=== PATIENT | male | born 1950 | race Caucasian/White ===

== ENCOUNTER 2020-07-14 19:48 | Inpatient (IN) | payer MEDICARE, OTHER ==
[2020-07-14] MEDS ORDERED: IPRATROPIUM 0.5 MG/2.5 ML NEBU INHALATION STA (19:49)
[2020-07-14] MEDS ORDERED: methylPREDNISolone SOD SUCCI 125 MG/2 ML VIAL IV STA (19:49)
[2020-07-14] MEDS ORDERED: ALBUTEROL NEBULIZED 2.5 MG/3 ML INHALATION STA (19:49)
--- NOTE | 2020-07-14 20:07 | XR ---
EXAMINATION TYPE: XR chest 1V portable DATE OF EXAM: 07/14/2020 COMPARISON: NONE HISTORY: Difficulty breathing TECHNIQUE: Single view FINDINGS: There is no heart failure nor confluent pneumonic infiltrate. Costophrenic angles are clear . There are no hilar masses. IMPRESSION: No active cardiopulmonary disease. There is mild pulmonary hyperinflation suggestive of C OPD.
--- NOTE | 2020-07-14 20:17 | ED ---
General Adult HPI - General Chief complaint: Shortness of Breath Stated complaint: MILLIE Time Seen by Provider: 07/14/20 19:49 Source: patient, EMS, RN notes reviewed, old records reviewed Mode of arrival: EMS Limitations: physical limitation - History of Present Illness Initial comments: 69-year-old male with severe respiratory distress, history of tobacco use. History is limited secondary to severe respiratory distress. Transported by EMS as a priority one on CPAP. Given albuterol and Atrovent during transport. Patient denying central chest pain. Denying fevers. - Related Data Allergies Allergy/AdvReac Type Severity Reaction Status Date / Time No Known Allergies Allergy Verified 07/14/20 19:56 Review of Systems ROS Statement: Those systems with pertinent positive or pertinent negative responses have been documented in the HPI. ROS Other: All systems not noted in ROS Statement are negative. Past Medical History Past Medical History: COPD, Hypertension Additional Past Medical History / Comment(s): engarged right ventricle History of Any Multi-Drug Resistant Organisms: None Reported Past Surgical History: No Surgical Hx Reported Past Psychological History: No Psychological Hx Reported Smoking Status: Current every day smoker Past Alcohol Use History: Daily Past Drug Use History: Marijuana General Exam Limitations: no limitations General appearance: alert, in distress Head exam: Present: atraumatic, normocephalic Eye exam: Present: normal appearance, PERRL Neck exam: Present: normal inspection. Absent: tenderness, meningismus Respiratory exam: Present: respiratory distress, wheezes, accessory muscle use, decreased breath sounds, prolonged expiratory Cardiovascular Exam: Present: regular rate, normal rhythm GI/Abdominal exam: Present: soft. Absent: distended, tenderness, guarding Extremities exam: Present: normal inspection, normal capillary refill. Absent: pedal edema, joint swelling Neurological exam: Present: alert, oriented X3, CN II-XII intact. Absent: motor sensory deficit Psychiatric exam: Present: anxious Skin exam: Present: warm, dry, intact. Absent: cyanosis, diaphoretic Course Vital Signs 07/14/20 07/14/20 07/14/20 19:50 20:00 20:30 Pulse Rate 106 H 100 96 Respiratory 40 H Rate Blood Pressure 203/120 O2 Sat by Pulse 96 Oximetry 07/14/20 20:52 Pulse Rate 95 Respiratory Rate Blood Pressure O2 Sat by Pulse Oximetry - Reevaluation(s) Reevaluation #1: 07/14/20 21:11 Patient reevaluated, symptoms have improved, increased oxygenation and decreased work of breathing. He has no pain complaints. Denying chest pain. No preceding fever. EKG Findings - EKG Comments: EKG Findings:: EKG: Normal sinus rhythm, left axis deviation, rate of 86, AL interval 154, QRS duration 102, QTC 471, no ST segment elevation. Medical Decision Making - Medical Decision Making 69-year-old male presenting in severe respiratory distress. Hypoxic by EMS and the 60s. Placed on CPAP during transport. X-ray performed negative for pneumothorax or focal pneumonia, consistent with COPD with hyperinflation. Patient has a normal CBC. Normal CMP, magnesium 1.4 which is replaced. Negative troponin. he will be admitted for COPD exacerbation. Continued on BiPAP. Dr. Gibson aware of patient. - Lab Data Result diagrams: 07/14/20 20:11 07/14/20 20:11 Lab Results 07/14/20 07/14/20 07/14/20 Range/Units 20:11 20:11 20:11 WBC 6.5 (3.8-10.6) k/uL RBC 4.66 (4.30-5.90) m/uL Hgb 15.1 (13.0-17.5) gm/dL Hct 44.5 (39.0-53.0) % MCV 95.5 (80.0-100.0) fL MCH 32.5 (25.0-35.0) pg MCHC 34.1 (31.0-37.0) g/dL RDW 13.7 (11.5-15.5) % Plt Count 278 (150-450) k/uL MPV 6.4 Neutrophils % 59 % Lymphocytes % 34 % Monocytes % 3 % Eosinophils % 1 % Basophils % 0 % Neutrophils # 3.8 (1.3-7.7) k/uL Lymphocytes # 2.2 (1.0-4.8) k/uL Monocytes # 0.2 (0-1.0) k/uL Eosinophils # 0.1 (0-0.7) k/uL Basophils # 0.0 (0-0.2) k/uL PT 9.9 (9.0-12.0) sec INR 0.9 (<1.2) APTT 21.2 L (22.0-30.0) sec VBG pH (7.31-7.41) VBG pCO2 (37-51) mmHg VBG HCO3 (24-28) mmol/L Sodium 136 L (137-145) mmol/L Potassium 4.0 (3.5-5.1) mmol/L Chloride 99 (98-107) mmol/L Carbon Dioxide 21 L (22-30) mmol/L Anion Gap 16 mmol/L BUN 15 (9-20) mg/dL Creatinine 0.71 (0.66-1.25) mg/dL Est GFR (CKD-EPI)AfAm >90 (>60 ml/min/1.73 sqM) Est GFR (CKD-EPI)NonAf >90 (>60 ml/min/1.73 sqM) Glucose 158 H (74-99) mg/dL Calcium 9.4 (8.4-10.2) mg/dL Magnesium 1.4 L (1.6-2.3) mg/dL Total Bilirubin 0.3 (0.2-1.3) mg/dL AST 62 H (17-59) U/L ALT 10 (4-49) U/L Alkaline Phosphatase 97 (38-126) U/L Troponin I (0.000-0.034) ng/mL Total Protein 6.8 (6.3-8.2) g/dL Albumin 4.3 (3.5-5.0) g/dL 07/14/20 07/14/20 Range/Units 20:11 20:11 WBC (3.8-10.6) k/uL RBC (4.30-5.90) m/uL Hgb (13.0-17.5) gm/dL Hct (39.0-53.0) % MCV (80.0-100.0) fL MCH (25.0-35.0) pg MCHC (31.0-37.0) g/dL RDW (11.5-15.5) % Plt Count (150-450) k/uL MPV Neutrophils % % Lymphocytes % % Monocytes % % Eosinophils % % Basophils % % Neutrophils # (1.3-7.7) k/uL Lymphocytes # (1.0-4.8) k/uL Monocytes # (0-1.0) k/uL Eosinophils # (0-0.7) k/uL Basophils # (0-0.2) k/uL PT (9.0-12.0) sec INR (<1.2) APTT (22.0-30.0) sec VBG pH 7.32 (7.31-7.41) VBG pCO2 43 (37-51) mmHg VBG HCO3 21 L (24-28) mmol/L Sodium (137-145) mmol/L Potassium (3.5-5.1) mmol/L Chloride (98-107) mmol/L Carbon Dioxide (22-30) mmol/L Anion Gap mmol/L BUN (9-20) mg/dL Creatinine (0.66-1.25) mg/dL Est GFR (CKD-EPI)AfAm (>60 ml/min/1.73 sqM) Est GFR (CKD-EPI)NonAf (>60 ml/min/1.73 sqM) Glucose (74-99) mg/dL Calcium (8.4-10.2) mg/dL Magnesium (1.6-2.3) mg/dL Total Bilirubin (0.2-1.3) mg/dL AST (17-59) U/L ALT (4-49) U/L Alkaline Phosphatase (38-126) U/L Troponin I <0.012 (0.000-0.034) ng/mL Total Protein (6.3-8.2) g/dL Albumin (3.5-5.0) g/dL Critical Care Time Critical Care Time: Yes Total Critical Care Time: 35 Disposition Clinical Impression: Acute exacerbation of chronic obstructive pulmonary disease Disposition: ADMITTED IP TO THIS [facility] Condition: Stable Is patient prescribed a controlled substance at d/c from ED?: No Referrals: None,Stated [Primary Care Provider] - 1-2 days Decision to Admit Reason: Admit from EC Decision Date: 07/14/20 Decision Time: 21:12
[2020-07-14 20:31] LABS: Basophils % (A) 0 %; Eosinophils # (A) 0.1 k/uL (0-0.7); Eosinophils % (A) 1 %; HCT 44.5 % (39.0-53.0); HGB 15.1 gm/dL (13.0-17.5); Lymphocytes # (A) 2.2 k/uL (1.0-4.8); Lymphocytes % (A) 34 %; MCH 32.5 pg (25.0-35.0); MCHC 34.1 g/dL (31.0-37.0); MCV 95.5 fL (80.0-100.0); Mean Platelet Volume 6.4; Monocytes # (A) 0.2 k/uL (0-1.0); Monocytes % (A) 3 %; Neutrophils # (A) 3.8 k/uL (1.3-7.7); Neutrophils % (A) 59 %; Platelet Count 278 k/uL (150-450); RBC 4.66 m/uL (4.30-5.90); RDW 13.7 % (11.5-15.5); WBC 6.5 k/uL (3.8-10.6)
[2020-07-14 20:32] LABS: VBG PH 7.32 (7.31-7.41)
[2020-07-14 20:49] LABS: ALT 10 U/L (4-49); AST 62 U/L (17-59); African American GFR (CKD) >90 (>60 ml/min/1.73 sqM); Albumin 4.3 g/dL (3.5-5.0); Alkaline Phosphatase 97 U/L (38-126); Anion Gap 16 mmol/L; Blood Urea Nitrogen 15 mg/dL (9-20); Calcium 9.4 mg/dL (8.4-10.2); Carbon Dioxide 21 mmol/L (22-30); Chloride 99 mmol/L (98-107); Glucose 158 mg/dL (74-99); Magnesium 1.4 mg/dL (1.6-2.3); Non-African American GFR(CKD) >90 (>60 ml/min/1.73 sqM); Sodium 136 mmol/L (137-145); Total Bilirubin 0.3 mg/dL (0.2-1.3); Total Protein 6.8 g/dL (6.3-8.2)
[2020-07-14 20:55] LABS: INR 0.9 (<1.2); Partial Thromboplastin Time 21.2 sec (22.0-30.0); Prothrombin Time 9.9 sec (9.0-12.0)
[2020-07-14] MEDS ORDERED: MAGNESIUM SULFATE-D5W PMX 1 GM in DEXTROSE/WATER 1 100ML.BAG IVPB ONE ×2 (21:03→23:30)
[2020-07-14] MEDS ORDERED: IPRATROPIUM-ALBUTEROL 3 ML NEB INHALATION PRN (21:09)
[2020-07-14] MEDS: SODIUM CHLORIDE 0.9% 1,000 ML IV SCH (21:27)
[2020-07-14 21:45] LABS: ABG Base Excess 1.3 mmol/L; ABG HCO3 26 mmol/L (21-25); ABG Oxygen Saturation 93.2 % (94-97); ABG PCO2 40 mmHg (35-45); ABG PH 7.42 (7.35-7.45); ABG PO2 68 mmHg (83-108); ABG TCO2 27 mmol/L (19-24); Allen Test Performed? Yes
--- NOTE | 2020-07-14 22:39 | P.HPIM ---
History of Present Illness H&P Date: 07/14/20 The patient is a 69-year-old male with a PMH of tobacco abuse, Parkinson's, anxiety, and hypothyroidism who was brought into the the emergency room due to shortness of breath. The patient notes that he was in his usual state of health until about 7 PM tonight when he developed an intractable cough. He then developed shortness of breath which would not subside, at which time he activated EMS. The patient was on BiPAP during the interview. As per the ED physician, the patient had very diminished air entry bilaterally and was in respiratory distress. EMS had found the patient to be hypoxic with SpO2 in the 60s and administered DuoNeb's en-route to the hospital. He reported a long-standing history of tobacco abuse, and that he continues to smoke one pack of cigarettes every 2-3 days. He however denied ever being diagnosed with COPD, ever being hospitalized for his breathing, and notes that he does not use any inhalers. He reported feeling significantly better after the breathing tr eatments and asked if he could be taken off BiPAP. He denied chest discomfort, fever, chills. Denied nausea, vomiting, abdominal pain, diarrhea. He denied headaches, weakness, numbness, tingling. In the emergency room, chest x-ray was suggestive of COPD with EKG showing normal sinus rhythm at 86 bpm with left axis deviation. Laboratory evaluation was remarkable for a lactic acid of 3.7, glucose 158, magnesium 1.4, AST 62, troponin less than 0.012, and proBNP 147. Review of systems: Pertinent positives and negatives as discussed in HPI, a complete review of systems was performed and all other systems are negative. Physical examination: General: non toxic, no distress, appears at stated age, normal weight Derm: Left upper back 7 days centimeter circular stage II ulcer, no unusual ecch ymoses, warm, dry Head: atraumatic, normocephalic, symmetric Eyes: EOMI, no lid lag, anicteric sclera, pupils equal round reactive to light ENT: Nose and ears atraumatic, no thrush, no pharyngeal erythema Neck: No thyromegaly, no cervical lymphadenopathy, trachea midline, supple Mouth: no lip lesion, mucus membranes moist Cardiovascular: S1S2 reg, no murmur, positive posterior tibial pulse bilateral, no edema, capillary refill less than 2 seconds Lungs: Somewhat poor air entry bilaterally, no rhonchi, no rales , no accessory muscle use Abdominal: soft, nontender to palpation, no guarding, no appreciable organomegaly, normal bowel sounds Ext: no gross muscle atrophy, muscle strength 5 out of 5 in all 4 extremities grossly, no contractures, Neuro: CN II-XI grossly intact, light touch intact all 4 extremities, finger to nose within normal limits, Psych: Alert, oriented, appropriate affect Assessment/plan Shortness of breath, suspected acute COPD exacerbation -Continue with DuoNeb's -BiPAP when necessary -Solu-Medrol -Pulmonary consult Lactic acidosis -IV fluids and monitor for resolution Hypomagnesemia -Replace and monitor Left upper back ulcer -Wound care consult DVT prophylaxis -Heparin subq The patient is admitted with an anticipated greater than 2 midnight stay for evaluation of COPD exacerb CODE STATUS: Full Code Discussed with: Patient Anticipated discharge date: 2-[address]: Home A total of 35 minutes was spent on the care of this complex patient more than 50% of the time was spent in counseling and care coordination. Past Medical History Past Medical History: COPD, Hypertension Additional Past Medical History / Comment(s): engarged right ventricle History of Any Multi-Drug Resistant Organisms: None Reported Past Surgical History: No Surgical Hx Reported Past Psychological History: No Psychological Hx Reported Smoking Status: Current every day smoker Past Alcohol Use History: Daily Past Drug Use History: Marijuana Medications and Allergies Home Medications Medication Instructions Recorded Confirmed Type Carbidopa-Levodopa ER 50-200Mg 1 tab PO TID 07/14/20 07/14/20 History [Sinemet ER 50-200] Levothyroxine Sodium [Synthroid] 150 mcg PO DAILY 07/14/20 07/14/20 History Loratadine 10 mg PO DAILY 07/14/20 07/14/20 History Omeprazole 20 mg PO DAILY 07/14/20 07/14/20 History Propranolol [Inderal] 40 mg PO BID 07/14/20 07/14/20 History clonazePAM [KlonoPIN] 0.5 mg PO DAILY 07/14/20 07/14/20 History clonazePAM [KlonoPIN] 1 mg PO HS 07/14/20 07/14/20 History Allergies Allergy/AdvReac Type Severity Reaction Status Date / Time No Known Allergies Allergy Verified 07/14/20 22:22 Physical Exam Vitals: Vital Signs Pulse Resp BP Pulse Ox 07/14/20 20:52 95 07/14/20 20:30 96 07/14/20 20:00 100 07/14/20 19:50 106 H 40 H 203/120 96 Intake and Output 07/14/20 07/14/20 07/14/20 06:59 14:59 22:59 Other: Weight 70.307 kg Results CBC & Chem 7: 07/14/20 20:11 07/14/20 20:11 Labs: Abnormal Lab Results - Last 24 Hours (Table) 07/14/20 07/14/20 07/14/20 Range/Units 20:11 20:11 20:11 APTT 21.2 L (22.0-30.0) sec VBG HCO3 (24-28) mmol/L Sodium 136 L (137-145) mmol/L Carbon Dioxide 21 L (22-30) mmol/L Glucose 158 H (74-99) mg/dL Plasma Lactic Acid Robin 3.7 H* (0.7-2.0) mmol/L Magnesium 1.4 L (1.6-2.3) mg/dL AST 62 H (17-59) U/L 07/14/20 Range/Units 20:11 APTT (22.0-30.0) sec VBG HCO3 21 L (24-28) mmol/L Sodium (137-145) mmol/L Carbon Dioxide (22-30) mmol/L Glucose (74-99) mg/dL Plasma Lactic Acid Robin (0.7-2.0) mmol/L Magnesium (1.6-2.3) mg/dL AST (17-59) U/L
[2020-07-15] MEDS: methylPREDNISolone SOD SUCCI 125 MG/2 ML VIAL IV SCH ×5 (00:31→23:00)
[2020-07-15] MEDS: clonazePAM 1 MG TAB PO SCH ×2 (00:32→21:10)
[2020-07-15] MEDS: LORATADINE 10 MG TAB PO SCH ×2 (00:32→09:15)
[2020-07-15] MEDS: LEVOTHYROXINE 75 MCG TAB PO SCH ×2 (00:32→06:20)
[2020-07-15] MEDS: CARBIDOPA-LEVODOPA ER 50-200MG 1 EACH TABLET.ER PO SCH ×4 (00:32→21:10)
[2020-07-15] MEDS: PROPRANOLOL 40 MG TAB PO SCH ×3 (00:32→21:10)
[2020-07-15] MEDS: PANTOPRAZOLE 40 MG TABLET PO SCH ×2 (00:32→06:21)
[2020-07-15] MEDS: HEPARIN SODIUM,PORCINE/PF 5,000 UNIT/0.5 ML SYRINGE SQ SCH ×4 (00:34→23:00)
[2020-07-15 06:15] LABS: Glucose,Whole Blood 134 mg/dL (75-99)
[2020-07-15] MEDS: INSULIN ASPART (NovoLOG) 100 UNIT/ML VIAL SQ SCH ×4 (06:17→21:10)
[2020-07-15] MEDS: SODIUM CHLORIDE 0.9% 1,000 ML IV SCH (06:20)
[2020-07-15] MEDS: IPRATROPIUM-ALBUTEROL 3 ML NEB INHALATION SCH ×4 (07:00→19:49)
[2020-07-15 08:41] LABS: African American GFR (CKD) >90 (>60 ml/min/1.73 sqM); Anion Gap 11 mmol/L; Blood Urea Nitrogen 17 mg/dL (9-20); Calcium 8.4 mg/dL (8.4-10.2); Carbon Dioxide 23 mmol/L (22-30); Chloride 98 mmol/L (98-107); Glucose 179 mg/dL (74-99); Magnesium 1.6 mg/dL (1.6-2.3); Non-African American GFR(CKD) >90 (>60 ml/min/1.73 sqM); Potassium 3.7 mmol/L (3.5-5.1); Sodium 132 mmol/L (137-145)
[2020-07-15] MEDS: clonazePAM 0.5 MG TAB PO SCH (09:15)
--- NOTE | 2020-07-15 09:43 | P.CNPUL ---
History of Present Illness Consult date: 07/15/20 Requesting physician: Gaby Gibson Reason for consult: dyspnea, cough, COPD, hypoxemia, abnormal CXR/CT Chief complaint: Shortness of breath. History of present illness: Pulmonary consult dated 07/15/2020. 69-year-old male, seen in the emergency room, which shortness of breath. The patient was seen on July 14. The patient states that for at least a week or so prior to admission, he been having increasing shortness of breath. The patient likely has underlying severe COPD. Smoking for more than 50 years at least a pack a day A be more. He was transported into the emergency room by EMS was treated with CPAP. He also received treatment with albuterol sulfate ipratropium bromide in route. The patient has never seen a lung doctor in the past. Patient was told by Dr. Beasley, that he had COPD. His current doctor is Dr. Jean Morse. In addition to shortness of breath, the patient does have a chronic cough, and chronic phlegm production. He denies any fever or chills. No chest pain or chest discomfort. He continues to smoke cigarettes but he apparently has cut back. His medical problem list includes COPD, hypertension, and enlarged right ventricle, probably consistent with pulmonary hypertension. Lab work is reviewed. Blood gases show pO2 of 68, pCO2 40, pH is 7.42. Sodium 132, potassium 3.7, chlorides 98, CO2 23, anion gap is 11 BUN 17, and creatinine 0.54. Testing for coronavirus was negative. Chest x-ray showed evidence of hyperinflation, flattened diaphragms, and lucent lung kohler consistent with COPD. Review of Systems REVIEW OF SYSTEMS: CONSTITUTIONAL: [Negative.] NEUROLOGIC: [ Negative.] HEENT: [ Negative.] CARDIAC: [Negative.] PULMONARY: Shortness of breath, cough, and phlegm production. GI: [Negative.] : [Negative.] RHEUMATOLOGIC: [ Negative.] IMMUNOLOGIC: [ Negative.] ENDOCRINE: [Negative. ] DERMATOLOGIC: [Negative.] Past Medical History Past Medical History: COPD, Hypertension Additional Past Medical History / Comment(s): engarged right ventricle History of Any Multi-Drug Resistant Organisms: None Reported Past Surgical History: No Surgical Hx Reported Past Psychological History: No Psychological Hx Reported Smoking Status: Current every day smoker Past Alcohol Use History: Daily Past Drug Use History: Marijuana Medications and Allergies Home Medications Medication Instructions Recorded Confirmed Type Carbidopa-Levodopa ER 50-200Mg 1 tab PO TID 07/14/20 07/14/20 History [Sinemet ER 50-200] Levothyroxine Sodium [Synthroid] 150 mcg PO DAILY 07/14/20 07/14/20 History Loratadine 10 mg PO DAILY 07/14/20 07/14/20 History Omeprazole 20 mg PO DAILY 07/14/20 07/14/20 History Propranolol [Inderal] 40 mg PO BID 07/14/20 07/14/20 History clonazePAM [KlonoPIN] 0.5 mg PO DAILY 07/14/20 07/14/20 History clonazePAM [KlonoPIN] 1 mg PO HS 07/14/20 07/14/20 History Allergies Allergy/AdvReac Type Severity Reaction Status Date / Time No Known Allergies Allergy Verified 07/14/20 22:22 Physical Exam Osteopathic Statement: *. No significant issues noted on an osteopathic structural exam other than those noted in the History and Physical/Consult. Vitals: Vital Signs Temp Pulse Pulse Resp BP BP Pulse Ox 07/15/20 07:09 68 16 07/15/20 07:00 68 16 99 07/15/20 06:00 97.5 F L 70 18 156/87 96 07/15/20 05:28 59 L 18 127/74 97 07/15/20 01:22 67 150/92 98 07/15/20 00:15 97.8 F 70 20 169/89 99 07/14/20 23:00 67 150/89 99 07/14/20 22:37 40 H 07/14/20 22:00 69 136/81 98 07/14/20 21:00 72 135/87 98 07/14/20 20:52 95 07/14/20 20:30 96 07/14/20 20:00 100 126/81 98 07/14/20 19:50 106 H 40 H 203/120 96 Intake and Output 07/14/20 07/15/20 07/15/20 22:59 06:59 14:59 Other: # Voids 0 Weight 70.307 kg 68 kg No acute distress, oriented 3. No conversational dyspnea or use of accessory muscles. Patient currently on 2 L nasal cannula with saturations of 99%. HEENT examination is grossly unremarkable. Neck supple. Full range of motion. No adenopathy thyromegaly or neck vein distention. Cardiovascular examination reveals regular rhythm rate. S1-S2 normal. No S3 or S4. No discernible murmur noted. Heart sounds are distant. Heart rate 68 bpm. Lungs reveal severely diminished bilateral breath sounds. Scattered expiratory rhonchi and wheezes are noted. No crackles. Breath sounds are equal bilaterally. Abdomen soft bowel sounds are heard. No masses or tenderness. Extremities are intact. No cyanosis clubbing or edema. Skin is without rash or lesion. Neurologic examination is brief but nonfocal. Results - Laboratory Findings CBC and BMP: 07/14/20 20:11 07/15/20 07:34 ABG ABG pH 7.42 (7.35-7.45) 07/14/20 21:40 ABG pCO2 40 mmHg (35-45) 07/14/20 21:40 ABG pO2 68 mmHg (83-108) L 07/14/20 21:40 ABG O2 Saturation 93.2 % (94-97) L 07/14/20 21:40 PT/INR, D-dimer PT 9.9 sec (9.0-12.0) 07/14/20 20:11 INR 0.9 (<1.2) 07/14/20 20:11 Abnormal lab findings: Abnormal Labs 07/14/20 07/14/20 07/14/20 20:11 20:11 20:11 APTT 21.2 L ABG pO2 ABG HCO3 ABG Total CO2 ABG O2 Saturation VBG HCO3 Sodium 136 L Carbon Dioxide 21 L Creatinine Glucose 158 H POC Glucose (mg/dL) Plasma Lactic Acid Robin 3.7 H* Magnesium 1.4 L AST 62 H 07/14/20 07/14/20 07/15/20 20:11 21:40 06:14 APTT ABG pO2 68 L ABG HCO3 26 H ABG Total CO2 27 H ABG O2 Saturation 93.2 L VBG HCO3 21 L Sodium Carbon Dioxide Creatinine Glucose POC Glucose (mg/dL) 134 H Plasma Lactic Acid Robin Magnesium AST 07/15/20 07:34 APTT ABG pO2 ABG HCO3 ABG Total CO2 ABG O2 Saturation VBG HCO3 Sodium 132 L Carbon Dioxide Creatinine 0.54 L Glucose 179 H POC Glucose (mg/dL) Plasma Lactic Acid Robin Magnesium AST - Diagnostic Findings Chest x-ray: image reviewed Assessment and Plan Assessment: Acute exacerbation of COPD, without obvious infection. History of hypothyroidism. History of hypertension. History of Parkinson's disease. History of ongoing tobacco use with nicotine addiction. Probable secondary pulmonary hypertension. Plan: Plan dated 07/15/2020. The patient's currently on appropriate medications which include albuterol sulfate and ipratropium bromide, 4 times a day and when necessary. In addition, the patient is on Pulmicort 1 mg mixed with formoterol 20 g twice a day. The patient's also receiving Solu-Medrol 60 mg every 6 hours. The patient is not on any antibiotics. He is receiving GI and DVT prophylaxis. He is counseled about the importance of smoking cessation. He will need a follow-up in the office post discharge, for complete pulmonary function testing. Time with Patient: Greater than 30
--- NOTE | 2020-07-15 10:53 | P.CONS ---
History of Present Illness - Reason for Consult Consult date: 07/15/20 wound care - History of Present Illness This is a 69 year old being seen by wound care center on 3 for non healing ulcer. The ulceration has been there for 3-4 years. He has treated it with triple antibiotic ointment. Patient states that the ulceration has waxed and waned over the year however for the last year the patient states that the ulceration has been worsening. Patient is unsure how the ulceration started. He is concerned that it is due to multiple x-rays to the site. Patient has never had a biopsy to the site. Ulceration measures approximately 7 x 4 x 0.1 cm with fat layer closure. The wound that shows granulation with minimal slough. And serosanguineous drainage. Periwound shows some scarring. There is no tunneling or undermining noted. Patient's past medical history significant for COPD and hypertension. He isn't every day nicotine and marijuana smoker. Review Of Systems: Constitutional: No fever, no chills, no night sweats. No weight change. No weakness, fatigue or lethargy. No daytime sleepiness. Integumentary:reports wounds, no lesions. No rash or pruritus. No unusual bruising. No change in hair or nails. Physical exam: General Appearance: Alert, cooperative, no distress, appears stated age. Skin: See HPI all other Skin color, texture, tugor normal, no rashes or lesions. Neurologic: Alert oriented x3 Assessment: 1. Nonhealing ulceration with fatty layer exposure left upper back. Plan: 1. Culture obtained. Patient would benefit from a biopsy. Apply collagen, saline moistened gauze, border foam change Tuesday. Patient will benefit from continued advance wound care. We'll be happy to see him in the wound care center. Patient verbalized understanding. Thank you for the consultation any questions please contact the wound care [facility] DNP note has been reviewed and discussed with Dr. Ren and the impression and plan of care has been directed as dictated. Past Medical History Past Medical History: COPD, Hypertension Additional Past Medical History / Comment(s): engarged right ventricle History of Any Multi-Drug Resistant Organisms: None Reported Past Surgical History: Back Surgery Additional Past Surgical History / Comment(s): back surgery x3, thyroid removed Past Psychological History: No Psychological Hx Reported Smoking Status: Current every day smoker Past Alcohol Use History: Daily Past Drug Use History: Marijuana Medications and Allergies Home Medications Medication Instructions Recorded Confirmed Type Carbidopa-Levodopa ER 50-200Mg 1 tab PO TID 07/14/20 07/14/20 History [Sinemet ER 50-200] Levothyroxine Sodium [Synthroid] 150 mcg PO DAILY 07/14/20 07/14/20 History Loratadine 10 mg PO DAILY 07/14/20 07/14/20 History Omeprazole 20 mg PO DAILY 07/14/20 07/14/20 History Propranolol [Inderal] 40 mg PO BID 07/14/20 07/14/20 History clonazePAM [KlonoPIN] 0.5 mg PO DAILY 07/14/20 07/14/20 History clonazePAM [KlonoPIN] 1 mg PO HS 07/14/20 07/14/20 History Allergies Allergy/AdvReac Type Severity Reaction Status Date / Time No Known Allergies Allergy Verified 07/14/20 22:22 Physical Exam Vitals: Vital Signs Temp Pulse Pulse Resp BP BP Pulse Ox 07/15/20 07:09 68 16 07/15/20 07:00 68 16 99 07/15/20 06:00 97.5 F L 70 18 156/87 96 07/15/20 05:28 59 L 18 127/74 97 07/15/20 01:22 67 150/92 98 07/15/20 00:15 97.8 F 70 20 169/89 99 07/14/20 23:00 67 150/89 99 07/14/20 22:37 40 H 07/14/20 22:00 69 136/81 98 07/14/20 21:00 72 135/87 98 07/14/20 20:52 95 07/14/20 20:30 96 07/14/20 20:00 100 126/81 98 07/14/20 19:50 106 H 40 H 203/120 96 Intake and Output 07/14/20 07/15/20 07/15/20 22:59 06:59 14:59 Other: # Voids 0 Weight 70.307 kg 68 kg 68 kg Results CBC & Chem 7: 07/14/20 20:11 07/15/20 07:34 Labs: Abnormal Lab Results - Last 24 Hours (Table) 07/14/20 07/14/20 07/14/20 Range/Units 20:11 20:11 20:11 APTT 21.2 L (22.0-30.0) sec ABG pO2 (83-108) mmHg ABG HCO3 (21-25) mmol/L ABG Total CO2 (19-24) mmol/L ABG O2 Saturation (94-97) % VBG HCO3 (24-28) mmol/L Sodium 136 L (137-145) mmol/L Carbon Dioxide 21 L (22-30) mmol/L Creatinine (0.66-1.25) mg/dL Glucose 158 H (74-99) mg/dL POC Glucose (mg/dL) (75-99) mg/dL Plasma Lactic Acid Robin 3.7 H* (0.7-2.0) mmol/L Magnesium 1.4 L (1.6-2.3) mg/dL AST 62 H (17-59) U/L 07/14/20 07/14/20 07/15/20 Range/Units 20:11 21:40 06:14 APTT (22.0-30.0) sec ABG pO2 68 L (83-108) mmHg ABG HCO3 26 H (21-25) mmol/L ABG Total CO2 27 H (19-24) mmol/L ABG O2 Saturation 93.2 L (94-97) % VBG HCO3 21 L (24-28) mmol/L Sodium (137-145) mmol/L Carbon Dioxide (22-30) mmol/L Creatinine (0.66-1.25) mg/dL Glucose (74-99) mg/dL POC Glucose (mg/dL) 134 H (75-99) mg/dL Plasma Lactic Acid Robin (0.7-2.0) mmol/L Magnesium (1.6-2.3) mg/dL AST (17-59) U/L 07/15/20 Range/Units 07:34 APTT (22.0-30.0) sec ABG pO2 (83-108) mmHg ABG HCO3 (21-25) mmol/L ABG Total CO2 (19-24) mmol/L ABG O2 Saturation (94-97) % VBG HCO3 (24-28) mmol/L Sodium 132 L (137-145) mmol/L Carbon Dioxide (22-30) mmol/L Creatinine 0.54 L (0.66-1.25) mg/dL Glucose 179 H (74-99) mg/dL POC Glucose (mg/dL) (75-99) mg/dL Plasma Lactic Acid Robin (0.7-2.0) mmol/L Magnesium (1.6-2.3) mg/dL AST (17-59) U/L
--- NOTE | 2020-07-15 12:14 | P.PN ---
Subjective Progress Note Date: 07/15/20 Hospital course: Patient is a 69-year-old male with a past medical history of Parkinson's disease, hypertension, hypothyroidism, COPD not on home oxygen dependent, anxiety, and tobacco dependence reportedly smoking cigarettes one pack per day times greater than 50 years along with a pipe. Patient presented to the emergency department with a chief complaint of shortness of breath. Patient states he has been noticing increasing fatigue and shortness of breath over the past week but states suddenly yesterday around 7 PM things significantly worsened and he could not catch his breath. Patient does report to being outside in the hot weather for most of the day. Upon arrival to the hospital patient was found to be in respiratory distress as he was significantly hypoxic with SpO2 in the 60s requiring oxygen supplementation on BiPAP. A chest x-ray was completed showing mild pulmonary hyperinflation suggestive of COPD. EKG completed revealing normal sinus rhythm at 86 bpm with T-wave inversion in leads aVR and aVL, no ST elevation or depression showing no signs of acute ischemia. Lab work completed CBC and BMP showing no significant abnormalities, magnesium level 1.4 requiring replacement. Covid PCR negative. Patient admitted under our services with consult to pulmonology. Physical exam: Patient seen and fully evaluated at the bedside this morning patient has been weaned off BiPAP and currently maintaining SpO2 greater than 90% on 2-3 L of oxygen. Patient reports continued shortness of breath but does report feeling better than how he felt upon arrival to facility. Patient denies having any headache, lightheadedness, dizziness, chest pain or palpitations, abdominal pain, nausea, vomiting, or experiencing any numbness/tingling/weakness/swelling in his extremities. General: non toxic, no distress, appears at stated age. Frail/thin build. Derm: warm, dry Head: atraumatic, normocephalic, symmetric Eyes: EOMI, no lid lag, anicteric sclera Mouth: no lip lesion, mucus membranes moist Cardiovascular: S1S2 normal with regular rate and rhythm. No murmur, gallops, or rubs noted. Posterior tibial pulses palpated bilaterally. Cap refill less than 2 seconds. Lungs: Respirations even, regular, and unlabored on 2 L O2 via nasal cannula at this time. Lungs significantly diminished throughout with diffuse soft expiratory wheezes bilaterally, no rhonchi, rales, or crackles noted. Abdominal: soft, nontender to palpation, no guarding, no appreciable organomegaly Ext: no gross muscle atrophy, no edema, no contractures Neuro: CN II-XI grossly intact, no focal neuro deficits Psych: Alert, oriented, appropriate affect Assessment and Plan of care: Acute respiratory distress with hypoxia secondary to acute exacerbation of COPD -Chest x-ray was completed showing mild pulmonary hyperinflation suggestive of COPD -Consult to Pulmonology -Oxygenation to be administered and titrated as needed to maintain SPO2 equal to or greater than 92%, currently maintaining SpO2 on 2-3 L -Telemetry monitoring. -Continue Formotolol and Pulmicort -Duonebs as needed for SOB and/or wheezing -Incentive Spirometry -Steroids: Solumedrol 60 mg q 6 hours Hypomagnesemia -Magnesium 1.6, replaced -We will continue to monitor with repeat a.m. labs and replace abnormal electrolyte values as needed. Parkinson's disease -Continue to provide safe and supportive care with assistance as needed. -Continue daily medication management with carbidopa levodopa. Hypertension -Monitor vital signs and continue daily medication management with propranolol. Hypothyroidism -Continue daily medication management with levothyroxine. Tobacco dependence -Continue to provide education and encouragement on the importance of smoking cessation and the risks of continued use. -Nicotine patch CODE STATUS: Full code DVT prophylaxis: Heparin Discussed with: Patient and RN Anticipated discharge date: Clinical course to determine Anticipated discharge place: Home A total of 45 minutes was spent on the care of this complex patient more than 50% of the time was spent in counseling and care coordination. Objective - Vital Signs Vital signs: Vital Signs Temp 97.5 F L 07/15/20 06:00 Pulse 68 07/15/20 07:09 Resp 16 07/15/20 07:09 BP 156/87 07/15/20 06:00 Pulse Ox 99 07/15/20 07:00 Intake & Output 07/14/20 07/15/20 07/15/20 18:59 06:59 18:59 Weight 68 kg Other: # Voids 0 - Labs CBC & Chem 7: 07/14/20 20:11 07/15/20 07:34 Labs: Abnormal Lab Results - Last 24 Hours (Table) 07/14/20 07/14/20 07/14/20 Range/Units 20:11 20:11 20:11 APTT 21.2 L (22.0-30.0) sec ABG pO2 (83-108) mmHg ABG HCO3 (21-25) mmol/L ABG Total CO2 (19-24) mmol/L ABG O2 Saturation (94-97) % VBG HCO3 (24-28) mmol/L Sodium 136 L (137-145) mmol/L Carbon Dioxide 21 L (22-30) mmol/L Creatinine (0.66-1.25) mg/dL Glucose 158 H (74-99) mg/dL POC Glucose (mg/dL) (75-99) mg/dL Plasma Lactic Acid Robin 3.7 H* (0.7-2.0) mmol/L Magnesium 1.4 L (1.6-2.3) mg/dL AST 62 H (17-59) U/L 07/14/20 07/14/20 07/15/20 Range/Units 20:11 21:40 06:14 APTT (22.0-30.0) sec ABG pO2 68 L (83-108) mmHg ABG HCO3 26 H (21-25) mmol/L ABG Total CO2 27 H (19-24) mmol/L ABG O2 Saturation 93.2 L (94-97) % VBG HCO3 21 L (24-28) mmol/L Sodium (137-145) mmol/L Carbon Dioxide (22-30) mmol/L Creatinine (0.66-1.25) mg/dL Glucose (74-99) mg/dL POC Glucose (mg/dL) 134 H (75-99) mg/dL Plasma Lactic Acid Robin (0.7-2.0) mmol/L Magnesium (1.6-2.3) mg/dL AST (17-59) U/L 07/15/20 Range/Units 07:34 APTT (22.0-30.0) sec ABG pO2 (83-108) mmHg ABG HCO3 (21-25) mmol/L ABG Total CO2 (19-24) mmol/L ABG O2 Saturation (94-97) % VBG HCO3 (24-28) mmol/L Sodium 132 L (137-145) mmol/L Carbon Dioxide (22-30) mmol/L Creatinine 0.54 L (0.66-1.25) mg/dL Glucose 179 H (74-99) mg/dL POC Glucose (mg/dL) (75-99) mg/dL Plasma Lactic Acid Robin (0.7-2.0) mmol/L Magnesium (1.6-2.3) mg/dL AST (17-59) U/L
[2020-07-15 12:25] LABS: Glucose,Whole Blood 186 mg/dL (75-99)
[2020-07-15] MEDS: MAGNESIUM SULFATE-D5W PMX 1 GM in DEXTROSE/WATER 1 100ML.BAG IVPB SCH ×3 (12:51→17:30)
[2020-07-15 16:43] LABS: Glucose,Whole Blood 143 mg/dL (75-99)
[2020-07-15 17:10] LABS: Hemoglobin A1C 5.6 % (4.0-6.0)
[2020-07-15] MEDS: NICOTINE 21MG/24HR PATCH TRANSDERM SCH (17:31)
[2020-07-15] MEDS: FORMOTEROL FUMARATE 20 MCG/2 ML NEBU INHALATION SCH (19:48)
[2020-07-15] MEDS: BUDESONIDE 1 MG/2 ML NEBU INHALATION SCH (19:48)
[2020-07-15 19:54] LABS: Glucose,Whole Blood 143 mg/dL (75-99)
[2020-07-16 04:07] VITALS: RESP 16
[2020-07-16 05:57] LABS: Glucose,Whole Blood 135 mg/dL (75-99)
[2020-07-16] MEDS: INSULIN ASPART (NovoLOG) 100 UNIT/ML VIAL SQ SCH ×2 (06:23→13:18)
[2020-07-16] MEDS: PANTOPRAZOLE 40 MG TABLET PO SCH (06:23)
[2020-07-16] MEDS: methylPREDNISolone SOD SUCCI 125 MG/2 ML VIAL IV SCH ×2 (06:23→13:18)
[2020-07-16] MEDS: LEVOTHYROXINE 75 MCG TAB PO SCH (06:23)
[2020-07-16 08:39] VITALS: BP 163/102; TEMP 97.5
[2020-07-16] MEDS: clonazePAM 0.5 MG TAB PO SCH (08:40)
[2020-07-16] MEDS: HEPARIN SODIUM,PORCINE/PF 5,000 UNIT/0.5 ML SYRINGE SQ SCH ×2 (08:40→08:47)
[2020-07-16] MEDS: PROPRANOLOL 40 MG TAB PO SCH (08:40)
[2020-07-16] MEDS: NICOTINE 21MG/24HR PATCH TRANSDERM SCH (08:40)
[2020-07-16] MEDS: LORATADINE 10 MG TAB PO SCH (08:40)
[2020-07-16] MEDS: CARBIDOPA-LEVODOPA ER 50-200MG 1 EACH TABLET.ER PO SCH (08:40)
[2020-07-16] MEDS: IPRATROPIUM-ALBUTEROL 3 ML NEB INHALATION SCH ×3 (08:53→16:37)
[2020-07-16] MEDS: FORMOTEROL FUMARATE 20 MCG/2 ML NEBU INHALATION SCH (08:53)
[2020-07-16] MEDS: BUDESONIDE 1 MG/2 ML NEBU INHALATION SCH (08:53)
--- NOTE | 2020-07-16 11:18 | P.PN ---
Subjective Progress Note Date: 07/16/20 Principal diagnosis: Acute exacerbation of chronic obstructive pulmonary disease 69-year-old male, seen in the emergency room, which shortness of breath. The patient was seen on July 14. The patient states that for at least a week or so prior to admission, he been having increasing shortness of breath. The patient likely has underlying severe COPD. Smoking for more than 50 years at least a pack a day A be more. He was transported into the emergency room by EMS was treated with CPAP. He also received treatment with albuterol sulfate ipratropium bromide in route. The patient has never seen a lung doctor in the past. Patient was told by Dr. Beasley, that he had COPD. His current doctor is Dr. Jean Morse. In addition to shortness of breath, the patient does have a chronic cough, and chronic phlegm production. He denies any fever or chills. No chest pain or chest discomfort. He continues to smoke cigarettes but he apparently has cut back. His medical problem list includes COPD, hypertension, and enlarged right ventricle, probably consistent with pulmonary hypertension. Lab work is reviewed. Blood gases show pO2 of 68, pCO2 40, pH is 7.42. Sodium 132, potassium 3.7, chlorides 98, CO2 23, anion gap is 11 BUN 17, and creatinine 0.54. Testing for coronavirus was negative. Chest x-ray showed evidence of hyperinflation, flattened diaphragms, and lucent lung kohler consistent with COPD. The patient is seen today 07/16/2020 in follow-up on the selective care unit. He is currently laying flat in bed. Awake and alert in no acute distress. Maintaining O2 saturations in the 90s on room air. Blood cultures reveal no growth. Wound culture from his back is pending. Blood glucose 135. He remains on DuoNeb inhalations, Pulmicort and Perforomist inhalations, IV Solu-Medrol. NicoDerm patch in place. Objective - Vital Signs Vital signs: Vital Signs Temp 97.5 F L 07/16/20 08:00 Pulse 87 07/16/20 08:54 Resp 16 07/16/20 08:00 BP 163/102 07/16/20 08:00 Pulse Ox 94 L 07/16/20 08:00 Intake & Output 07/15/20 07/16/20 07/16/20 18:59 06:59 18:59 Intake Total 240 800 360 Output Total 600 Balance 240 200 360 Weight 68 kg 70.1 kg Intake: IV 800 Sodium Chloride 0.9% 1, 800 000 ml @ 75 mls/hr IV . [id number] [facility] Rx#:[id number] Oral 240 360 Output: Urine 600 Other: Voiding Method Toilet Toilet # Voids 1 1 - Exam GENERAL EXAM: Alert, pleasant 69-year-old gentleman, room air, comfortable in no apparent distress. HEAD: Normocephalic. EYES: Normal reaction of pupils, equal size. NOSE: Clear with pink turbinates. THROAT: No erythema or exudates. NECK: No masses, no JVD. CHEST: No chest wall deformity. LUNGS: Equal air entry with no crackles, wheeze, rhonchi or dullness. Diminished. CVS: S1 and S2 normal with no audible murmur, regular rhythm. ABDOMEN: No hepatosplenomegaly, normal bowel sounds, no guarding or rigidity. SPINE: No scoliosis or deformity SKIN: No rashes CENTRAL NERVOUS SYSTEM: No focal deficits, tone is normal in all 4 extremities. EXTREMITIES: There is no peripheral edema. No clubbing, no cyanosis. Peripheral pulses are intact. - Labs CBC & Chem 7: 07/14/20 20:11 07/15/20 07:34 Labs: Abnormal Lab Results - Last 24 Hours (Table) 07/15/20 07/15/20 07/15/20 Range/Units 12:23 16:42 19:53 POC Glucose (mg/dL) 186 H 143 H 143 H (75-99) mg/dL 07/16/20 Range/Units 05:56 POC Glucose (mg/dL) 135 H (75-99) mg/dL Microbiology - Last 24 Hours (Table) 07/15/20 10:45 Gram Stain - Preliminary Back Wound Culture - Preliminary 07/14/20 20:11 Blood Culture - Preliminary Blood No Growth after 24 hours 07/14/20 20:11 Blood Culture - Preliminary Blood No Growth after 24 hours 07/15/20 10:45 Anaerobic Culture - Preliminary Back Assessment and Plan Assessment: 1 Acute exacerbation of chronic obstructive pulmonary disease 2 Hypothyroidism 3 Hypertension 4 Parkinson's disease 5 Chronic and ongoing tobacco dependence 6 Probable secondary pulmonary hypertension Plan: The patient was seen and evaluated by Dr. Dick He is cleared for discharge from the pulmonary standpoint Continue bronchodilators, prednisone taper Again educated regarding the importance of complete smoking cessation Follow-up in the office for PFTs and further recommendations in regard to COPD I, the cosigning physician, performed a history & physical examination of the patient. Lungs sounds are clear, diminished. Maintaining good O2 saturations in the 90s on room air. I discussed the assessment and plan of care with my nurse practitioner, Eduarda Whittaker. I attest to the above note as dictated by her.
[2020-07-16 11:53] LABS: Glucose,Whole Blood 138 mg/dL (75-99)
--- NOTE | 2020-07-16 11:56 | P.DS ---
Providers Date of admission: 07/14/20 21:10 Expected date of discharge: 07/16/20 Attending physician: Gaby Gibson MD Consults: 07/14/20 21:09 Consult Physician Routine Consulting Provider: Ismael Dick Reason/Comments: COPD Do you want consulting provider notified?: Yes Primary care physician: Jean Morse [facility] Course: HPI: The patient is a 69-year-old male with a PMH of tobacco abuse, Parkinson's, anxiety, and hypothyroidism who was brought into the the emergency room due to shortness of breath. The patient notes that he was in his usual state of health until about 7 PM tonight when he developed an intractable cough. He then developed shortness of breath which would not subside, at which time he activated EMS. The patient was on BiPAP during the interview. As per the ED physician, the patient had very diminished air entry bilaterally and was in respiratory distress. EMS had found the patient to be hypoxic with SpO2 in the 60s and administered DuoNeb's en-route to the hospital. He reported a long- standing history of tobacco abuse, and that he continues to smoke one pack of cigarettes every 2-3 days. He however denied ever being diagnosed with COPD, ever being hospitalized for his breathing, and notes that he does not use any inhalers. He reported feeling significantly better after the breathing treatments and asked if he could be taken off BiPAP. He denied chest discomfort, fever, chills. Denied nausea, vomiting, abdominal pain, diarrhea. He denied headaches, weakness, numbness, tingling. In the emergency room, chest x-ray was suggestive of COPD with EKG showing normal sinus rhythm at 86 bpm with left axis deviation. Laboratory evaluation was remarkable for a lactic acid of 3.7, glucose 158, magnesium 1.4, AST 62, troponin less than 0.012, and proBNP 147. Hospital course and treatment Patient was admitted to the hospital with acute on chronic COPD exacerbation with shortness of breath, he was placed on BiPAP when necessary, pulmonology were consulted. He was treated with oxygen bronchodilators IV steroids. He continued to gradually improve and by time of discharge he feels much better. He was cleared for discharge by pulmonology. He will be discharged home on bronchodilators and steroids. Diagnoses upon discharge: 1. Acute on chronic COPD exacerbation 2. Hypothyroidism 2. Essential hypertension 4. Parkinson's disease 5. Tobacco abuse/dependence without evidence of withdrawal 6. Pulmonary hypertension Patient Condition at Discharge: Stable Plan - Discharge Summary Discharge Rx Participant: Yes New Discharge Prescriptions: New Ipratropium-Albuterol Nebulize [Duoneb 0.5 mg-3 mg/3 ml Soln] 3 ml INHALATION RT-QID #1 ml Formoterol Fumarate [Perforomist] 20 mcg INHALATION RT-BID 30 Days #1 nebu predniSONE 10 mg PO DAILY 5 Days #5 tab Continue Carbidopa-Levodopa ER 50-200Mg [Sinemet CR 50-200 mg] 1 tab PO TID clonazePAM [KlonoPIN] 1 mg PO HS Levothyroxine Sodium [Synthroid] 150 mcg PO DAILY Propranolol [Inderal] 40 mg PO BID Loratadine 10 mg PO DAILY clonazePAM [KlonoPIN] 0.5 mg PO DAILY Omeprazole 20 mg PO DAILY Discharge Medication List Carbidopa-Levodopa ER 50-200Mg [Sinemet CR 50-200 mg] 1 tab PO TID 07/14/20 [His tory] Levothyroxine Sodium [Synthroid] 150 mcg PO DAILY 07/14/20 [History] Loratadine 10 mg PO DAILY 07/14/20 [History] Omeprazole 20 mg PO DAILY 07/14/20 [History] Propranolol [Inderal] 40 mg PO BID 07/14/20 [History] clonazePAM [KlonoPIN] 0.5 mg PO DAILY 07/14/20 [History] clonazePAM [KlonoPIN] 1 mg PO HS 07/14/20 [History] Formoterol Fumarate [Perforomist] 20 mcg INHALATION RT-BID 30 Days #1 nebu 07/16/20 [Rx] Ipratropium-Albuterol Nebulize [Duoneb 0.5 mg-3 mg/3 ml Soln] 3 ml INHALATION RT-QID #1 ml 07/16/20 [Rx] predniSONE 10 mg PO DAILY 5 Days #5 tab 07/16/20 [Rx] Follow up Appointment(s)/Referral(s): None,Stated [REFERRING] - 1-2 days [facility] [NON-STAFF] - 1 Week
[2020-07-16 16:40] VITALS: PULSE 60
== END 2020-07-16 17:04 | disposition home or self-care (01) | DRG 192 ==
LOC: EC 19:48 → 3SCARD 21:10
PROVIDERS: ADMIT Internal Medicine; ATTEND Internal Medicine
DX: J44.1 Chronic obstructive pulmonary disease with (acute) exacerbation (principal); E03.9 Hypothyroidism, unspecified; F17.210 Nicotine dependence, cigarettes, uncomplicated; G20 Parkinson's disease; I10 Essential (primary) hypertension; Z20.822 Contact with and (suspected) exposure to COVID-19; Z79.890 Hormone replacement therapy; Z79.899 Other long term (current) drug therapy; F41.9 Anxiety disorder, unspecified; I27.29 Other secondary pulmonary hypertension; R09.02 Hypoxemia
CPT/HCPCS: 36415; 36600; 71045; 80048; 80053; 82803; 82805; 83036; 83605; 83735; 83880; 84484; 85025; 85610; 85730; 87040; 87070; 87075; 87205; 87635; 93005; 94640; 94644; 94660; 94760; 99285

== ENCOUNTER 2021-05-18 18:06 | Inpatient (IN) | payer MEDICARE, OTHER ==
[2021-05-18] MEDS ORDERED: SODIUM CHLORIDE 0.9% 1,000 ML with THIAMINE 100 MG, FOLIC ACID 1 MG IV ONE ×3 (18:56)
--- NOTE | 2021-05-18 18:56 | ED ---
SOB HPI - General Chief Complaint: Shortness of Breath Stated Complaint: sob/swelling feet/falls Time Seen by Provider: 05/18/21 18:41 Source: patient, RN notes reviewed Mode of arrival: wheelchair Limitations: no limitations - History of Present Illness Initial Comments: This is a pleasant 70-year-old male who presents to emergency department after what he says was several falls at home. Patient apparently fell yesterday and was unable to get up. He called his caregiver. According to the caregiver patient told her that he been for for 3 days. Patient states he did urinate today. However, patient states he cannot walk. Patient has chronic back pain and is only pain is related to this. Patient also complaining of bilateral ankle swelling. Denies any chest pain or abdominal pain. Patient unsure whether he hit his head or neck. However denies any neck pain and no significant headache. No changes in vision or hearing. No slurred speech. No focal weakness. No numbness or tingling peripherally. As he normally walks with a cane. - Related Data Home Medications Medication Instructions Recorded Confirmed Carbidopa-Levodopa ER 50-200Mg 1 tab PO TID 07/14/20 05/18/21 [Sinemet CR 50-200 mg] Propranolol [Inderal] 40 mg PO BID 07/14/20 05/18/21 clonazePAM [KlonoPIN] 0.5 mg PO TID 07/14/20 05/18/21 Allergies Allergy/AdvReac Type Severity Reaction Status Date / Time No Known Allergies Allergy Verified 05/18/21 19:50 Review of Systems ROS Statement: Those systems with pertinent positive or pertinent negative responses have been documented in the HPI. ROS Other: All systems not noted in ROS Statement are negative. Past Medical History Past Medical History: COPD, Hypertension Additional Past Medical History / Comment(s): engarged right ventricle History of Any Multi-Drug Resistant Organisms: None Reported Past Surgical History: Back Surgery Additional Past Surgical History / Comment(s): back surgery x3, thyroid removed Past Psychological History: No Psychological Hx Reported Smoking Status: Current every day smoker Past Alcohol Use History: Daily Past Drug Use History: Marijuana General Exam - General Exam Comments Initial Comments: This is a deconditioned, cachectic, and disheveled appearing elderly male in mild distress. Cranial nerves II through XII are grossly intact. No evidence of focal neurologic deficit. Mildly dry mucous membranes. Capillary refill of approximately 3 seconds. Patient is alert and oriented 4. Limitations: no limitations General appearance: alert, in distress Head exam: Present: atraumatic, normocephalic, normal inspection Eye exam: Present: normal appearance, PERRL, EOMI. Absent: scleral icterus, conjunctival injection, periorbital swelling ENT exam: Present: mucous membranes dry, mucous membranes moist, TM's normal bilaterally, normal external ear exam Neck exam: Present: normal inspection, full ROM. Absent: tenderness, meningismus, lymphadenopathy Respiratory exam: Present: normal lung sounds bilaterally. Absent: respiratory distress, wheezes, rales, rhonchi, stridor Cardiovascular Exam: Present: regular rate, normal rhythm, normal heart sounds. Absent: systolic murmur, diastolic murmur, rubs, gallop, clicks GI/Abdominal exam: Present: soft, normal bowel sounds. Absent: distended, tenderness, guarding, rebound, rigid Extremities exam: Present: normal inspection, full ROM, pedal edema (Bilateral), other (No break in skin integrity. Capillary refill less than 3 seconds.). Absent: tenderness, joint swelling, calf tenderness Back exam: Present: normal inspection Neurological exam: Present: alert, altered, oriented X3, CN II-XII intact Psychiatric exam: Present: normal affect, normal mood Skin exam: Present: warm, dry, intact, normal color. Absent: rash Course Vital Signs 05/18/21 05/18/21 05/18/21 18:14 18:33 20:14 Temperature 97.4 F L Pulse Rate 66 64 Pulse Rate [ Pulse Oximetery ] Respiratory 18 18 16 Rate Blood Pressure 135/87 150/93 Blood Pressure [Sitting] O2 Sat by Pulse 94 L Oximetry 05/18/21 05/18/21 20:38 21:25 Temperature 98.3 F Pulse Rate 52 L Pulse Rate [ 68 Pulse Oximetery ] Respiratory 18 18 Rate Blood Pressure 138/91 Blood Pressure 133/89 [Sitting] O2 Sat by Pulse 96 Oximetry - Reevaluation(s) Reevaluation #1: 05/18/21 19:27 Medical record is reviewed Symptoms unchanged, patient has multiple electrolyte abnormalities including a potassium was hemolyzed at 4.9, we'll repeat. Magnesium was 0.9, sodium 123, calcium 8.0. Magnesium replacement initiated. Patient receiving 100 mL per hour of sodium chloride in the banana bag. Patient is informed of results and questions answered Patient in no distress Reevaluation #2: 05/18/21 19:59 Medical record is reviewed Symptoms remain the same, repeat examination is unchanged. Call will be placed for admission Patient is informed of results and questions answered Patient in no distress Reevaluation #3: 05/18/21 20:19 The case was discussed in detail with ED attending physician. Presentation, findings, treatment plan discussed in detail. - Consultations Consultation #1: Call placed for primary care physician for admission Medical Decision Making - Medical Decision Making Computed tomography scan ordered and indicated for unwitnessed fall, head injury, age greater than 65, no blood thinners. - Lab Data Result diagrams: 05/18/21 18:54 05/18/21 19:36 Lab Results 05/18/21 05/18/21 05/18/21 Range/Units 18:54 18:54 18:54 WBC 5.7 (3.8-10.6) k/uL RBC 3.64 L (4.30-5.90) m/uL Hgb 12.4 L (13.0-17.5) gm/dL Hct 35.4 L (39.0-53.0) % MCV 97.1 (80.0-100.0) fL MCH 34.0 (25.0-35.0) pg MCHC 35.0 (31.0-37.0) g/dL RDW 14.1 (11.5-15.5) % Plt Count 192 (150-450) k/uL MPV 7.8 Neutrophils % 75 % Lymphocytes % 20 % Monocytes % 3 % Eosinophils % 1 % Basophils % 1 % Neutrophils # 4.3 (1.3-7.7) k/uL Lymphocytes # 1.1 (1.0-4.8) k/uL Monocytes # 0.1 (0-1.0) k/uL Eosinophils # 0.1 (0-0.7) k/uL Basophils # 0.0 (0-0.2) k/uL Manual Slide Review Performed Toxic Granulation Present Sodium 123 L (137-145) mmol/L Potassium 4.9 (3.5-5.1) mmol/L Chloride 79 L (98-107) mmol/L Carbon Dioxide 30 (22-30) mmol/L Anion Gap 14 mmol/L BUN 13 (9-20) mg/dL Creatinine 0.87 (0.66-1.25) mg/dL Est GFR (CKD-EPI)AfAm >90 (>60 ml/min/1.73 sqM) Est GFR (CKD-EPI)NonAf 86 (>60 ml/min/1.73 sqM) Glucose 111 H (74-99) mg/dL Calcium 8.0 L (8.4-10.2) mg/dL Phosphorus 2.7 (2.5-4.5) mg/dL Magnesium 0.9 L* (1.6-2.3) mg/dL Total Bilirubin 2.8 H (0.2-1.3) mg/dL AST 139 H (17-59) U/L ALT 17 (4-49) U/L Alkaline Phosphatase 93 (38-126) U/L Creatine Kinase 858 H (55-170) U/L Troponin I 0.016 (0.000-0.034) ng/mL NT-Pro-B Natriuret Pep pg/mL Total Protein 7.6 (6.3-8.2) g/dL Albumin 4.6 (3.5-5.0) g/dL Serum Alcohol <10 mg/dL Coronavirus (PCR) (Not Detectd) 05/18/21 05/18/21 05/18/21 Range/Units 18:54 19:31 19:36 WBC (3.8-10.6) k/uL RBC (4.30-5.90) m/uL Hgb (13.0-17.5) gm/dL Hct (39.0-53.0) % MCV (80.0-100.0) fL MCH (25.0-35.0) pg MCHC (31.0-37.0) g/dL RDW (11.5-15.5) % Plt Count (150-450) k/uL MPV Neutrophils % % Lymphocytes % % Monocytes % % Eosinophils % % Basophils % % Neutrophils # (1.3-7.7) k/uL Lymphocytes # (1.0-4.8) k/uL Monocytes # (0-1.0) k/uL Eosinophils # (0-0.7) k/uL Basophils # (0-0.2) k/uL Manual Slide Review Toxic Granulation Sodium (137-145) mmol/L Potassium 4.1 (3.5-5.1) mmol/L Chloride (98-107) mmol/L Carbon Dioxide (22-30) mmol/L Anion Gap mmol/L BUN (9-20) mg/dL Creatinine (0.66-1.25) mg/dL Est GFR (CKD-EPI)AfAm (>60 ml/min/1.73 sqM) Est GFR (CKD-EPI)NonAf (>60 ml/min/1.73 sqM) Glucose (74-99) mg/dL Calcium (8.4-10.2) mg/dL Phosphorus (2.5-4.5) mg/dL Magnesium (1.6-2.3) mg/dL Total Bilirubin (0.2-1.3) mg/dL AST (17-59) U/L ALT (4-49) U/L Alkaline Phosphatase (38-126) U/L Creatine Kinase (55-170) U/L Troponin I (0.000-0.034) ng/mL NT-Pro-B Natriuret Pep 409 pg/mL Total Protein (6.3-8.2) g/dL Albumin (3.5-5.0) g/dL Serum Alcohol mg/dL Coronavirus (PCR) Not Detected (Not Detectd) - EKG Data EKG Comments: EKG reveals baseline artifact due to the patient having a fine tremor. Rate is 67. DC interval is less than 20 ms on my read. This was not picked up by the machine. There is a left axis deviation. Other intervals are normal. Study read by the ED attending physician Critical Care Time Critical Care Time: Yes (Patient has multiple medical issues to include multiple electrolyte abnorma) Total Critical Care Time: 40 Disposition Clinical Impression: General weakness, Hypomagnesemia, Hyponatremia, Multiple falls Disposition: ADMITTED IP TO THIS [facility] Time of Disposition: 19:29 Decision to Admit Reason: Admit from EC Decision Time: 19:29
[2021-05-18 19:17] LABS: ALT 17 U/L (4-49); AST 139 U/L (17-59); African American GFR (CKD) >90 (>60 ml/min/1.73 sqM); Albumin 4.6 g/dL (3.5-5.0); Alcohol <10 mg/dL; Alkaline Phosphatase 93 U/L (38-126); Anion Gap 14 mmol/L; Basophils % (A) 1 %; Blood Urea Nitrogen 13 mg/dL (9-20); Carbon Dioxide 30 mmol/L (22-30); Chloride 79 mmol/L (98-107); Creatine Kinase 858 U/L (55-170); Eosinophils # (A) 0.1 k/uL (0-0.7); Eosinophils % (A) 1 %; Glucose 111 mg/dL (74-99); HCT 35.4 % (39.0-53.0); HGB 12.4 gm/dL (13.0-17.5); Lymphocytes # (A) 1.1 k/uL (1.0-4.8); Lymphocytes % (A) 20 %; MCV 97.1 fL (80.0-100.0); Mean Platelet Volume 7.8; Monocytes # (A) 0.1 k/uL (0-1.0); Monocytes % (A) 3 %; Neutrophils # (A) 4.3 k/uL (1.3-7.7); Neutrophils % (A) 75 %; Non-African American GFR(CKD) 86 (>60 ml/min/1.73 sqM); Phosphorus 2.7 mg/dL (2.5-4.5); Platelet Count 192 k/uL (150-450); RBC 3.64 m/uL (4.30-5.90); RDW 14.1 % (11.5-15.5); Sodium 123 mmol/L (137-145); Total Bilirubin 2.8 mg/dL (0.2-1.3); Total Protein 7.6 g/dL (6.3-8.2); WBC 5.7 k/uL (3.8-10.6)
[2021-05-18 19:22] LABS: Magnesium 0.9 mg/dL (1.6-2.3); Potassium 4.9 mmol/L (3.5-5.1)
[2021-05-18] MEDS ORDERED: Magnesium Replacement Protocol 1 EACH MISC MISCELLANE PRN (19:26)
[2021-05-18 19:29] LABS: Toxic Granulation Present
--- NOTE | 2021-05-18 19:44 | XR ---
EXAMINATION TYPE: XR chest 1V DATE OF EXAM: 05/18/2021 COMPARISON: 07/14/2020 HISTORY: Short of breath TECHNIQUE: FINDINGS: Heart is normal. Lungs are clear of consolidation. There is some mild increased density at the left diaphragm. There are no hilar masses. There is no heart failure. Costophrenic angles are tatum ar. Bony thorax is intact. IMPRESSION: There is possible new infiltrate at the left lung base compared to old exam. Normal heart .
--- NOTE | 2021-05-18 19:49 | CT ---
EXAMINATION TYPE: CT brain mariveline wo con DATE OF EXAM: 05/18/2021 COMPARISON: None HISTORY: Fall, head injury. CT DLP: 1312 mGycm Automated exposure control for dose reduction was used. Images obtained of the brain and cervical spine without contrast. There is cerebral cortical atrophy. There is no mass effect or midline shift. There is no sign of int racranial hemorrhage. Calvarium is intact. There is normal aeration of the mastoid sinuses. The cervical vertebra have normal alignment. There is degenerative disc space narrowing at C3-4 and C 6-7 and C5-6 with mild spur formation. No compression fracture. The facet joints are intact. IMPRESSION: Mild cervical multilevel spondylotic changes. No fracture seen. Cerebral atrophy. No acute intracranial abnormality.
[2021-05-18] MEDS: MAGNESIUM SULFATE-D5W PMX 1 GM in DEXTROSE/WATER 1 100ML.BAG IVPB SCH ×4 (19:51→23:14)
[2021-05-18] MEDS ORDERED: ONDANSETRON 4 MG/2 ML VIAL IVP PRN (20:14)
[2021-05-18] MEDS ORDERED: NALOXONE 0.4 MG/ML 1 ML VIAL IV PRN (20:14)
[2021-05-18] MEDS: ENOXAPARIN 40 MG/0.4 ML SYRINGE SQ SCH (20:55)
[2021-05-18] MEDS: ACETAMINOPHEN TAB 325 MG TAB PO PRN (23:07)
[2021-05-19 08:35] LABS: Basophils % (A) 0 %; Eosinophils % (A) 1 %; HCT 34.6 % (39.0-53.0); HGB 11.7 gm/dL (13.0-17.5); Lymphocytes # (A) 1.1 k/uL (1.0-4.8); Lymphocytes % (A) 16 %; MCH 33.4 pg (25.0-35.0); MCHC 33.8 g/dL (31.0-37.0); Mean Platelet Volume 7.5; Monocytes # (A) 0.2 k/uL (0-1.0); Monocytes % (A) 3 %; Neutrophils # (A) 5.2 k/uL (1.3-7.7); Neutrophils % (A) 80 %; Platelet Count 166 k/uL (150-450); WBC 6.5 k/uL (3.8-10.6)
[2021-05-19 08:51] LABS: ALT 19 U/L (4-49); AST 93 U/L (17-59); African American GFR (CKD) >90 (>60 ml/min/1.73 sqM); Albumin 3.5 g/dL (3.5-5.0); Alkaline Phosphatase 94 U/L (38-126); Anion Gap 11 mmol/L; Blood Urea Nitrogen 10 mg/dL (9-20); Calcium 7.3 mg/dL (8.4-10.2); Carbon Dioxide 33 mmol/L (22-30); Chloride 82 mmol/L (98-107); Glucose 117 mg/dL (74-99); Magnesium 1.3 mg/dL (1.6-2.3); Non-African American GFR(CKD) >90 (>60 ml/min/1.73 sqM); Phosphorus 2.7 mg/dL (2.5-4.5); Potassium 2.8 mmol/L (3.5-5.1); Sodium 126 mmol/L (137-145); Total Bilirubin 2.2 mg/dL (0.2-1.3)
[2021-05-19] MEDS ORDERED: PANTOPRAZOLE 40 MG/10 ML VIAL IV SCH (09:00)
[2021-05-19] MEDS: ENOXAPARIN 40 MG/0.4 ML SYRINGE SQ SCH (09:01)
[2021-05-19 12:25] LABS: Magnesium 1.4 mg/dL (1.6-2.3)
[2021-05-19 12:42] LABS: Potassium 2.7 mmol/L (3.5-5.1)
[2021-05-19] MEDS: MAGNESIUM OXIDE 400 MG TAB PO SCH ×2 (12:49→22:26)
[2021-05-19] MEDS: POTASSIUM CHLORIDE ER 20 MEQ TAB.ER PO SCH ×7 (12:49→23:56)
[2021-05-19] MEDS: MAGNESIUM SULFATE-D5W PMX 1 GM in DEXTROSE/WATER 1 100ML.BAG IVPB SCH ×3 (13:00→15:00)
--- NOTE | 2021-05-19 13:55 | XR ---
EXAM TYPE: LUMBAR SPINE X RAY SERIES COMPARISON: 07/30/2011 HISTORY: Lower back pain TECHNIQUE: 4 views are submitted. FINDINGS: Alignment is anatomic. The pedicles are intact. The transverse processes are intact. There is scol iosis with multilevel degenerative disc disease. Postsurgical change lower lumbar spine. Numerous margareth cifications in the right upper quadrant are likely related to gallstones. Severe degenerative disc di sease at levels L2-S1. Moderate changes at L1-L2. IMPRESSION: 1. Similar postoperative changes. 2. Severe multilevel degenerative disc disease with facet arthropathy and scoliosis. 3. Correlate for gallstones
[2021-05-19] MEDS ORDERED: Potassium Replacement Protocol 1 EACH MISC MISCELLANE PRN (15:06)
[2021-05-19] MEDS ORDERED: DIPHENOX-ATROP 2.5-0.025 MG 1 EACH TAB PO PRN (15:07)
[2021-05-19] MEDS: DEXTROSE 5%-0.45% NACL 1,000 ML IV SCH ×2 (15:33→22:27)
[2021-05-19] MEDS: CARBIDOPA-LEVODOPA ER 50-200MG 1 EACH TABLET.ER PO SCH ×2 (15:36→22:26)
--- NOTE | 2021-05-19 20:36 | PN ---
PROGRESS NOTE CHIEF COMPLAINT: Failure to thrive and general debility with frequent falls. HISTORY OF PRESENT ILLNESS: This gentleman seems stable and alert. He is extremely weak. He is being rehydrated. PHYSICAL EXAMINATION: He remains pale. Chest is clear. Cardiac exam is normal. Abdomen is soft and nontender. IMPRESSION: 1. General debility and frequent falls. 2. Dehydration. 3. Electrolyte imbalance. PLAN: 1. Correct electrolyte imbalance with IV fluids. 2. Rehydrate. 3. Discharge planning. SANGITA / DIAMONDN: [id number] /
--- NOTE | 2021-05-19 20:42 | HP ---
HISTORY AND PHYSICAL CHIEF COMPLAINT: General debility with fall and not being able to get up. HISTORY OF PRESENT ILLNESS: This is the first known admission for this 70-year-old white male. He has not been in the office for several years. He was brought to the emergency room after he was found on the floor; it is clear for how long. He has generalized weakness. He denies any headaches, chest pain, abdominal pain, nausea, vomiting, hematemesis, melena, hematochezia, renal disease, diabetes, etc. Past medical history, family history, and personal and social histories are apparently unremarkable and apparently not significant. In the emergency room he had extremely low magnesium and potassium. He appears to be chronically ill. He denies any history of neoplasias. PHYSICAL EXAMINATION: Blood pressure is 110/55 with a pulse of 61, respirations of 20. He is afebrile. In general he appeared to be asthenic, pale and dehydrated. Head, ears, eyes, nose, mouth and throat seem to be normal. Neck veins are not distended. Chest is clear. Cardiac exam demonstrated what sounded like sinus rhythm. The abdomen is flat, soft and nontender. Extremities were normal. He had some abrasions on the hands and on the knees. Neurologically he had no obvious cranial nerve or sensory motor findings. He is admitted to the hospital with the diagnoses: 1. General debility with frequent falling. 2. Dehydration. 3. Probable malnutrition. 4. Electrolyte imbalance with hypomagnesemia, hypokalemia and hyponatremia. PLAN: 1. Bedrest. 2. Rehydrate. 3. Workup for general debility. 4. [facility] referral. MMODL / IJN: [id number] /
[2021-05-19 21:35] LABS: Magnesium 2.1 mg/dL (1.6-2.3)
[2021-05-19] MEDS: PROPRANOLOL 40 MG TAB PO SCH (22:26)
[2021-05-20] MEDS: PANTOPRAZOLE 40 MG TABLET PO SCH (06:14)
[2021-05-20] MEDS: DEXTROSE 5%-0.45% NACL 1,000 ML IV SCH ×2 (06:15→16:19)
[2021-05-20 09:36] LABS: ALT 16 U/L (4-49); African American GFR (CKD) >90 (>60 ml/min/1.73 sqM); Albumin 3.7 g/dL (3.5-5.0); Anion Gap 11 mmol/L; Blood Urea Nitrogen 3 mg/dL (9-20); Calcium 7.2 mg/dL (8.4-10.2); Carbon Dioxide 27 mmol/L (22-30); Chloride 85 mmol/L (98-107); Glucose 124 mg/dL (74-99); Non-African American GFR(CKD) >90 (>60 ml/min/1.73 sqM); Sodium 123 mmol/L (137-145); Total Bilirubin 1.4 mg/dL (0.2-1.3); Total Protein 6.4 g/dL (6.3-8.2)
[2021-05-20 09:39] LABS: Magnesium 1.7 mg/dL (1.6-2.3); Potassium 3.7 mmol/L (3.5-5.1)
[2021-05-20 09:40] LABS: AST 86 U/L (17-59); Alkaline Phosphatase 79 U/L (38-126)
[2021-05-20 09:41] LABS: Basophils % (A) 1 %; Eosinophils % (A) 1 %; HCT 34.6 % (39.0-53.0); HGB 10.9 gm/dL (13.0-17.5); Lymphocytes # (A) 0.9 k/uL (1.0-4.8); Lymphocytes % (A) 22 %; MCH 32.6 pg (25.0-35.0); MCHC 31.6 g/dL (31.0-37.0); MCV 103.2 fL (80.0-100.0); Macrocytosis Slight; Mean Platelet Volume 9.3; Monocytes # (A) 0.1 k/uL (0-1.0); Monocytes % (A) 3 %; Neutrophils # (A) 2.8 k/uL (1.3-7.7); Neutrophils % (A) 73 %; RBC 3.35 m/uL (4.30-5.90); WBC 3.9 k/uL (3.8-10.6)
[2021-05-20] MEDS: CARBIDOPA-LEVODOPA ER 50-200MG 1 EACH TABLET.ER PO SCH ×3 (10:03→20:35)
[2021-05-20] MEDS: ENOXAPARIN 40 MG/0.4 ML SYRINGE SQ SCH (10:03)
[2021-05-20] MEDS: PROPRANOLOL 40 MG TAB PO SCH ×2 (10:04→20:35)
[2021-05-20] MEDS: MAGNESIUM OXIDE 400 MG TAB PO SCH ×2 (10:04→20:35)
[2021-05-20] MEDS: POTASSIUM CHLORIDE ER 20 MEQ TAB.ER PO SCH ×4 (10:04→20:35)
[2021-05-20 10:34] LABS: Platelet Count 47 k/uL (150-450)
--- NOTE | 2021-05-20 12:37 | P.CONS ---
History of Present Illness - Reason for Consult Consult date: 05/20/21 wound care - History of Present Illness This is a 70 year old being seen by wound care center [address] for non healing ulcer. Patient was seen in July 2020 with the same ulceration patient stated that the ulceration had been there for 3-4 years. He treated it with triple antibiotic ointment. At that time it was recommended for patient to have a biopsy of the ulceration for probable skin cancer. Patient was encouraged to follow up in the wound care center however he did not make any appointments. T He is concerned that it is due to multiple x-rays to the site. Patient has never had a biopsy to the site. Ulceration measures approximately 7 x 4 x 0.1 cm with fat layer closure. The wound that shows granulation with minimal slough. And serosanguineous drainage. Periwound shows some scarring. There is no tunneling or undermining noted. She also has multiple stage II pressure ulcers to the coccyx. There cluster of 3 measuring approximately 4 x 4 x 0.1 cm. No granulation seen within the room that the wound does show maceration. Patient's past medical history significant for COPD and hypertension. He isn't every day nicotine and marijuana smoker. Review Of Systems: Constitutional: No fever, no chills, no night sweats. No weight change. No weakness, fatigue or lethargy. No daytime sleepiness. Integumentary:reports wounds, no lesions. No rash or pruritus. No unusual bruising. No change in hair or nails. Physical exam: General Appearance: Alert, cooperative, no distress, appears stated age. Skin: See HPI all other Skin color, texture, tugor normal, no rashes or lesions. Neurologic: Alert oriented x3 Assessment: 1. Nonhealing ulceration with fatty layer exposure left upper back. 2. Pressure ulcer sacral stage II Plan: 1. Patient would benefit from a biopsy. May use border foam to cover. 2. Sacral ulceration: Apply honey gel and border foam. Change Tuesday. Keep the area dry. Thank you for the consultation any questions please contact the wound care center DNP note has been reviewed and discussed with Dr. Ren and the impression and plan of care has been directed as dictated. Past Medical History Past Medical History: COPD, Hypertension Additional Past Medical History / Comment(s): engarged right ventricle History of Any Multi-Drug Resistant Organisms: None Reported Past Surgical History: Back Surgery Additional Past Surgical History / Comment(s): back surgery x3, thyroid removed Past Psychological History: No Psychological Hx Reported Smoking Status: Current every day smoker Past Alcohol Use History: Daily Past Drug Use History: Marijuana Medications and Allergies Home Medications Medication Instructions Recorded Confirmed Type Carbidopa-Levodopa ER 50-200Mg 1 tab PO TID 07/14/20 05/18/21 History [Sinemet CR 50-200 mg] Propranolol [Inderal] 40 mg PO BID 07/14/20 05/18/21 History clonazePAM [KlonoPIN] 0.5 mg PO TID 07/14/20 05/18/21 History Allergies Allergy/AdvReac Type Severity Reaction Status Date / Time No Known Allergies Allergy Verified 05/18/21 19:50 Physical Exam Vitals: Vital Signs Temp Pulse Resp BP BP Pulse Ox 05/20/21 11:49 97.8 F 65 20 127/84 96 05/20/21 08:00 98.1 F 60 20 125/76 96 05/20/21 04:00 97.8 F 62 16 135/85 98 05/19/21 23:54 97.9 F 62 18 117/75 97 05/19/21 22:23 67 124/70 05/19/21 20:00 97.7 F 68 18 102/56 95 05/19/21 15:39 98.3 F 71 18 143/93 99 05/19/21 13:26 18 Intake and Output 05/19/21 05/20/21 05/20/21 22:59 06:59 14:59 Intake Total 100 130 Output Total 400 1260 600 Balance -300 -1260 -470 Intake: IV 10 Invasive Line 1 10 Oral 100 120 Output: Urine 400 1260 600 Other: Voiding Method Urinal Urinal Urinal # Bowel Movements 3 1 Weight 70.307 kg Results CBC & Chem 7: 05/20/21 08:56 05/20/21 08:56 Labs: Abnormal Lab Results - Last 24 Hours (Table) 05/19/21 05/19/21 05/20/21 Range/Units 11:50 21:02 08:56 RBC (4.30-5.90) m/uL Hgb (13.0-17.5) gm/dL Hct (39.0-53.0) % MCV (80.0-100.0) fL Plt Count (150-450) k/uL Lymphocytes # (1.0-4.8) k/uL Sodium 123 L (137-145) mmol/L Potassium 2.7 L* 3.0 L (3.5-5.1) mmol/L Chloride 85 L (98-107) mmol/L BUN 3 L (9-20) mg/dL Creatinine 0.57 L (0.66-1.25) mg/dL Glucose 124 H (74-99) mg/dL Calcium 7.2 L (8.4-10.2) mg/dL Magnesium 1.4 L (1.6-2.3) mg/dL Total Bilirubin 1.4 H (0.2-1.3) mg/dL AST 86 H (17-59) U/L 05/20/21 Range/Units 08:56 RBC 3.35 L (4.30-5.90) m/uL Hgb 10.9 L (13.0-17.5) gm/dL Hct 34.6 L (39.0-53.0) % MCV 103.2 H (80.0-100.0) fL Plt Count 47 L D (150-450) k/uL Lymphocytes # 0.9 L (1.0-4.8) k/uL Sodium (137-145) mmol/L Potassium (3.5-5.1) mmol/L Chloride (98-107) mmol/L BUN (9-20) mg/dL Creatinine (0.66-1.25) mg/dL Glucose (74-99) mg/dL Calcium (8.4-10.2) mg/dL Magnesium (1.6-2.3) mg/dL Total Bilirubin (0.2-1.3) mg/dL AST (17-59) U/L Assessment and Plan (1) Non-pressure chronic ulcer of skin of other sites with fat layer exposed Current Visit: Yes Status: Acute Code(s): L98.492 - NON-PRS CHRONIC ULCER OF SKIN OF SITES W FAT LAYER EXPOSED SNOMED Code(s): 28002181 (2) Pressure ulcer of sacral region, stage 2 Current Visit: Yes Status: Acute Code(s): L89.152 - PRESSURE ULCER OF SACRAL REGION, STAGE 2 SNOMED Code(s): 11331115796226627
[2021-05-20 13:11] LABS: Magnesium 1.6 mg/dL (1.6-2.3); Potassium 3.4 mmol/L (3.5-5.1)
[2021-05-20] MEDS ORDERED: IOPAMIDOL CONTRAST (ORAL USE) VIAL PO PRN (15:17)
[2021-05-20] MEDS: MAGNESIUM SULFATE-D5W PMX 1 GM in DEXTROSE/WATER 1 100ML.BAG IVPB SCH ×2 (16:20→18:15)
[2021-05-20] MEDS: CALCIUM ACETATE 667 MG TAB PO SCH (16:24)
--- NOTE | 2021-05-20 18:04 | CT ---
EXAMINATION TYPE: CT abdomen pelvis w con DATE OF EXAM: 05/20/2021 COMPARISON: None HISTORY: Abnormal weight loss, anorexia CT DLP: 907.2 mGycm Automated exposure control for dose reduction was used. CONTRAST: Performed with IV Contrast, patient injected with 100 mL of Isovue 300. Images obtained from the diaphragm to the floor the pelvis with IV contrast. There are small pleural effusions with patchy atelectasis at the lung bases. Heart size is normal. No pericardial effusion. Liver is intact. Spleen is intact. There is dilated stomach. Gallbladder appea rs intact. The bile ducts are not dilated. There is no evidence of pancreatic mass. There appears to be some surgical clips near the oscar hepatis. There is no adrenal mass. There is 2 cm cortical cyst lateral left kidney. Ureters are not dilated. T here is no retroperitoneal adenopathy. Abdominal aorta is atheromatous. Bladder distends smoothly. Th ere is no inguinal hernia. No free fluid in the pelvis. There is no evidence of a pelvic mass. There is no mesenteric edema. There is no ascites. There are multiple sigmoid diverticula. No sign of diver ticulitis. Abdominal aorta is atheromatous. Lumbar vertebra show mild dextroscoliosis. There is multilevel spondylotic changes in the lumbar spin e.. The bony pelvis appears intact. Hip joints are intact. Sacroiliac joints are intact. There is L5 laminectomy defect. There is posterior fusion surgery at L5-S1. IMPRESSION: Colonic mild diverticulosis without diverticulitis. Dilated stomach could relate to some gastroparesis. There is however oral contrast material in the pr oximal small bowel and I do not suspect gastric outlet significant obstruction. Small pleural effusions with basilar patchy atelectasis. Hiatal hernia.
--- NOTE | 2021-05-20 18:22 | P.GSCN ---
History of Present Illness Consult date: 05/20/21 Reason for Consult: Back lesion History of present illness: 70-year-old male presents to the hospital with complaints of shortness of breath and falls. Patient with multiple medical issues. He was found to have a neoplastic-appearing skin lesion involving his left upper back. That has apparently been there for the last 3-4 years. He was being followed in the wound care center. No biopsy was obtained and the patient was not following up with them. Patient denies pain there. Review of Systems The patient denies any acute changes in vision or hearing, no dysphagia or odynophagia, no chest pain no dysuria or hematuria, no headache, no runny nose, no rectal bleeding or melena, no unexplained weight loss Past Medical History Past Medical History: COPD, Hypertension Additional Past Medical History / Comment(s): engarged right ventricle History of Any Multi-Drug Resistant Organisms: None Reported Past Surgical History: Back Surgery Additional Past Surgical History / Comment(s): back surgery x3, thyroid removed Past Psychological History: No Psychological Hx Reported Smoking Status: Current every day smoker Past Alcohol Use History: Daily Past Drug Use History: Marijuana Medications and Allergies Home Medications Medication Instructions Recorded Confirmed Type Carbidopa-Levodopa ER 50-200Mg 1 tab PO TID 07/14/20 05/18/21 History [Sinemet CR 50-200 mg] Propranolol [Inderal] 40 mg PO BID 07/14/20 05/18/21 History clonazePAM [KlonoPIN] 0.5 mg PO TID 07/14/20 05/18/21 History Allergies Allergy/AdvReac Type Severity Reaction Status Date / Time No Known Allergies Allergy Verified 05/18/21 19:50 Surgical - Exam Vital Signs Temp Pulse Resp BP Pulse Ox 97.4 F L 66 18 135/87 94 L 05/18/21 18:14 05/18/21 18:14 05/18/21 18:14 05/18/21 18:14 05/18/21 18:14 Physical exam: General: Well-developed, well-nourished HEENT: Normocephalic, sclerae nonicteric Abdomen: Nontender, nondistended Extremities: Bilateral lower extremity edema, left upper back with a 7 x 5 cm ulceration, margins are somewhat raised, no satellite lesions or pigmentation, nontender, this appears to be mobile Neuro: Alert and oriented Results - Labs 05/20/21 08:56 05/20/21 11:36 Abnormal Lab Results - Last 24 Hours (Table) 05/19/21 05/20/21 05/20/21 Range/Units 21:02 08:56 08:56 RBC 3.35 L (4.30-5.90) m/uL Hgb 10.9 L (13.0-17.5) gm/dL Hct 34.6 L (39.0-53.0) % MCV 103.2 H (80.0-100.0) fL Plt Count 47 L D (150-450) k/uL Lymphocytes # 0.9 L (1.0-4.8) k/uL Sodium 123 L (137-145) mmol/L Potassium 3.0 L (3.5-5.1) mmol/L Chloride 85 L (98-107) mmol/L BUN 3 L (9-20) mg/dL Creatinine 0.57 L (0.66-1.25) mg/dL Glucose 124 H (74-99) mg/dL Calcium 7.2 L (8.4-10.2) mg/dL Total Bilirubin 1.4 H (0.2-1.3) mg/dL AST 86 H (17-59) U/L 05/20/21 Range/Units 11:36 RBC (4.30-5.90) m/uL Hgb (13.0-17.5) gm/dL Hct (39.0-53.0) % MCV (80.0-100.0) fL Plt Count (150-450) k/uL Lymphocytes # (1.0-4.8) k/uL Sodium (137-145) mmol/L Potassium 3.4 L (3.5-5.1) mmol/L Chloride (98-107) mmol/L BUN (9-20) mg/dL Creatinine (0.66-1.25) mg/dL Glucose (74-99) mg/dL Calcium (8.4-10.2) mg/dL Total Bilirubin (0.2-1.3) mg/dL AST (17-59) U/L Diabetes panel 05/19/21 05/20/21 05/20/21 Range/Units 21:02 08:56 11:36 Sodium 123 L (137-145) mmol/L Potassium 3.0 L 3.7 3.4 L (3.5-5.1) mmol/L Chloride 85 L (98-107) mmol/L Carbon Dioxide 27 (22-30) mmol/L BUN 3 L (9-20) mg/dL Creatinine 0.57 L (0.66-1.25) mg/dL Glucose 124 H (74-99) mg/dL Calcium 7.2 L (8.4-10.2) mg/dL AST 86 H (17-59) U/L ALT 16 (4-49) U/L Alkaline Phosphatase 79 (38-126) U/L Total Protein 6.4 (6.3-8.2) g/dL Albumin 3.7 (3.5-5.0) g/dL Calcium panel 05/20/21 Range/Units 08:56 Calcium 7.2 L (8.4-10.2) mg/dL Albumin 3.7 (3.5-5.0) g/dL Pituitary panel 05/19/21 05/20/21 05/20/21 Range/Units 21:02 08:56 11:36 Sodium 123 L (137-145) mmol/L Potassium 3.0 L 3.7 3.4 L (3.5-5.1) mmol/L Chloride 85 L (98-107) mmol/L Carbon Dioxide 27 (22-30) mmol/L BUN 3 L (9-20) mg/dL Creatinine 0.57 L (0.66-1.25) mg/dL Glucose 124 H (74-99) mg/dL Calcium 7.2 L (8.4-10.2) mg/dL Adrenal panel 05/19/21 05/20/21 05/20/21 Range/Units 21:02 08:56 11:36 Sodium 123 L (137-145) mmol/L Potassium 3.0 L 3.7 3.4 L (3.5-5.1) mmol/L Chloride 85 L (98-107) mmol/L Carbon Dioxide 27 (22-30) mmol/L BUN 3 L (9-20) mg/dL Creatinine 0.57 L (0.66-1.25) mg/dL Glucose 124 H (74-99) mg/dL Calcium 7.2 L (8.4-10.2) mg/dL Total Bilirubin 1.4 H (0.2-1.3) mg/dL AST 86 H (17-59) U/L ALT 16 (4-49) U/L Alkaline Phosphatase 79 (38-126) U/L Total Protein 6.4 (6.3-8.2) g/dL Albumin 3.7 (3.5-5.0) g/dL Assessment and Plan (1) Skin lesion of back Narrative/Plan: 70-year-old male with neoplastic-appearing skin lesion left upper back. We'll proceed with planned biopsy at this time. Patient will likely eventually require wide excision. Current Visit: Yes Status: Acute Code(s): L98.9 - DISORDER OF THE SKIN AND SUBCUTANEOUS TISSUE, UNSPECIFIED SNOMED Code(s): 41454977
--- NOTE | 2021-05-20 19:18 | PN ---
PROGRESS NOTE CHIEF COMPLAINT: Fall, general debility and dehydration. HISTORY OF PRESENT ILLNESS: This gentleman is awake and alert. Studies have been unremarkable so far. Calcium is slightly low. His platelets were low also. A lesion has been discovered on the left posterior chest which apparently was there several years ago and is much larger now. It has never been biopsied. REVIEW OF SYSTEMS: Unremarkable except that he is complaining of a lot of back pain. X-rays have been ordered. PHYSICAL EXAMINATION: He remains pale, dehydrated and somewhat cachectic. Chest is clear. Cardiac exam is normal. The abdomen is flat, soft and nontender. On the left posterior chest there is a spreading neoplasm. IMPRESSION: 1. Frequent falling, general debility and failure to thrive. 2. 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 3. Hypocalcemia. 4. Thrombocytopenia. PLAN: 1. Surgery has been asked to look at the lesion on his back. 2. Repeat laboratory studies. 3. CT of the abdomen and pelvis. 4. Await PSA. MMODL / IJN: [id number] /
[2021-05-21] MEDS: DEXTROSE 5%-0.45% NACL 1,000 ML IV SCH ×2 (03:35→08:57)
[2021-05-21] MEDS: CALCIUM ACETATE 667 MG TAB PO SCH (06:13)
[2021-05-21] MEDS: PANTOPRAZOLE 40 MG TABLET PO SCH (06:13)
[2021-05-21] MEDS: ENOXAPARIN 40 MG/0.4 ML SYRINGE SQ SCH (08:57)
[2021-05-21] MEDS: MAGNESIUM OXIDE 400 MG TAB PO SCH ×2 (09:05→20:39)
[2021-05-21] MEDS: PROPRANOLOL 40 MG TAB PO SCH ×2 (09:05→20:39)
[2021-05-21] MEDS: CARBIDOPA-LEVODOPA ER 50-200MG 1 EACH TABLET.ER PO SCH ×3 (09:05→20:39)
[2021-05-21] MEDS: POTASSIUM CHLORIDE ER 20 MEQ TAB.ER PO SCH ×2 (09:05→20:39)
[2021-05-21 09:25] LABS: Basophils % (A) 0 %; Eosinophils # (A) 0.1 k/uL (0-0.7); Eosinophils % (A) 2 %; HCT 38.2 % (39.0-53.0); HGB 12.5 gm/dL (13.0-17.5); Lymphocytes # (A) 1.2 k/uL (1.0-4.8); Lymphocytes % (A) 33 %; MCH 33.3 pg (25.0-35.0); MCHC 32.8 g/dL (31.0-37.0); MCV 101.7 fL (80.0-100.0); Macrocytosis Slight; Mean Platelet Volume 7.5; Monocytes # (A) 0.1 k/uL (0-1.0); Monocytes % (A) 4 %; Neutrophils # (A) 2.1 k/uL (1.3-7.7); Neutrophils % (A) 59 %; RBC 3.76 m/uL (4.30-5.90); RDW 14.6 % (11.5-15.5); WBC 3.5 k/uL (3.8-10.6)
[2021-05-21 09:29] LABS: Platelet Count 204 k/uL (150-450)
[2021-05-21 09:44] LABS: ALT 11 U/L (4-49); AST 71 U/L (17-59); African American GFR (CKD) >90 (>60 ml/min/1.73 sqM); Albumin 3.9 g/dL (3.5-5.0); Alkaline Phosphatase 91 U/L (38-126); Anion Gap 7 mmol/L; Blood Urea Nitrogen <2 mg/dL (9-20); Calcium 8.5 mg/dL (8.4-10.2); Carbon Dioxide 31 mmol/L (22-30); Chloride 81 mmol/L (98-107); Glucose 112 mg/dL (74-99); Magnesium 1.7 mg/dL (1.6-2.3); Non-African American GFR(CKD) >90 (>60 ml/min/1.73 sqM); Potassium 5.2 mmol/L (3.5-5.1); Total Bilirubin 1.3 mg/dL (0.2-1.3); Total Protein 6.8 g/dL (6.3-8.2)
[2021-05-21 09:52] LABS: Sodium 119 mmol/L (137-145)
[2021-05-21] MEDS: SODIUM CHLORIDE 0.9% 1,000 ML IV SCH ×3 (10:15→23:50)
[2021-05-21] MEDS ORDERED: LIDOCAINE 1% INJ 10MG/ML (20 ML MDV) ONE (12:54)
--- NOTE | 2021-05-21 13:18 | CDI ---
Documentation Clarification Form Date: 05/21/2021 01:01:05 PM From: Yesenia Ruiz RN CCDS Admit Date: 05/18/2021 08:02:00 PM Patient Name: Dominik Butterfield Visit Number: [id number] Discharge Date: ATTENTION: The Clinical Documentation Specialists (CDI) and [facility] Coding Staff appreciate your assistance in clarifying documentation. Please respond to the clarification below the line at the bottom and electronically sign. The CDI & [facility] Coding staff will review the response and follow-up if needed. Please note: Queries are made part of the Legal Health Record. If you have any questions, please contact the author of this message via ITS. Dr. Hebert Kam Malnutrition is documented in the H&P, 05/19. Based on this information and the findings below, is there an additional diagnosis that is clinically appropriate for this patient? History/Risk Factors: 70-year-old male presents to the ED with shortness of breath, bilateral ankle swelling and fell at home and was unable to get up. Medical History: COPD and HTN. Clinical Indicators: 05/20, Wound care consult: Stage II coccyx ulcer Current BMI: 19.4kg 05/18, ED Note: This is a deconditioned, cachectic, and disheveled appearing elderly male in mild distress. Treatment: Supplements: 05/20 Ensure Enlive TID with meals. and See BID with meals. Lab monitoring: Electrolyte, Is there an additional diagnosis that is clinically appropriate for this patient? [ ] Moderate Protein-Calorie Malnutrition [ ] Severe Protein-Calorie Malnutrition [ ] Other condition, please specify [ ] Unable to Determine (Template Last Revised: April 2020) MTDD
--- NOTE | 2021-05-21 18:12 | P.PCN ---
Date of Procedure: 05/21/21 Procedure(s) Performed: PREOPERATIVE DIAGNOSIS: left upper back skin lesion POSTOPERATIVE DIAGNOSIS: same PROCEDURE: Punch biopsy SURGEON: Myles EBL: 5cc ANESTHESIA: local COMPLICATIONS: None OPERATIVE PROCEDURE: patient In the room for the procedure. Skin prepped and draped. Localized with lidocaine. 4 separate 2 mm punch biopsies taken. Pressure was held and sterile dressings applied. Minimal bleeding seen. DISPOSITION: Stable to recovery room
[2021-05-21] MEDS: CALCIUM CARBONATE 500 MG CHEWABLE PO SCH (20:39)
[2021-05-21] MEDS ORDERED: FUROSEMIDE 10 MG/ML 4 ML VIAL IV STA (21:37)
[2021-05-21] MEDS ORDERED: IPRATROPIUM-ALBUTEROL 3 ML NEB INHALATION PRN (21:38)
[2021-05-21] MEDS: IPRATROPIUM-ALBUTEROL 3 ML NEB INHALATION SCH (22:06)
[2021-05-21 23:47] LABS: Glucose,Whole Blood 130 mg/dL (75-99)
[2021-05-22] MEDS: ACETAMINOPHEN TAB 325 MG TAB PO PRN ×2 (01:08→09:25)
[2021-05-22] MEDS: PANTOPRAZOLE 40 MG TABLET PO SCH (06:05)
[2021-05-22 07:00] LABS: Potassium 5.8 mmol/L (3.5-5.1)
[2021-05-22] MEDS: IPRATROPIUM-ALBUTEROL 3 ML NEB INHALATION SCH ×4 (08:13→20:45)
[2021-05-22] MEDS: CARBIDOPA-LEVODOPA ER 50-200MG 1 EACH TABLET.ER PO SCH ×3 (09:26→19:50)
[2021-05-22] MEDS: CALCIUM CARBONATE 500 MG CHEWABLE PO SCH ×2 (09:27→21:29)
[2021-05-22] MEDS: MAGNESIUM OXIDE 400 MG TAB PO SCH ×2 (09:27→19:51)
[2021-05-22] MEDS: PROPRANOLOL 40 MG TAB PO SCH ×2 (09:27→21:29)
[2021-05-22] MEDS: POTASSIUM CHLORIDE ER 20 MEQ TAB.ER PO SCH ×2 (09:27→09:42)
[2021-05-22] MEDS: ENOXAPARIN 40 MG/0.4 ML SYRINGE SQ SCH (09:27)
[2021-05-22 12:02] LABS: Glucose,Whole Blood 96 mg/dL (75-99)
[2021-05-22] MEDS: SODIUM CHLORIDE 3%(HYPERTONIC) 500 ML IV SCH (12:24)
--- NOTE | 2021-05-22 12:32 | MISC ---
MISCELLANOUS REPORT QUERY: Moderate protein-calorie malnutrition. MMODL / IJN: [id number] /
--- NOTE | 2021-05-22 12:52 | ECHOF ---
Referral Reason:fluid overload MEASUREMENTS -------- HEIGHT: 185.4 cm WEIGHT: 73.5 kg BP: MV E Mirza: 0.50 m/s MV DecT: 285 ms MV A Mirza: 0.37 m/s MV E/A Ratio: 1.34 RAP: 5.00 mmHg RVSP: 11.07 mmHg FINDINGS -------- Sinus rhythm. This was a technically difficult study with suboptimal views. Overall left ventricular systolic function is low-normal with, an EF between 50 - 55 %. The RV was not well visualized. The left atrium was not well visualized. The right atrium was not well visualized. Lumason used The aortic valve was not well visualized. The mitral valve was not well visualized. The tricuspid valve was not well visualized. The pulmonic valve was not well visualized. There is no pericardial effusion. CONCLUSIONS -------- 1. This was a technically difficult study with suboptimal views. 2. Overall left ventricular systolic function is low-normal with, an EF between 50 - 55 %. 3. The aortic valve was not well visualized. 4. The mitral valve was not well visualized. 5. There is no pericardial effusion. MANAGER TRUCK: Patrizia Rico, [facility]
--- NOTE | 2021-05-22 13:06 | P.NPCON ---
History of Present Illness - Reason for Consult hyponatremia - History of Present Illness Reason for consultation: Hyponatremia History of present illness: Patient is a 70-year-old male seen in consultation for hyponatremia. Patient presented to the hospital on 05/18/2021 with a sodium level of 123. It did improve to 126 the next day but then has been gradually dropping and is down to 118 today. Renal function is at baseline. Creatinine 0.5 today. Patient presented to the hospital after he fell several times at home. He was able to get up and called his caregiver. Apparently patient had been falling for about 3 days prior to admission. Patient is currently awake but he is not completely alert. He is not a reliable historian. Patient states he has several issues that's why he came to the hospital. Blood pressure is stable but on the lower side. He's on 2 L nasal cannula. He was just started on 3% saline at 25 mL an hour. Prior to that he was receiving normal saline at 130 mL an hour. Echocardiogram revealed ejection fraction of 50-55%. CT of the abdomen and pelvis showed no evidence of hydronephrosis. Potassium level is high at 5.8 today. He has been receiving potassium supplementation which is now discontinued. Magnesium level is low today and is being replaced. I don't see any thiazide diuretics and his home medication list. Oral intake has been poor. Vital signs are stable. General: Awake. Not alert. No acute distress. HEENT: Head exam is unremarkable. On nasal cannula. LUNGS: Breath sounds decreased. HEART: Rate and Rhythm are regular. ABDOMEN: Soft, no distention. EXTREMITITES: No edema. Past Medical History Past Medical History: COPD, Hypertension Additional Past Medical History / Comment(s): engarged right ventricle History of Any Multi-Drug Resistant Organisms: None Reported Past Surgical History: Back Surgery Additional Past Surgical History / Comment(s): back surgery x3, thyroid removed Past Psychological History: No Psychological Hx Reported Smoking Status: Current every day smoker Past Alcohol Use History: Daily Past Drug Use History: Marijuana Medications and Allergies Home Medications Medication Instructions Recorded Confirmed Type Carbidopa-Levodopa ER 50-200Mg 1 tab PO TID 07/14/20 05/18/21 History [Sinemet CR 50-200 mg] Propranolol [Inderal] 40 mg PO BID 07/14/20 05/18/21 History clonazePAM [KlonoPIN] 0.5 mg PO TID 07/14/20 05/18/21 History Allergies Allergy/AdvReac Type Severity Reaction Status Date / Time No Known Allergies Allergy Verified 05/18/21 19:50 Physical Exam Vitals: Vital Signs Temp Pulse Pulse Resp BP BP Pulse Ox 05/22/21 12:00 97.7 F 73 25 H 106/78 92 L 05/22/21 08:19 70 05/22/21 08:13 66 05/22/21 08:00 98.6 F 67 18 95/62 95 05/22/21 04:00 21 100/71 95 05/21/21 23:49 20 90 L 05/21/21 23:40 78 20 110/74 86 L 05/21/21 22:13 85 05/21/21 22:07 92 05/21/21 20:10 20 90 L 05/21/21 20:00 97.8 F 83 26 H 165/107 78 L 05/21/21 16:00 98.2 F 72 16 181/76 98 05/21/21 14:00 16 Intake and Output 05/21/21 05/22/21 05/22/21 22:59 06:59 14:59 Intake Total 2387 100 0 Output Total 650 425 125 Balance 1737 -325 -125 Intake: IV 1050 0 Invasive Line 4 10 Sodium Chloride 0.9% 1, 1040 0 000 ml @ 130 mls/hr IV . Q7H42M [facility] Rx#:[id number] Intake, IV Titration 0 Amount Sodium Chloride 3%( 0 Hypertonic) 500 ml @ 25 mls/hr IV .Q20H [facility] Rx#: [id number] Oral 1337 100 Output: Urine 650 425 125 Other: Voiding Method Urinal Urinal Indwelling Catheter Diaper Diaper # Voids 1 2 Weight 73.5 kg Results - Lab Results Most recent lab results Calcium 8.5 mg/dL (8.4-10.2) 05/21/21 08:49 Phosphorus 2.7 mg/dL (2.5-4.5) 05/19/21 08:00 Magnesium 1.4 mg/dL (1.6-2.3) L 05/22/21 11:11 05/21/21 08:49 05/22/21 11:11 Assessment and Plan Plan: Assessment: 1. Hyponatremia with sodium level down to 118 today. Appears hypovolemic with component of poor solute intake. BUN is less than 2. 2. Hyperkalemia secondary to potassium supplementation. 3. Hypomagnesemia from poor intake. 4. Falls. CK level was 858 on admission. Plan: Maintain 3%. Repeat sodium level every 2 hours. Magnesium being replaced. Stop potassium supplementation. Check serum and urine osmolality and urine sodium level. Check TSH. Check a.m. cortisol level. Strict is and os. Continue to monitor renal function and urine output. Repeat CK level. Thank you for the consultation. I will continue to follow the patient with you during his hospital stay.
[2021-05-22] MEDS: MAGNESIUM SULFATE-D5W PMX 1 GM in DEXTROSE/WATER 1 100ML.BAG IVPB SCH ×2 (13:48→14:47)
[2021-05-22] MEDS: SODIUM CHLORIDE 0.9% 1,000 ML IV SCH (13:52)
--- NOTE | 2021-05-22 14:25 | P.CNPUL ---
History of Present Illness Consult date: 05/22/21 Requesting physician: Hebert Kam Reason for consult: other Chief complaint: Hyponatremia History of present illness: 70-year-old past medical history of hypertension, COPD, nicotine dependence was brought into the hospital for [facility] 2021 after he was found on the floor, and it is not clear how long he had been on the floor. He had generalized weakness. Patient appeared to be pale and dehydrated. Patient had been generally declining and having frequent falling at home. Patient also had evidence of probable malnutrition. According to the caregiver the patient reported that he had been on the floor for 3 days according to the emergency room records. Was complaining of pain in his back, which is chronic for the patient. Denied any chest pain, denied any fever or chills, denies any injury to his head or neck, he did complain of bilateral ankle swelling. No headaches, no vision changes, no slurred speech, no focal weakness. Chest x-ray showing possible new infiltrate at the left base, heart was of normal size, CT of the head and cervical spine showed mild cervical multilevel spondylotic changes, no fracture, no acute intracranial abnormality. Lumbar spine showed severe multilevel degenerative disc disease, with facet arthropathy and scoliosis, and numerous ca lcifications in the right upper quadrant possibly related to gallstones. Patient also has a history of left upper back nonhealing ulceration, for which patient used to go to the wound care center however had not been seen there for quite some time. There was a suspicion for possible malignancy but patient never had the biopsy. He also has Stage II sacral decubitus ulcer. Patient's admission blood work showed numerous electrolyte abnormalities including low sodium of 123, potassium of 4.8, chloride is 79, BUN of 13 creatinine 0.87, total CK of 858, AST was 139, ALT was 17, alkaline phosphatase was 93, proBNP was normal at 409, troponin was negative at 0.016, serum alcohol level was less than 10, he tested negative for C. diff and COVID-19 PCR. Patient is receiving hydration with 0.9 normal saline at a rate of 1:30 ML per hour, his electrolytes are being replaced per protocol, on today's labs his sodium is down to 118, his potassium is 5.8, chloride is 83, patient continues on 0.1 cm to 130 ML per hour. He underwent left upper back nonhealing ulcer biopsied by general surgery yesterday on 05/21/2021. Despite the fluid resuscitation his sodium has remained low, his echocardiogram showed preserved LV function with EF of 50-55%. Patient has been transferred to the intensive care unit after hypertonic saline fluid infusion initiation. Code status is DO NOT RESUSCITATE. Patient is currently on 2 L of oxygen, does not appear to be in any respiratory distress, on 2 L of oxygen pulse ox is 92-95%, blood pressures 106/78, afebrile. Review of Systems All systems: negative Constitutional: Reports weakness, Denies chills, Denies fever Eyes: denies blurred vision, denies pain Ears, nose, mouth and throat: Denies headache, Denies sore throat Cardiovascular: Denies chest pain, Denies shortness of breath Respiratory: Denies cough Gastrointestinal: Denies abdominal pain, Denies diarrhea, Denies nausea, Denies vomiting Musculoskeletal: Denies myalgias Integumentary: Reports wounds, Denies pruritus, Denies rash Neurological: Reports balance difficulties, Reports gait dysfunction, Reports weakness, Denies numbness Psychiatric: Denies anxiety, Denies depression Endocrine: Denies fatigue, Denies weight change Past Medical History Past Medical History: COPD, Hypertension Additional Past Medical History / Comment(s): engarged right ventricle History of Any Multi-Drug Resistant Organisms: None Reported Past Surgical History: Back Surgery Additional Past Surgical History / Comment(s): back surgery x3, thyroid removed Past Psychological History: No Psychological Hx Reported Smoking Status: Current every day smoker Past Alcohol Use History: Daily Past Drug Use History: Marijuana Medications and Allergies Home Medications Medication Instructions Recorded Confirmed Type Carbidopa-Levodopa ER 50-200Mg 1 tab PO TID 07/14/20 05/18/21 History [Sinemet CR 50-200 mg] Propranolol [Inderal] 40 mg PO BID 07/14/20 05/18/21 History clonazePAM [KlonoPIN] 0.5 mg PO TID 07/14/20 05/18/21 History Allergies Allergy/AdvReac Type Severity Reaction Status Date / Time No Known Allergies Allergy Verified 05/18/21 19:50 Physical Exam Vitals: Vital Signs Temp Pulse Pulse Resp BP BP Pulse Ox 05/22/21 12:00 97.7 F 73 25 H 106/78 92 L 05/22/21 08:19 70 05/22/21 08:13 66 05/22/21 08:00 98.6 F 67 18 95/62 95 05/22/21 04:00 21 100/71 95 05/21/21 23:49 20 90 L 05/21/21 23:40 78 20 110/74 86 L 05/21/21 22:13 85 05/21/21 22:07 92 05/21/21 20:10 20 90 L 05/21/21 20:00 97.8 F 83 26 H 165/107 78 L 05/21/21 16:00 98.2 F 72 16 181/76 98 05/21/21 14:00 16 Intake and Output 05/21/21 05/22/21 05/22/21 22:59 06:59 14:59 Intake Total 2387 100 0 Output Total 650 425 125 Balance 1737 -325 -125 Intake: IV 1050 0 Invasive Line 4 10 Sodium Chloride 0.9% 1, 1040 0 000 ml @ 130 mls/hr IV . Q7H42M [facility] Rx#:[id number] Intake, IV Titration 0 Amount Sodium Chloride 3%( 0 Hypertonic) 500 ml @ 25 mls/hr IV .Q20H [facility] Rx#: [id number] Oral 1337 100 Output: Urine 650 425 125 Other: Voiding Method Urinal Urinal Indwelling Catheter Diaper Diaper # Voids 1 2 Weight 73.5 kg GENERAL EXAM: Alert, pleasant, 70-year-old white male, 2 L of oxygen pulse ox 92%, resting in the ICU, comfortable in no apparent distress. HEAD: Normocephalic/atraumatic. EYES: Normal reaction of pupils, equal size. Conjunctiva pink, sclera white. NOSE: Clear with pink turbinates. THROAT: No erythema or exudates. NECK: No masses, no JVD, no thyroid enlargement, no adenopathy. CHEST: No chest wall deformity. Symmetrical expansion. LUNGS: Equal air entry with no crackles, wheeze, rhonchi or dullness. CVS: Regular rate and rhythm, normal S1 and S2, no gallops, no murmurs, no rubs ABDOMEN: Soft, nontender. No hepatosplenomegaly, normal bowel sounds, no guarding or rigidity. EXTREMITIES: No clubbing, bilateral lower extremity edema 1+ no cyanosis, 2+ pulses and upper and lower extremities. MUSCULOSKELETAL: Muscle strength and tone normal. SPINE: No scoliosis or deformity SKIN: No rashes, Stage II to coccyx wound not examined, left upper back nonhealing wound status post surgical biopsy, the dressing CENTRAL NERVOUS SYSTEM: Alert and oriented -3. No focal deficits, tone is normal in all 4 extremities. PSYCHIATRIC: Alert and oriented -3. Appropriate affect. Intact judgment and insight. Results - Laboratory Findings CBC and BMP: 05/21/21 08:49 05/22/21 11:11 Abnormal lab findings: Abnormal Labs 05/18/21 05/18/21 05/19/21 18:54 18:54 08:00 WBC RBC 3.64 L 3.50 L Hgb 12.4 L 11.7 L Hct 35.4 L 34.6 L MCV Plt Count Lymphocytes # Sodium 123 L Potassium Chloride 79 L Carbon Dioxide BUN Creatinine Glucose 111 H POC Glucose (mg/dL) Calcium 8.0 L Magnesium 0.9 L* Total Bilirubin 2.8 H AST 139 H Creatine Kinase 858 H Total Protein 05/19/21 05/19/21 05/19/21 08:00 11:50 21:02 WBC RBC Hgb Hct MCV Plt Count Lymphocytes # Sodium 126 L Potassium 2.8 L 2.7 L* 3.0 L Chloride 82 L Carbon Dioxide 33 H BUN Creatinine Glucose 117 H POC Glucose (mg/dL) Calcium 7.3 L Magnesium 1.3 L 1.4 L Total Bilirubin 2.2 H AST 93 H Creatine Kinase Total Protein 6.0 L 05/20/21 05/20/21 05/20/21 08:56 08:56 11:36 WBC RBC 3.35 L Hgb 10.9 L Hct 34.6 L MCV 103.2 H Plt Count 47 L D Lymphocytes # 0.9 L Sodium 123 L Potassium 3.4 L Chloride 85 L Carbon Dioxide BUN 3 L Creatinine 0.57 L Glucose 124 H POC Glucose (mg/dL) Calcium 7.2 L Magnesium Total Bilirubin 1.4 H AST 86 H Creatine Kinase Total Protein 05/21/21 05/21/21 05/21/21 08:49 08:49 23:46 WBC 3.5 L RBC 3.76 L Hgb 12.5 L Hct 38.2 L MCV 101.7 H Plt Count Lymphocytes # Sodium 119 L* Potassium 5.2 H Chloride 81 L Carbon Dioxide 31 H BUN <2 L Creatinine 0.58 L Glucose 112 H POC Glucose (mg/dL) 130 H Calcium Magnesium Total Bilirubin AST 71 H Creatine Kinase Total Protein 05/22/21 05/22/21 05/22/21 06:40 11:11 11:11 WBC RBC Hgb Hct MCV Plt Count Lymphocytes # Sodium 118 L* 118 L* Potassium 5.8 H Chloride 83 L Carbon Dioxide BUN Creatinine Glucose POC Glucose (mg/dL) Calcium Magnesium 1.4 L Total Bilirubin AST Creatine Kinase Total Protein - Diagnostic Findings Chest x-ray: report reviewed, image reviewed CT scan - chest: report reviewed, image reviewed Additional studies: Echocardiogram, EKG, CT of the head and cervical spine, CT of the abdomen and pelvis reviewed Assessment and Plan Plan: Assessment: #1. Hyponatremia, likely hypovolemic, despite the IV fluid resuscitation, is being started on hypertonic saline today. TSH has been ordered and pending. Transfer to the intensive care unit on 05/22/2021 for hypertonic saline infusion #2. Severe general medical debility, declining health status, frequent falls at home #3. Recent fall at home, patient was unable to get up, exact time on the floor is unknown #4. Weight loss, anorexia, rule out possibility of underlying malignancy #5. Hypomagnesemia, hyponatremia #6. Diarrhea, stool for C. diff is negative #7. Nonhealing neoplastic appearing skin lesion on his left upper back, status post surgical biopsy on 05/21/2021 #8. COPD #9. Smoker #10. Anxiety #11. Hypertension #12. History of chronic back pain #13. History of thyroidectomy, not on any thyroid hormone replacement therapy currently Plan: Patient has been transferred to intensive care unit Continue IV fluid resuscitation, with 0.9 normal saline, and hypertonic saline We will consult nephrology for IV fluid management Neurologically patient is appropriate, no seizure activity, awake and alert, responding appropriately TSH has been ordered and pending at this time Serum cortisol, osmolality and urine sodium studies in progress Hemodynamically patient is stable Continue close neurological monitoring Continue GI and DVT prophylaxis Continue supportive medical treatment CODE STATUS is DO NOT RESUSCITATE Continue closely following in the intensive care unit I have personally seen and examined the patient, performed the documentation and the assessment and plan as written. Number of minutes spent on the visit: [1 5] Time with Patient: Greater than 30
[2021-05-22] MEDS ORDERED: FUROSEMIDE 10 MG/ML 4 ML VIAL IV STA (17:14)
--- NOTE | 2021-05-22 17:27 | P.PN ---
Subjective Progress Note Date: 05/22/21 Principal diagnosis: Skin lesion Patient transferred to the ICU because of low sodium. No new complaints. No bleeding from recent biopsy site of significance. Objective - Vital Signs Vital signs: Vital Signs Temp 97.9 F 05/22/21 16:00 Pulse 60 05/22/21 17:00 Resp 18 05/22/21 17:00 BP 91/54 05/22/21 17:00 Pulse Ox 94 L 05/22/21 17:00 Intake & Output 05/21/21 05/22/21 05/22/21 18:59 06:59 18:59 Intake Total 4731 110 325 Output Total 650 425 275 Balance 4081 -315 50 Weight 73.5 kg 73.5 kg Intake: IV 2080 10 0 Dextrose 5%-0.45% NaCl 1, 1040 000 ml @ 125 mls/hr IV . Q8H [facility] Rx#:[id number] Invasive Line 4 10 Sodium Chloride 0.9% 1, 1040 0 000 ml @ 130 mls/hr IV . Q7H42M [facility] Rx#:[id number] Intake, IV Titration 325 Amount Magnesium Sulfate-D5w Pmx 200 1 gm In Dextrose/Water 1 100ml.bag @ 100 mls/hr IVPB Q1H [facility] Rx#: [id number] Sodium Chloride 3%( 125 Hypertonic) 500 ml @ 25 mls/hr IV .Q20H [facility] Rx#: [id number] Oral 2651 100 Output: Urine 650 425 275 Other: Voiding Method Urinal Indwelling Catheter Diaper # Voids 1 2 # Bowel Movements 2 - Exam Wound left upper back without active bleeding, dressing in place - Labs CBC & Chem 7: 05/21/21 08:49 05/22/21 16:15 Labs: Abnormal Lab Results - Last 24 Hours (Table) 05/21/21 05/22/21 05/22/21 Range/Units 23:46 06:40 11:11 Sodium 118 L* (137-145) mmol/L Potassium 5.8 H (3.5-5.1) mmol/L Chloride 83 L (98-107) mmol/L POC Glucose (mg/dL) 130 H (75-99) mg/dL Osmolality (280-301) mosm/kg Magnesium 1.4 L (1.6-2.3) mg/dL Creatine Kinase (55-170) U/L 05/22/21 05/22/21 05/22/21 Range/Units 11:11 11:11 13:03 Sodium 118 L* (137-145) mmol/L Potassium (3.5-5.1) mmol/L Chloride (98-107) mmol/L POC Glucose (mg/dL) (75-99) mg/dL Osmolality 252 L (280-301) mosm/kg Magnesium (1.6-2.3) mg/dL Creatine Kinase 251 H (55-170) U/L 05/22/21 Range/Units 16:15 Sodium 118 L* (137-145) mmol/L Potassium (3.5-5.1) mmol/L Chloride (98-107) mmol/L POC Glucose (mg/dL) (75-99) mg/dL Osmolality (280-301) mosm/kg Magnesium (1.6-2.3) mg/dL Creatine Kinase (55-170) U/L Assessment and Plan (1) Skin lesion of back Narrative/Plan: Patient doing better today. Await biopsy results from punch biopsy. Current Visit: Yes Status: Acute Code(s): L98.9 - DISORDER OF THE SKIN AND SUBCUTANEOUS TISSUE, UNSPECIFIED SNOMED Code(s): 97303610
[2021-05-22 20:03] LABS: African American GFR (CKD) >90 (>60 ml/min/1.73 sqM); Anion Gap 6 mmol/L; Blood Urea Nitrogen 15 mg/dL (9-20); Calcium 8.3 mg/dL (8.4-10.2); Carbon Dioxide 29 mmol/L (22-30); Chloride 85 mmol/L (98-107); Glucose 101 mg/dL (74-99); Non-African American GFR(CKD) >90 (>60 ml/min/1.73 sqM); Potassium 4.2 mmol/L (3.5-5.1); Sodium 120 mmol/L (137-145)
--- NOTE | 2021-05-22 20:17 | PN ---
PROGRESS NOTE CHIEF COMPLAINT: General debility and failure to thrive. HISTORY OF PRESENT ILLNESS: This gentleman continues to be extremely weak. Sodium is bouncing around. Last night he developed congestive heart failure and his sodium chloride was changed to keep-open and he was given Lasix. Now he is severely hyponatremic. PHYSICAL EXAMINATION: He is awake and alert. He is not complaining of any muscle spasms or tremors. He does not have any shortness of breath. On exam his chest is clear. Cardiac exam is normal. The abdomen is soft and nontender. The lesion on the back was biopsied yesterday. IMPRESSION: 1. Failure to thrive. 2. Frequent falling. 3. Dehydration. 4. Malnutrition. 5. Carcinoma on the back of the chest. 6. Hypokalemia. PLAN: 1. 3% sodium chloride at 30 mL/hour. 2. Echocardiogram. 3. Await results of biopsy. MMODL / IJN: [id number] /
[2021-05-22] MEDS ORDERED: HALOPERIDOL LACTATE 5 MG/ML 1 ML VIAL IVP PRN (23:33)
[2021-05-23] MEDS: DEXMEDETOMIDINE/0.9% NACL(PMX) 400 MCG in EMPTY BAG 1 BAG IV SCH ×2 (00:36→23:55)
[2021-05-23] MEDS: SODIUM CHLORIDE 3%(HYPERTONIC) 500 ML IV SCH ×2 (03:00→13:42)
[2021-05-23 05:00] LABS: Sodium 121 mmol/L (137-145)
[2021-05-23 06:12] LABS: HCT 24.8 % (39.0-53.0); HGB 8.2 gm/dL (13.0-17.5); MCH 33.7 pg (25.0-35.0); MCV 102.1 fL (80.0-100.0); Macrocytosis Slight; Platelet Count 121 k/uL (150-450); RBC 2.43 m/uL (4.30-5.90); WBC 4.4 k/uL (3.8-10.6)
[2021-05-23 06:28] LABS: African American GFR (CKD) >90 (>60 ml/min/1.73 sqM); Anion Gap 5 mmol/L; Blood Urea Nitrogen 15 mg/dL (9-20); Calcium 7.5 mg/dL (8.4-10.2); Carbon Dioxide 30 mmol/L (22-30); Chloride 89 mmol/L (98-107); Glucose 93 mg/dL (74-99); Magnesium 1.7 mg/dL (1.6-2.3); Non-African American GFR(CKD) >90 (>60 ml/min/1.73 sqM); Potassium 3.9 mmol/L (3.5-5.1); Sodium 124 mmol/L (137-145)
[2021-05-23] MEDS: MAGNESIUM SULFATE-D5W PMX 1 GM in DEXTROSE/WATER 1 100ML.BAG IVPB SCH ×2 (06:46→08:42)
[2021-05-23] MEDS: PANTOPRAZOLE 40 MG TABLET PO SCH (06:47)
[2021-05-23] MEDS: POTASSIUM CHLORIDE 10 MEQ in WATER FOR INJECTION 1 100ML.BAG IVPB SCH ×2 (07:01→08:42)
[2021-05-23] MEDS: IPRATROPIUM-ALBUTEROL 3 ML NEB INHALATION SCH ×4 (07:28→19:57)
[2021-05-23 08:21] LABS: T4, Free (Free Thyroxine) <0.07 ng/dL (0.78-2.19)
[2021-05-23] MEDS: CALCIUM CARBONATE 500 MG CHEWABLE PO SCH ×2 (08:43→20:05)
[2021-05-23] MEDS: CARBIDOPA-LEVODOPA ER 50-200MG 1 EACH TABLET.ER PO SCH ×3 (08:43→23:24)
[2021-05-23] MEDS: ENOXAPARIN 40 MG/0.4 ML SYRINGE SQ SCH (08:43)
[2021-05-23] MEDS: MAGNESIUM OXIDE 400 MG TAB PO SCH ×2 (08:43→20:05)
[2021-05-23] MEDS: PROPRANOLOL 40 MG TAB PO SCH (08:53)
[2021-05-23] MEDS ORDERED: DEXTROSE 5%-0.45% NACL 1,000 ML IV SCH (09:00)
[2021-05-23] MEDS: LEVOTHYROXINE 75 MCG TAB PO SCH (09:02)
[2021-05-23] MEDS: SODIUM CHLORIDE 0.9% 1,000 ML IV SCH ×2 (09:02→23:24)
[2021-05-23] MEDS: clonazePAM 0.5 MG TAB PO SCH ×3 (09:24→23:24)
--- NOTE | 2021-05-23 10:37 | P.PN ---
Subjective Progress Note Date: 05/23/21 Principal diagnosis: Skin lesion Patient confused. No new complaints. Sodium is improved today. No issues with the recent biopsy site. Objective - Vital Signs Vital signs: Vital Signs Temp 97.6 F 05/23/21 04:00 Pulse 69 05/23/21 07:39 Resp 18 05/23/21 07:00 BP 107/70 05/23/21 07:00 Pulse Ox 96 05/23/21 07:00 Intake & Output 05/22/21 05/23/21 05/23/21 18:59 06:59 18:59 Intake Total 355 389.584 230 Output Total 275 880 25 Balance 80 -490.416 205 Weight 73.5 kg 76.1 kg Intake: IV 0 Sodium Chloride 0.9% 1, 0 000 ml @ 130 mls/hr IV . Q7H42M [facility] Rx#:[id number] Intake, IV Titration 355 389.584 230 Amount Dexmedetomidine/0.9% NaCl 29.584 (Pmx) 400 mcg In Empty Bag 1 bag @ 0.2 MCG/KG/HR 3.675 mls/hr IV .Q24H [facility] Rx#:[id number] Magnesium Sulfate-D5w Pmx 200 1 gm In Dextrose/Water 1 100ml.bag @ 100 mls/hr IVPB Q1H [facility] Rx#: [id number] Magnesium Sulfate-D5w Pmx 100 1 gm In Dextrose/Water 1 100ml.bag @ 100 mls/hr IVPB Q1H [facility] Rx#: [id number] Potassium Chloride 10 meq 100 In Water For Injection 1 100ml.bag @ 100 mls/hr IVPB Q1H [facility] Rx#: [id number] Sodium Chloride 3%( 155 360 30 Hypertonic) 500 ml @ 30 mls/hr IV .[id number] [facility] Rx #:[id number] Output: Urine 275 880 25 Other: Voiding Method Indwelling Catheter Indwelling Catheter # Voids 2 - Exam Left upper back wound clean without active bleeding, nontender - Labs CBC & Chem 7: 05/23/21 05:35 05/23/21 05:35 Labs: Abnormal Lab Results - Last 24 Hours (Table) 05/22/21 05/22/21 05/22/21 Range/Units 11:11 11:11 11:11 RBC (4.30-5.90) m/uL Hgb (13.0-17.5) gm/dL Hct (39.0-53.0) % MCV (80.0-100.0) fL Plt Count (150-450) k/uL Sodium 118 L* (137-145) mmol/L Chloride (98-107) mmol/L Creatinine (0.66-1.25) mg/dL Glucose (74-99) mg/dL Osmolality (280-301) mosm/kg Calcium (8.4-10.2) mg/dL Magnesium 1.4 L (1.6-2.3) mg/dL Creatine Kinase 251 H (55-170) U/L TSH (0.465-4.680) mIU/L Free T4 (0.78-2.19) ng/dL Ur Random Sodium (40-220) mmol/L 05/22/21 05/22/21 05/22/21 Range/Units 13:03 13:40 16:15 RBC (4.30-5.90) m/uL Hgb (13.0-17.5) gm/dL Hct (39.0-53.0) % MCV (80.0-100.0) fL Plt Count (150-450) k/uL Sodium 118 L* (137-145) mmol/L Chloride (98-107) mmol/L Creatinine (0.66-1.25) mg/dL Glucose (74-99) mg/dL Osmolality 252 L (280-301) mosm/kg Calcium (8.4-10.2) mg/dL Magnesium (1.6-2.3) mg/dL Creatine Kinase (55-170) U/L TSH (0.465-4.680) mIU/L Free T4 (0.78-2.19) ng/dL Ur Random Sodium <20 L (40-220) mmol/L 05/22/21 05/22/21 05/23/21 Range/Units 19:44 21:44 00:10 RBC (4.30-5.90) m/uL Hgb (13.0-17.5) gm/dL Hct (39.0-53.0) % MCV (80.0-100.0) fL Plt Count (150-450) k/uL Sodium 120 L 121 L 121 L (137-145) mmol/L Chloride 85 L (98-107) mmol/L Creatinine 0.62 L (0.66-1.25) mg/dL Glucose 101 H (74-99) mg/dL Osmolality (280-301) mosm/kg Calcium 8.3 L (8.4-10.2) mg/dL Magnesium (1.6-2.3) mg/dL Creatine Kinase (55-170) U/L TSH (0.465-4.680) mIU/L Free T4 (0.78-2.19) ng/dL Ur Random Sodium (40-220) mmol/L 05/23/21 05/23/21 05/23/21 Range/Units 02:40 04:37 05:35 RBC (4.30-5.90) m/uL Hgb (13.0-17.5) gm/dL Hct (39.0-53.0) % MCV (80.0-100.0) fL Plt Count (150-450) k/uL Sodium 121 L 121 L 124 L (137-145) mmol/L Chloride 89 L (98-107) mmol/L Creatinine (0.66-1.25) mg/dL Glucose (74-99) mg/dL Osmolality (280-301) mosm/kg Calcium 7.5 L (8.4-10.2) mg/dL Magnesium (1.6-2.3) mg/dL Creatine Kinase (55-170) U/L TSH 68.700 H (0.465-4.680) mIU/L Free T4 <0.07 L (0.78-2.19) ng/dL Ur Random Sodium (40-220) mmol/L 05/23/21 Range/Units 05:35 RBC 2.43 L (4.30-5.90) m/uL Hgb 8.2 L D (13.0-17.5) gm/dL Hct 24.8 L (39.0-53.0) % MCV 102.1 H (80.0-100.0) fL Plt Count 121 L (150-450) k/uL Sodium (137-145) mmol/L Chloride (98-107) mmol/L Creatinine (0.66-1.25) mg/dL Glucose (74-99) mg/dL Osmolality (280-301) mosm/kg Calcium (8.4-10.2) mg/dL Magnesium (1.6-2.3) mg/dL Creatine Kinase (55-170) U/L TSH (0.465-4.680) mIU/L Free T4 (0.78-2.19) ng/dL Ur Random Sodium (40-220) mmol/L Assessment and Plan (1) Skin lesion of back Narrative/Plan: Patient seems to be improving gradually. Await pathology results from punch biopsy. Current Visit: Yes Status: Acute Code(s): L98.9 - DISORDER OF THE SKIN AND SUBCUTANEOUS TISSUE, UNSPECIFIED SNOMED Code(s): 81755435
--- NOTE | 2021-05-23 11:13 | P.PN ---
Subjective Progress Note Date: 05/23/21 Principal diagnosis: Severe hyponatremia 70-year-old past medical history of hypertension, COPD, nicotine dependence was brought into the hospital for [facility] 2021 after he was found on the floor, and it is not clear how long he had been on the floor. He had generalized weakness. Patient appeared to be pale and dehydrated. Patient had been generally declining and having frequent falling at home. Patient also had evidence of probable malnutrition. According to the caregiver the patient reported that he had been on the floor for 3 days according to the emergency room records. Was complaining of pain in his back, which is chronic for the patient. Denied any chest pain, denied any fever or chills, denies any injury to his head or neck, he did complain of bilateral ankle swelling. No headaches, no vision changes, no slurred speech, no focal weakness. Chest x-ray showing possible new infiltrate at the left base, heart was of normal size, CT of the head and cervi margareth spine showed mild cervical multilevel spondylotic changes, no fracture, no acute intracranial abnormality. Lumbar spine showed severe multilevel degenerative disc disease, with facet arthropathy and scoliosis, and numerous calcifications in the right upper quadrant possibly related to gallstones. Patient also has a history of left upper back nonhealing ulceration, for which patient used to go to the wound care center however had not been seen there for quite some time. There was a suspicion for possible malignancy but patient never had the biopsy. He also has Stage II sacral decubitus ulcer. Patient's admission blood work showed numerous electrolyte abnormalities including low sodium of 123, potassium of 4.8, chloride is 79, BUN of 13 creatinine 0.87, total CK of 858, AST was 139, ALT was 17, alkaline phosphatase was 93, proBNP was normal at 409, troponin was negative at 0.016, serum alcohol level was less than 10, he tested negative for C. diff and COVID-19 PCR. Patient is receiving hydration with 0.9 normal saline at a rate of 1:30 ML per hour, his electrolytes are being replaced per protocol, on today's labs his sodium is down to 118, his potassium is 5.8, chloride is 83, patient continues on 0.1 cm to 130 ML per hour. He underwent left upper back nonhealing ulcer biopsied by general surgery yesterday on 05/21/2021. Despite the fluid resuscitation his sodium has remained low, his echocardiogram showed preserved LV function with EF of 50-55%. Patient has been transferred to the intensive care unit after hypertonic saline fluid infusion initiation. Code status is DO NOT RESUSCITATE. Patient is currently on 2 L of oxygen, does not appear to be in any respiratory distress, on 2 L of oxygen pulse ox is 92-95%, blood pressures 106/78, afebrile. Patient was reevaluated today on 05/23/21, patient remains in the ICU, doing much better, less agitated today, patient didn't require Haldol yesterday, and he was briefly on Precedex which she did not tolerate well. His sodium is up to 124. I took him off 3% saline today. And I recommended thyroid replacement patient was found to have severe hypothyroidism with TSH of 68.7 and T4 of 0.07 he had a relatively normal cortisol level. Changes IV fluid to 0.9 normal saline at 75 mL/h, patient was given fluid bolus for low blood pressure of D5 45, 1000 mL today. I believe the patient would have good correction of his sodium once his thyroid replacement is started. And I put him now on levothyroxine at 150 g by mouth daily. 4 is agitation, patient was apparently on Klonopin, and I will restart his Klonopin. We will discontinue his Inderal for low blood pressure. WBC count is 4.4 hemoglobin is 8.2, however is no active bleeding noted. Sodium is up to 124 potassium 3.9 BUN is 15 creatinine 0.7. Again his T4 is extremely low and TSH is very high. Apparently the patient had previous thyroidectomy and he went off his medications 2 years ago. Objective - Vital Signs Vital signs: Vital Signs Temp 97.6 F 05/23/21 04:00 Pulse 81 05/23/21 11:03 Resp 18 05/23/21 07:00 BP 107/70 05/23/21 07:00 Pulse Ox 96 05/23/21 07:00 Intake & Output 05/22/21 05/23/21 05/23/21 18:59 06:59 18:59 Intake Total 355 389.584 230 Output Total 275 880 25 Balance 80 -490.416 205 Weight 73.5 kg 76.1 kg Intake: IV 0 Sodium Chloride 0.9% 1, 0 000 ml @ 130 mls/hr IV . Q7H42M [facility] Rx#:[id number] Intake, IV Titration 355 389.584 230 Amount Dexmedetomidine/0.9% NaCl 29.584 (Pmx) 400 mcg In Empty Bag 1 bag @ 0.2 MCG/KG/HR 3.675 mls/hr IV .Q24H [facility] Rx#:[id number] Magnesium Sulfate-D5w Pmx 200 1 gm In Dextrose/Water 1 100ml.bag @ 100 mls/hr IVPB Q1H [facility] Rx#: [id number] Magnesium Sulfate-D5w Pmx 100 1 gm In Dextrose/Water 1 100ml.bag @ 100 mls/hr IVPB Q1H [facility] Rx#: [id number] Potassium Chloride 10 meq 100 In Water For Injection 1 100ml.bag @ 100 mls/hr IVPB Q1H [facility] Rx#: [id number] Sodium Chloride 3%( 155 360 30 Hypertonic) 500 ml @ 30 mls/hr IV .[id number] [facility] Rx #:[id number] Output: Urine 275 880 25 Other: Voiding Method Indwelling Catheter Indwelling Catheter # Voids 2 - Exam GENERAL EXAM: Revealed a 70-year-old white male, looks chronically ill, in no distress. Looks pale. HEAD: Normocephalic/atraumatic. EYES: Normal reaction of pupils, equal size. Conjunctiva pale. NOSE: Clear with pink turbinates. THROAT: No erythema or exudates. Dry mucous membranes noted. NECK: No masses, no JVD, no thyroid enlargement, no adenopathy. CHEST: No chest wall deformity. Symmetrical expansion. LUNGS: Equal air entry with no crackles, wheeze, rhonchi or dullness. CVS: Regular rate and rhythm, normal S1 and S2, no gallops, no murmurs, no rubs ABDOMEN: Soft, nontender. No hepatosplenomegaly, normal bowel sounds, no guard ing or rigidity. EXTREMITIES: No clubbing, bilateral lower extremity edema 1+ no cyanosis, 2+ pulses and upper and lower extremities. MUSCULOSKELETAL: Muscle strength and tone normal. SKIN: Stage II to coccyx wound not examined, left upper back nonhealing wound status post surgical biopsy, the dressing CENTRAL NERVOUS SYSTEM: Alert oriented 3 no focal deficits. Seems to be generally weak. PSYCHIATRIC: Depressed mood, blunt affect, normal mental status otherwise. - Labs CBC & Chem 7: 05/23/21 05:35 05/23/21 05:35 Labs: Abnormal Lab Results - Last 24 Hours (Table) 05/22/21 05/22/21 05/22/21 Range/Units 11:11 11:11 11:11 RBC (4.30-5.90) m/uL Hgb (13.0-17.5) gm/dL Hct (39.0-53.0) % MCV (80.0-100.0) fL Plt Count (150-450) k/uL Sodium 118 L* (137-145) mmol/L Chloride (98-107) mmol/L Creatinine (0.66-1.25) mg/dL Glucose (74-99) mg/dL Osmolality (280-301) mosm/kg Calcium (8.4-10.2) mg/dL Magnesium 1.4 L (1.6-2.3) mg/dL Creatine Kinase 251 H (55-170) U/L TSH (0.465-4.680) mIU/L Free T4 (0.78-2.19) ng/dL Ur Random Sodium (40-220) mmol/L 05/22/21 05/22/21 05/22/21 Range/Units 13:03 13:40 16:15 RBC (4.30-5.90) m/uL Hgb (13.0-17.5) gm/dL Hct (39.0-53.0) % MCV (80.0-100.0) fL Plt Count (150-450) k/uL Sodium 118 L* (137-145) mmol/L Chloride (98-107) mmol/L Creatinine (0.66-1.25) mg/dL Glucose (74-99) mg/dL Osmolality 252 L (280-301) mosm/kg Calcium (8.4-10.2) mg/dL Magnesium (1.6-2.3) mg/dL Creatine Kinase (55-170) U/L TSH (0.465-4.680) mIU/L Free T4 (0.78-2.19) ng/dL Ur Random Sodium <20 L (40-220) mmol/L 05/22/21 05/22/21 05/23/21 Range/Units 19:44 21:44 00:10 RBC (4.30-5.90) m/uL Hgb (13.0-17.5) gm/dL Hct (39.0-53.0) % MCV (80.0-100.0) fL Plt Count (150-450) k/uL Sodium 120 L 121 L 121 L (137-145) mmol/L Chloride 85 L (98-107) mmol/L Creatinine 0.62 L (0.66-1.25) mg/dL Glucose 101 H (74-99) mg/dL Osmolality (280-301) mosm/kg Calcium 8.3 L (8.4-10.2) mg/dL Magnesium (1.6-2.3) mg/dL Creatine Kinase (55-170) U/L TSH (0.465-4.680) mIU/L Free T4 (0.78-2.19) ng/dL Ur Random Sodium (40-220) mmol/L 05/23/21 05/23/21 05/23/21 Range/Units 02:40 04:37 05:35 RBC (4.30-5.90) m/uL Hgb (13.0-17.5) gm/dL Hct (39.0-53.0) % MCV (80.0-100.0) fL Plt Count (150-450) k/uL Sodium 121 L 121 L 124 L (137-145) mmol/L Chloride 89 L (98-107) mmol/L Creatinine (0.66-1.25) mg/dL Glucose (74-99) mg/dL Osmolality (280-301) mosm/kg Calcium 7.5 L (8.4-10.2) mg/dL Magnesium (1.6-2.3) mg/dL Creatine Kinase (55-170) U/L TSH 68.700 H (0.465-4.680) mIU/L Free T4 <0.07 L (0.78-2.19) ng/dL Ur Random Sodium (40-220) mmol/L 05/23/21 Range/Units 05:35 RBC 2.43 L (4.30-5.90) m/uL Hgb 8.2 L D (13.0-17.5) gm/dL Hct 24.8 L (39.0-53.0) % MCV 102.1 H (80.0-100.0) fL Plt Count 121 L (150-450) k/uL Sodium (137-145) mmol/L Chloride (98-107) mmol/L Creatinine (0.66-1.25) mg/dL Glucose (74-99) mg/dL Osmolality (280-301) mosm/kg Calcium (8.4-10.2) mg/dL Magnesium (1.6-2.3) mg/dL Creatine Kinase (55-170) U/L TSH (0.465-4.680) mIU/L Free T4 (0.78-2.19) ng/dL Ur Random Sodium (40-220) mmol/L Assessment and Plan Assessment: Impression: Hypovolemic hyponatremia, exacerbated by profound hypothyroidism. Hyperkalemia secondary to his potassium supplementation. Hypothyroidism. Gen. medical debility. Weight loss and anorexia, possible underlying malignancy Chronic diarrhea. Nonhealing skin lesion left buttock, status post surgical biopsy on 05/21. History of underlying COPD. Tobacco dependence syndrome. Benign essential hypertension. Chronic back pain. History of hypothyroidism and previous thyroidectomy. Recommendation: Discontinue 3% saline. Change IV fluid to 0.9 normal saline at 75 mL per hour. Fluid boluses given in the form of D5 4 5 for hypertension, responding to fluid boluses as the patient seems to be dehydrated. Start replacement therapy for his hypothyroidism. Serum cortisol is normal. Continue to monitor in the ICU for the next 24 hours. Continue supportive care measures. Will follow closely. Continue GI and DVT prophylaxis. Status has been DO NOT RESUSCITATE. Time with Patient: Less than 30
[2021-05-23 12:19] LABS: African American GFR (CKD) >90 (>60 ml/min/1.73 sqM); Anion Gap 6 mmol/L; Blood Urea Nitrogen 15 mg/dL (9-20); Calcium 7.7 mg/dL (8.4-10.2); Carbon Dioxide 27 mmol/L (22-30); Chloride 90 mmol/L (98-107); Glucose 149 mg/dL (74-99); Non-African American GFR(CKD) >90 (>60 ml/min/1.73 sqM); Potassium 3.8 mmol/L (3.5-5.1); Sodium 123 mmol/L (137-145)
--- NOTE | 2021-05-23 12:28 | P.PN ---
Subjective Progress Note Date: 05/23/21 Follow-up for hyponatremia. Sleepy this morning. Episodes of hypotension last night with normal saline bolus. Objective - Vital Signs Vital signs: Vital Signs Temp 97.8 F 05/23/21 08:00 Pulse 81 05/23/21 11:03 Resp 13 05/23/21 11:00 BP 114/74 05/23/21 11:00 Pulse Ox 93 L 05/23/21 11:00 Intake & Output 05/22/21 05/23/21 05/23/21 18:59 06:59 18:59 Intake Total 355 389.584 290 Output Total 275 880 110 Balance 80 -490.416 180 Weight 73.5 kg 76.1 kg Intake: IV 0 60 Sodium Chloride 0.9% 1, 0 000 ml @ 130 mls/hr IV . Q7H42M [facility] Rx#:[id number] Sodium Chloride 3%( 60 Hypertonic) 500 ml @ 30 mls/hr IV .[id number] [facility] Rx #:[id number] Intake, IV Titration 355 389.584 230 Amount Dexmedetomidine/0.9% NaCl 29.584 (Pmx) 400 mcg In Empty Bag 1 bag @ 0.2 MCG/KG/HR 3.675 mls/hr IV .Q24H [facility] Rx#:[id number] Magnesium Sulfate-D5w Pmx 200 1 gm In Dextrose/Water 1 100ml.bag @ 100 mls/hr IVPB Q1H [facility] Rx#: [id number] Magnesium Sulfate-D5w Pmx 100 1 gm In Dextrose/Water 1 100ml.bag @ 100 mls/hr IVPB Q1H [facility] Rx#: [id number] Potassium Chloride 10 meq 100 In Water For Injection 1 100ml.bag @ 100 mls/hr IVPB Q1H [facility] Rx#: [id number] Sodium Chloride 3%( 155 360 30 Hypertonic) 500 ml @ 30 mls/hr IV .[id number] [facility] Rx #:[id number] Output: Urine 275 880 110 Other: Voiding Method Indwelling Catheter Indwelling Catheter # Voids 2 - Exam No acute distress S1-S2 heard Decreased breath sounds Lungs clear No edema - Labs CBC & Chem 7: 05/23/21 05:35 05/23/21 05:35 Labs: Abnormal Lab Results - Last 24 Hours (Table) 04/05/22/21 05/22/21 Range/Units 11:11 13:03 13:40 RBC (4.30-5.90) m/uL Hgb (13.0-17.5) gm/dL Hct (39.0-53.0) % MCV (80.0-100.0) fL Plt Count (150-450) k/uL Sodium (137-145) mmol/L Chloride (98-107) mmol/L Creatinine (0.66-1.25) mg/dL Glucose (74-99) mg/dL Osmolality 252 L (280-301) mosm/kg Calcium (8.4-10.2) mg/dL Creatine Kinase 251 H (55-170) U/L TSH (0.465-4.680) mIU/L Free T4 (0.78-2.19) ng/dL Ur Random Sodium <20 L (40-220) mmol/L 05/22/21 05/22/21 05/22/21 Range/Units 16:15 19:44 21:44 RBC (4.30-5.90) m/uL Hgb (13.0-17.5) gm/dL Hct (39.0-53.0) % MCV (80.0-100.0) fL Plt Count (150-450) k/uL Sodium 118 L* 120 L 121 L (137-145) mmol/L Chloride 85 L (98-107) mmol/L Creatinine 0.62 L (0.66-1.25) mg/dL Glucose 101 H (74-99) mg/dL Osmolality (280-301) mosm/kg Calcium 8.3 L (8.4-10.2) mg/dL Creatine Kinase (55-170) U/L TSH (0.465-4.680) mIU/L Free T4 (0.78-2.19) ng/dL Ur Random Sodium (40-220) mmol/L 05/23/21 05/23/21 05/23/21 Range/Units 00:10 02:40 04:37 RBC (4.30-5.90) m/uL Hgb (13.0-17.5) gm/dL Hct (39.0-53.0) % MCV (80.0-100.0) fL Plt Count (150-450) k/uL Sodium 121 L 121 L 121 L (137-145) mmol/L Chloride (98-107) mmol/L Creatinine (0.66-1.25) mg/dL Glucose (74-99) mg/dL Osmolality (280-301) mosm/kg Calcium (8.4-10.2) mg/dL Creatine Kinase (55-170) U/L TSH 68.700 H (0.465-4.680) mIU/L Free T4 <0.07 L (0.78-2.19) ng/dL Ur Random Sodium (40-220) mmol/L 05/23/21 05/23/21 Range/Units 05:35 05:35 RBC 2.43 L (4.30-5.90) m/uL Hgb 8.2 L D (13.0-17.5) gm/dL Hct 24.8 L (39.0-53.0) % MCV 102.1 H (80.0-100.0) fL Plt Count 121 L (150-450) k/uL Sodium 124 L (137-145) mmol/L Chloride 89 L (98-107) mmol/L Creatinine (0.66-1.25) mg/dL Glucose (74-99) mg/dL Osmolality (280-301) mosm/kg Calcium 7.5 L (8.4-10.2) mg/dL Creatine Kinase (55-170) U/L TSH (0.465-4.680) mIU/L Free T4 (0.78-2.19) ng/dL Ur Random Sodium (40-220) mmol/L Assessment and Plan Assessment: #1 hypotonic hyponatremia secondary to poor solute intake and also component of hypovolemia with urines sodium less than 20 #2 normal renal function #3 episode of hypotension Plan: #1 sodium improved to 124 after 3% saline. #2 repeat labs if sodium still low, continue 3% at 30 ML's an hour with the goal of 130 by tomorrow morning. #3 ICU care
--- NOTE | 2021-05-23 13:51 | XR ---
EXAMINATION TYPE: XR chest 1V portable DATE OF EXAM: 05/23/2021 HISTORY: Shortness of breath. COMPARISON: 05/18/2021 TECHNIQUE: Single view of the chest is submitted. FINDINGS: Demonstrated are scattered senescent parenchymal change. Patchy infiltrate right lower lobe compatible with pneumonia. The heart is stable. Hilar and mediastinal structures are within normal limits. Degenerative changes are seen of the dorsal spine. IMPRESSION: 1. Patchy infiltrate right lower lobe compatible with pneumonia.
--- NOTE | 2021-05-23 17:35 | PN ---
PROGRESS NOTE DATE OF SERVICE: 05/23/2021 CHIEF COMPLAINT: Electrolyte imbalance, multiple falls and general debility. HISTORY OF PRESENT ILLNESS: This gentleman's sodium remained low yesterday and he was started on 3% and he was moved to ICU. At the present time his pulse ox is staying fairly low. The reason for this is not clear. His echocardiogram demonstrated fairly good ejection fraction. REVIEW OF SYSTEMS: He is quite lethargic. PHYSICAL EXAMINATION: Blood pressure 117/61 with a pulse of 89 and regular. Respirations were 20. In general he appeared to be more lethargic than he has been. Head, ears, eyes, nose and mouth were unremarkable. Chest was clear. Cardiac exam was unremarkable, with no murmurs or extra sounds, and he was in sinus rhythm. The abdomen was soft and nontender. Extremities were normal. IMPRESSION: 1. General debility and weakness. 2. Frequent falls. 3. Hypoxemia. 4. Electrolyte imbalance with hyponatremia. 5. Malignant lesion on the left posterior chest. PLAN: 1. Continue with supportive care. 2. Await results of biopsy of the lesion on his back. MMODL / IJN: [id number] /
[2021-05-23] MEDS: ACETAMINOPHEN TAB 325 MG TAB PO PRN (19:45)
[2021-05-23] MEDS ORDERED: FUROSEMIDE 10 MG/ML 4 ML VIAL IV STA (20:50)
[2021-05-23] MEDS: NOREPINEPHRINE 4 MG in SODIUM CHLORIDE 0.9% 250 ML IV SCH (23:35)
[2021-05-23] MEDS: PIPERACILLIN-TAZOBACTAM 3.375 GM in SODIUM CHLORIDE 0.9% 100 ML IVPB SCH (23:54)
[2021-05-24 00:20] LABS: African American GFR (CKD) >90 (>60 ml/min/1.73 sqM); Anion Gap 5 mmol/L; Blood Urea Nitrogen 16 mg/dL (9-20); Calcium 7.7 mg/dL (8.4-10.2); Carbon Dioxide 27 mmol/L (22-30); Chloride 94 mmol/L (98-107); Glucose 158 mg/dL (74-99); Non-African American GFR(CKD) >90 (>60 ml/min/1.73 sqM); Potassium 3.6 mmol/L (3.5-5.1); Sodium 126 mmol/L (137-145)
[2021-05-24] MEDS: POTASSIUM CHLORIDE 10 MEQ in WATER FOR INJECTION 1 100ML.BAG IVPB SCH ×4 (01:05→12:06)
[2021-05-24 06:08] LABS: HCT 26.5 % (39.0-53.0); HGB 8.6 gm/dL (13.0-17.5); MCH 33.6 pg (25.0-35.0); MCHC 32.3 g/dL (31.0-37.0); Macrocytosis Moderate; Mean Platelet Volume 8.2; Platelet Count 167 k/uL (150-450); RBC 2.55 m/uL (4.30-5.90); RDW 15.6 % (11.5-15.5); WBC 6.8 k/uL (3.8-10.6)
[2021-05-24] MEDS: SODIUM CHLORIDE 3%(HYPERTONIC) 500 ML IV SCH (06:10)
[2021-05-24] MEDS: LEVOTHYROXINE 75 MCG TAB PO SCH (06:11)
[2021-05-24] MEDS: PANTOPRAZOLE 40 MG TABLET PO SCH (06:11)
[2021-05-24 06:15] LABS: African American GFR (CKD) >90 (>60 ml/min/1.73 sqM); Anion Gap 5 mmol/L; Blood Urea Nitrogen 15 mg/dL (9-20); Calcium 7.6 mg/dL (8.4-10.2); Carbon Dioxide 29 mmol/L (22-30); Chloride 95 mmol/L (98-107); Glucose 115 mg/dL (74-99); Magnesium 1.5 mg/dL (1.6-2.3); Non-African American GFR(CKD) >90 (>60 ml/min/1.73 sqM); Potassium 3.9 mmol/L (3.5-5.1); Sodium 129 mmol/L (137-145)
[2021-05-24] MEDS: MAGNESIUM SULFATE-D5W PMX 1 GM in DEXTROSE/WATER 1 100ML.BAG IVPB SCH ×2 (06:31→08:59)
[2021-05-24] MEDS: IPRATROPIUM-ALBUTEROL 3 ML NEB INHALATION SCH ×4 (08:13→20:20)
[2021-05-24] MEDS: ENOXAPARIN 40 MG/0.4 ML SYRINGE SQ SCH (08:59)
[2021-05-24] MEDS: PIPERACILLIN-TAZOBACTAM 3.375 GM in SODIUM CHLORIDE 0.9% 100 ML IVPB SCH ×3 (08:59→23:46)
[2021-05-24] MEDS: CARBIDOPA-LEVODOPA ER 50-200MG 1 EACH TABLET.ER PO SCH ×3 (09:00→21:11)
[2021-05-24] MEDS: clonazePAM 0.5 MG TAB PO SCH ×3 (09:00→21:11)
[2021-05-24] MEDS: MAGNESIUM OXIDE 400 MG TAB PO SCH ×2 (09:00→21:11)
[2021-05-24] MEDS: CALCIUM CARBONATE 500 MG CHEWABLE PO SCH ×2 (09:00→21:11)
--- NOTE | 2021-05-24 09:23 | P.PN ---
Subjective Progress Note Date: 05/24/21 Principal diagnosis: Skin lesion Patient remains in the ICU. Had some pulmonary issues yesterday but better today. No pain. Objective - Vital Signs Vital signs: Vital Signs Temp 98.2 F 05/24/21 04:00 Pulse 90 05/24/21 07:00 Resp 13 05/24/21 07:00 BP 104/65 05/24/21 07:00 Pulse Ox 92 L 05/24/21 07:00 Intake & Output 05/23/21 05/24/21 05/24/21 18:59 06:59 18:59 Intake Total 1900 1920.197 Output Total 380 1355 Balance 1520 565.197 Weight 80 kg Intake: IV 1470 360 Dextrose 5%-0.45% NaCl 1, 1000 000 ml @ 999 mls/hr IV . Q1H1M [facility] Rx#:[id number] Magnesium Sulfate-D5w Pmx 100 1 gm In Dextrose/Water 1 100ml.bag @ 100 mls/hr IVPB Q1H [facility] Rx#: [id number] Potassium Chloride 10 meq 100 In Water For Injection 1 100ml.bag @ 100 mls/hr IVPB Q1H [facility] Rx#: [id number] Sodium Chloride 3%( 270 360 Hypertonic) 500 ml @ 30 mls/hr IV .[id number] [facility] Rx #:[id number] Intake, IV Titration 230 532.197 Amount Magnesium Sulfate-D5w Pmx 100 1 gm In Dextrose/Water 1 100ml.bag @ 100 mls/hr IVPB Q1H [facility] Rx#: [id number] Magnesium Sulfate-D5w Pmx 100 1 gm In Dextrose/Water 1 100ml.bag @ 100 mls/hr IVPB Q1H [facility] Rx#: [id number] Norepinephrine 4 mg In 157.197 Sodium Chloride 0.9% 250 ml @ 0.05 MCG/KG/MIN 14. 497 mls/hr IV .[id number] [facility] Rx#:[id number] Piperacillin-Tazobactam 3 100 .375 gm In Sodium Chloride 0.9% 100 ml @ 25 mls/hr IVPB Q8HR [facility] Rx# :[id number] Potassium Chloride 10 meq 100 In Water For Injection 1 100ml.bag @ 100 mls/hr IVPB Q1H [facility] Rx#: [id number] Potassium Chloride 10 meq 100 In Water For Injection 1 100ml.bag @ 100 mls/hr IVPB Q1H [facility] Rx#: [id number] Sodium Chloride 0.9% 1, 75 000 ml @ 75 mls/hr IV . [id number] [facility] Rx#:[id number] Sodium Chloride 3%( 30 Hypertonic) 500 ml @ 30 mls/hr IV .[id number] [facility] Rx #:[id number] Oral 200 1028 Output: Urine 380 1355 Other: Voiding Method Indwelling Catheter Indwelling Catheter - Exam Left upper back wound clean without active bleeding, nontender - Labs CBC & Chem 7: 05/24/21 05:31 05/24/21 08:44 Labs: Abnormal Lab Results - Last 24 Hours (Table) 05/23/21 05/23/21 05/23/21 Range/Units 11:35 16:51 17:10 RBC (4.30-5.90) m/uL Hgb (13.0-17.5) gm/dL Hct (39.0-53.0) % MCV (80.0-100.0) fL RDW (11.5-15.5) % Sodium 123 L 126 L 125 L (137-145) mmol/L Chloride 90 L (98-107) mmol/L Glucose 149 H (74-99) mg/dL Calcium 7.7 L (8.4-10.2) mg/dL Magnesium (1.6-2.3) mg/dL 05/23/21 05/24/21 05/24/21 Range/Units 23:32 00:46 05:31 RBC (4.30-5.90) m/uL Hgb (13.0-17.5) gm/dL Hct (39.0-53.0) % MCV (80.0-100.0) fL RDW (11.5-15.5) % Sodium 126 L 126 L 129 L (137-145) mmol/L Chloride 94 L 95 L (98-107) mmol/L Glucose 158 H 115 H (74-99) mg/dL Calcium 7.7 L 7.6 L (8.4-10.2) mg/dL Magnesium 1.5 L (1.6-2.3) mg/dL 05/24/21 05/24/21 Range/Units 05:31 08:44 RBC 2.55 L (4.30-5.90) m/uL Hgb 8.6 L (13.0-17.5) gm/dL Hct 26.5 L (39.0-53.0) % MCV 104.0 H (80.0-100.0) fL RDW 15.6 H (11.5-15.5) % Sodium 128 L (137-145) mmol/L Chloride (98-107) mmol/L Glucose (74-99) mg/dL Calcium (8.4-10.2) mg/dL Magnesium (1.6-2.3) mg/dL Assessment and Plan (1) Skin lesion of back Narrative/Plan: Patient doing about the same. Await The Results from Recent Punch Biopsy. Current Visit: Yes Status: Acute Code(s): L98.9 - DISORDER OF THE SKIN AND SUBCUTANEOUS TISSUE, UNSPECIFIED SNOMED Code(s): 43608462
--- NOTE | 2021-05-24 10:30 | P.PN ---
Subjective Progress Note Date: 05/24/21 Principal diagnosis: Severe hyponatremia 70-year-old past medical history of hypertension, COPD, nicotine dependence was brought into the hospital for [facility] 2021 after he was found on the floor, and it is not clear how long he had been on the floor. He had generalized weakness. Patient appeared to be pale and dehydrated. Patient had been generally declining and having frequent falling at home. Patient also had evidence of probable malnutrition. According to the caregiver the patient reported that he had been on the floor for 3 days according to the emergency room records. Was complaining of pain in his back, which is chronic for the patient. Denied any chest pain, denied any fever or chills, denies any injury to his head or neck, he did complain of bilateral ankle swelling. No headaches, no vision changes, no slurred speech, no focal weakness. Chest x-ray showing possible new infiltrate at the left base, heart was of normal size, CT of the head and cervi margareth spine showed mild cervical multilevel spondylotic changes, no fracture, no acute intracranial abnormality. Lumbar spine showed severe multilevel degenerative disc disease, with facet arthropathy and scoliosis, and numerous calcifications in the right upper quadrant possibly related to gallstones. Patient also has a history of left upper back nonhealing ulceration, for which patient used to go to the wound care center however had not been seen there for quite some time. There was a suspicion for possible malignancy but patient never had the biopsy. He also has Stage II sacral decubitus ulcer. Patient's admission blood work showed numerous electrolyte abnormalities including low sodium of 123, potassium of 4.8, chloride is 79, BUN of 13 creatinine 0.87, total CK of 858, AST was 139, ALT was 17, alkaline phosphatase was 93, proBNP was normal at 409, troponin was negative at 0.016, serum alcohol level was less than 10, he tested negative for C. diff and COVID-19 PCR. Patient is receiving hydration with 0.9 normal saline at a rate of 1:30 ML per hour, his electrolytes are being replaced per protocol, on today's labs his sodium is down to 118, his potassium is 5.8, chloride is 83, patient continues on 0.1 cm to 130 ML per hour. He underwent left upper back nonhealing ulcer biopsied by general surgery yesterday on 05/21/2021. Despite the fluid resuscitation his sodium has remained low, his echocardiogram showed preserved LV function with EF of 50-55%. Patient has been transferred to the intensive care unit after hypertonic saline fluid infusion initiation. Code status is DO NOT RESUSCITATE. Patient is currently on 2 L of oxygen, does not appear to be in any respiratory distress, on 2 L of oxygen pulse ox is 92-95%, blood pressures 106/78, afebrile. Patient was reevaluated today on 05/23/21, patient remains in the ICU, doing much better, less agitated today, patient didn't require Haldol yesterday, and he was briefly on Precedex which she did not tolerate well. His sodium is up to 124. I took him off 3% saline today. And I recommended thyroid replacement patient was found to have severe hypothyroidism with TSH of 68.7 and T4 of 0.07 he had a relatively normal cortisol level. Changes IV fluid to 0.9 normal saline at 75 mL/h, patient was given fluid bolus for low blood pressure of D5 45, 1000 mL today. I believe the patient would have good correction of his sodium once his thyroid replacement is started. And I put him now on levothyroxine at 150 g by mouth daily. 4 is agitation, patient was apparently on Klonopin, and I will restart his Klonopin. We will discontinue his Inderal for low blood pressure. WBC count is 4.4 hemoglobin is 8.2, however is no active bleeding noted. Sodium is up to 124 potassium 3.9 BUN is 15 creatinine 0.7. Again his T4 is extremely low and TSH is very high. Apparently the patient had previous thyroidectomy and he went off his medications 2 years ago. Patient was reevaluated today on 05/24/2021, patient remains in the ICU, he is on 3 L nasal cannula, O2 saturations 92%. However last night the patient had a downhill course, he developed worsening confusion, worsening shortness of breath, hypotension, and worsening chest x-ray showing bilateral infiltrates, right lower lobe seems to be more involved than the left lower lobe. I felt that the patient developed aspiration pneumonia, started the patient on Zosyn. And he was briefly on norepinephrine. Presently is off norepinephrine, he seems to be hemodynamically stable, his confusion is improving and his shortness of breath is improving. Patient remains on Zosyn, remains on 3% saline which I discontinued today, his sodium is up to 129. He was started on levothyroxine yesterday for profound hypothyroidism, and this is most likely a major contributing factor to his hyponatremia. We will consult speech therapy regarding his aspiration pneumonia. And the patient may need to have a swallow evaluation. WBC count today is 6.8 hemoglobin is 8.6. Sodium is up to 129 potassium 3.9 chloride 95 bicarb 29 renal profile is normal. Magnesium is a bit low at 1.5, would be corrected as per protocol. Neurologically, patient feels better, he is less confused, and he seems to be a bit more appropriate compared to what he was when he came in, nonetheless he remains a bit lethargic. Objective - Vital Signs Vital signs: Vital Signs Temp 98.2 F 05/24/21 08:00 Pulse 82 05/24/21 08:00 Resp 14 05/24/21 08:00 BP 102/69 05/24/21 08:00 Pulse Ox 93 L 05/24/21 08:00 Intake & Output 05/23/21 05/24/21 05/24/21 18:59 06:59 18:59 Intake Total 1900 1920.197 Output Total 380 1355 Balance 1520 565.197 Weight 80 kg Intake: IV 1470 360 Dextrose 5%-0.45% NaCl 1, 1000 000 ml @ 999 mls/hr IV . Q1H1M [facility] Rx#:[id number] Magnesium Sulfate-D5w Pmx 100 1 gm In Dextrose/Water 1 100ml.bag @ 100 mls/hr IVPB Q1H [facility] Rx#: [id number] Potassium Chloride 10 meq 100 In Water For Injection 1 100ml.bag @ 100 mls/hr IVPB Q1H [facility] Rx#: [id number] Sodium Chloride 3%( 270 360 Hypertonic) 500 ml @ 30 mls/hr IV .[id number] [facility] Rx #:[id number] Intake, IV Titration 230 532.197 Amount Magnesium Sulfate-D5w Pmx 100 1 gm In Dextrose/Water 1 100ml.bag @ 100 mls/hr IVPB Q1H [facility] Rx#: [id number] Magnesium Sulfate-D5w Pmx 100 1 gm In Dextrose/Water 1 100ml.bag @ 100 mls/hr IVPB Q1H [facility] Rx#: [id number] Norepinephrine 4 mg In 157.197 Sodium Chloride 0.9% 250 ml @ 0.05 MCG/KG/MIN 14. 497 mls/hr IV .[id number] [facility] Rx#:[id number] Piperacillin-Tazobactam 3 100 .375 gm In Sodium Chloride 0.9% 100 ml @ 25 mls/hr IVPB Q8HR [facility] Rx# :[id number] Potassium Chloride 10 meq 100 In Water For Injection 1 100ml.bag @ 100 mls/hr IVPB Q1H [facility] Rx#: [id number] Potassium Chloride 10 meq 100 In Water For Injection 1 100ml.bag @ 100 mls/hr IVPB Q1H [facility] Rx#: [id number] Sodium Chloride 0.9% 1, 75 000 ml @ 75 mls/hr IV . [id number] [facility] Rx#:[id number] Sodium Chloride 3%( 30 Hypertonic) 500 ml @ 30 mls/hr IV .[id number] [facility] Rx #:[id number] Oral 200 1028 Output: Urine 380 1355 Other: Voiding Method Indwelling Catheter Indwelling Catheter - Exam GENERAL EXAM: Revealed a 70-year-old white male, on 3 L nasal cannula, in no distress. HEAD: Normocephalic/atraumatic. EYES: Normal reaction of pupils, equal size. Conjunctiva pale. NOSE: Clear with pink turbinates. THROAT: No erythema or exudates. Dry mucous membranes noted. NECK: No masses, no JVD, no thyroid enlargement, no adenopathy. CHEST: No chest wall deformity. Symmetrical expansion. LUNGS: Equal air entry with no crackles, wheeze, rhonchi or dullness. CVS: Regular rate and rhythm, normal S1 and S2, no gallops, no murmurs, no rubs ABDOMEN: Soft, nontender. No hepatosplenomegaly, normal bowel sounds, no guarding or rigidity. EXTREMITIES: No clubbing, bilateral lower extremity edema 1+ no cyanosis, 2+ pulses and upper and lower extremities. MUSCULOSKELETAL: Muscle strength and tone normal. SKIN: Stage II to coccyx wound not examined, left upper back nonhealing wound status post surgical biopsy, the dressing CENTRAL NERVOUS SYSTEM: Alert oriented 3 no focal deficits. Seems to be generally weak. PSYCHIATRIC: Depressed mood, blunt affect, normal mental status otherwise. - Labs CBC & Chem 7: 05/24/21 05:31 05/24/21 08:44 Labs: Abnormal Lab Results - Last 24 Hours (Table) 05/23/21 05/23/21 05/23/21 Range/Units 11:35 16:51 17:10 RBC (4.30-5.90) m/uL Hgb (13.0-17.5) gm/dL Hct (39.0-53.0) % MCV (80.0-100.0) fL RDW (11.5-15.5) % Sodium 123 L 126 L 125 L (137-145) mmol/L Chloride 90 L (98-107) mmol/L Glucose 149 H (74-99) mg/dL Calcium 7.7 L (8.4-10.2) mg/dL Magnesium (1.6-2.3) mg/dL 05/23/21 05/24/21 05/24/21 Range/Units 23:32 00:46 05:31 RBC (4.30-5.90) m/uL Hgb (13.0-17.5) gm/dL Hct (39.0-53.0) % MCV (80.0-100.0) fL RDW (11.5-15.5) % Sodium 126 L 126 L 129 L (137-145) mmol/L Chloride 94 L 95 L (98-107) mmol/L Glucose 158 H 115 H (74-99) mg/dL Calcium 7.7 L 7.6 L (8.4-10.2) mg/dL Magnesium 1.5 L (1.6-2.3) mg/dL 05/24/21 05/24/21 Range/Units 05:31 08:44 RBC 2.55 L (4.30-5.90) m/uL Hgb 8.6 L (13.0-17.5) gm/dL Hct 26.5 L (39.0-53.0) % MCV 104.0 H (80.0-100.0) fL RDW 15.6 H (11.5-15.5) % Sodium 128 L (137-145) mmol/L Chloride (98-107) mmol/L Glucose (74-99) mg/dL Calcium (8.4-10.2) mg/dL Magnesium (1.6-2.3) mg/dL Assessment and Plan Assessment: Impression: Hypovolemic hyponatremia, exacerbated by profound hypothyroidism. Hyperkalemia secondary to his potassium supplementation. Resolved. Hypothyroidism. Gen. medical debility. Weight loss and anorexia, possible underlying malignancy Chronic diarrhea. Nonhealing skin lesion left buttock, status post surgical biopsy on 05/21. History of underlying COPD. Tobacco dependence syndrome. Benign essential hypertension. Chronic back pain. History of hypothyroidism and previous thyroidectomy. Acute hypoxic respiratory failure secondary to aspiration pneumonia involving the right lower lobe and left lower lobe, with more involvement of the right lower lobe. Recommendation: Discontinue 3% saline. Started patient on Zosyn for presumptive aspiration pneumonia. Continue IV fluid 0.9 normal saline 75 mL per hour. Speech therapy consultation and swallow evaluation. Continue thyroid replacement therapy. Continue to monitor in the ICU for the next 24 hours. Continue supportive care measures. Continue GI and DVT prophylaxis. Status has been DO NOT RESUSCITATE. Time with Patient: Less than 30
[2021-05-24] MEDS: SODIUM CHLORIDE 0.9% 1,000 ML IV SCH (12:07)
--- NOTE | 2021-05-24 13:58 | P.PN ---
Subjective Progress Note Date: 05/24/21 Follow-up for hyponatremia. Eating and sitting up today. Urine output of 1.7 L last 24 hours Objective - Vital Signs Vital signs: Vital Signs Temp 98.2 F 05/24/21 08:00 Pulse 82 05/24/21 08:00 Resp 14 05/24/21 08:00 BP 102/69 05/24/21 08:00 Pulse Ox 93 L 05/24/21 08:00 Intake & Output 05/23/21 05/24/21 05/24/21 18:59 06:59 18:59 Intake Total 1900 1920.197 450 Output Total 380 1355 260 Balance 1520 565.197 190 Weight 80 kg Intake: IV 1470 360 450 Dextrose 5%-0.45% NaCl 1, 1000 000 ml @ 999 mls/hr IV . Q1H1M [facility] Rx#:[id number] Magnesium Sulfate-D5w Pmx 100 1 gm In Dextrose/Water 1 100ml.bag @ 100 mls/hr IVPB Q1H [facility] Rx#: [id number] Potassium Chloride 10 meq 100 In Water For Injection 1 100ml.bag @ 100 mls/hr IVPB Q1H [facility] Rx#: [id number] Sodium Chloride 0.9% 1, 450 000 ml @ 75 mls/hr IV . [id number] [facility] Rx#:[id number] Sodium Chloride 3%( 270 360 Hypertonic) 500 ml @ 30 mls/hr IV .[id number] [facility] Rx #:[id number] Intake, IV Titration 230 532.197 Amount Magnesium Sulfate-D5w Pmx 100 1 gm In Dextrose/Water 1 100ml.bag @ 100 mls/hr IVPB Q1H [facility] Rx#: [id number] Magnesium Sulfate-D5w Pmx 100 1 gm In Dextrose/Water 1 100ml.bag @ 100 mls/hr IVPB Q1H [facility] Rx#: [id number] Norepinephrine 4 mg In 157.197 Sodium Chloride 0.9% 250 ml @ 0.05 MCG/KG/MIN 14. 497 mls/hr IV .[id number] [facility] Rx#:[id number] Piperacillin-Tazobactam 3 100 .375 gm In Sodium Chloride 0.9% 100 ml @ 25 mls/hr IVPB Q8HR [facility] Rx# :[id number] Potassium Chloride 10 meq 100 In Water For Injection 1 100ml.bag @ 100 mls/hr IVPB Q1H [facility] Rx#: [id number] Potassium Chloride 10 meq 100 In Water For Injection 1 100ml.bag @ 100 mls/hr IVPB Q1H [facility] Rx#: [id number] Sodium Chloride 0.9% 1, 75 000 ml @ 75 mls/hr IV . [id number] [facility] Rx#:[id number] Sodium Chloride 3%( 30 Hypertonic) 500 ml @ 30 mls/hr IV .[id number] [facility] Rx #:[id number] Oral 200 1028 Output: Urine 380 1355 260 Other: Voiding Method Indwelling Catheter Indwelling Catheter Indwelling Catheter - Exam No acute distress S1-S2 heard Decreased breath sounds Lungs clear No edema - Labs CBC & Chem 7: 05/24/21 05:31 05/24/21 08:44 Labs: Abnormal Lab Results - Last 24 Hours (Table) 05/23/21 05/23/21 05/23/21 Range/Units 16:51 17:10 23:32 RBC (4.30-5.90) m/uL Hgb (13.0-17.5) gm/dL Hct (39.0-53.0) % MCV (80.0-100.0) fL RDW (11.5-15.5) % Sodium 126 L 125 L 126 L (137-145) mmol/L Chloride 94 L (98-107) mmol/L Glucose 158 H (74-99) mg/dL Calcium 7.7 L (8.4-10.2) mg/dL Magnesium (1.6-2.3) mg/dL 05/24/21 05/24/21 05/24/21 Range/Units 00:46 05:31 05:31 RBC 2.55 L (4.30-5.90) m/uL Hgb 8.6 L (13.0-17.5) gm/dL Hct 26.5 L (39.0-53.0) % MCV 104.0 H (80.0-100.0) fL RDW 15.6 H (11.5-15.5) % Sodium 126 L 129 L (137-145) mmol/L Chloride 95 L (98-107) mmol/L Glucose 115 H (74-99) mg/dL Calcium 7.6 L (8.4-10.2) mg/dL Magnesium 1.5 L (1.6-2.3) mg/dL 05/24/21 Range/Units 08:44 RBC (4.30-5.90) m/uL Hgb (13.0-17.5) gm/dL Hct (39.0-53.0) % MCV (80.0-100.0) fL RDW (11.5-15.5) % Sodium 128 L (137-145) mmol/L Chloride (98-107) mmol/L Glucose (74-99) mg/dL Calcium (8.4-10.2) mg/dL Magnesium (1.6-2.3) mg/dL Assessment and Plan Assessment: #1 hypotonic hyponatremia secondary to poor solute intake and also component of hypovolemia with urines sodium less than 20 #2 normal renal function #3 episode of hypotension Plan: #1 sodium improved to 128 after 3% saline. #2 3% saline was stopped and currently on 75 ML's an hour off 0.9% saline #3 ICU care
[2021-05-24] MEDS: NOREPINEPHRINE 4 MG in SODIUM CHLORIDE 0.9% 250 ML IV SCH (18:03)
--- NOTE | 2021-05-24 21:56 | XR ---
EXAMINATION TYPE: XR chest 1V portable DATE OF EXAM: 05/24/2021 COMPARISON: 05/23/2021 HISTORY: Short of breath TECHNIQUE: Single view FINDINGS: There is patchy airspace consolidation in both lower lobes. There is patchy atelectasis als o. There are chest leads. No heart failure seen. Thoracic aorta is atheromatous. No pneumothorax. IMPRESSION: There is patchy bilateral lower lobe pneumonia and atelectasis which is increased compare d to yesterday.
[2021-05-25] MEDS: SODIUM CHLORIDE 0.9% 1,000 ML IV SCH ×2 (01:49→15:55)
[2021-05-25 06:29] LABS: Basophils % (A) 0 %; Eosinophils # (A) 0.1 k/uL (0-0.7); Eosinophils % (A) 1 %; HCT 26.8 % (39.0-53.0); HGB 8.6 gm/dL (13.0-17.5); Lymphocytes # (A) 1.2 k/uL (1.0-4.8); Lymphocytes % (A) 13 %; MCH 34.4 pg (25.0-35.0); MCHC 32.2 g/dL (31.0-37.0); MCV 106.8 fL (80.0-100.0); Macrocytosis Moderate; Mean Platelet Volume 7.6; Monocytes # (A) 0.4 k/uL (0-1.0); Monocytes % (A) 5 %; Neutrophils # (A) 7.3 k/uL (1.3-7.7); Neutrophils % (A) 80 %; Platelet Count 185 k/uL (150-450); RBC 2.51 m/uL (4.30-5.90); WBC 9.2 k/uL (3.8-10.6)
[2021-05-25 06:37] LABS: ALT <6 U/L (4-49); AST 51 U/L (17-59); African American GFR (CKD) >90 (>60 ml/min/1.73 sqM); Albumin 2.6 g/dL (3.5-5.0); Alkaline Phosphatase 100 U/L (38-126); Anion Gap 7 mmol/L; Blood Urea Nitrogen 19 mg/dL (9-20); Calcium 7.7 mg/dL (8.4-10.2); Carbon Dioxide 28 mmol/L (22-30); Chloride 94 mmol/L (98-107); Glucose 94 mg/dL (74-99); Magnesium 1.5 mg/dL (1.6-2.3); Non-African American GFR(CKD) >90 (>60 ml/min/1.73 sqM); Potassium 4.4 mmol/L (3.5-5.1); Sodium 129 mmol/L (137-145); Total Bilirubin 0.6 mg/dL (0.2-1.3); Total Protein 5.1 g/dL (6.3-8.2)
[2021-05-25] MEDS: LEVOTHYROXINE 75 MCG TAB PO SCH (06:46)
[2021-05-25] MEDS: PANTOPRAZOLE 40 MG TABLET PO SCH (06:46)
[2021-05-25] MEDS ORDERED: Magnesium Replacement Protocol 1 EACH MISC MISCELLANE PRN (07:49)
[2021-05-25] MEDS: MAGNESIUM OXIDE 400 MG TAB PO SCH ×2 (08:50→23:07)
[2021-05-25] MEDS: ENOXAPARIN 40 MG/0.4 ML SYRINGE SQ SCH (08:50)
[2021-05-25] MEDS: CARBIDOPA-LEVODOPA ER 50-200MG 1 EACH TABLET.ER PO SCH ×3 (08:50→23:07)
[2021-05-25] MEDS: CALCIUM CARBONATE 500 MG CHEWABLE PO SCH ×2 (08:50→23:07)
[2021-05-25] MEDS: clonazePAM 0.5 MG TAB PO SCH ×3 (08:50→23:07)
[2021-05-25] MEDS: MAGNESIUM SULFATE-D5W PMX 1 GM in DEXTROSE/WATER 1 100ML.BAG IVPB SCH ×2 (08:51→11:09)
[2021-05-25] MEDS: PIPERACILLIN-TAZOBACTAM 3.375 GM in SODIUM CHLORIDE 0.9% 100 ML IVPB SCH ×3 (08:52→23:08)
[2021-05-25] MEDS: IPRATROPIUM-ALBUTEROL 3 ML NEB INHALATION SCH ×4 (09:12→20:34)
--- NOTE | 2021-05-25 11:01 | P.PN ---
Subjective Progress Note Date: 05/25/21 Principal diagnosis: Hyponatremia. Patient was reevaluated today on 05/23/21, patient remains in the ICU, doing much better, less agitated today, patient didn't require Haldol yesterday, and he was briefly on Precedex which she did not tolerate well. His sodium is up to 124. I took him off 3% saline today. And I recommended thyroid replacement patient was found to have severe hypothyroidism with TSH of 68.7 and T4 of 0.07 he had a relatively normal cortisol level. Changes IV fluid to 0.9 normal saline at 75 mL/h, patient was given fluid bolus for low blood pressure of D5 45, 1000 mL today. I believe the patient would have good correction of his sodium once his thyroid replacement is started. And I put him now on levothyroxine at 150 g by mouth daily. 4 is agitation, patient was apparently on Klonopin, and I will restart his Klonopin. We will discontinue his Inderal for low blood pressure. WBC count is 4.4 hemoglobin is 8.2, however is no active bleeding noted. Sodium is up to 124 potassium 3.9 BUN is 15 creatinine 0.7. Again his T4 is extremely low and TSH is very high. Apparently the patient had previous thyroidectomy and he went off his medications 2 years ago. Patient was reevaluated today on 05/24/2021, patient remains in the ICU, he is on 3 L nasal cannula, O2 saturations 92%. However last night the patient had a downhill course, he developed worsening confusion, worsening shortness of breath, hypotension, and worsening chest x-ray showing bilateral infiltrates, right lower lobe seems to be more involved than the left lower lobe. I felt that the patient developed aspiration pneumonia, started the patient on Zosyn. And he was briefly on norepinephrine. Presently is off norepinephrine, he seems to be hemodynamically stable, his confusion is improving and his shortness of breath is improving. Patient remains on Zosyn, remains on 3% saline which I discontinued today, his sodium is up to 129. He was started on levothyroxine yesterday for profound hypothyroidism, and this is most likely a major contributing factor to his hyponatremia. We will consult speech therapy regarding his aspiration pneumonia. And the patient may need to have a swallow evaluation. WBC count today is 6.8 hemoglobin is 8.6. Sodium is up to 129 pot assium 3.9 chloride 95 bicarb 29 renal profile is normal. Magnesium is a bit low at 1.5, would be corrected as per protocol. Neurologically, patient feels better, he is less confused, and he seems to be a bit more appropriate compared to what he was when he came in, nonetheless he remains a bit lethargic. Progress note dated 05/25/2021. The patient was admitted to the hospital on May 18, for hyponatremia. He came to the intensive care unit, on May 22. Currently, his sodium is 129. He's on 4 L nasal cannula. He is getting saline at 75 mL an hour. Norepinephrine was turned off on May 24. She remains on Zosyn empirically. The patient didn't use BiPAP for 2 hours last night. White count 9.2, hemoglobin 8.6, hematocrit 26.8, and platelet sodium 129, potassium 4.4, chlorides 94, CO2 28, anion gap 7, BUN 19, creatinine 0.64. Albumin is 2.6. Chest x-ray shows patchy bilateral lower lobe infiltrates/atelectasis, or pneumonia. Objective - Vital Signs Vital signs: Vital Signs Temp 97.9 F 05/25/21 08:00 Pulse 87 05/25/21 10:00 Resp 11 L 05/25/21 10:00 BP 113/65 05/25/21 10:00 Pulse Ox 94 L 05/25/21 10:00 Intake & Output 05/24/21 05/25/21 05/25/21 18:59 06:59 18:59 Intake Total 825 1000 300 Output Total 480 730 140 Balance 345 270 160 Weight 85 kg Intake: IV 825 900 300 Sodium Chloride 0.9% 1, 825 900 300 000 ml @ 75 mls/hr IV . [id number] [facility] Rx#:[id number] Intake, IV Titration 100 Amount Piperacillin-Tazobactam 3 100 .375 gm In Sodium Chloride 0.9% 100 ml @ 25 mls/hr IVPB Q8HR [facility] Rx# :[id number] Output: Urine 480 730 140 Other: Voiding Method Indwelling Catheter Indwelling Catheter Indwelling Catheter - Exam No acute distress, oriented 3. Currently on 4 L nasal cannula. No use of accessory muscles. HEENT examination is grossly unremarkable. Neck supple. Full range of motion. No adenopathy thyromegaly or neck vein distention. Cardiovascular examination reveals regular rhythm rate. S1-S2 normal. No S3 or S4. No discernible murmur noted. Heart rate 87 bpm. Lungs reveal scattered bilateral rhonchi. No wheezes. No crackles. Breath sounds equal bilaterally. Saturations in the upper 90s on 4 L. Abdomen soft bowel sounds are heard. No masses or tenderness. Extremities are intact. No cyanosis clubbing or edema. Skin is without rash or lesion. Neurologic examination is brief but nonfocal. - Labs CBC & Chem 7: 05/25/21 05:43 05/25/21 05:43 Labs: Abnormal Lab Results - Last 24 Hours (Table) 05/24/21 05/24/21 05/25/21 Range/Units 14:45 20:55 05:43 RBC (4.30-5.90) m/uL Hgb (13.0-17.5) gm/dL Hct (39.0-53.0) % MCV (80.0-100.0) fL Sodium 129 L 127 L 129 L (137-145) mmol/L Chloride 94 L (98-107) mmol/L Creatinine 0.64 L (0.66-1.25) mg/dL Calcium 7.7 L (8.4-10.2) mg/dL Magnesium 1.5 L (1.6-2.3) mg/dL Total Protein 5.1 L (6.3-8.2) g/dL Albumin 2.6 L (3.5-5.0) g/dL 05/25/21 Range/Units 05:43 RBC 2.51 L (4.30-5.90) m/uL Hgb 8.6 L (13.0-17.5) gm/dL Hct 26.8 L (39.0-53.0) % MCV 106.8 H (80.0-100.0) fL Sodium (137-145) mmol/L Chloride (98-107) mmol/L Creatinine (0.66-1.25) mg/dL Calcium (8.4-10.2) mg/dL Magnesium (1.6-2.3) mg/dL Total Protein (6.3-8.2) g/dL Albumin (3.5-5.0) g/dL Microbiology - Last 24 Hours (Table) 05/24/21 20:34 Gram Stain - Preliminary Sputum Sputum Culture - Preliminary Assessment and Plan Assessment: Hypovolemic hyponatremia, improved. Hyperkalemia, resolved. Hypothyroidism. General medical debility. Weight loss and anorexia. Chronic diarrhea. Nonhealing lesion, left buttock. History of COPD. Tobacco dependence syndrome. Essential hypertension. Chronic back pain. Possible bilateral lower lobe pneumonia. Plan: Plan dated 05/25/2021. The patient is very stable. The patient is a DO NOT RESUSCITATE patient. The patient's sodium is 129. In my opinion, the patient could be transferred out to the general medical floor. The patient is no longer on norepinephrine. It was discontinued yesterday. The patient continues on GI and DVT prophylaxis. The patient continues on Zosyn for presumptive pneumonia, and the lower lobes. Additional recommendations and suggestions are forthcoming. Prognosis is certainly guarded. We'll continue to follow the patient and make recommendations where appropriate. Time with Patient: Less than 30
--- NOTE | 2021-05-25 11:02 | P.PN ---
Subjective Progress Note Date: 05/25/21 CHIEF COMPLAINT: Skin lesion HISTORY OF PRESENT ILLNESS: Patient currently ICU due to worsening shortness of breath and aspiration pneumonia. Patient also is having confusion. Patient is sitting up in bed awake. Slightly confused. Denies any back pain. Does report a feeling shortness of breath sometimes. Afebrile. On 2 L satting at 94% WBC is 9.2 hemoglobin 8.6 platelets 185 sodium 129 creatinine 0.64 magnesium 1.5 and being replaced. Skin biopsy pending PHYSICAL EXAM: VITAL SIGNS: Reviewed. GENERAL: no acute distress. HEENT: No sclera icterus. Extraocular movements grossly intact. Moist buccal mucosa. Head is atraumatic, normocephalic. ABDOMEN: Soft. Nondistended. Nontender. NEUROLOGIC: Patient is awake and is able to answer some questions. Still slightly confused. Back: 3 x 3 cm circular area with small amount of blood oozing noted. There is one area at the lower aspect of the circular area that is oozing more blood looks like it's at one of the punch biopsy sites. ASSESSMENT: 1. Left upper back skin lesion status post punch biopsy PLAN: -Nursing staff to change dressing. Continue with wet to dry dressing. -Further recommendations forthcoming per surgeon -Follow up on biopsy results -Continue supportive care -Continue ICU management Physician Construction Safety Manager note has been reviewed by physician. Signing provider agrees with the documented findings, assessment, and plan of care. I have personally seen and examined the patient, reviewed the EYELET RIVETER /PAs history, exam and MDM and agree with the assessment and plan as written. Based on total visit time, I have performed more than 50% of the visit. As above: Patient transferred out of the ICU. Remains confused. Was having some oozing from the biopsy sites earlier today. That seems to have stopped. Biopsy results still pending. Objective - Vital Signs Vital signs: Vital Signs Temp 97.9 F 05/25/21 08:00 Pulse 87 05/25/21 10:00 Resp 11 L 05/25/21 10:00 BP 113/65 05/25/21 10:00 Pulse Ox 94 L 05/25/21 10:00 Intake & Output 05/24/21 05/25/21 05/25/21 18:59 06:59 18:59 Intake Total 825 1000 300 Output Total 480 730 140 Balance 345 270 160 Weight 85 kg Intake: IV 825 900 300 Sodium Chloride 0.9% 1, 825 900 300 000 ml @ 75 mls/hr IV . [id number] [facility] Rx#:[id number] Intake, IV Titration 100 Amount Piperacillin-Tazobactam 3 100 .375 gm In Sodium Chloride 0.9% 100 ml @ 25 mls/hr IVPB Q8HR [facility] Rx# :[id number] Output: Urine 480 730 140 Other: Voiding Method Indwelling Catheter Indwelling Catheter Indwelling Catheter - Labs CBC & Chem 7: 05/25/21 05:43 05/25/21 05:43 Labs: Abnormal Lab Results - Last 24 Hours (Table) 05/24/21 05/24/21 05/25/21 Range/Units 14:45 20:55 05:43 RBC (4.30-5.90) m/uL Hgb (13.0-17.5) gm/dL Hct (39.0-53.0) % MCV (80.0-100.0) fL Sodium 129 L 127 L 129 L (137-145) mmol/L Chloride 94 L (98-107) mmol/L Creatinine 0.64 L (0.66-1.25) mg/dL Calcium 7.7 L (8.4-10.2) mg/dL Magnesium 1.5 L (1.6-2.3) mg/dL Total Protein 5.1 L (6.3-8.2) g/dL Albumin 2.6 L (3.5-5.0) g/dL 05/25/21 Range/Units 05:43 RBC 2.51 L (4.30-5.90) m/uL Hgb 8.6 L (13.0-17.5) gm/dL Hct 26.8 L (39.0-53.0) % MCV 106.8 H (80.0-100.0) fL Sodium (137-145) mmol/L Chloride (98-107) mmol/L Creatinine (0.66-1.25) mg/dL Calcium (8.4-10.2) mg/dL Magnesium (1.6-2.3) mg/dL Total Protein (6.3-8.2) g/dL Albumin (3.5-5.0) g/dL Microbiology - Last 24 Hours (Table) 05/24/21 20:34 Gram Stain - Preliminary Sputum Sputum Culture - Preliminary
--- NOTE | 2021-05-25 11:31 | CDI ---
Documentation Clarification Form Date: 05/25/2021 10:42:48 AM From: Yesenia Ruiz RN CCDS Admit Date: 05/18/2021 08:02:00 PM Patient Name: Dominik Butterfield Visit Number: [id number] Discharge Date: ATTENTION: The Clinical Documentation Specialists (CDI) and [facility] Coding Staff appreciate your assistance in clarifying documentation. Please respond to the clarification below the line at the bottom and electronically sign. The CDI & [facility] Coding staff will review the response and follow-up if needed. Please note: Queries are made part of the Legal Health Record. If you have any questions, please contact the author of this message via ITS. Dr. Hebert Kam Your patient has the documented diagnosis of unspecified CHF 05/22, Medicine progress note. Additional information regarding the type, acuity of CHF is requested. History/Risk Factors: 70-year-old male presents to the ED after being found on the ground and unable to get up. Medical history: COPD and HTN. Clinical Indicators: VS/Pulse OX: 05/21: B/P 165/107; RR 83; Temp 97.8 F Oral; RR 26; SpO2 78% ra BNP: 05/18 409 Echocardiogram Results: 05/22 EF 50-55% Chest X Ray: 05/23 Patchy infiltrate right lower lobe 05/22, Medicine progress note: Last night he developed congestive heart failure and his sodium chloride was changed to keep open and he was given Lasix. Treatment: 05/21 Lasix 40mg IV x 1; 05/22 Lasix 40mg IV x 1; 05/23 Lasix 40mg IV x 1 In your professional opinion, can you please clarify the acuity and type of CHF if known? [ ] Acute Diastolic Heart Failure (preserved EF) [ ] Acute on Chronic Diastolic Heart Failure (preserved EF) [ ] Other, please specify [ ] Unable to determine (Template Last Revised: March 2020) MTDD
--- NOTE | 2021-05-25 12:04 | XR ---
EXAMINATION TYPE: XR chest 1V portable DATE OF EXAM: 05/25/2021 COMPARISON: Chest x-ray 05/24/2021 HISTORY: Hypoxemia and abnormal chest x-ray TECHNIQUE: frontal view of the chest is obtained on 2 images. FINDINGS: Bilateral airspace disease present in the lung bases. There is no evident pneumothorax. Pa tient is rotated. Aorta is dense. Heart is likely stable. There may be underlying emphysematous anand e. IMPRESSION: Correlate for pneumonia versus edema, difficult to exclude effusion
--- NOTE | 2021-05-25 15:54 | P.PN ---
Subjective Patient is seen for follow-up for hyponatremia. He is status post 3% saline. Sodium was up to 129 today. Patient is transferred out of the ICU. No complaints today. Tolerating oral intake. Objective - Vital Signs Vital signs: Vital Signs Temp 98.4 F 05/25/21 11:15 Pulse 82 05/25/21 12:18 Resp 14 05/25/21 11:15 BP 109/64 05/25/21 11:15 Pulse Ox 97 05/25/21 11:15 Intake & Output 05/24/21 05/25/21 05/25/21 18:59 06:59 18:59 Intake Total 825 1000 300 Output Total 685 019 7841 Balance 345 270 -740 Weight 85 kg Intake: IV 825 900 300 Sodium Chloride 0.9% 1, 825 900 300 000 ml @ 75 mls/hr IV . [id number] [facility] Rx#:[id number] Intake, IV Titration 100 Amount Piperacillin-Tazobactam 3 100 .375 gm In Sodium Chloride 0.9% 100 ml @ 25 mls/hr IVPB Q8HR [facility] Rx# :[id number] Output: Urine 380 471 8469 Other: Voiding Method Indwelling Catheter Indwelling Catheter Indwelling Catheter - Exam Awake, comfortable, not in any acute distress Examination of the heart S1 and S2 Examination lungs bilateral breath sounds are heard Abdomen is soft nontender Examination lower extremity shows no evidence of edema SEMICONDUCTOR TESTING GROUP LEADER exam grossly intact - Labs CBC & Chem 7: 05/25/21 05:43 05/25/21 05:43 Labs: Abnormal Lab Results - Last 24 Hours (Table) 05/24/21 05/25/21 05/25/21 Range/Units 20:55 05:43 05:43 RBC 2.51 L (4.30-5.90) m/uL Hgb 8.6 L (13.0-17.5) gm/dL Hct 26.8 L (39.0-53.0) % MCV 106.8 H (80.0-100.0) fL Sodium 127 L 129 L (137-145) mmol/L Chloride 94 L (98-107) mmol/L Creatinine 0.64 L (0.66-1.25) mg/dL Calcium 7.7 L (8.4-10.2) mg/dL Magnesium 1.5 L (1.6-2.3) mg/dL Total Protein 5.1 L (6.3-8.2) g/dL Albumin 2.6 L (3.5-5.0) g/dL Microbiology - Last 24 Hours (Table) 05/24/21 20:34 Gram Stain - Preliminary Sputum Sputum Culture - Preliminary Assessment and Plan Assessment: 1. Hyponatremia, hypovolemic currently improved. Urine sodium was less than 20 2. Hypothyroidism maintained on supplementation. TSH was significantly elevated at 68.7. 3. Anemia, no active bleeding noted check iron profile. Macrocytic anemia associated with hypothyroidism is in the differential. Plan: Encourage increased oral intake. May continue off of IV fluids Repeat labs in a.m. Add sodium chloride tab as blood pressure is low.
[2021-05-25] MEDS: SODIUM CHLORIDE TAB 1 GM TAB PO SCH (17:35)
--- NOTE | 2021-05-25 20:23 | PN ---
PROGRESS NOTE DATE OF SERVICE: 05/24/2021 CHIEF COMPLAINT: Dehydration, electrolyte imbalance and generalized weakness and failure to thrive. HISTORY OF PRESENT ILLNESS: This gentleman is fairly stable. His pulse ox has risen. Electrolytes are improved. PHYSICAL EXAMINATION: He remains very weak, but he is awake and alert. He denies any pain. He remains pale. He has good breath sounds bilaterally. Cardiac exam is normal. The abdomen is flat and soft. IMPRESSION: 1. General debility and failure to thrive. 2. Dehydration. 3. Malnutrition. 4. Hyponatremia. 5. Malignancy on the back. PLAN: 1. Increase diet and activity. 2. Await results of biopsy on the back. 3. He can probably be placed on telemetry. MMODL / IJN: [id number] /
--- NOTE | 2021-05-25 21:00 | PN ---
PROGRESS NOTE DATE OF SERVICE: 05/25/2021 CHIEF COMPLAINT: General debility with malnutrition, failure to thrive and dehydration. HISTORY OF PRESENT ILLNESS: This gentleman seems to be slightly more stable. He will probably be moved out of the unit today. PHYSICAL EXAMINATION: Vital signs are normal. His chest is clear. Cardiac exam is normal. Abdomen is flat, soft and unremarkable. We are still waiting for results of the biopsy on his back. IMPRESSION: 1. Malnutrition. 2. Dehydration. 3. Malignant lesion on the left posterior chest. 4. General debility and failure to thrive. PLAN: Move out of ICU and start working on a discharge plan. MMODL / IJN: [id number] /
[2021-05-26] MEDS: LEVOTHYROXINE 75 MCG TAB PO SCH (06:01)
[2021-05-26] MEDS: SODIUM CHLORIDE 0.9% 1,000 ML IV SCH ×2 (07:02→07:41)
[2021-05-26] MEDS: IPRATROPIUM-ALBUTEROL 3 ML NEB INHALATION SCH ×4 (08:04→19:50)
[2021-05-26] MEDS: PANTOPRAZOLE 40 MG TABLET PO SCH (08:44)
[2021-05-26] MEDS: CALCIUM CARBONATE 500 MG CHEWABLE PO SCH ×2 (08:44→21:33)
[2021-05-26] MEDS: CARBIDOPA-LEVODOPA ER 50-200MG 1 EACH TABLET.ER PO SCH ×3 (08:44→21:33)
[2021-05-26] MEDS: clonazePAM 0.5 MG TAB PO SCH ×3 (08:44→21:35)
[2021-05-26] MEDS: MAGNESIUM OXIDE 400 MG TAB PO SCH ×2 (08:44→21:34)
[2021-05-26] MEDS: SODIUM CHLORIDE TAB 1 GM TAB PO SCH ×2 (08:45→21:33)
[2021-05-26] MEDS: ENOXAPARIN 40 MG/0.4 ML SYRINGE SQ SCH (09:09)
[2021-05-26] MEDS: PIPERACILLIN-TAZOBACTAM 3.375 GM in SODIUM CHLORIDE 0.9% 100 ML IVPB SCH ×2 (09:10→16:28)
--- NOTE | 2021-05-26 12:29 | MISC ---
MISCELLANOUS REPORT QUERY: Unable to determine type of heart failure. MMODL / IJN: [id number] /
--- NOTE | 2021-05-26 13:40 | P.PN ---
Subjective Progress Note Date: 05/26/21 CHIEF COMPLAINT: Skin lesion HISTORY OF PRESENT ILLNESS: Patient transferred out of the ICU to [facility] floor yesterday. Admitted to the hospital with aspiration pneumonia. Surgical service is following regards to patient's skin lesion. Biopsy result is pending. Patient has had mild sanguinous drainage from the lesion. He denies any back pain. Denies any nausea or vomiting. Afebrile. WBC is 9.2 hemoglobin 8.6 platelets 185 PHYSICAL EXAM: VITAL SIGNS: Reviewed. GENERAL: no acute distress. HEENT: No sclera icterus. Extraocular movements grossly intact. Moist buccal mucosa. Head is atraumatic, normocephalic. ABDOMEN: Soft. Nondistended. Nontender. NEUROLOGIC: Patient is awake and is able to answer some questions. Still slightly confused. Back: Patient's dressing has sanguinous drainage noted on the dressing. It is not saturated fully through. ASSESSMENT: 1. Left upper back skin lesion status post punch biopsy PLAN: -Nursing changing dressing this morning -Follow up on biopsy results -Continue supportive care Physician Planning Management It Specialist note has been reviewed by physician. Signing provider agrees with the documented findings, assessment, and plan of care. I have personally seen and examined the patient, reviewed the CIGAR PACKER AND SHADER /PAs history, exam and MDM and agree with the assessment and plan as written. Based on total visit time, I have performed more than 50% of the visit. As above: Patient without any heavy bleeding from the recent biopsy site. Pathology results are still pending. Objective - Vital Signs Vital signs: Vital Signs Temp 98 F 05/26/21 12:14 Pulse 94 05/26/21 12:14 Resp 16 05/26/21 12:14 BP 143/68 05/26/21 12:14 Pulse Ox 98 05/26/21 12:14 Intake & Output 05/25/21 05/26/21 05/26/21 18:59 06:59 18:59 Intake Total 300 1010 Output Total 1540 800 325 Balance -1240 210 -325 Intake: IV 300 900 Sodium Chloride 0.9% 1, 300 900 000 ml @ 75 mls/hr IV . [id number] [facility] Rx#:[id number] Oral 110 Output: Urine 1540 800 325 Uretheral (Brand) 800 Other: Voiding Method Indwelling Catheter Indwelling Catheter Indwelling Catheter - Labs CBC & Chem 7: 05/25/21 05:43 05/26/21 06:52 Labs: Abnormal Lab Results - Last 24 Hours (Table) 05/26/21 Range/Units 06:52 Sodium 126 L (137-145) mmol/L Microbiology - Last 24 Hours (Table) 05/24/21 20:34 Gram Stain - Final Sputum Sputum Culture - Final
[2021-05-26 16:07] VITALS: BMI 23.4
--- NOTE | 2021-05-26 17:12 | P.PN ---
Subjective Patient is seen for follow-up for hyponatremia. He is status post 3% saline. Sodium was up to 129 yesterday and patient was switched to normal saline and transferred out of the ICU. No complaints today. Tolerating oral intake. Sodium this morning dropped to 126. Blood pressure not low Objective - Vital Signs Vital signs: Vital Signs Temp 98 F 05/26/21 12:14 Pulse 84 05/26/21 15:40 Resp 16 05/26/21 12:14 BP 143/68 05/26/21 12:14 Pulse Ox 98 05/26/21 15:31 Intake & Output 05/25/21 05/26/21 05/26/21 18:59 06:59 18:59 Intake Total 300 1010 Output Total 1540 800 775 Balance -1240 210 -775 Weight 85 kg Intake: IV 300 900 Sodium Chloride 0.9% 1, 300 900 000 ml @ 75 mls/hr IV . [id number] [facility] Rx#:[id number] Oral 110 Output: Urine 1540 800 775 Uretheral (Brand) 800 Other: Voiding Method Indwelling Catheter Indwelling Catheter Indwelling Catheter - Exam Awake, comfortable, not in any acute distress Examination of the heart S1 and S2 Examination lungs bilateral breath sounds are heard Abdomen is soft nontender Examination lower extremity shows no evidence of edema SHIP'S OFFICER exam grossly intact - Labs CBC & Chem 7: 05/25/21 05:43 05/26/21 06:52 Labs: Abnormal Lab Results - Last 24 Hours (Table) 05/26/21 Range/Units 06:52 Sodium 126 L (137-145) mmol/L Microbiology - Last 24 Hours (Table) 05/24/21 20:34 Gram Stain - Final Sputum Sputum Culture - Final Assessment and Plan Assessment: 1. Hyponatremia, hypovolemic currently improved. Urine sodium was less than 20 patient is status post 3% saline. Sodium level dropped from 129-126 after he was switched to normal saline. Start his sodium chloride tablet yesterday as blood pressure has been on the lower side. 2. Hypothyroidism maintained on supplementation. TSH was significantly elevated at 68.7. 3. Anemia, no active bleeding noted check iron profile. Macrocytic anemia associated with hypothyroidism is in the differential. Plan: Recheck urine osmolality and random urine sodium Increase sodium chloride tabs 2 twice a day DC normal saline Maintain some degree of free water restriction, 1.2 L per day Repeat labs in a.m. Add Samsca if repeat urine studies suggest SIADH
--- NOTE | 2021-05-26 20:05 | PN ---
PROGRESS NOTE CHIEF COMPLAINT: General debility and electrolyte imbalance. HISTORY OF PRESENT ILLNESS: This gentleman is not doing very well. The biopsy from the back is consistent with a basal cell carcinoma. He is still not eating well. He remains DNR. We are looking for a discharge plan. He apparently has a place to go, but I will have a discussion with him tomorrow regarding his cancer diagnosis and the fact that it is not contributing to his overall decline, and that when he goes to a penitentiary there would be no treatment of the cancer with either radiation or chemotherapy; and being a DNR, he will not be brought back to the hospital. MMODL / IJN: [id number] /
[2021-05-27] MEDS: PIPERACILLIN-TAZOBACTAM 3.375 GM in SODIUM CHLORIDE 0.9% 100 ML IVPB SCH ×3 (00:34→17:39)
[2021-05-27] MEDS: LEVOTHYROXINE 75 MCG TAB PO SCH (05:59)
[2021-05-27] MEDS: IPRATROPIUM-ALBUTEROL 3 ML NEB INHALATION SCH ×4 (07:24→19:13)
[2021-05-27] MEDS: CARBIDOPA-LEVODOPA ER 50-200MG 1 EACH TABLET.ER PO SCH ×3 (08:11→20:11)
[2021-05-27] MEDS: clonazePAM 0.5 MG TAB PO SCH ×3 (08:11→20:11)
[2021-05-27] MEDS: SODIUM CHLORIDE TAB 1 GM TAB PO SCH ×2 (08:11→20:11)
[2021-05-27] MEDS: PANTOPRAZOLE 40 MG TABLET PO SCH (08:11)
[2021-05-27] MEDS: MAGNESIUM OXIDE 400 MG TAB PO SCH ×2 (08:11→20:11)
[2021-05-27] MEDS: CALCIUM CARBONATE 500 MG CHEWABLE PO SCH ×2 (08:11→20:11)
[2021-05-27] MEDS: ENOXAPARIN 40 MG/0.4 ML SYRINGE SQ SCH (08:24)
--- NOTE | 2021-05-27 12:48 | P.PN ---
Subjective Progress Note Date: 05/27/21 CHIEF COMPLAINT: Skin lesion HISTORY OF PRESENT ILLNESS: Patient currently on regular medical floor. Adm itted to the hospital with aspiration pneumonia. Surgical service is following regards to patient's skin lesion. Patient with minimal blood oozing from biopsy site. Pathology results pending. Afebrile. WBC is 9.2 hemoglobin 8.6 platelet 185 PHYSICAL EXAM: VITAL SIGNS: Reviewed. GENERAL: no acute distress. HEENT: No sclera icterus. Extraocular movements grossly intact. Moist buccal mucosa. Head is atraumatic, normocephalic. ABDOMEN: Soft. Nondistended. Nontender. NEUROLOGIC: Patient is awake and is able to answer some questions. Still slightly confused. Back: Patient's dressing has sanguinous drainage noted on the dressing. It is not saturated fully through. ASSESSMENT: 1. Left upper back skin lesion status post punch biopsy PLAN: -Follow up on biopsy results -Continue supportive care Physician Food Processor note has been reviewed by physician. Signing provider agrees with the documented findings, assessment, and plan of care. I have personally seen and examined the patient, reviewed the CONSTRUCTION EQUIPMENT MECHANIC HELPER /PAs history, exam and MDM and agree with the assessment and plan as written. Based on total visit time, I have performed more than 50% of the visit. As above: Patient seems more alert. Plans are underway for transfer to [facility]. No bleeding when wound examined at this time. Pathology shows basal cell skin cancer. Patient will require surgical resection. Patient is not a candidate currently for surgery. Will plan follow-up in the office in 4 weeks at this time. We'll sign off. Please call if needed. Objective - Vital Signs Vital signs: Vital Signs Temp 97.4 F L 05/27/21 07:30 Pulse 96 05/27/21 11:36 Resp 16 05/27/21 07:30 BP 151/85 05/27/21 07:30 Pulse Ox 94 L 05/27/21 07:30 Intake & Output 05/26/21 05/27/21 05/27/21 18:59 06:59 18:59 Intake Total 660 740 Output Total 390 2575 Balance -115 -735 Weight 85 kg Intake: IV 260 Piperacillin-Tazobactam 3 100 .375 gm In Sodium Chloride 0.9% 100 ml @ 25 mls/hr IVPB Q8HR [facility] Rx# :[id number] Sodium Chloride 0.9% 1, 160 000 ml @ 75 mls/hr IV . [id number] [facility] Rx#:[id number] Intake, IV Titration 550 Amount Piperacillin-Tazobactam 3 100 .375 gm In Sodium Chloride 0.9% 100 ml @ 25 mls/hr IVPB Q8HR [facility] Rx# :[id number] Sodium Chloride 0.9% 1, 450 000 ml @ 75 mls/hr IV . [id number] [facility] Rx#:[id number] Oral 110 480 Output: Urine 775 1475 Other: Voiding Method Indwelling Catheter Indwelling Catheter Indwelling Catheter - Labs CBC & Chem 7: 05/25/21 05:43 05/27/21 11:01 Labs: Abnormal Lab Results - Last 24 Hours (Table) 05/27/21 Range/Units 11:01 Sodium 126 L (137-145) mmol/L Microbiology - Last 24 Hours (Table) 05/24/21 20:34 Gram Stain - Final Sputum Sputum Culture - Final
[2021-05-27] MEDS: ACETAMINOPHEN TAB 325 MG TAB PO PRN (13:30)
--- NOTE | 2021-05-27 14:16 | DS ---
DISCHARGE SUMMARY CHIEF COMPLAINT: Electrolyte imbalance, dehydration, multiple falls, failure to thrive and malnutrition. HISTORY OF PRESENT ILLNESS AND PHYSICAL EXAMINATION: Details of this man's history and physical can be found in the initial workup. LABORATORY STUDIES: While he was in the hospital he had laboratory studies, details of which can be found in the laboratory section of his chart. COURSE IN THE HOSPITAL: After admission he was placed on bedrest, started on intravenous fluids, and his electrolytes were corrected, including his sodium and magnesium. In the hospital he remained extremely weak and could not ambulate. He was bedridden. Extensive workup for the etiology of his failure to thrive, weakness and malnutrition was unrevealing. He did have a large lesion on his back which was biopsied and turned out to be a basal cell carcinoma. He clearly could not go home, and arrangements were made for him to go to a group home on May 27. He elected to be a DO NOT RESUSCITATE patient when he was in the hospital. He was explained on the day of discharge that the basal cell carcinoma would shorten or affect his life, in that it would not metastasize. He is not a candidate for surgery or radiation therapy, and these will not be offered. He will go to a group home with efforts at physical therapy and rehab, but it is unlikely that he will be able to return home. FINAL DIAGNOSIS: 1. Frequent falling. 2. Malnutrition, severe and protein-calorie. 3. General debility and failure to thrive. 4. Hypomagnesemia. 5. Hyponatremia. 6. Basal cell carcinoma of the left posterior chest. OPERATION: Biopsy of the lesion on the posterior chest. CONSULTATION: Surgery. MMCHARLES / IJN: [id number] /
--- NOTE | 2021-05-27 14:30 | P.PN ---
Subjective Patient is seen for follow-up for hyponatremia. He is status post 3% saline. Sodium was up to 129 yesterday and patient was switched to normal saline and transferred out of the ICU. No complaints today. Tolerating oral intake. Sodium had dropped to 126 yesterday and it is the same today as well. Sodium chloride tabs were increased to twice a day. Urine osmolality was elevated at 539 and urine sodium was 139 suggesting SIADH Objective - Vital Signs Vital signs: Vital Signs Temp 97.7 F 05/27/21 12:00 Pulse 93 05/27/21 12:00 Resp 18 05/27/21 13:23 BP 133/80 05/27/21 12:00 Pulse Ox 94 L 05/27/21 12:00 Intake & Output 05/26/21 05/27/21 05/27/21 18:59 06:59 18:59 Intake Total 660 740 480 Output Total 775 1475 1200 Balance -115 -735 -720 Weight 85 kg Intake: IV 260 Piperacillin-Tazobactam 3 100 .375 gm In Sodium Chloride 0.9% 100 ml @ 25 mls/hr IVPB Q8HR [facility] Rx# :[id number] Sodium Chloride 0.9% 1, 160 000 ml @ 75 mls/hr IV . [id number] [facility] Rx#:[id number] Intake, IV Titration 550 Amount Piperacillin-Tazobactam 3 100 .375 gm In Sodium Chloride 0.9% 100 ml @ 25 mls/hr IVPB Q8HR [facility] Rx# :[id number] Sodium Chloride 0.9% 1, 450 000 ml @ 75 mls/hr IV . [id number] [facility] Rx#:[id number] Oral 110 480 480 Output: Urine 775 1475 1200 Other: Voiding Method Indwelling Catheter Indwelling Catheter Indwelling Catheter - Exam Awake, comfortable, not in any acute distress Examination of the heart S1 and S2 Examination lungs bilateral breath sounds are heard Abdomen is soft nontender Examination lower extremity shows no evidence of edema ROLL RECLAIMER exam grossly intact - Labs CBC & Chem 7: 05/25/21 05:43 05/27/21 11:01 Labs: Abnormal Lab Results - Last 24 Hours (Table) 05/27/21 Range/Units 11:01 Sodium 126 L (137-145) mmol/L Assessment and Plan Assessment: 1. Hyponatremia, hypovolemic currently improved. Urine sodium was less than 20 patient is status post 3% saline. Sodium level dropped from 129-126 after he was switched to normal saline. Start his sodium chloride tablet yesterday as blood pressure has been on the lower side. Repeat urine studies suggest SIADH with urine osmolality of 513 and random urine sodium at 139 2. Hypothyroidism maintained on supplementation. TSH was significantly elevated at 68.7. 3. Anemia, no active bleeding noted check iron profile. Macrocytic anemia associated with hypothyroidism is in the differential. Plan: Tolvaptan 15 mg by mouth 1 today Repeat sodium in a.m. Control pain
[2021-05-27] MEDS ORDERED: TOLVAPTAN 15 MG 1/2 TABLET PO ONE (15:00)
[2021-05-28] MEDS: PIPERACILLIN-TAZOBACTAM 3.375 GM in SODIUM CHLORIDE 0.9% 100 ML IVPB SCH ×3 (00:34→16:12)
[2021-05-28] MEDS: LEVOTHYROXINE 75 MCG TAB PO SCH (05:29)
[2021-05-28] MEDS: IPRATROPIUM-ALBUTEROL 3 ML NEB INHALATION SCH ×3 (07:36→15:38)
[2021-05-28] MEDS: CARBIDOPA-LEVODOPA ER 50-200MG 1 EACH TABLET.ER PO SCH ×2 (08:35→16:11)
[2021-05-28] MEDS: CALCIUM CARBONATE 500 MG CHEWABLE PO SCH (08:35)
[2021-05-28] MEDS: PANTOPRAZOLE 40 MG TABLET PO SCH (08:35)
[2021-05-28] MEDS: clonazePAM 0.5 MG TAB PO SCH ×2 (08:35→16:09)
[2021-05-28] MEDS: SODIUM CHLORIDE TAB 1 GM TAB PO SCH (08:36)
[2021-05-28] MEDS: MAGNESIUM OXIDE 400 MG TAB PO SCH (08:36)
[2021-05-28] MEDS: ENOXAPARIN 40 MG/0.4 ML SYRINGE SQ SCH (08:36)
[2021-05-28 12:00] LABS: African American GFR (CKD) >90 (>60 ml/min/1.73 sqM); Anion Gap 6 mmol/L; Blood Urea Nitrogen 7 mg/dL (9-20); Calcium 8.8 mg/dL (8.4-10.2); Carbon Dioxide 34 mmol/L (22-30); Chloride 93 mmol/L (98-107); Glucose 139 mg/dL (74-99); Non-African American GFR(CKD) >90 (>60 ml/min/1.73 sqM); Potassium 3.9 mmol/L (3.5-5.1); Sodium 133 mmol/L (137-145)
[2021-05-28 16:32] VITALS: PULSE 93; RESP 18
--- NOTE | 2021-05-28 16:33 | P.PN ---
Subjective Patient is seen for follow-up for hyponatremia. He is status post 3% saline. Sodium was up to 129 yesterday and patient was switched to normal saline and transferred out of the ICU. Urine osmolality was elevated at 539 and urine sodium was 139 suggesting SIADH Patient received Samsca yesterday. Sodium is improved to 133 today. Objective - Vital Signs Vital signs: Vital Signs Temp 98.6 F 05/28/21 12:34 Pulse 84 05/28/21 15:53 Resp 21 05/28/21 12:34 BP 146/87 05/28/21 12:34 Pulse Ox 94 L 05/28/21 15:39 Intake & Output 05/27/21 05/28/21 05/28/21 18:59 06:59 18:59 Intake Total 480 Output Total 1445 3000 Balance -965 -3000 Intake: Oral 480 Output: Urine 1445 3000 Other: Voiding Method Indwelling Catheter External Catheter External Catheter # Voids 6 - Exam Awake, comfortable, not in any acute distress Examination of the heart S1 and S2 Examination lungs bilateral breath sounds are heard Abdomen is soft nontender Examination lower extremity shows no evidence of edema UNIT MANAGER RN exam grossly intact - Labs CBC & Chem 7: 05/25/21 05:43 05/28/21 11:09 Labs: Abnormal Lab Results - Last 24 Hours (Table) 05/28/21 Range/Units 11:09 Sodium 133 L (137-145) mmol/L Chloride 93 L (98-107) mmol/L Carbon Dioxide 34 H (22-30) mmol/L BUN 7 L (9-20) mg/dL Creatinine 0.56 L (0.66-1.25) mg/dL Glucose 139 H (74-99) mg/dL Assessment and Plan Assessment: 1. Hyponatremia, hypovolemic currently improved. Urine sodium was less than 20 patient is status post 3% saline. Sodium level dropped from 129-126 after he was switched to normal saline. Started sodium chloride tablet as blood pressure has been on the lower side but serum sodium did not improve. Repeat urine studies suggest SIADH with urine osmolality of 513 and random urine sodium at 139. Status post Samsca 15 mg yesterday and sodium has improved to 133 today 2. Hypothyroidism maintained on supplementation. TSH was significantly elevated at 68.7. 3. Anemia, no active bleeding noted check iron profile. Macrocytic anemia associated with hypothyroidism is in the differential. Plan: Maintain fluid restriction Repeat labs in a.m. Encourage increased oral intake
[2021-05-28 16:34] VITALS: BP 128/82; TEMP 97.8
--- NOTE | 2021-05-28 18:57 | PN ---
PROGRESS NOTE CHIEF COMPLAINT: Electrolyte imbalance, dehydration and failure to thrive. HISTORY OF PRESENT ILLNESS: This gentleman was discharged yesterday to [facility]. They apparently did not want to take him because of some of the medicines that he was on in the hospital, which were not felt to be necessary at discharge and were canceled. Some of the medications will be stopped on an inpatient basis and we will see how he does and when the custodial will take him. SANGITA / DIAMONDN: [id number] /
--- NOTE | 2021-05-29 10:36 | CDI ---
Documentation Clarification Form Date: 05/29/2021 10:14:26 AM From: Yesenia Ruiz RN CCDS Admit Date: 05/18/2021 08:02:00 PM Patient Name: Dominik Butterfield Visit Number: [id number] Discharge Date: 05/28/2021 05:36:00 PM ATTENTION: The Clinical Documentation Specialists (CDI) and [facility] Coding Staff appreciate your assistance in clarifying documentation. Please respond to the clarification below the line at the bottom and electronically sign. The CDI & [facility] Coding staff will review the response and follow-up if needed. Please note: Queries are made part of the Legal Health Record. If you have any questions, please contact the author of this message via ITS. Dr. Hebert Kam Conflicting documentation has been found in the medical record. As attending physician, please provide clarification. Moderate protein calorie malnutrition, Misc, 05/22 Malnutrition, severe and protein-calorie, Discharge Summary, 05/27. History/Risk Factors: 70-year-old male presents to the ED with shortness of breath, bilateral ankle swelling and fell at home and was unable to get up. Medical History: COPD and HTN. Clinical Indicators: 05/20, Wound care consult: Stage II coccyx ulcer Current BMI: 19.4kg 05/18, ED Note: This is a deconditioned, cachectic, and disheveled appearing elderly male in mild distress. 05/20, Medicine progress note: He remains pale, dehydrated and somewhat chachetic. Treatment: Supplements: 05/20 Ensure Enlive TID with meals. and See BID with meals. Lab monitoring: Electrolyte, Please clarify which diagnosis is most appropriate: [ ] Moderate protein calorie malnutrition [ ] Severe protein calorie malnutrition [ ] Other (please specify) [ ] Unable to determine (Template Last Revised: April 2020) MTDD
--- NOTE | 2021-06-02 11:54 | MISC ---
MISCELLANOUS REPORT QUERY: Very severe protein-calorie malnutrition. MMODL / IJN: [id number] /
== END 2021-05-28 17:36 | DRG 640 ==
LOC: EC 18:06 → 3SCARD 20:02 → 2SICU 05-22 11:52 → 5NMEDONC 05-25 10:46
PROVIDERS: ADMIT Family Medicine; ATTEND Family Medicine
PROC: 0HB5XZX Excision of Chest Skin, External Approach, Diagnostic (ICD-10-PCS; principal; 2021-05-21)
PROC: 3E033XZ Introduction of Vasopressor into Peripheral Vein, Percutaneous Approach (ICD-10-PCS; 2021-05-23)
PROC: 5A09457 Assistance with Respiratory Ventilation, 24-96 Consecutive Hours, Continuous Positive Airway Pressure (ICD-10-PCS; 2021-05-23)
DX: E87.1 Hypo-osmolality and hyponatremia (principal); E43 Unspecified severe protein-calorie malnutrition; J96.01 Acute respiratory failure with hypoxia; J69.0 Pneumonitis due to inhalation of food and vomit; R64 Cachexia; Z68.1 Body mass index [BMI] 19.9 or less, adult; J44.0 Chronic obstructive pulmonary disease with (acute) lower respiratory infection; L89.152 Pressure ulcer of sacral region, stage 2; D69.6 Thrombocytopenia, unspecified; E83.51 Hypocalcemia; R62.7 Adult failure to thrive; I11.0 Hypertensive heart disease with heart failure; I50.9 Heart failure, unspecified; I95.9 Hypotension, unspecified; C44.519 Basal cell carcinoma of skin of other part of trunk; E86.0 Dehydration; E83.42 Hypomagnesemia; E86.1 Hypovolemia; Z66 Do not resuscitate; Z20.822 Contact with and (suspected) exposure to COVID-19; L98.492 Non-pressure chronic ulcer of skin of other sites with fat layer exposed; E87.6 Hypokalemia; E87.5 Hyperkalemia; D53.9 Nutritional anemia, unspecified; G89.29 Other chronic pain; M51.36 Other intervertebral disc degeneration, lumbar region; M41.9 Scoliosis, unspecified; F41.9 Anxiety disorder, unspecified; E89.0 Postprocedural hypothyroidism; R29.6 Repeated falls; K52.9 Noninfective gastroenteritis and colitis, unspecified; F17.200 Nicotine dependence, unspecified, uncomplicated; R53.81 Other malaise; Z79.899 Other long term (current) drug therapy; Z87.39 Personal history of other diseases of the musculoskeletal system and connective tissue; Z74.01 Bed confinement status; Z98.890 Other specified postprocedural states; Z71.3 Dietary counseling and surveillance; W19.XXXA Unspecified fall, initial encounter; Y92.009 Unspecified place in unspecified non-institutional (private) residence as the place of occurrence of the external cause
CPT/HCPCS: 36415; 70450; 71045; 72100; 72125; 74177; 80048; 80051; 80053; 80320; 82272; 82533; 82550; 83735; 83880; 83930; 83935; 84100; 84132; 84295; 84300; 84439; 84443; 84484; 85025; 85027; 87070; 87205; 87324; 87635; 88305; 93005; 93306; 94640; 94660; 94760; 96365; 96366; 99291

== ENCOUNTER 2022-10-11 09:18 | Inpatient (IN) | payer MEDICARE, OTHER ==
[2022-10-11] MEDS ORDERED: DEXAMETHASONE SOD PHOSPHATE 10 MG/ML 1 ML VIAL IV STA ×2 (09:26→10:28)
[2022-10-11] MEDS ORDERED: IPRATROPIUM 0.5 MG/2.5 ML NEBU INHALATION STA (09:26)
[2022-10-11] MEDS ORDERED: ALBUTEROL NEBULIZED 2.5 MG/3 ML INHALATION STA (09:26)
[2022-10-11] MEDS ORDERED: ONDANSETRON 4 MG/2 ML VIAL IVP STA ×2 (09:39)
[2022-10-11 09:47] LABS: Basophils % (A) 1 %; Eosinophils % (A) 0 %; HCT 51.4 % (39.0-53.0); HGB 16.7 gm/dL (13.0-17.5); Lymphocytes % (A) 41 %; MCH 29.9 pg (25.0-35.0); MCHC 32.5 g/dL (31.0-37.0); MCV 91.9 fL (80.0-100.0); Mean Platelet Volume 7.7; Monocytes # (A) 0.1 k/uL (0-1.0); Monocytes % (A) 2 %; Neutrophils # (A) 1.4 k/uL (1.3-7.7); Neutrophils % (A) 55 %; RBC 5.59 m/uL (4.30-5.90); RDW 15.1 % (11.5-15.5); WBC 2.5 k/uL (3.8-10.6)
[2022-10-11 09:48] LABS: VBG HCO3 29 mmol/L (24-28); VBG PCO2 56 mmHg (37-51); VBG PH 7.31 (7.31-7.41)
[2022-10-11 09:53] LABS: ALT 10 U/L (4-49); AST 114 U/L (17-59); African American GFR (CKD) 80 (>60 ml/min/1.73 sqM); Albumin 3.7 g/dL (3.5-5.0); Alkaline Phosphatase 111 U/L (38-126); Anion Gap 18 mmol/L; Blood Urea Nitrogen 3 mg/dL (9-20); Carbon Dioxide 24 mmol/L (22-30); Chloride 86 mmol/L (98-107); Glucose 116 mg/dL (74-99); Non-African American GFR(CKD) 69 (>60 ml/min/1.73 sqM); Potassium 3.2 mmol/L (3.5-5.1); Sodium 128 mmol/L (137-145); Total Bilirubin 1.1 mg/dL (0.2-1.3); Total Protein 6.8 g/dL (6.3-8.2)
--- NOTE | 2022-10-11 09:54 | ED ---
General Adult HPI - General Chief complaint: Shortness of Breath Stated complaint: SOB Time Seen by Provider: 10/11/22 09:23 Source: EMS Mode of arrival: EMS Limitations: no limitations - History of Present Illness Initial comments: Dictation was produced using REBIScan dictation software. please excuse any grammatical, word or spelling errors. Chief Complaint: 71-year-old male brought in from home by EMS for shortness of breath History of Present Illness: Patient 71-year-old male he has history of Parkinson's dementia. He does not have however any known history of any other medical comorbidities. Does not follow up with a primary care doctor. Patient according to EMS stated that she felt fine yesterday when going to bed. He woke up this morning and severe shortness of breath. EMS was called EMS reports that patient was very pale appearing and in significant respiratory distress. He was initially given breathing treatment with no improvement. Ultimately ended up being placed on noninvasive ventilation. His oxygen saturation levels improved. Patient has any chest pain. He has no recent cough. He has remote history of tobacco use. He has no history of A. fib. The ROS documented in this emergency department record has been reviewed and confirmed by me. Those systems with pertinent positive or negative responses have been documented in the HPI. All other systems are other negative and/or noncontributory. - Related Data Home Medications Medication Instructions Recorded Confirmed Albuterol Inhaler [Ventolin Hfa 2 puff INHALATION RT-QID PRN 10/11/22 10/11/22 Inhaler] Carbidopa-Levodopa ER 50-200Mg 1 tab PO TID 10/11/22 10/11/22 [Sinemet CR 50-200 mg] Fluticasone/Umeclidin/Vilanter 1 puff INHALATION RT-DAILY 10/11/22 10/11/22 [Trelegy Ellipta 200-62.5-25] Levothyroxine Sodium 150 mcg PO DAILY 10/11/22 10/11/22 Omeprazole Magnesium [PriLOSEC OTC] 20 mg PO DAILY 10/11/22 10/11/22 Propranolol [Inderal] 40 mg PO BID 10/11/22 10/11/22 Allergies Allergy/AdvReac Type Severity Reaction Status Date / Time No Known Allergies Allergy Verified 10/11/22 10:55 Review of Systems ROS Statement: Those systems with pertinent positive or pertinent negative responses have been documented in the HPI. ROS Other: All systems not noted in ROS Statement are negative. Past Medical History Past Medical History: COPD, Hypertension Additional Past Medical History / Comment(s): engarged right ventricle History of Any Multi-Drug Resistant Organisms: None Reported Past Surgical History: Back Surgery Additional Past Surgical History / Comment(s): back surgery x3, thyroid removed Past Psychological History: No Psychological Hx Reported Smoking Status: Current every day smoker Past Alcohol Use History: Daily Past Drug Use History: Marijuana General Exam - General Exam Comments Initial Comments: PHYSICAL EXAM: General Impression: Dyspneic, alert and oriented HEENT: Normocephalic atraumatic, extra-ocular movements intact, pupils equal and reactive to light bilaterally, dry mucous membranes Cardiovascular: Heart regular rate and rhythm Chest: Diffuse rales Abdomen: abdomen soft, non-tender, non-distended, no organomegaly Musculoskeletal: Pulses present and equal in all extremities, no peripheral edema Motor: no focal deficits noted Neurological: CN II-XII grossly intact, no focal motor or sensory deficits noted Skin: Intact with no visualized rashes Psych: Normal affect and mood Limitations: no limitations Course Vital Signs 10/11/22 10/11/22 10/11/22 09:19 09:25 09:44 Temperature 98.7 F Pulse Rate 120 H 130 H Respiratory 30 H Rate Blood Pressure 111/88 O2 Sat by Pulse 85 L Oximetry Fraction of 100 Inspired Oxygen (FIO2) 10/11/22 10/11/22 10/11/22 09:50 10:15 11:24 Temperature Pulse Rate 128 H Respiratory Rate Blood Pressure O2 Sat by Pulse Oximetry Fraction of 100 90 Inspired Oxygen (FIO2) 10/11/22 11:48 Temperature Pulse Rate Respiratory Rate Blood Pressure O2 Sat by Pulse Oximetry Fraction of 80 Inspired Oxygen (FIO2) - Reevaluation(s) Reevaluation #1: 10/11/22 10:49 Patient reevaluated after several minutes of BiPAP therapy with improvement of symptoms. Patient reports that he is feeling better. He does not appear as much distress as when he initially arrived. Case was discussed with Dr. Baldwin. who is willing to ac cept patient care to the ICU.there is concern of sepsis given patient's tachycardic with new-onset A. fib and in respiratory failure. Patient given gentle hydration in order to not contribute further to his respiratory failure. Procedures - Sepsis Sepsis Focused Exam #1 Time Sepsis Criteria Met: :14 Sepsis Focused Exam Date: 10/11/22 Sepsis Focused Exam Time: : Sepsis Focused Exam Complete: Yes Vital Signs & RN Notes Reviewed: Yes Capillary Refill: < 2 Seconds: Fingers, Toes Peripheral Pulses: Normal: Radial (R), Radial (L), Posterior Tibialis (R), Posterior Tibialis (L), Dorsalis Pedis (R), Dorsalis Pedis (L) Skin Color: Normal for Patient Respiratory Exam: rales Cardiovascular Exam: regular rate Medical Decision Making - Medical Decision Making Was pt. sent in by a medical professional or institution (, PA, EQUALIZER OPERATOR, urgent care, hospital, or intermediate...) When possible be specific @ -No Did you speak to anyone other than the patient for history (EMS, parent, family, police, friend...)? What history was obtained from this source @ -EMS Did you review nursing and triage notes (agree or disagree)? Why? @ -I reviewed and agree with nursing and triage notes Were old charts reviewed (outside hosp., previous admission, EMS record, old EKG, old radiological studies, urgent care reports/EKG's, intermediate records)? Report findings @ -No old charts were reviewed Differential Diagnosis (chest pain, altered mental status, abdominal pain women, abdominal pain men, vaginal bleeding, musculoskeletal, weakness, fever, dyspnea, syncope, headache, dizziness, GI bleed, back pain, seizure, CVA, palpatations, mental health)? @ -Differential Dyspnea: Coronary syndrome, arrhythmia, tamponade, asthma, COPD, pulmonary embolism, pneumonia, pneumothorax, pulmonary effusion, anaphylaxis, diabetic ketoacidosis, flailed chest, pulmonary contusion, diaphragmatic rupture, anemia, neuromuscular, this is not meant to be an all-inclusive list. EKG interpreted by me (3pts min.). @ -See above X-rays interpreted by me (1pt min.). @ Right pneumonia CT interpreted by me (1pt min.). @ -None done U/S interpreted by me (1pt. min.). @ -None done What testing was considered but not performed or refused? (CT, X-rays, U/S, labs)? Why? @ -None What meds were considered but not given or refused? Why? @ -None Did you discuss the management of the patient with other professionals (professionals i.e. DrNeeru, PA, EQUALIZER OPERATOR, lab, RT, psych nurse, social professionals, city councilman, teacher, guest services officer, hospice case manager)? Give summary @ -See above Was smoking cessation discussed for >3mins.? @ -No Was critical care preformed (if so, how long)? @ -Yes, 73 minutes Were there social determinants of health that impacted care today? How? (Homelessness, low income, unemployed, alcoholism, drug addiction, transportation, low edu. Level, literacy, decrease access to med. care, [facility], rehab)? @ -No Was there de-escalation of care discussed even if they declined (Discuss DNR or withdrawal of care, Hospice)? DNR status @ -No What co-morbidities impacted this encounter? (DM, HTN, Smoking, COPD, CAD, Cancer, CVA, ARF, Chemo, Hep., AIDS, mental health diagnosis, sleep apnea, morbid obesity)? @ -None Was patient admitted / discharged? Hospital course, mention meds given and route, prescriptions, significant lab abnormalities, going to OR and other pertinent info. @ -71-year-old male presents to emergency department for respiratory distress. Vital signs upon arrival shows blood pressure of 111/80, heart rate 120s, respiratory rate 3085% on noninvasive ventilation. Patient in significant distress. Transition to in-hospital BiPAP. Patient reports improvement of symptoms. Respiratory failure secondary to pneumonia. Endotracheal intubation withheld at this time due to patient's improvement of respiratory symptoms. His respiratory rate and agree of work of breathing has improved significantly since arrival. Patient be admitted to ICU. He started on Zosyn. Undiagnosed new problem with uncertain prognosis? @ -No Drug Therapy requiring intensive monitoring for toxicity (Heparin, Nitro, Insulin, Cardizem)? @ -No Were any procedures done? @ -No Diagnosis/symptom? Acute, or Chronic, or Acute on Chronic? Uncomplicated (without systemic symptoms) or Complicated (systemic symptoms)? @ -1. Pneumonia secondary to respiratory failure Side effects of treatment? @ -No Exacerbation, Progression, or Severe Exacerbation? @ -No Poses a threat to life or bodily function? How? (Chest pain, [place], [place], pneumonia, PE, COPD, DKA, ARF, appy, cholecystitis, CVA, Diverticulitis, Homicidal, Suicidal, threat to staff... and all critical care pts) @ -yes - Lab Data Result diagrams: 10/11/22 09:30 10/11/22 09:30 Lab Results 10/11/22 10/11/22 10/11/22 Range/Units 09:30 09:30 09:30 WBC 2.5 L (3.8-10.6) k/uL RBC 5.59 (4.30-5.90) m/uL Hgb 16.7 (13.0-17.5) gm/dL Hct 51.4 (39.0-53.0) % MCV 91.9 (80.0-100.0) fL MCH 29.9 (25.0-35.0) pg MCHC 32.5 (31.0-37.0) g/dL RDW 15.1 (11.5-15.5) % Plt Count 433 (150-450) k/uL MPV 7.7 Neutrophils % 55 % Lymphocytes % 41 % Monocytes % 2 % Eosinophils % 0 % Basophils % 1 % Neutrophils # 1.4 (1.3-7.7) k/uL Lymphocytes # 1.0 (1.0-4.8) k/uL Monocytes # 0.1 (0-1.0) k/uL Eosinophils # 0.0 (0-0.7) k/uL Basophils # 0.0 (0-0.2) k/uL Manual Slide Review Performed PT 10.9 (9.0-12.0) sec INR 1.0 (<1.2) APTT 21.3 L (22.0-30.0) sec Sample Site ABG pH (7.35-7.45) ABG pCO2 (35-45) mmHg ABG pO2 (83-108) mmHg ABG HCO3 (21-25) mmol/L ABG Total CO2 (19-24) mmol/L ABG O2 Saturation (94-97) % ABG Base Excess mmol/L Heladio Test VBG pH (7.31-7.41) VBG pCO2 (37-51) mmHg VBG HCO3 (24-28) mmol/L FiO2 % Sodium 128 L (137-145) mmol/L Potassium 3.2 L (3.5-5.1) mmol/L Chloride 86 L (98-107) mmol/L Carbon Dioxide 24 (22-30) mmol/L Anion Gap 18 mmol/L BUN 3 L (9-20) mg/dL Creatinine 1.07 (0.66-1.25) mg/dL Est GFR (CKD-EPI)AfAm 80 (>60 ml/min/1.73 sqM) Est GFR (CKD-EPI)NonAf 69 (>60 ml/min/1.73 sqM) Glucose 116 H (74-99) mg/dL Lactic Ac Sepsis Rflx Plasma Lactic Acid Robin (0.7-2.0) mmol/L Calcium 8.0 L (8.4-10.2) mg/dL Magnesium 0.7 L* (1.6-2.3) mg/dL Total Bilirubin 1.1 (0.2-1.3) mg/dL AST 114 H (17-59) U/L ALT 10 (4-49) U/L Alkaline Phosphatase 111 (38-126) U/L Troponin I (0.000-0.034) ng/mL NT-Pro-B Natriuret Pep 130 pg/mL Total Protein 6.8 (6.3-8.2) g/dL Albumin 3.7 (3.5-5.0) g/dL Influenza Type A (PCR) (Not Detectd) Influenza Type B (PCR) (Not Detectd) RSV (PCR) (Not Detectd) SARS-CoV-2 (PCR) (Not Detectd) 10/11/22 10/11/22 10/11/22 Range/Units 09:30 09:30 09:30 WBC (3.8-10.6) k/uL RBC (4.30-5.90) m/uL Hgb (13.0-17.5) gm/dL Hct (39.0-53.0) % MCV (80.0-100.0) fL MCH (25.0-35.0) pg MCHC (31.0-37.0) g/dL RDW (11.5-15.5) % Plt Count (150-450) k/uL MPV Neutrophils % % Lymphocytes % % Monocytes % % Eosinophils % % Basophils % % Neutrophils # (1.3-7.7) k/uL Lymphocytes # (1.0-4.8) k/uL Monocytes # (0-1.0) k/uL Eosinophils # (0-0.7) k/uL Basophils # (0-0.2) k/uL Manual Slide Review PT (9.0-12.0) sec INR (<1.2) APTT (22.0-30.0) sec Sample Site ABG pH (7.35-7.45) ABG pCO2 (35-45) mmHg ABG pO2 (83-108) mmHg ABG HCO3 (21-25) mmol/L ABG Total CO2 (19-24) mmol/L ABG O2 Saturation (94-97) % ABG Base Excess mmol/L Heladio Test VBG pH (7.31-7.41) VBG pCO2 (37-51) mmHg VBG HCO3 (24-28) mmol/L FiO2 % Sodium (137-145) mmol/L Potassium (3.5-5.1) mmol/L Chloride (98-107) mmol/L Carbon Dioxide (22-30) mmol/L Anion Gap mmol/L BUN (9-20) mg/dL Creatinine (0.66-1.25) mg/dL Est GFR (CKD-EPI)AfAm (>60 ml/min/1.73 sqM) Est GFR (CKD-EPI)NonAf (>60 ml/min/1.73 sqM) Glucose (74-99) mg/dL Lactic Ac Sepsis Rflx Plasma Lactic Acid Robin 5.7 H* (0.7-2.0) mmol/L Calcium (8.4-10.2) mg/dL Magnesium (1.6-2.3) mg/dL Total Bilirubin (0.2-1.3) mg/dL AST (17-59) U/L ALT (4-49) U/L Alkaline Phosphatase (38-126) U/L Troponin I <0.012 (0.000-0.034) ng/mL NT-Pro-B Natriuret Pep pg/mL Total Protein (6.3-8.2) g/dL Albumin (3.5-5.0) g/dL Influenza Type A (PCR) Not Detected (Not Detectd) Influenza Type B (PCR) Not Detected (Not Detectd) RSV (PCR) Not Detected (Not Detectd) SARS-CoV-2 (PCR) Not Detected (Not Detectd) 10/11/22 10/11/22 10/11/22 Range/Units 09:30 10:00 10:03 WBC (3.8-10.6) k/uL RBC (4.30-5.90) m/uL Hgb (13.0-17.5) gm/dL Hct (39.0-53.0) % MCV (80.0-100.0) fL MCH (25.0-35.0) pg MCHC (31.0-37.0) g/dL RDW (11.5-15.5) % Plt Count (150-450) k/uL MPV Neutrophils % % Lymphocytes % % Monocytes % % Eosinophils % % Basophils % % Neutrophils # (1.3-7.7) k/uL Lymphocytes # (1.0-4.8) k/uL Monocytes # (0-1.0) k/uL Eosinophils # (0-0.7) k/uL Basophils # (0-0.2) k/uL Manual Slide Review PT (9.0-12.0) sec INR (<1.2) APTT (22.0-30.0) sec Sample Site rrad ABG pH 7.43 (7.35-7.45) ABG pCO2 29 L (35-45) mmHg ABG pO2 52 L* (83-108) mmHg ABG HCO3 19 L (21-25) mmol/L ABG Total CO2 20 (19-24) mmol/L ABG O2 Saturation 84.2 L (94-97) % ABG Base Excess -5.2 mmol/L Heladio Test Yes Yes VBG pH 7.31 (7.31-7.41) VBG pCO2 56 H (37-51) mmHg VBG HCO3 29 H (24-28) mmol/L FiO2 100 % Sodium (137-145) mmol/L Potassium (3.5-5.1) mmol/L Chloride (98-107) mmol/L Carbon Dioxide (22-30) mmol/L Anion Gap mmol/L BUN (9-20) mg/dL Creatinine (0.66-1.25) mg/dL Est GFR (CKD-EPI)AfAm (>60 ml/min/1.73 sqM) Est GFR (CKD-EPI)NonAf (>60 ml/min/1.73 sqM) Glucose (74-99) mg/dL Lactic Ac Sepsis Rflx Y Plasma Lactic Acid Robin (0.7-2.0) mmol/L Calcium (8.4-10.2) mg/dL Magnesium (1.6-2.3) mg/dL Total Bilirubin (0.2-1.3) mg/dL AST (17-59) U/L ALT (4-49) U/L Alkaline Phosphatase (38-126) U/L Troponin I (0.000-0.034) ng/mL NT-Pro-B Natriuret Pep pg/mL Total Protein (6.3-8.2) g/dL Albumin (3.5-5.0) g/dL Influenza Type A (PCR) (Not Detectd) Influenza Type B (PCR) (Not Detectd) RSV (PCR) (Not Detectd) SARS-CoV-2 (PCR) (Not Detectd) Disposition Clinical Impression: Pneumonia Disposition: ADMITTED IP TO THIS [facility] Condition: Critical Decision Time: 11:45
[2022-10-11 09:57] LABS: Magnesium 0.7 mg/dL (1.6-2.3)
--- NOTE | 2022-10-11 09:59 | XR ---
EXAMINATION TYPE: XR chest 1V portable DATE OF EXAM: 10/11/2022 9:47 AM COMPARISON: Chest radiographs from 05/25/2021 TECHNIQUE: XR chest 1V portable Frontal view of the chest. CLINICAL INDICATION:Male, 71 years old with history of dyspnea; FINDINGS: Lungs/Pleura: Scattered airspace opacities in the right lung. The left lung demonstrates is no eviden ce of pleural effusion, focal consolidation, or pneumothorax. Pulmonary vascularity: Unremarkable. Heart/mediastinum: Cardiomediastinal silhouette is unremarkable. Musculoskeletal: No acute osseous pathology. IMPRESSION: Right-sided pneumonia.
[2022-10-11 10:02] LABS: NT-Pro-B-Type Natriuretic Pept 130 pg/mL
[2022-10-11 10:04] LABS: ABG Base Excess -5.2 mmol/L; ABG HCO3 19 mmol/L (21-25); ABG Oxygen Saturation 84.2 % (94-97); ABG PCO2 29 mmHg (35-45); ABG PH 7.43 (7.35-7.45); ABG TCO2 20 mmol/L (19-24); Allen Test Performed? Yes
[2022-10-11 10:06] LABS: ABG PO2 52 mmHg (83-108)
[2022-10-11 10:09] LABS: Prothrombin Time 10.9 sec (9.0-12.0)
[2022-10-11 10:28] LABS: Partial Thromboplastin Time 21.3 sec (22.0-30.0)
[2022-10-11] MEDS ORDERED: HEPARIN SODIUM 1,000 UN/ML (10ML VL) IV PRN (10:41)
[2022-10-11] MEDS ORDERED: HEPARIN SODIUM 1,000 UN/ML (10ML VL) IV ONE (10:41)
[2022-10-11] MEDS ORDERED: DEXTROSE 5% IN WATER 100 ML with AMIODARONE 150 MG IV ONE (10:42)
[2022-10-11] MEDS ORDERED: AMIODARONE 360 MG in DEXTROSE 5% IN WATER 200 ML IV ONE ×2 (10:42)
[2022-10-11] MEDS: MAGNESIUM SULFATE-D5W PMX 1 GM in DEXTROSE/WATER 1 100ML.BAG IVPB SCH ×6 (10:42→19:08)
[2022-10-11] MEDS ORDERED: NALOXONE 0.4 MG/ML 1 ML VIAL IV PRN (10:42)
[2022-10-11] MEDS ORDERED: HEPARIN SOD,PORK IN 0.45% NACL 25,000 UNIT in 0.45% NACL 1 250ML.BAG IV SCH (10:45)
[2022-10-11] MEDS ORDERED: SODIUM CHLORIDE 0.9% 1,000 ML IV STA (10:49)
[2022-10-11 11:02] LABS: Platelet Count 433 k/uL (150-450)
[2022-10-11] MEDS: PIPERACILLIN-TAZOBACTAM 3.375 GM in SODIUM CHLORIDE 0.9% 100 ML IVPB SCH ×2 (11:32→17:43)
[2022-10-11 12:25] LABS: Glucose,Whole Blood 113 mg/dL (70-110)
[2022-10-11] MEDS ORDERED: SODIUM CHLORIDE 0.9% 2,000 ML IV ONE (12:50)
[2022-10-11] MEDS ORDERED: Magnesium Replacement Protocol 1 EACH MISC MISCELLANE PRN (12:51)
[2022-10-11] MEDS ORDERED: Potassium Replacement Protocol 1 EACH MISC MISCELLANE PRN (12:51)
--- NOTE | 2022-10-11 12:58 | P.CNPUL ---
History of Present Illness Consult date: 10/11/22 Requesting physician: Hebert Kam Reason for consult: dyspnea, abnormal CXR/CT Chief complaint: Shortness of breath History of present illness: This is a 71-year-old male patient was not been following with any primary care provider. He has a previous history of anxiety, hypertension, chronic tobacco dependence, chronic obstructive pulmonary disease, Large basal cell carcinoma on the left upper back diagnosed in May 2021 with biopsy. He had not undergone any other treatment or follow-up in that regard. He states he lives at home alone. He states he is able to perform his ADLs. He is quite disheveled and unkempt. He came into the emergency room early this morning with complaints of increasing shortness of breath cough and congestion. He was found to be hypoxemic and was placed on BiPAP 14/6 and 100% FiO2. Initial arterial blood glasses reveal a pO2 of 52, pCO2 29, pH 7.43. Chest x-ray revealed scattered air space opacities in the right lung. Left lung was clear. White count 2.5. Hemoglobin 16.7. Plavix 433. Sodium 128. Potassium 3.2. Chloride 86. Anion gap 18. BUN 3. Creatinine 1.07. Glucose 116. Lactic acid 5.7. Calcium 8.0. Magnesium 0.7. AST 114. Influenza screen negative. RSV screen negative. COVID-19 screen negative. He was admitted to the intensive care unit and we are consulted for the same. He is currently awake and alert. Answering questions appropriately. He does have an open wound on his left upper back from previous biopsy and basal cell carcinoma site. He was initiated on Zosyn. He was initially thought to be in A. fib RVR in the emergency room and started on heparin drip. He is currently in sinus rhythm. Review of Systems REVIEW OF SYSTEMS: CONSTITUTIONAL: Denies any recent significant weight loss or weight gain. EYES: Denies change in vision. EARS, NOSE, MOUTH, THROAT: Denies headaches, denies sore throat. CARDIOVASCULAR: Denies chest pain, palpitations or syncopal episodes. RESPIRATORY: Positive for shortness of breath, cough, congestion no hemoptysis. GASTROINTESTINAL: Denies change in appetite, denies abdominal pain GENITOURINARY: Denies hematuria, denies infections. MUSKULOSKELETAL: Denies pain, denies swelling. INTEGUMENTARY: Denies rash, denies eczema. NEUROLOGICAL: Denies recent memory loss, no recent seizure activity. PSYCHIATRIC: Denies anxiety, denies depression. HEMATOLOGIC/LYMPHATIC: Denies anemia, denies enlarged lymph nodes. Past Medical History Past Medical History: COPD, Hypertension Additional Past Medical History / Comment(s): engarged right ventricle History of Any Multi-Drug Resistant Organisms: None Reported Past Surgical History: Back Surgery Additional Past Surgical History / Comment(s): back surgery x3, thyroid removed Past Psychological History: No Psychological Hx Reported Smoking Status: Current every day smoker Past Alcohol Use History: Daily Past Drug Use History: Marijuana Medications and Allergies Home Medications Medication Instructions Recorded Confirmed Type Albuterol Inhaler [Ventolin Hfa 2 puff INHALATION RT-QID PRN 10/11/22 10/11/22 History Inhaler] Carbidopa-Levodopa ER 50-200Mg 1 tab PO TID 10/11/22 10/11/22 History [Sinemet CR 50-200 mg] Fluticasone/Umeclidin/Vilanter 1 puff INHALATION RT-DAILY 10/11/22 10/11/22 History [Trelegy Ellipta 200-62.5-25] Levothyroxine Sodium 150 mcg PO DAILY 10/11/22 10/11/22 History Omeprazole Magnesium [PriLOSEC OTC] 20 mg PO DAILY 10/11/22 10/11/22 History Propranolol [Inderal] 40 mg PO BID 10/11/22 10/11/22 History Allergies Allergy/AdvReac Type Severity Reaction Status Date / Time No Known Allergies Allergy Verified 10/11/22 10:55 Physical Exam Vitals: Vital Signs Temp Pulse Resp BP Pulse Ox FiO2 10/11/22 12:22 98.3 F 98 22 107/63 93 L 10/11/22 11:48 80 10/11/22 11:24 90 10/11/22 10:15 128 H 10/11/22 09:50 100 10/11/22 09:44 130 H 10/11/22 09:25 100 10/11/22 09:19 98.7 F 120 H 30 H 111/88 85 L Intake and Output 10/10/22 10/11/22 10/11/22 22:59 06:59 14:59 Other: Weight 72.575 kg GENERAL EXAM: Alert, disheveled unkempt 71-year-old male, on BiPAP, fairly comfortable in no apparent distress. HEAD: Normocephalic. EYES: Normal reaction of pupils, equal size. NOSE: Clear with pink turbinates. THROAT: No erythema or exudates. NECK: No masses, no JVD. CHEST: No chest wall deformity. There is a large open area of previous basal cell carcinoma the left upper back LUNGS: Equal air entry with few scattered rhonchi over the right lung. CVS: S1 and S2 normal with no audible murmur, regular rhythm. ABDOMEN: No hepatosplenomegaly, normal bowel sounds, no guarding or rigidity. SPINE: No scoliosis or deformity SKIN: No rashes. Large open wound on the left upper back CENTRAL NERVOUS SYSTEM: No focal deficits, tone is normal in all 4 extremities. EXTREMITIES: There is no peripheral edema. No clubbing, no cyanosis. Peripheral pulses are intact. Results - Laboratory Findings CBC and BMP: 10/11/22 09:30 10/11/22 09:30 ABG ABG pH 7.43 (7.35-7.45) 10/11/22 10:03 ABG pCO2 29 mmHg (35-45) L 10/11/22 10:03 ABG pO2 52 mmHg (83-108) L* 10/11/22 10:03 ABG O2 Saturation 84.2 % (94-97) L 10/11/22 10:03 PT/INR, D-dimer PT 10.9 sec (9.0-12.0) 10/11/22 09:30 INR 1.0 (<1.2) 10/11/22 09:30 Abnormal lab findings: Abnormal Labs 10/11/22 10/11/22 10/11/22 09:30 09:30 09:30 WBC 2.5 L APTT 21.3 L ABG pCO2 ABG pO2 ABG HCO3 ABG O2 Saturation VBG pCO2 VBG HCO3 Sodium 128 L Potassium 3.2 L Chloride 86 L BUN 3 L Glucose 116 H POC Glucose (mg/dL) Plasma Lactic Acid Robin Calcium 8.0 L Magnesium 0.7 L* AST 114 H 10/11/22 10/11/22 10/11/22 09:30 09:30 10:03 WBC APTT ABG pCO2 29 L ABG pO2 52 L* ABG HCO3 19 L ABG O2 Saturation 84.2 L VBG pCO2 56 H VBG HCO3 29 H Sodium Potassium Chloride BUN Glucose POC Glucose (mg/dL) Plasma Lactic Acid Robin 5.7 H* Calcium Magnesium AST 10/11/22 12:24 WBC APTT ABG pCO2 ABG pO2 ABG HCO3 ABG O2 Saturation VBG pCO2 VBG HCO3 Sodium Potassium Chloride BUN Glucose POC Glucose (mg/dL) 113 H Plasma Lactic Acid Robin Calcium Magnesium AST - Diagnostic Findings Chest x-ray: image reviewed Assessment and Plan Assessment: Acute hypoxemic respiratory failure secondary to right lung multifocal opacities, possible aspiration, possible malignancy Large nonhealing open wound on the left upper back previously biopsied in 05/2021 of basal cell carcinoma Lactic acidosis Former smoker Chronic obstructive pulmonary disease History of anxiety Previous admissions for severe general medical debility Previous history of hyponatremia with hypo-magnesium secondary to poor oral intake The patient is noncompliant and has not followed with primary care provider Plan: The patient was seen and evaluated Chest x-ray, ABGs, labs and medications reviewed Continue with Zosyn, add vancomycin Infectious disease consult regarding the wound of his back Computed tomography scan of the chest Continue with fluid resuscitation Replace magnesium Titrate the FiO2 as tolerated Follow-up labs and chest x-ray in a.m. We will continue to follow and make further recommendations based on his clinical status I have personally seen and examined the patient, performed the documentation and the assessment and plan as written. Number of minutes spent on the visit: 20.
[2022-10-11] MEDS ORDERED: VANCOMYCIN IV PER PHARMACY 1 EACH MISC MISCELLANE PRN (13:10)
[2022-10-11] MEDS ORDERED: RX INFO: IV CONTRAST WAS GIVEN 1 EACH MISC MISCELLANE PRN (13:11)
[2022-10-11] MEDS: POTASSIUM BICARBONATE/CIT AC 20 MEQ TABLET.EFF NG-TUBE SCH ×2 (13:25→15:13)
[2022-10-11] MEDS ORDERED: VANCOMYCIN 1,250 MG in SODIUM CHLORIDE 0.9% 250 ML IVPB SCH (14:00)
[2022-10-11] MEDS ORDERED: MORPHINE SULFATE 4 MG/ML SYRINGE IVP PRN (14:42)
[2022-10-11] MEDS ORDERED: ACETAMINOPHEN TAB 325 MG TAB PO PRN (14:42)
[2022-10-11] MEDS ORDERED: MELATONIN 3 MG TABLET PO PRN (14:48)
[2022-10-11] MEDS ORDERED: ALBUTEROL HFA INHALER INHALATION PRN (14:55)
[2022-10-11] MEDS ORDERED: ALBUTEROL NEBULIZED 2.5 MG/3 ML INHALATION PRN (15:06)
[2022-10-11] MEDS ORDERED: bisacodyL 5 MG TABLET.DR PO PRN (15:11)
[2022-10-11] MEDS ORDERED: ONDANSETRON 4 MG/2 ML VIAL IVP PRN (15:11)
--- NOTE | 2022-10-11 15:11 | P.HPIM ---
History of Present Illness H&P Date: 10/11/22 Patient is a 71-year-old male for history of Parkinson's disease, acid reflux, COPD, and hypothyroidism who presented to the ED due to worsening shortness of breath. The emergency department he underwent an extensive evaluation. Initial vital signs show pulse of 120, respirations 30, and O2 sat of 85% on BiPAP. Initial laboratory analysis demonstrated a white blood cell count of 2.5, PTT 23.1, sodium 128, potassium 3.2, chloride 86, BUN 3, creatinine 1.07, and glucose of 116. Lactic acid was elevated at 5.7, magnesium 0.1, AST 114. Viral panel was negative for influenza/RS disease/COVID-19. ABG showed a pH of 7.43, CO2 29, PaO2 of 52, and bicarb of 19. X-ray reviewed by myself reveals diffuse right sided middle and lower lobe infiltrates. In the ER he was given a dose of Decadron, Zosyn, and 1 L of IV fluids. There was concern for possible A. fib on the monitor and initially amiodarone and heparin were ordered but never required administration is was then noted he was in normal sinus rhythm. He was subsequently admitted to the ICU. Critical care was consulted. Patient seen and examined at bedside. He reports that he had sudden onset shortness of breath this morning associated with a cough with yellow sputum. He states that came out of nowhere and he felt fine yesterday. He denies any recent cough, cold, fever, flu, nausea, vomiting, diarrhea, or dysuria. He denies any recent travel, sick contacts, or other unusual hobbies. He sees Ike Lowry from [facility]. He was diagnosed with skin cancer in 2021 but does not want any surgery so they have just been cleaning and monitoring it at home. Vital signs reviewed General: nontoxic, mild distress, appears at stated age Derm: warm, dry Eyes: EOMI, no lid lag, anicteric sclera, pupils equal round reactive to light ENT: Nose and ears atraumatic, Cardiovascular: S1S2 reg, no murmur, positive posterior tibial pulse bilateral, no edema, capillary refill less than 2 seconds Lungs: course bs b/l, on bipap Abdominal: soft, nontender to palpation, no guarding, no appreciable organomegaly, normal bowel sounds Ext: no gross muscle atrophy, muscle strength 4 out of 5 in all 4 extremities, no contractures Neuro: CN II-XII grossly intact, light touch intact all 4 extremities, finger to nose within normal limits, no resting tremor noted Psych: Alert, oriented, appropriate affect Assessment/Plan: Right sided pneumonia with severe sepsis Acute hypoxic respiratory failure COPD without exacerbation Acute metabolic encephalopathy Lactic acidosis Hyponatremia Hypomagnesemia Hypokalemia - agree with 2L NS bolus - Potassium replacement and magnesium replacement as ordered by pulmonary - reapeat BMP in AM - Wean O2 as able - sputum culture, legionella ag - speech consult once off bipap with concers for aspiration given hx of parkinsons disease - Zosyn 3.375 gg IVPB q 8 hours, Vanco added by pulmonary will need to monitor cr and vanco trough for toxicity - Pulm consult reviewd: CT chest Large wound left shoulder blade, Basal cell Carcinoma - consult dr. Petty - Per patient was basal cell, appears ulcerating Chronic: Parkinsons disease -carbidopa-levodopa TID Hypothyroidism - levothyroxine 150 mcg daily Imaging: As per HPI Data Review: As per HPI The patient is admitted with an anticipated greater than 2 midnight stay for evaluation of Pneumonia with sepsis. CODE STATUS: Full, does not want prolonged intubation DVT prophylaxis: lovenox Discussed with: patient, pts child care nurse, nursing, ED physician Anticipated discharge date: Pending Clinical Course Anticipated discharge place: Pending Clinical Course This dictation was prepared using [employer] voice recognition software. Though every attempt is made to correct errors during dictation some may still exist. Past Medical History Past Medical History: COPD, Hypertension Additional Past Medical History / Comment(s): engarged right ventricle, hypothyroidism s/p radioactive iodine for hyperthyroidism, Parkinson's disease, basal cell cancer on the back, GERD, COPD History of Any Multi-Drug Resistant Organisms: None Reported Past Surgical History: Back Surgery Additional Past Surgical History / Comment(s): back surgery x3, thyroid removed Past Psychological History: No Psychological Hx Reported Smoking Status: Current every day smoker Past Alcohol Use History: Occasional Past Drug Use History: Marijuana Medications and Allergies Home Medications Medication Instructions Recorded Confirmed Type Albuterol Inhaler [Ventolin Hfa 2 puff INHALATION RT-QID PRN 10/11/22 10/11/22 History Inhaler] Carbidopa-Levodopa ER 50-200Mg 1 tab PO TID 10/11/22 10/11/22 History [Sinemet CR 50-200 mg] Fluticasone/Umeclidin/Vilanter 1 puff INHALATION RT-DAILY 10/11/22 10/11/22 History [Trelegy Ellipta 200-62.5-25] Levothyroxine Sodium 150 mcg PO DAILY 10/11/22 10/11/22 History Omeprazole Magnesium [PriLOSEC OTC] 20 mg PO DAILY 10/11/22 10/11/22 History Propranolol [Inderal] 40 mg PO BID 10/11/22 10/11/22 History Allergies Allergy/AdvReac Type Severity Reaction Status Date / Time No Known Allergies Allergy Verified 10/11/22 10:55 Physical Exam Osteopathic Statement: *. No significant issues noted on an osteopathic structural exam other than those noted in the History and Physical/Consult. Vitals: Vital Signs Temp Pulse Resp BP Pulse Ox FiO2 10/11/22 15:00 70 19 123/67 96 10/11/22 14:30 70 21 129/81 95 10/11/22 14:00 80 14 116/75 97 10/11/22 13:30 82 33 H 108/71 94 L 10/11/22 13:00 99.0 F 84 14 83/62 97 80 10/11/22 12:30 90 38 H 90 L 10/11/22 12:22 98.3 F 98 22 107/63 93 L 10/11/22 11:48 80 10/11/22 11:24 90 10/11/22 10:15 128 H 10/11/22 09:50 100 10/11/22 09:44 130 H 10/11/22 09:25 100 10/11/22 09:19 98.7 F 120 H 30 H 111/88 85 L Intake and Output 10/11/22 10/11/22 10/11/22 06:59 14:59 22:59 Intake Total 2100 250 Output Total 0 0 Balance 2100 250 Intake: IV 2100 200 Magnesium Sulfate-D5w Pmx 100 100 1 gm In Dextrose/Water 1 100ml.bag @ 100 mls/hr IVPB Q1H ALEXANDRO Rx#: [id number] Sodium Chloride 0.9% 1, 100 000 ml @ 100 mls/hr IV . Q10H ALEXANDRO Rx#:[id number] Sodium Chloride 0.9% 2, 2000 000 ml @ 999 mls/hr IV . Q2H1M ONE Rx#:[id number] Oral 50 Output: Urine 0 0 Other: Weight 72.575 kg Results CBC & Chem 7: 10/11/22 09:10/11/22 09:30 Labs: Abnormal Lab Results - Last 24 Hours (Table) 10/11/22 10/11/22 10/11/22 Range/Units 09: 09: 09:30 WBC 2.5 L (3.8-10.6) k/uL APTT 21.3 L (22.0-30.0) sec ABG pCO2 (35-45) mmHg ABG pO2 (83-108) mmHg ABG HCO3 (21-25) mmol/L ABG O2 Saturation (94-97) % VBG pCO2 (37-51) mmHg VBG HCO3 (24-28) mmol/L Sodium 128 L (137-145) mmol/L Potassium 3.2 L (3.5-5.1) mmol/L Chloride 86 L (98-107) mmol/L BUN 3 L (9-20) mg/dL Glucose 116 H (74-99) mg/dL POC Glucose (mg/dL) (70-110) mg/dL Plasma Lactic Acid Robin (0.7-2.0) mmol/L Calcium 8.0 L (8.4-10.2) mg/dL Magnesium 0.7 L* (1.6-2.3) mg/dL AST 114 H (17-59) U/L 10/11/22 10/11/22 10/11/22 Range/Units 09: 09: 10:03 WBC (3.8-10.6) k/uL APTT (22.0-30.0) sec ABG pCO2 29 L (35-45) mmHg ABG pO2 52 L* (83-108) mmHg ABG HCO3 19 L (21-25) mmol/L ABG O2 Saturation 84.2 L (94-97) % VBG pCO2 56 H (37-51) mmHg VBG HCO3 29 H (24-28) mmol/L Sodium (137-145) mmol/L Potassium (3.5-5.1) mmol/L Chloride (98-107) mmol/L BUN (9-20) mg/dL Glucose (74-99) mg/dL POC Glucose (mg/dL) (70-110) mg/dL Plasma Lactic Acid Robin 5.7 H* (0.7-2.0) mmol/L Calcium (8.4-10.2) mg/dL Magnesium (1.6-2.3) mg/dL AST (17-59) U/L 10/11/22 Range/Units 12:24 WBC (3.8-10.6) k/uL APTT (22.0-30.0) sec ABG pCO2 (35-45) mmHg ABG pO2 (83-108) mmHg ABG HCO3 (21-25) mmol/L ABG O2 Saturation (94-97) % VBG pCO2 (37-51) mmHg VBG HCO3 (24-28) mmol/L Sodium (137-145) mmol/L Potassium (3.5-5.1) mmol/L Chloride (98-107) mmol/L BUN (9-20) mg/dL Glucose (74-99) mg/dL POC Glucose (mg/dL) 113 H (70-110) mg/dL Plasma Lactic Acid Robin (0.7-2.0) mmol/L Calcium (8.4-10.2) mg/dL Magnesium (1.6-2.3) mg/dL AST (17-59) U/L
[2022-10-11] MEDS: SODIUM CHLORIDE 0.9% 1,000 ML IV SCH ×2 (15:15→21:17)
[2022-10-11] MEDS: IPRATROPIUM 0.5 MG/2.5 ML NEBU INHALATION SCH ×2 (15:33→21:43)
[2022-10-11] MEDS: IPRATROPIUM-ALBUTEROL 3 ML NEB INHALATION SCH ×2 (15:33→21:42)
[2022-10-11] MEDS: CARBIDOPA-LEVODOPA ER 50-200MG 1 EACH TABLET.ER PO SCH ×2 (15:57→21:48)
[2022-10-11] MEDS ORDERED: AMIODARONE 450 MG in DEXTROSE 5% IN WATER 250 ML IV SCH ×2 (16:41)
--- NOTE | 2022-10-11 17:03 | CT ---
EXAMINATION TYPE: CT chest w con CT DLP: 402.8 mGycm, Automated exposure control for dose reduction was used. DATE OF EXAM: 10/11/2022 4:39 PM COMPARISON: Chest radiograph from same day. CLINICAL INDICATION:Male, 71 years old with history of Hypoxemia; TECHNIQUE: Multiple axial images were obtained through the chest. Sagittal and coronal reformats were created for review. Contrast used:100ml mL of Isovue 300 with IV Contrast (None if empty) Oral contrast used: (None if empty) FINDINGS: LUNGS/ PLEURA: Paraseptal and centrilobular emphysema changes. Blebs and bullae are noted in the uppe r lung apices. Airspace consolidation predominantly involving the right upper and lower lungs posteri sarkis. AIRWAY: Debris within the large airways along the distal right trachea and in the areas of consolidat ion HEART: Size within normal limits. MEDIASTINUM: No gross evidence of adenopathy. VASCULATURE: No aortic aneurysm. MUSCULOSKELETAL: No acute osseous abnormalities SOFT TISSUES/LYMPH NODES: Unremarkable. LOWER NECK: No significant findings. UPPER ABDOMEN: Diffuse low-attenuation to the liver parenchyma. Partially calcified lymph nodes seen in the upper abdomen. IMPRESSION: Right upper and lower lung posterior airspace opacities correlate for pneumonia. Given some debris wi thin the large airways correlate for aspiration. Hepatic steatosis.
[2022-10-11] MEDS: SYMBICORT 80-4.5 MCG INHALER INHALATION SCH (21:45)
[2022-10-11] MEDS: PROPRANOLOL 40 MG TAB PO SCH (21:48)
--- NOTE | 2022-10-11 23:13 | P.CONS ---
History of Present Illness - Reason for Consult Consult date: 10/11/22 Pneumonia Requesting physician: Luis Carlos Swift - Chief Complaint Shortness of breath and cough x few days - History of Present Illness Patient is a 71-year-old male with a past medical history significant for hypertension COPD large basal cell carcinoma left upper back diagnosed in May 2021 presenting to the hospital this morning for evaluation of increasing shortness of breath cough and congestion patient symptom has been going on for a few days before presentation to the hospital, mostly complaining of shortness of breath on minimal exertion even at rest the patient also have a cough which is moderate in intensity and bringing some yellowish sputum did have a blood-tinged to it but no cesia hemoptysis no pleuritic chest pain some nausea and vomiting no abdominal pain or diarrhea patient on presentation to the hospital afebrile subsequently did have a low-grade fever of 99 F patient was hypoxic with O2 sat 75% requiring admission to the ICU patient did have a leukopenia with white count 2.5 creatinine 1.07 liver enzymes are normal influenza RSV and COVID testing was negative patient did have a chest x-ray right-sided pneumonia patient was started on vancomycin and Zosyn admitted to hospital infectious disease was consulted for further management of antibiotic therapy Review of Systems Positive point and negatives has been mentioned in the HPI, complete review of systems was performed and all other systems are negative Past Medical History Past Medical History: COPD, Hypertension Additional Past Medical History / Comment(s): engarged right ventricle History of Any Multi-Drug Resistant Organisms: None Reported Past Surgical History: Back Surgery Additional Past Surgical History / Comment(s): back surgery x3, thyroid removed Past Psychological History: No Psychological Hx Reported Smoking Status: Current every day smoker Past Alcohol Use History: Daily Past Drug Use History: Marijuana - Past Family History Mother Family Medical History: No Reported History Medications and Allergies Home Medications Medication Instructions Recorded Confirmed Type Albuterol Inhaler [Ventolin Hfa 2 puff INHALATION RT-QID PRN 10/11/22 10/11/22 History Inhaler] Carbidopa-Levodopa ER 50-200Mg 1 tab PO TID 10/11/22 10/11/22 History [Sinemet CR 50-200 mg] Fluticasone/Umeclidin/Vilanter 1 puff INHALATION RT-DAILY 10/11/22 10/11/22 History [Trelegy Ellipta 200-62.5-25] Levothyroxine Sodium 150 mcg PO DAILY 10/11/22 10/11/22 History Omeprazole Magnesium [PriLOSEC OTC] 20 mg PO DAILY 10/11/22 10/11/22 History Amoxic-Pot Clav 875-125Mg 1 each PO Q12HR #10 tab 10/17/22 Rx [Augmentin 875-125] Lisinopril-Hctz 20-12.5 mg 1 each PO BID #60 tab 10/17/22 Rx [Zestoretic 20-12.5] Metoprolol Tartrate [Lopressor] 50 mg PO BID #60 tab 10/17/22 Rx Allergies Allergy/AdvReac Type Severity Reaction Status Date / Time No Known Allergies Allergy Verified 10/11/22 10:55 Physical Exam Vitals: Vital Signs Temp Pulse Resp BP Pulse Ox FiO2 10/11/22 13:00 99.0 F 84 14 83/62 97 80 10/11/22 12:30 90 38 H 90 L 10/11/22 12:22 98.3 F 98 22 107/63 93 L 10/11/22 11:48 80 10/11/22 11:24 90 10/11/22 10:15 128 H 10/11/22 09:50 100 10/11/22 09:44 130 H 10/11/22 09:25 100 10/11/22 09:19 98.7 F 120 H 30 H 111/88 85 L Intake and Output 10/10/22 10/11/22 10/11/22 22:59 06:59 14:59 Intake Total 1100 Output Total 0 Balance 1100 Intake: IV 1100 Magnesium Sulfate-D5w Pmx 100 1 gm In Dextrose/Water 1 100ml.bag @ 100 mls/hr IVPB Q1H ALEXANDRO Rx#: [id number] Sodium Chloride 0.9% 2, 1000 000 ml @ 999 mls/hr IV . Q2H1M ONE Rx#:[id number] Output: Urine 0 Other: Weight 72.575 kg GENERAL DESCRIPTION: Elderly male lying in bed, no distress. No tachypnea or accessory muscle of respiration use. HEENT: Shows Pallor , no scleral icterus. Oral mucous membrane is dry. No pharyngeal erythema or thrush NECK: Trachea central, no thyromegaly. LUNGS: Unlabored breathing. Coarse breath sounds bilaterally HEART: S1, S2, regular rate and rhythm. No loud murmur ABDOMEN: Soft, no tenderness , EXTREMITIES: No edema of feet. SKIN: No rash, no masses palpable. Patient did have a wound to the upper back with no slough tissue no surrounding redness or drainage NEUROLOGICAL: The patient is awake, alert, oriented x3, mood and affect normal. Results CBC & Chem 7: 10/12/22 05:24 10/14/22 07:41 Labs: Abnormal Lab Results - Last 24 Hours (Table) 10/11/22 10/11/22 10/11/22 Range/Units 09:30 09:30 09:30 WBC 2.5 L (3.8-10.6) k/uL APTT 21.3 L (22.0-30.0) sec ABG pCO2 (35-45) mmHg ABG pO2 (83-108) mmHg ABG HCO3 (21-25) mmol/L ABG O2 Saturation (94-97) % VBG pCO2 (37-51) mmHg VBG HCO3 (24-28) mmol/L Sodium 128 L (137-145) mmol/L Potassium 3.2 L (3.5-5.1) mmol/L Chloride 86 L (98-107) mmol/L BUN 3 L (9-20) mg/dL Glucose 116 H (74-99) mg/dL POC Glucose (mg/dL) (70-110) mg/dL Plasma Lactic Acid Robin (0.7-2.0) mmol/L Calcium 8.0 L (8.4-10.2) mg/dL Magnesium 0.7 L* (1.6-2.3) mg/dL AST 114 H (17-59) U/L 10/11/22 10/11/22 10/11/22 Range/Units 09:30 09:30 10:03 WBC (3.8-10.6) k/uL APTT (22.0-30.0) sec ABG pCO2 29 L (35-45) mmHg ABG pO2 52 L* (83-108) mmHg ABG HCO3 19 L (21-25) mmol/L ABG O2 Saturation 84.2 L (94-97) % VBG pCO2 56 H (37-51) mmHg VBG HCO3 29 H (24-28) mmol/L Sodium (137-145) mmol/L Potassium (3.5-5.1) mmol/L Chloride (98-107) mmol/L BUN (9-20) mg/dL Glucose (74-99) mg/dL POC Glucose (mg/dL) (70-110) mg/dL Plasma Lactic Acid Robin 5.7 H* (0.7-2.0) mmol/L Calcium (8.4-10.2) mg/dL Magnesium (1.6-2.3) mg/dL AST (17-59) U/L 10/11/22 Range/Units 12:24 WBC (3.8-10.6) k/uL APTT (22.0-30.0) sec ABG pCO2 (35-45) mmHg ABG pO2 (83-108) mmHg ABG HCO3 (21-25) mmol/L ABG O2 Saturation (94-97) % VBG pCO2 (37-51) mmHg VBG HCO3 (24-28) mmol/L Sodium (137-145) mmol/L Potassium (3.5-5.1) mmol/L Chloride (98-107) mmol/L BUN (9-20) mg/dL Glucose (74-99) mg/dL POC Glucose (mg/dL) 113 H (70-110) mg/dL Plasma Lactic Acid Robin (0.7-2.0) mmol/L Calcium (8.4-10.2) mg/dL Magnesium (1.6-2.3) mg/dL AST (17-59) U/L Assessment and Plan (1) Non-pressure chronic ulcer of skin of other sites with fat layer exposed Status: Acute Code(s): L98.492 - NON-PRS CHRONIC ULCER OF SKIN OF SITES W FAT LAYER EXPOSED SNOMED Code(s): 88056590 (2) Pneumonia Status: Acute Code(s): J18.9 - PNEUMONIA, UNSPECIFIED ORGANISM SNOMED Code(s): 934896344 Plan: 1patient present to hospital with increasing shortness of breath which is likely multifactorial in this patient who do have history of chronic tobacco use COPD with evidence of right lobe pneumonia with a question of possible community-acquired versus gram-negative last clinical suspicious for MRSA. 2obtain a sputum for Gram stain and culture check a CRP and a procalcitonin. 3continue with the Zosyn 3.375 g every 8 hours however discontinue vancomycin decrease risk of nephrotoxicity. We will follow on clinical condition and cultures to further adjust medication if needed Thank you for this consultation we will follow the patient along with you Dictation was produced using [employer] dictation software. please excuse any grammatical, word or spelling errors. Time with Patient: Greater than 30
[2022-10-12] MEDS: PIPERACILLIN-TAZOBACTAM 3.375 GM in SODIUM CHLORIDE 0.9% 100 ML IVPB SCH ×4 (00:14→23:25)
[2022-10-12] MEDS: SODIUM CHLORIDE 0.9% 1,000 ML IV SCH ×3 (05:01→23:21)
[2022-10-12 05:42] LABS: HCT 36.5 % (39.0-53.0); MCH 30.3 pg (25.0-35.0); MCHC 32.1 g/dL (31.0-37.0); MCV 94.4 fL (80.0-100.0); Mean Platelet Volume 7.3; Platelet Count 202 k/uL (150-450); RBC 3.86 m/uL (4.30-5.90); RDW 15.6 % (11.5-15.5); WBC 8.5 k/uL (3.8-10.6)
[2022-10-12 05:50] LABS: African American GFR (CKD) >90 (>60 ml/min/1.73 sqM); Anion Gap 12 mmol/L; Blood Urea Nitrogen 11 mg/dL (9-20); Calcium 6.9 mg/dL (8.4-10.2); Carbon Dioxide 20 mmol/L (22-30); Chloride 94 mmol/L (98-107); Glucose 118 mg/dL (74-99); HGB 11.7 gm/dL (13.0-17.5); Non-African American GFR(CKD) 88 (>60 ml/min/1.73 sqM); Phosphorus 3.6 mg/dL (2.5-4.5); Potassium 3.6 mmol/L (3.5-5.1); Sodium 126 mmol/L (137-145)
[2022-10-12] MEDS ORDERED: POTASSIUM BICARBONATE/CIT AC 20 MEQ TABLET.EFF NG-TUBE SCH (07:00)
[2022-10-12] MEDS ORDERED: NON FORMULARY DRUG (Fluticasone/Umeclidin/Vilanter [Trelegy Ellipta 200-62.5-25] 1 EACH Bl INHALATION SCH (08:00)
[2022-10-12] MEDS: IPRATROPIUM 0.5 MG/2.5 ML NEBU INHALATION SCH (08:03)
--- NOTE | 2022-10-12 08:33 | XR ---
EXAMINATION TYPE: XR chest 1V portable DATE OF EXAM: 10/12/2022 COMPARISON: 10/11/2022 HISTORY: Cough TECHNIQUE: Single frontal view of the chest is obtained. FINDINGS: There are stable diffuse right-sided infiltrate. Left lung is clear. Underlying volume los s on the right suggested. Underlying COPD. No sizable pneumothorax. Throughout the shoulders. No over t failure. IMPRESSION: Stable right-sided pneumonia
[2022-10-12] MEDS: PANTOPRAZOLE 40 MG TABLET PO SCH (08:44)
[2022-10-12] MEDS: CARBIDOPA-LEVODOPA ER 50-200MG 1 EACH TABLET.ER PO SCH ×3 (08:44→20:49)
[2022-10-12] MEDS: LEVOTHYROXINE 75 MCG TAB PO SCH (08:44)
[2022-10-12] MEDS: PROPRANOLOL 40 MG TAB PO SCH ×2 (08:44→20:49)
[2022-10-12] MEDS: IPRATROPIUM-ALBUTEROL 3 ML NEB INHALATION SCH ×3 (10:05→21:11)
[2022-10-12] MEDS: SYMBICORT 80-4.5 MCG INHALER INHALATION SCH (10:21)
--- NOTE | 2022-10-12 11:45 | P.PN ---
Subjective Progress Note Date: 10/12/22 This is a 71-year-old male patient was not been following with any primary care provider. He has a previous history of anxiety, hypertension, chronic tobacco dependence, chronic obstructive pulmonary disease, Large basal cell carcinoma on the left upper back diagnosed in May 2021 with biopsy. He had not undergone any other treatment or follow-up in that regard. He states he lives at home alone. He states he is able to perform his ADLs. He is quite disheveled and unkempt. He came into the emergency room early this morning with complaints of increasing shortness of breath cough and congestion. He was found to be hypoxemic and was placed on BiPAP 14/6 and 100% FiO2. Initial arterial blood g lasses reveal a pO2 of 52, pCO2 29, pH 7.43. Chest x-ray revealed scattered air space opacities in the right lung. Left lung was clear. White count 2.5. Hemoglobin 16.7. Plavix 433. Sodium 128. Potassium 3.2. Chloride 86. Anion gap 18. BUN 3. Creatinine 1.07. Glucose 116. Lactic acid 5.7. Calcium 8.0. Magnesium 0.7. AST 114. Influenza screen negative. RSV screen negative. COVID-19 screen negative. He was admitted to the intensive care unit and we are consulted for the same. He is currently awake and alert. Answering questions appropriately. He does have an open wound on his left upper back from previous biopsy and basal cell carcinoma site. He was initiated on Zosyn. He was initially thought to be in A. fib RVR in the emergency room and started on heparin drip. He is currently in sinus rhythm. The patient is seen today 10/12/2022 in follow-up in the intensive care unit. He is currently off BiPAP and maintaining good O2 saturations in the upper 90s on 4 L/m per nasal cannula. Computed tomography scan of the chest revealed right upper and lower posterior airspace opacities. Possible aspiration. White count 8.5. Hemoglobin 11.7. Platelets 202. Sodium 126. Potassium 3.6. Bicarb 20. BUN 11. Creatinine 0.82. Magnesium 2.0. He is continued on Zosyn. Continued on DuoNeb inhalations, Symbicort. Sputum culture pending. Objective - Vital Signs Vital signs: Vital Signs Temp 97.9 F 10/12/22 04:00 Pulse 68 10/12/22 10:19 Resp 14 10/12/22 09:00 BP 109/66 10/12/22 09:00 Pulse Ox 97 10/12/22 09:00 FiO2 40 10/12/22 07:54 Intake & Output 10/11/22 10/12/22 10/12/22 18:59 06:59 18:59 Intake Total 2890 2150 390 Output Total 0 675 165 Balance 2890 1475 225 Weight 72.575 kg Intake: IV 2790 1660 390 Magnesium Sulfate-D5w Pmx 300 100 1 gm In Dextrose/Water 1 100ml.bag @ 100 mls/hr IVPB Q1H [facility] Rx#: [id number] Sodium Chloride 0.9% 1, 490 1560 390 000 ml @ 130 mls/hr IV . Q7H42M [facility] Rx#:[id number] Sodium Chloride 0.9% 2, 2000 000 ml @ 999 mls/hr IV . Q2H1M [facility] Rx#:[id number] Oral 100 490 Output: Urine 0 675 165 Other: Voiding Method Urinal Urinal Urinal # Bowel Movements 1 - Exam GENERAL EXAM: Alert, 71-year-old male, on 4 L nasal cannula, fairly comfortable in no apparent distress. HEAD: Normocephalic. EYES: Normal reaction of pupils, equal size. NOSE: Clear with pink turbinates. THROAT: No erythema or exudates. NECK: No masses, no JVD. CHEST: No chest wall deformity. There is a large open area of previous basal cell carcinoma the left upper back LUNGS: Equal air entry with few scattered rhonchi over the right lung. CVS: S1 and S2 normal with no audible murmur, regular rhythm. ABDOMEN: No hepatosplenomegaly, normal bowel sounds, no guarding or rigidity. SPINE: No scoliosis or deformity SKIN: No rashes. Large open wound on the left upper back CENTRAL NERVOUS SYSTEM: No focal deficits, tone is normal in all 4 extremities. EXTREMITIES: There is no peripheral edema. No clubbing, no cyanosis. Peripheral pulses are intact. - Labs CBC & Chem 7: 10/12/22 05:24 10/12/22 05:24 Labs: Abnormal Lab Results - Last 24 Hours (Table) 10/11/22 10/11/22 10/12/22 Range/Units 12:24 14:57 05:24 RBC (4.30-5.90) m/uL Hgb (13.0-17.5) gm/dL Hct (39.0-53.0) % RDW (11.5-15.5) % Sodium 126 L (137-145) mmol/L Chloride 94 L (98-107) mmol/L Carbon Dioxide 20 L (22-30) mmol/L Glucose 118 H (74-99) mg/dL POC Glucose (mg/dL) 113 H (70-110) mg/dL Plasma Lactic Acid Robin 4.6 H* (0.7-2.0) mmol/L Calcium 6.9 L (8.4-10.2) mg/dL 10/12/22 Range/Units 05:24 RBC 3.86 L (4.30-5.90) m/uL Hgb 11.7 L D (13.0-17.5) gm/dL Hct 36.5 L (39.0-53.0) % RDW 15.6 H (11.5-15.5) % Sodium (137-145) mmol/L Chloride (98-107) mmol/L Carbon Dioxide (22-30) mmol/L Glucose (74-99) mg/dL POC Glucose (mg/dL) (70-110) mg/dL Plasma Lactic Acid Robin (0.7-2.0) mmol/L Calcium (8.4-10.2) mg/dL Microbiology - Last 24 Hours (Table) 10/11/22 15:09 Gram Stain - Preliminary Sputum Assessment and Plan Assessment: Acute hypoxemic respiratory failure secondary to right lung multifocal opacities, possible aspiration, possible malignancy Large nonhealing open wound on the left upper back previously biopsied in 05/2021 of basal cell carcinoma Lactic acidosis Former smoker Chronic obstructive pulmonary disease History of anxiety Previous admissions for severe general medical debility Previous history of hyponatremia with hypo-magnesium secondary to poor oral intake The patient is noncompliant and has not followed with primary care provider Plan: The patient was seen and evaluated CAT scan, chest x-ray, labs and medications reviewed Continue with Zosyn Titrate the FiO2 as tolerated We will continue to follow I have personally seen and examined the patient, performed the documentation and the assessment and plan as written. Number of minutes spent on the visit: 10.
--- NOTE | 2022-10-12 17:43 | P.PN ---
Progress Note - Text Progress Note Date: 10/12/22 Patient is a 71-year-old male for history of Parkinson's disease, acid reflux, COPD, and hypothyroidism who presented to the ED due to worsening shortness of breath. The emergency department he underwent an extensive evaluation. Initial vital signs show pulse of 120, respirations 30, and O2 sat of 85% on BiPAP. Initial laboratory analysis demonstrated a white blood cell count of 2.5, PTT 23.1, sodium 128, potassium 3.2, chloride 86, BUN 3, creatinine 1.07, and glucose of 116. Lactic acid was elevated at 5.7, magnesium 0.1, AST 114. Viral panel was negative for influenza/RS disease/COVID-19. ABG showed a pH of 7.43, CO2 29, PaO2 of 52, and bicarb of 19. X-ray reviewed by myself reveals diffuse right sided middle and lower lobe infiltrates. In the ER he was given a dose of Decadron, Zosyn, and 1 L of IV fluids. There was concern for possible A. fib on the monitor and initially amiodarone and heparin were ordered but never required administration is was then noted he was in normal sinus rhythm. He was subsequently admitted to the ICU. Critical care was consulted. Patient seen and examined at bedside. He reports that he had sudden onset shortness of breath this morning associated with a cough with yellow sputum. He states that came out of nowhere and he felt fine yesterday. He denies any recent cough, cold, fever, flu, nausea, vomiting, diarrhea, or dysuria. He denies any recent travel, sick contacts, or other unusual hobbies. He sees Ike Lowry from [facility]. He was diagnosed with skin cancer in 2021 but does not want any surgery so they have just been cleaning and monitoring it at home. October 12: I assumed care of the patient today. ICU. Patient has been taken off BiPAP. 4 L of oxygen. Patient passed a swallow exam. Diet ordered. Sinus rhythm. Patient's coughing of significance thick yellow sputum. On IV Zosyn. Active Medications Acetaminophen (Acetaminophen Tab 325 Mg Tab) 650 mg PO Q6HR PRN PRN Reason: Mild Pain or Fever > 100.5 Acetaminophen (Acetaminophen Tab 325 Mg Tab) 650 mg PO Q6HR PRN PRN Reason: Fever and/ or Pain Hydrocodone Bitart/Acetaminophen (Hydrocodone/Apap 5-325mg 1 Each Tab) 1 each PO Q4HR PRN PRN Reason: Moderate Pain (Scale 4 to 6) Albuterol/Ipratropium (Ipratropium-Albuterol 3 Ml Neb) 3 ml INHALATION RT-QID [facility] Last Admin: 10/12/22 15:03 Dose: Not Given Bisacodyl (Bisacodyl 5 Mg Tablet.Dr) 5 mg PO DAILY PRN PRN Reason: Constipation Budesonide/Formoterol Fumarate (Symbicort 160-4.5 Mcg Inhaler) 2 puff INHALATION RT-BID [facility] Carbidopa/Levodopa (Carbidopa-Levodopa Er 50-200mg 1 Each Tablet.Er) 1 each PO TID [facility] Last Admin: 10/12/22 16:08 Dose: 1 each Piperacillin Sod/Tazobactam (Sod 3.375 gm/ Sodium Chloride) 100 mls @ 25 mls/hr IVPB Q8HR [facility]; Protocol Last Admin: 10/12/22 16:08 Dose: 25 mls/hr Sodium Chloride (Saline 0.9%) 1,000 mls @ 130 mls/hr IV .Q7H42M [facility] Last Admin: 10/12/22 05:01 Dose: Not Given Levothyroxine Sodium (Levothyroxine 75 Mcg Tab) 150 mcg PO DAILY [facility] Last Admin: 10/12/22 08:44 Dose: 150 mcg Melatonin (Melatonin 3 Mg Tablet) 3 mg PO HS PRN PRN Reason: Insomnia Melatonin (Melatonin 5 Mg Tablet) 5 mg PO HS PRN PRN Reason: Insomnia Miscellaneous Information (Potassium Replacement Protocol 1 Each Misc) 1 each MISCELLANE DAILY PRN; Protocol PRN Reason: Per Protocol Miscellaneous Information (Magnesium Replacement Protocol 1 Each Misc) 1 each MISCELLANE DAILY PRN; Protocol PRN Reason: Per Protocol Miscellaneous Information (Rx Info: Iv Contrast Was Given 1 Each Misc) 1 each MISCELLANE DAILY PRN PRN Reason: Per Protocol Stop: 10/13/22 13:12 Morphine Sulfate (Morphine Sulfate 4 Mg/Ml Syringe) 4 mg IVP Q4HR PRN PRN Reason: Severe Pain (Scale 7 to 10) Naloxone HCl (Naloxone 0.4 Mg/Ml 1 Ml Vial) 0.2 mg IV Q2M PRN PRN Reason: Opioid Reversal Ondansetron HCl (Ondansetron 4 Mg/2 Ml Vial) 4 mg IVP Q6H PRN PRN Reason: Nausea Pantoprazole Sodium (Pantoprazole 40 Mg Tablet) 40 mg PO DAILY [facility] Last Admin: 10/12/22 08:44 Dose: 40 mg Propranolol HCl (Propranolol 40 Mg Tab) 40 mg PO BID [facility] Last Admin: 10/12/22 08:44 Dose: 40 mg On examination: VITAL SIGNS: [97.5, 66, 29, 128.92, 96% on 4 L] GENERAL APPEARANCE: Reclining in bed, tired HEENT: Normal external appearance of nose and ear. Oral cavity normal EYES: Pupils equal. Conjunctiva normal. NECK: JVD not raised. Mass not palpable. RESPIRATORY: Respiratory effort increased. Lungs decreased breath sounds CARDIOVASCULAR: First and second sounds normal. No edema. ABDOMEN: Soft. Liver and spleen not palpable. No tenderness. No mass palpable. PSYCHIATRY: Alert and oriented x3. Mood and affect normal. INVESTIGATIONS, reviewed in the clinical context: Chest x-ray film personally reviewed by me-October 12: Right-sided lobar infiltrate 10/12/2022: White count 8.5 hemoglobin 11.7 platelets 202. Sodium 126 potassium 3.6 BUN 11 creatinine 0.82 and lesion 2.0 ProBNP 130 troponin I less than 0.012 Influenza type A, B, RSV, COVID-19: Not detected Assessment/Plan: -Right sided pneumonia with severe sepsis : Slow to respond IV Zosyn. Sent sputum for culture -Acute hypoxic respiratory failure : Slow to respond on BiPAP this morning. Swished to 4 L this afternoon -COPD without exacerbation DuoNeb -Acute metabolic encephalopathy : Better -Lactic acidosis , improving -Severe Hyponatremia Fluid restriction. -Hypomagnesemia, corrected -Hypokalemia Replaced Large wound left shoulder blade, Basal cell Carcinoma, ulcerating - consult dr. Petty -Chronic nicotine dependence, cigarette smoker Nicotine patch -Chronic idiopathic Parkinson disease Sinemet -Hypothyroidism Levothyroxine 150 g -Full code Continue IV Zosyn. Sputum for Gram stain and culture. Start diet. Up in a chair.
[2022-10-12] MEDS ORDERED: NICOTINE 21MG/24HR PATCH TRANSDERM SCH (17:45)
[2022-10-12] MEDS: MELATONIN 5 MG TABLET PO PRN (20:49)
[2022-10-12] MEDS: SYMBICORT 160-4.5 MCG INHALER INHALATION SCH (21:11)
[2022-10-13] MEDS: SYMBICORT 160-4.5 MCG INHALER INHALATION SCH ×2 (08:02→20:33)
[2022-10-13] MEDS: IPRATROPIUM-ALBUTEROL 3 ML NEB INHALATION SCH ×4 (08:02→20:33)
--- NOTE | 2022-10-13 08:04 | P.PN ---
Subjective Progress Note Date: 10/12/22 Principal diagnosis: Pneumonia Patient is a 71-year-old male with a past medical history significant for hypertension COPD large basal cell carcinoma left upper back diagnosed in May 2021 presenting to the hospital for evaluation of increasing shortness of breath cough and congestion, patient has been diagnosed with the morning. On today's evaluation that is 10/12/2022 patient is afebrile and the patient is breathing more comfortably is down to 3 L nasal cannula oxygen patient denies any chest pain or worsening cough no nausea no vomiting no abdominal pain no diarrhea. Patient white count now normal 8.5 creatinine 0.82 blood and sputum cultures currently pending. Objective - Vital Signs Vital signs: Vital Signs Temp 97.5 F L 10/12/22 12:00 Pulse 66 10/12/22 12:00 Resp 29 H 10/12/22 12:00 BP 128/92 10/12/22 12:00 Pulse Ox 97 10/12/22 11:00 FiO2 40 10/12/22 07:54 Intake & Output 10/11/22 10/12/22 10/12/22 18:59 06:59 18:59 Intake Total 2890 2150 780 Output Total 0 675 390 Balance 2890 1475 390 Weight 72.575 kg Intake: IV 2790 1660 780 Magnesium Sulfate-D5w Pmx 300 100 1 gm In Dextrose/Water 1 100ml.bag @ 100 mls/hr IVPB Q1H [facility] Rx#: [id number] Sodium Chloride 0.9% 1, 490 1560 780 000 ml @ 130 mls/hr IV . Q7H42M [facility] Rx#:[id number] Sodium Chloride 0.9% 2, 2000 000 ml @ 999 mls/hr IV . Q2H1M [facility] Rx#:[id number] Oral 100 490 Output: Urine 0 675 390 Other: Voiding Method Urinal Urinal Urinal # Bowel Movements 1 - Exam GENERAL DESCRIPTION: Elderly male lying in bed in no distress RESPIRATORY SYSTEM: Unlabored breathing , decreased breath sounds at bases HEART: S1 S2 regular rate and rhythm ,no loud murmurs ABDOMEN: Soft , no tenderness EXTREMITIES: No edema feet - Labs CBC & Chem 7: 10/12/22 05:24 10/12/22 05:24 Labs: Abnormal Lab Results - Last 24 Hours (Table) 10/11/22 10/12/22 10/12/22 Range/Units 14:57 05:24 05:24 RBC 3.86 L (4.30-5.90) m/uL Hgb 11.7 L D (13.0-17.5) gm/dL Hct 36.5 L (39.0-53.0) % RDW 15.6 H (11.5-15.5) % Sodium 126 L (137-145) mmol/L Chloride 94 L (98-107) mmol/L Carbon Dioxide 20 L (22-30) mmol/L Glucose 118 H (74-99) mg/dL Plasma Lactic Acid Robin 4.6 H* (0.7-2.0) mmol/L Calcium 6.9 L (8.4-10.2) mg/dL Microbiology - Last 24 Hours (Table) 10/11/22 15:09 Gram Stain - Preliminary Sputum Assessment and Plan Plan: 1patient present to hospital with increasing shortness of breath which is likely multifactorial in this patient who do have history of chronic tobacco use COPD with evidence of right lobe pneumonia with a question of possible community-acquired versus gram-negative last clinical suspicious for MRSA. 2blood and sputum cultures obtained and are currently pending results will follow. 3patient to continue with the Zosyn in view of the clinical improvement and monitor clinical course closely. 4local wound care to the upper back wound with Aquacel silver dressing change every 48 hour Dictation was produced using [employer] software. please excuse any grammatical, word or spelling errors.
[2022-10-13] MEDS: PIPERACILLIN-TAZOBACTAM 3.375 GM in SODIUM CHLORIDE 0.9% 100 ML IVPB SCH ×2 (08:20→15:58)
[2022-10-13] MEDS: PANTOPRAZOLE 40 MG TABLET PO SCH (08:21)
[2022-10-13] MEDS: LEVOTHYROXINE 75 MCG TAB PO SCH (08:21)
[2022-10-13] MEDS: CARBIDOPA-LEVODOPA ER 50-200MG 1 EACH TABLET.ER PO SCH ×3 (08:21→20:21)
[2022-10-13] MEDS: PROPRANOLOL 40 MG TAB PO SCH ×2 (08:21→21:14)
[2022-10-13] MEDS: SODIUM CHLORIDE 0.9% 1,000 ML IV SCH ×2 (08:44→20:29)
--- NOTE | 2022-10-13 10:46 | P.PN ---
Subjective Progress Note Date: 10/13/22 This is a 71-year-old male patient was not been following with any primary care provider. He has a previous history of anxiety, hypertension, chronic tobacco dependence, chronic obstructive pulmonary disease, Large basal cell carcinoma on the left upper back diagnosed in May 2021 with biopsy. He had not undergone any other treatment or follow-up in that regard. He states he lives at home alone. He states he is able to perform his ADLs. He is quite disheveled and unkempt. He came into the emergency room early this morning with complaints of increasing shortness of breath cough and congestion. He was found to be hypoxemic and was placed on BiPAP 14/6 and 100% FiO2. Initial arterial blood g lasses reveal a pO2 of 52, pCO2 29, pH 7.43. Chest x-ray revealed scattered air space opacities in the right lung. Left lung was clear. White count 2.5. Hemoglobin 16.7. Plavix 433. Sodium 128. Potassium 3.2. Chloride 86. Anion gap 18. BUN 3. Creatinine 1.07. Glucose 116. Lactic acid 5.7. Calcium 8.0. Magnesium 0.7. AST 114. Influenza screen negative. RSV screen negative. COVID-19 screen negative. He was admitted to the intensive care unit and we are consulted for the same. He is currently awake and alert. Answering questions appropriately. He does have an open wound on his left upper back from previous biopsy and basal cell carcinoma site. He was initiated on Zosyn. He was initially thought to be in A. fib RVR in the emergency room and started on heparin drip. He is currently in sinus rhythm. The patient is seen today 10/12/2022 in follow-up in the intensive care unit. He is currently off BiPAP and maintaining good O2 saturations in the upper 90s on 4 L/m per nasal cannula. Computed tomography scan of the chest revealed right upper and lower posterior airspace opacities. Possible aspiration. White count 8.5. Hemoglobin 11.7. Platelets 202. Sodium 126. Potassium 3.6. Bicarb 20. BUN 11. Creatinine 0.82. Magnesium 2.0. He is continued on Zosyn. Continued on DuoNeb inhalations, Symbicort. Sputum culture pending. The patient is seen today 10/13/2022 in follow-up in the intensive care unit. He is a MedSurg overflow. He is currently resting comfortably in bed. Awake and alert in no acute distress. He is maintaining O2 saturation in the 90s on 3 L/m per nasal cannula. He has normal saline 130 MLS per hour. Blood cultures reveal no growth. Sputum culture revealed no growth. Currently on Zosyn. Currently on Symbicort and DuoNeb inhalations. Objective - Vital Signs Vital signs: Vital Signs Temp 97.9 F 10/13/22 08:00 Pulse 71 10/13/22 08:05 Resp 18 10/13/22 08:00 BP 156/98 10/13/22 08:00 Pulse Ox 97 10/13/22 08:05 FiO2 40 10/12/22 07:54 Intake & Output 10/12/22 10/13/22 10/13/22 18:59 06:59 18:59 Intake Total 1560 130 660 Output Total 1440 1800 200 Balance 120 -1670 460 Intake: IV 1560 130 390 Sodium Chloride 0.9% 1, 1560 130 390 000 ml @ 50 mls/hr IV . Q20H [facility] Rx#:[id number] Intake, IV Titration 150 Amount Piperacillin-Tazobactam 3 100 .375 gm In Sodium Chloride 0.9% 100 ml @ 25 mls/hr IVPB Q8HR [facility] Rx# :[id number] Sodium Chloride 0.9% 1, 50 000 ml @ 50 mls/hr IV . Q20H [facility] Rx#:[id number] Oral 120 Output: Urine 1440 1800 200 Other: Voiding Method Urinal Urinal Urinal # Bowel Movements 1 - Exam GENERAL EXAM: Alert, 71-year-old male, resting in bed, on 3 L nasal cannula, fairly comfortable in no apparent distress. HEAD: Normocephalic. EYES: Normal reaction of pupils, equal size. NOSE: Clear with pink turbinates. THROAT: No erythema or exudates. NECK: No masses, no JVD. CHEST: No chest wall deformity. There is a large open area of previous basal cell carcinoma the left upper back LUNGS: Equal air entry with few scattered rhonchi over the right lung. CVS: S1 and S2 normal with no audible murmur, regular rhythm. ABDOMEN: No hepatosplenomegaly, normal bowel sounds, no guarding or rigidity. SPINE: No scoliosis or deformity SKIN: No rashes. Large open wound on the left upper back CENTRAL NERVOUS SYSTEM: No focal deficits, tone is normal in all 4 extremities. EXTREMITIES: There is no peripheral edema. No clubbing, no cyanosis. Peripheral pulses are intact. - Labs CBC & Chem 7: 10/12/22 05:24 10/12/22 05:24 Labs: Microbiology - Last 24 Hours (Table) 10/11/22 15:09 Gram Stain - Final Sputum Sputum Culture - Final 10/11/22 10:45 Blood Culture - Preliminary Blood 10/11/22 11:03 Blood Culture - Preliminary Blood Assessment and Plan Assessment: Acute hypoxemic respiratory failure secondary to right lung multifocal opacities, possible aspiration, possible malignancy Large nonhealing open wound on the left upper back previously biopsied in 05/2021 of basal cell carcinoma Lactic acidosis, trending down Former smoker Chronic obstructive pulmonary disease History of anxiety Previous admissions for severe general medical debility Previous history of hyponatremia with hypo-magnesium secondary to poor oral intake The patient is noncompliant and has not followed with primary care provider Plan: The patient was seen and evaluated Medications reviewed Continue with Zosyn Titrate the FiO2 as tolerated Follow-up chest x-ray in a.m. We will continue to follow I have personally seen and examined the patient, performed the documentation and the assessment and plan as written. Number of minutes spent on the visit: 10.
--- NOTE | 2022-10-13 16:49 | P.PN ---
Progress Note - Text Progress Note Date: 10/13/22 Patient is a 71-year-old male for history of Parkinson's disease, acid reflux, COPD, and hypothyroidism who presented to the ED due to worsening shortness of breath. The emergency department he underwent an extensive evaluation. Initial vital signs show pulse of 120, respirations 30, and O2 sat of 85% on BiPAP. Initial laboratory analysis demonstrated a white blood cell count of 2.5, PTT 23.1, sodium 128, potassium 3.2, chloride 86, BUN 3, creatinine 1.07, and glucose of 116. Lactic acid was elevated at 5.7, magnesium 0.1, AST 114. Viral panel was negative for influenza/RS disease/COVID-19. ABG showed a pH of 7.43, CO2 29, PaO2 of 52, and bicarb of 19. X-ray reviewed by myself reveals diffuse right sided middle and lower lobe infiltrates. In the ER he was given a dose of Decadron, Zosyn, and 1 L of IV fluids. There was concern for possible A. fib on the monitor and initially amiodarone and heparin were ordered but never required administration is was then noted he was in normal sinus rhythm. He was subsequently admitted to the ICU. Critical care was consulted. Patient seen and examined at bedside. He reports that he had sudden onset shortness of breath this morning associated with a cough with yellow sputum. He states that came out of nowhere and he felt fine yesterday. He denies any recent cough, cold, fever, flu, nausea, vomiting, diarrhea, or dysuria. He denies any recent travel, sick contacts, or other unusual hobbies. He sees Ike Lowry from [facility]. He was diagnosed with skin cancer in 2021 but does not want any surgery so they have just been cleaning and monitoring it at home. October 12: I assumed care of the patient today. ICU. Patient has been taken off BiPAP. 4 L of oxygen. Patient passed a swallow exam. Diet ordered. Sinus rhythm. Patient's coughing of significance thick yellow sputum. On IV Zosyn. October 13: Patient has been moved to the medical floor. Resting in bed. Has been up in a chair. Coughing up thick junky sputum. Eating well. On 3 L nasal cannula.. Active Medications Acetaminophen (Acetaminophen Tab 325 Mg Tab) 650 mg PO Q6HR PRN PRN Reason: Mild Pain or Fever > 100.5 Acetaminophen (Acetaminophen Tab 325 Mg Tab) 650 mg PO Q6HR PRN PRN Reason: Fever and/ or Pain Hydrocodone Bitart/Acetaminophen (Hydrocodone/Apap 5-325mg 1 Each Tab) 1 each PO Q4HR PRN PRN Reason: Moderate Pain (Scale 4 to 6) Albuterol/Ipratropium (Ipratropium-Albuterol 3 Ml Neb) 3 ml INHALATION RT-QID [facility] Last Admin: 10/13/22 15:12 Dose: 3 ml Bisacodyl (Bisacodyl 5 Mg Tablet.Dr) 5 mg PO DAILY PRN PRN Reason: Constipation Budesonide/Formoterol Fumarate (Symbicort 160-4.5 Mcg Inhaler) 2 puff INHALATION RT-BID [facility] Last Admin: 10/13/22 08:02 Dose: 2 puff Carbidopa/Levodopa (Carbidopa-Levodopa Er 50-200mg 1 Each Tablet.Er) 1 each PO TID [facility] Last Admin: 10/13/22 08:21 Dose: 1 each Piperacillin Sod/Tazobactam (Sod 3.375 gm/ Sodium Chloride) 100 mls @ 25 mls/hr IVPB Q8HR [facility]; Protocol Last Admin: 10/13/22 15:58 Dose: 25 mls/hr Sodium Chloride (Saline 0.9%) 1,000 mls @ 50 mls/hr IV .Q20H [facility] Last Admin: 10/13/22 08:44 Dose: 130 mls/hr Levothyroxine Sodium (Levothyroxine 75 Mcg Tab) 150 mcg PO DAILY [facility] Last Admin: 10/13/22 08:21 Dose: 150 mcg Melatonin (Melatonin 3 Mg Tablet) 3 mg PO HS PRN PRN Reason: Insomnia Melatonin (Melatonin 5 Mg Tablet) 5 mg PO HS PRN PRN Reason: Insomnia Last Admin: 10/12/22 20:49 Dose: 5 mg Miscellaneous Information (Potassium Replacement Protocol 1 Each Misc) 1 each MISCELLANE DAILY PRN; Protocol PRN Reason: Per Protocol Miscellaneous Information (Magnesium Replacement Protocol 1 Each Misc) 1 each MISCELLANE DAILY PRN; Protocol PRN Reason: Per Protocol Morphine Sulfate (Morphine Sulfate 4 Mg/Ml Syringe) 4 mg IVP Q4HR PRN PRN Reason: Severe Pain (Scale 7 to 10) Naloxone HCl (Naloxone 0.4 Mg/Ml 1 Ml Vial) 0.2 mg IV Q2M PRN PRN Reason: Opioid Reversal Ondansetron HCl (Ondansetron 4 Mg/2 Ml Vial) 4 mg IVP Q6H PRN PRN Reason: Nausea Pantoprazole Sodium (Pantoprazole 40 Mg Tablet) 40 mg PO DAILY [facility] Last Admin: 10/13/22 08:21 Dose: 40 mg Propranolol HCl (Propranolol 40 Mg Tab) 40 mg PO BID [facility] Last Admin: 10/13/22 08:21 Dose: 40 mg On examination: VITAL SIGNS: [37.5, 72, 16, 160/86, 97% on 3 L] GENERAL APPEARANCE: Reclining in bed, HEENT: Normal external appearance of nose and ear. Oral cavity normal EYES: Pupils equal. Conjunctiva normal. NECK: JVD not raised. Mass not palpable. RESPIRATORY: Respiratory effort increased. Lungs decreased breath sounds CARDIOVASCULAR: First and second sounds normal. No edema. ABDOMEN: Soft. Liver and spleen not palpable. No tenderness. No mass palpable. PSYCHIATRY: Alert and oriented x3. Mood and affect normal. INVESTIGATIONS, reviewed in the clinical context: Chest x-ray film personally reviewed by me-October 12: Right-sided lobar infiltrate 10/12/2022: White count 8.5 hemoglobin 11.7 platelets 202. Sodium 126 potassium 3.6 BUN 11 creatinine 0.82 and lesion 2.0 ProBNP 130 troponin I less than 0.012 Influenza type A, B, RSV, COVID-19: Not detected Assessment/Plan: -Right sided pneumonia with severe sepsis : Improving IV Zosyn. Sputum-unremarkable -Acute hypoxic respiratory failure : Improving Was on BiPAP. Now 3 L this afternoon -COPD without exacerbation DuoNeb -Acute metabolic encephalopathy : Better -Lactic acidosis , improving -Severe Hyponatremia Fluid restriction. -Hypomagnesemia, corrected -Hypokalemia Replaced Large wound left shoulder blade, Basal cell Carcinoma, ulcerating - consult dr. Petty -Chronic nicotine dependence, cigarette smoker Nicotine patch -Chronic idiopathic Parkinson disease Sinemet -Hypothyroidism Levothyroxine 150 g -Full code Continue IV Zosyn. Increase activity. Discussed with patient. Check pro calcitonin. Fluid restriction
[2022-10-13] MEDS: MELATONIN 5 MG TABLET PO PRN (20:22)
[2022-10-14] MEDS ORDERED: cloNIDine HCL 0.1 MG TAB PO STA (00:14)
[2022-10-14] MEDS: PIPERACILLIN-TAZOBACTAM 3.375 GM in SODIUM CHLORIDE 0.9% 100 ML IVPB SCH ×4 (01:40→23:38)
[2022-10-14] MEDS: PROPRANOLOL 40 MG TAB PO SCH (05:30)
[2022-10-14] MEDS: SODIUM CHLORIDE 0.9% 1,000 ML IV SCH ×2 (05:30→21:22)
[2022-10-14] MEDS: PANTOPRAZOLE 40 MG TABLET PO SCH (07:59)
[2022-10-14] MEDS: LEVOTHYROXINE 75 MCG TAB PO SCH (07:59)
[2022-10-14] MEDS: CARBIDOPA-LEVODOPA ER 50-200MG 1 EACH TABLET.ER PO SCH ×3 (08:03→21:15)
[2022-10-14] MEDS: HYDROcodone/APAP 5-325MG 1 EACH TAB PO PRN (08:05)
[2022-10-14] MEDS: SYMBICORT 160-4.5 MCG INHALER INHALATION SCH ×2 (08:53→20:05)
[2022-10-14] MEDS: IPRATROPIUM-ALBUTEROL 3 ML NEB INHALATION SCH ×4 (08:53→20:05)
[2022-10-14] MEDS ORDERED: cloNIDine HCL 0.1 MG TAB PO SCH (09:00)
[2022-10-14 09:16] LABS: African American GFR (CKD) >90 (>60 ml/min/1.73 sqM); Anion Gap 7 mmol/L; Blood Urea Nitrogen 9 mg/dL (9-20); Calcium 7.9 mg/dL (8.4-10.2); Carbon Dioxide 25 mmol/L (22-30); Chloride 99 mmol/L (98-107); Glucose 104 mg/dL (74-99); Non-African American GFR(CKD) >90 (>60 ml/min/1.73 sqM); Potassium 3.9 mmol/L (3.5-5.1); Sodium 131 mmol/L (137-145)
--- NOTE | 2022-10-14 09:25 | XR ---
EXAMINATION TYPE: XR chest 1V portable DATE OF EXAM: 10/14/2022 COMPARISON: 10/12/2022 HISTORY: Pneumonia TECHNIQUE: Single frontal view of the chest is obtained. FINDINGS: There are stable diffuse right-sided infiltrate. Left lung is clear. Underlying volume los s on the right suggested. Underlying COPD. No sizable pneumothorax. Throughout the shoulders. No over t failure. IMPRESSION: Stable right-sided pneumonia
--- NOTE | 2022-10-14 12:44 | P.PN ---
Subjective Progress Note Date: 10/14/22 Principal diagnosis: Shortness of breath. This is a 71-year-old male patient was not been following with any primary care provider. He has a previous history of anxiety, hypertension, chronic tobacco dependence, chronic obstructive pulmonary disease, Large basal cell carcinoma on the left upper back diagnosed in May 2021 with biopsy. He had not undergone any other treatment or follow-up in that regard. He states he lives at home alone. He states he is able to perform his ADLs. He is quite disheveled and unkempt. He came into the emergency room early this morning with complaints of increasing shortness of breath cough and congestion. He was found to be hypoxemic and was placed on BiPAP 14/6 and 100% FiO2. Initial arterial blood glasses reveal a pO2 of 52, pCO2 29, pH 7.43. Chest x-ray revealed scattered air space opacities in the right lung. Left lung was clear. White count 2.5. Hemoglobin 16.7. Plavix 433. Sodium 128. Potassium 3.2. Chloride 86. Anion gap 18. BUN 3. Creatinine 1.07. Glucose 116. Lactic acid 5.7. Calcium 8.0. Magnesium 0.7. AST 114. Influenza screen negative. RSV screen negative. COVID-19 screen negative. He was admitted to the intensive care unit and we are consulted for the same. He is currently awake and alert. Answering questions appropriately. He does have an open wound on his left upper back from previous biopsy and basal cell carcinoma site. He was initiated on Zosyn. He was initially thought to be in A. fib RVR in the emergency room and started on heparin drip. He is currently in sinus rhythm. The patient is seen today 10/12/2022 in follow-up in the intensive care unit. He is currently off BiPAP and maintaining good O2 saturations in the upper 90s on 4 L/m per nasal cannula. Computed tomography scan of the chest revealed right upper and lower posterior airspace opacities. Possible aspiration. White count 8.5. Hemoglobin 11.7. Platelets 202. Sodium 126. Potassium 3.6. Bicarb 20. BUN 11. Creatinine 0.82. Magnesium 2.0. He is continued on Zosyn. Continued on DuoNeb inhalations, Symbicort. Sputum culture pending. The patient is seen today 10/13/2022 in follow-up in the intensive care unit. He is a MedSurg overflow. He is currently resting comfortably in bed. Awake and alert in no acute distress. He is maintaining O2 saturation in the 90s on 3 L/m per nasal cannula. He has normal saline 130 MLS per hour. Blood cultures reveal no growth. Sputum culture revealed no growth. Currently on Zosyn. Currently on Symbicort and DuoNeb inhalations. Progress note dated 10/14/2022. 71-year-old male who was seen in room 356. He was previously in the intensive care unit. Currently, the patient is using BiPAP, with settings of 14/6, and 40%, or, nasal cannula, at 3 L. In addition, the patient is receiving saline at 50 mL an hour. Chest x-ray shows a right-sided infiltrate. We will check a pro-calcitonin level. The patient's currently on Zosyn, for aspiration pneumonia. Sodium 131, potassium 3.9, chlorides 99, CO2 25, BUN 9, creatinine 0.63. Chest x-ray shows a right-sided infiltrate/pneumonia. Objective - Vital Signs Vital signs: Vital Signs Temp 97.9 F 10/14/22 07:43 Pulse 72 10/14/22 11:32 Resp 16 10/14/22 11:32 BP 156/90 10/14/22 11:32 Pulse Ox 100 10/14/22 11:32 FiO2 40 10/14/22 08:56 Intake & Output 10/13/22 10/14/22 10/14/22 18:59 06:59 18:59 Intake Total 1380 480 120 Output Total 300 1150 650 Balance 3288 -287 -059 Intake: IV 390 Sodium Chloride 0.9% 1, 390 000 ml @ 50 mls/hr IV . Q20H [facility] Rx#:[id number] Intake, IV Titration 150 Amount Piperacillin-Tazobactam 3 100 .375 gm In Sodium Chloride 0.9% 100 ml @ 25 mls/hr IVPB Q8HR [facility] Rx# :[id number] Sodium Chloride 0.9% 1, 50 000 ml @ 50 mls/hr IV . Q20H [facility] Rx#:[id number] Oral 840 480 120 Output: Urine 300 1150 650 Other: Voiding Method Urinal Urinal # Voids 1 # Bowel Movements 1 - Exam No acute distress, oriented 3. No conversational dyspnea or use of accessory muscles. HEENT examination is grossly unremarkable. Neck supple. Full range of motion. No adenopathy thyromegaly or neck vein distention. Cardiovascular examination reveals regular rhythm rate. S1-S2 normal. No S3 or S4. No discernible murmur noted. Heart rate 72 bpm. Lungs reveal clear breath sounds. Breath sounds are equal bilaterally. No adventitious lung sounds including wheezes rhonchi or crackles. 3 L saturation is 97%. Abdomen soft bowel sounds are heard. No masses or tenderness. Extremities are intact. No cyanosis clubbing or edema. Skin is without rash or lesion. Neurologic examination is brief but nonfocal. - Labs CBC & Chem 7: 10/12/22 05:24 10/14/22 07:41 Labs: Abnormal Lab Results - Last 24 Hours (Table) 10/14/22 Range/Units 07:41 Sodium 131 L (137-145) mmol/L Creatinine 0.63 L (0.66-1.25) mg/dL Glucose 104 H (74-99) mg/dL Calcium 7.9 L (8.4-10.2) mg/dL Microbiology - Last 24 Hours (Table) 10/11/22 10:45 Blood Culture - Preliminary Blood 10/11/22 11:03 Blood Culture - Preliminary Blood 10/11/22 15:09 Gram Stain - Final Sputum Sputum Culture - Final Assessment and Plan Assessment: Acute hypoxemic respiratory failure secondary to right lung multifocal opacities, probable aspiration. Large nonhealing open wound on the left upper back previously biopsied in 05/2021 of basal cell carcinoma. Lactic acidosis, resolved. Former smoker. Chronic obstructive pulmonary disease. History of anxiety. Previous admissions for severe general medical debility. Previous history of hyponatremia with hypo-magnesium secondary to poor oral intake. The patient is noncompliant and has not followed with primary care provider. Plan: Plan dated 10/14/2022. The patient's chest x-ray, that was done today is evaluated. It does show an infiltrate in the right lung. The patient continues on Zosyn. He is currently on 3 L of oxygen. The patient's also getting saline at 50 mL an hour. We'll check a pro-calcitonin level. He is not on nasal cannula, he is using BiPAP, with settings of 14/6, and 40 percent. Labs, x-rays, medications are reviewed. Prognosis is guarded. Time with Patient: Less than 30
--- NOTE | 2022-10-14 13:22 | P.PN ---
Subjective Progress Note Date: 10/13/22 Principal diagnosis: Pneumonia Patient is a 71-year-old male with a past medical history significant for hypertension COPD large basal cell carcinoma left upper back diagnosed in May 2021 presenting to the hospital for evaluation of increasing shortness of breath cough and congestion, patient has been diagnosed with the morning. On today's evaluation that is 10/13/2022 patient remains to be afebrile , the patient is breathing comfortably on 3 L nasal cannula oxygen patient denies any chest pain or worsening cough , the patient denies nausea no vomiting no abdomin al pain no diarrhea. Patient white count now normal 8.5 creatinine 0.82 as of 10/12/2022 no blood wo rk was done today blood and sputum cultures currently pending. Objective - Vital Signs Vital signs: Vital Signs Temp 97.9 F 10/13/22 08:00 Pulse 72 10/13/22 11:42 Resp 18 10/13/22 08:00 BP 156/98 10/13/22 08:00 Pulse Ox 97 10/13/22 08:05 FiO2 40 10/12/22 07:54 Intake & Output 10/12/22 10/13/22 10/13/22 18:59 06:59 18:59 Intake Total 1560 130 660 Output Total 1440 1800 200 Balance 120 -1670 460 Intake: IV 1560 130 390 Sodium Chloride 0.9% 1, 1560 130 390 000 ml @ 50 mls/hr IV . Q20H [facility] Rx#:[id number] Intake, IV Titration 150 Amount Piperacillin-Tazobactam 3 100 .375 gm In Sodium Chloride 0.9% 100 ml @ 25 mls/hr IVPB Q8HR [facility] Rx# :[id number] Sodium Chloride 0.9% 1, 50 000 ml @ 50 mls/hr IV . Q20H [facility] Rx#:[id number] Oral 120 Output: Urine 1440 1800 200 Other: Voiding Method Urinal Urinal Urinal # Bowel Movements 1 - Exam GENERAL DESCRIPTION: Elderly male lying in bed in no distress RESPIRATORY SYSTEM: Unlabored breathing , decreased breath sounds at bases HEART: S1 S2 regular rate and rhythm ,no loud murmurs ABDOMEN: Soft , no tenderness EXTREMITIES: No edema feet - Labs CBC & Chem 7: 10/12/22 05:24 10/14/22 07:41 Labs: Microbiology - Last 24 Hours (Table) 10/11/22 15:09 Gram Stain - Final Sputum Sputum Culture - Final 10/11/22 10:45 Blood Culture - Preliminary Blood 10/11/22 11:03 Blood Culture - Preliminary Blood Assessment and Plan (1) Pneumonia Current Visit: Yes Status: Acute Code(s): J18.9 - PNEUMONIA, UNSPECIFIED ORGANISM SNOMED Code(s): 243289977 (2) Non-pressure chronic ulcer of skin of other sites with fat layer exposed Current Visit: No Status: Acute Code(s): L98.492 - NON-PRS CHRONIC ULCER OF SKIN OF SITES W FAT LAYER EXPOSED SNOMED Code(s): 61655215 Plan: 1patient present to hospital with increasing shortness of breath which is likely multifactorial in this patient who do have history of chronic tobacco use COPD with evidence of right lobe pneumonia with a question of possible community-acquired versus gram-negative last clinical suspicious for MRSA. 2blood and sputum cultures obtained and are currently 3patient to continue with the Zosyn in view of the clinical improvement , while waiting for the cultures to finalize 4local wound care to the upper back wound with Aquacel silver dressing change every 48 hour Dictation was produced using [employer] dictation software. please excuse any grammatical, word or spelling errors. Time with Patient: Less than 30
--- NOTE | 2022-10-14 13:24 | P.PN ---
Subjective Progress Note Date: 10/14/22 Principal diagnosis: Pneumonia Patient is a 71-year-old male with a past medical history significant for hypertension COPD large basal cell carcinoma left upper back diagnosed in May 2021 presenting to the hospital for evaluation of increasing shortness of breath cough and congestion, patient has been diagnosed with the morning. On today's evaluation that is 10/14/2022 patient continues to be afebrile , the patient is breathing comfortably on 3 L nasal cannula oxygen patient denies any chest pain, the patient cough is decreased intensity and less productive now , the patient denies nausea no vomiting no abdominal pain no diarrhea. Patient white count now normal 8.5 as of 10/12/2022, the patient did have a creatinine 0.63, blood culture has been negative sputum did not grow any resistant pathogen Objective - Vital Signs Vital signs: Vital Signs Temp 97.9 F 10/14/22 07:43 Pulse 72 10/14/22 11:32 Resp 16 10/14/22 11:32 BP 156/90 10/14/22 11:32 Pulse Ox 100 10/14/22 11:32 FiO2 40 10/14/22 08:56 Intake & Output 10/13/22 10/14/22 10/14/22 18:59 06:59 18:59 Intake Total 1380 480 120 Output Total 300 1150 650 Balance 9940 -335 -503 Intake: IV 390 Sodium Chloride 0.9% 1, 390 000 ml @ 50 mls/hr IV . Q20H [facility] Rx#:[id number] Intake, IV Titration 150 Amount Piperacillin-Tazobactam 3 100 .375 gm In Sodium Chloride 0.9% 100 ml @ 25 mls/hr IVPB Q8HR [facility] Rx# :[id number] Sodium Chloride 0.9% 1, 50 000 ml @ 50 mls/hr IV . Q20H [facility] Rx#:[id number] Oral 840 480 120 Output: Urine 300 1150 650 Other: Voiding Method Urinal Urinal # Voids 1 # Bowel Movements 1 - Exam GENERAL DESCRIPTION: Elderly male lying in bed in no distress RESPIRATORY SYSTEM: Unlabored breathing , decreased breath sounds at bases HEART: S1 S2 regular rate and rhythm ,no loud murmurs ABDOMEN: Soft , no tenderness EXTREMITIES: No edema feet - Labs CBC & Chem 7: 10/12/22 05:24 10/14/22 07:41 Labs: Abnormal Lab Results - Last 24 Hours (Table) 10/14/22 Range/Units 07:41 Sodium 131 L (137-145) mmol/L Creatinine 0.63 L (0.66-1.25) mg/dL Glucose 104 H (74-99) mg/dL Calcium 7.9 L (8.4-10.2) mg/dL Microbiology - Last 24 Hours (Table) 10/11/22 10:45 Blood Culture - Preliminary Blood 10/11/22 11:03 Blood Culture - Preliminary Blood 10/11/22 15:09 Gram Stain - Final Sputum Sputum Culture - Final Assessment and Plan (1) Pneumonia Current Visit: Yes Status: Acute Code(s): J18.9 - PNEUMONIA, UNSPECIFIED ORGANISM SNOMED Code(s): 553853845 (2) Non-pressure chronic ulcer of skin of other sites with fat layer exposed Current Visit: No Status: Acute Code(s): L98.492 - NON-PRS CHRONIC ULCER OF SKIN OF SITES W FAT LAYER EXPOSED SNOMED Code(s): 77985600 Plan: 1patient present to hospital with increasing shortness of breath which is likely multifactorial in this patient who do have history of chronic tobacco use COPD with evidence of right lobe pneumonia with a question of possible community-acquired versus gram-negative last clinical suspicious for MRSA. 2blood and sputum cultures are so far negative 3local wound care to the upper back wound with Aquacel silver dressing change every 48 hour 4-patient to continue with the Zosyn , keeping in mind the cultures are negative we'll consider short course of oral Augmentin on discharge Dictation was produced using [employer] dictation software. please excuse any grammatical, word or spelling errors. Time with Patient: Less than 30
--- NOTE | 2022-10-14 17:20 | P.PN ---
Progress Note - Text Progress Note Date: 10/14/22 Patient is a 71-year-old male for history of Parkinson's disease, acid reflux, COPD, and hypothyroidism who presented to the ED due to worsening shortness of breath. The emergency department he underwent an extensive evaluation. Initial vital signs show pulse of 120, respirations 30, and O2 sat of 85% on BiPAP. Initial laboratory analysis demonstrated a white blood cell count of 2.5, PTT 23.1, sodium 128, potassium 3.2, chloride 86, BUN 3, creatinine 1.07, and glucose of 116. Lactic acid was elevated at 5.7, magnesium 0.1, AST 114. Viral panel was negative for influenza/RS disease/COVID-19. ABG showed a pH of 7.43, CO2 29, PaO2 of 52, and bicarb of 19. X-ray reviewed by myself reveals diffuse right sided middle and lower lobe infiltrates. In the ER he was given a dose of Decadron, Zosyn, and 1 L of IV fluids. There was concern for possible A. fib on the monitor and initially amiodarone and heparin were ordered but never required administration is was then noted he was in normal sinus rhythm. He was subsequently admitted to the ICU. Critical care was consulted. Patient seen and examined at bedside. He reports that he had sudden onset shortness of breath this morning associated with a cough with yellow sputum. He states that came out of nowhere and he felt fine yesterday. He denies any recent cough, cold, fever, flu, nausea, vomiting, diarrhea, or dysuria. He denies any recent travel, sick contacts, or other unusual hobbies. He sees Ike Lowry from [facility]. He was diagnosed with skin cancer in 2021 but does not want any surgery so they have just been cleaning and monitoring it at home. October 12: I assumed care of the patient today. ICU. Patient has been taken off BiPAP. 4 L of oxygen. Patient passed a swallow exam. Diet ordered. Sinus rhythm. Patient's coughing of significance thick yellow sputum. On IV Zosyn. October 13: Patient has been moved to the medical floor. Resting in bed. Has been up in a chair. Coughing up thick junky sputum. Eating well. On 3 L nasal cannula.. October 14: Still coughing up significant amount of sputum. Eating well. Does sit up in a chair. Incentive spirometry added. Getting IV Zosyn. FiO2 decreased to 2 L. blood pressure running high. We'll start lisinopril hydrochlorothiazide 20/12.5 one tablet twice a day. Active Medications Acetaminophen (Acetaminophen Tab 325 Mg Tab) 650 mg PO Q6HR PRN PRN Reason: Fever and/ or Pain Hydrocodone Bitart/Acetaminophen (Hydrocodone/Apap 5-325mg 1 Each Tab) 1 each PO Q4HR PRN PRN Reason: Moderate Pain (Scale 4 to 6) Last Admin: 10/14/22 08:05 Dose: 1 each Albuterol/Ipratropium (Ipratropium-Albuterol 3 Ml Neb) 3 ml INHALATION RT-QID [facility] [place] Last Admin: 10/14/22 17:03 Dose: Not Given Bisacodyl (Bisacodyl 5 Mg Tablet.Dr) 5 mg PO DAILY PRN PRN Reason: Constipation Budesonide/Formoterol Fumarate (Symbicort 160-4.5 Mcg Inhaler) 2 puff INHALATION RT-BID [facility] [place] Last Admin: 10/14/22 08:53 Dose: 2 puff Carbidopa/Levodopa (Carbidopa-Levodopa Er 50-200mg 1 Each Tablet.Er) 1 each PO TID [facility] [place] Last Admin: 10/14/22 15:43 Dose: 1 each Clonidine (Clonidine Hcl 0.1 Mg Tab) 0.1 mg PO BID [facility] [place] Last Admin: 10/14/22 08:55 Dose: 0.1 mg Piperacillin Sod/Tazobactam (Sod 3.375 gm/ Sodium Chloride) 100 mls @ 25 mls/hr IVPB Q8HR [facility]; Protocol Last Admin: 10/14/22 15:44 Dose: 25 mls/hr Sodium Chloride (Saline 0.9%) 1,000 mls @ 50 mls/hr IV .Q20H [facility] [place] Last Admin: 10/14/22 05:30 Dose: 50 mls/hr Levothyroxine Sodium (Levothyroxine 75 Mcg Tab) 150 mcg PO DAILY [facility] [place] Last Admin: 10/14/22 07:59 Dose: 150 mcg Melatonin (Melatonin 3 Mg Tablet) 3 mg PO HS PRN PRN Reason: Insomnia Last Admin: 10/13/22 20:22 Dose: 3 mg Melatonin (Melatonin 5 Mg Tablet) 5 mg PO HS PRN PRN Reason: Insomnia Last Admin: 10/13/22 20:22 Dose: 5 mg Miscellaneous Information (Potassium Replacement Protocol 1 Each Misc) 1 each MISCELLANE DAILY PRN; Protocol PRN Reason: Per Protocol Miscellaneous Information (Magnesium Replacement Protocol 1 Each Misc) 1 each MISCELLANE DAILY PRN; Protocol PRN Reason: Per Protocol Morphine Sulfate (Morphine Sulfate 4 Mg/Ml Syringe) 4 mg IVP Q4HR PRN PRN Reason: Severe Pain (Scale 7 to 10) Naloxone HCl (Naloxone 0.4 Mg/Ml 1 Ml Vial) 0.2 mg IV Q2M PRN PRN Reason: Opioid Reversal Ondansetron HCl (Ondansetron 4 Mg/2 Ml Vial) 4 mg IVP Q6H PRN PRN Reason: Nausea Pantoprazole Sodium (Pantoprazole 40 Mg Tablet) 40 mg PO DAILY [facility] [place] Last Admin: 10/14/22 07:59 Dose: 40 mg Propranolol HCl (Propranolol 40 Mg Tab) 40 mg PO BID [facility] [place] Last Admin: 10/14/22 05:30 Dose: 40 mg On examination: VITAL SIGNS: 97.9, 79, 17, 163/100, 97% on 3 L this morning GENERAL APPEARANCE: Reclining in bed, HEENT: Normal external appearance of nose and ear. Oral cavity normal EYES: Pupils equal. Conjunctiva normal. NECK: JVD not raised. Mass not palpable. RESPIRATORY: Respiratory effort increased. Lungs some scattered expiratory crackles CARDIOVASCULAR: First and second sounds normal. No edema. ABDOMEN: Soft. Liver and spleen not palpable. No tenderness. No mass palpable. PSYCHIATRY: Alert and oriented x3. Mood and affect normal. INVESTIGATIONS, reviewed in the clinical context: October 14: Potassium 3.9 sodium 131 pro calcitonin 1.83 Chest x-ray film personally reviewed by w[facility]-October 12: Right-sided lobar infiltrate 10/12/2022: White count 8.5 hemoglobin 11.7 platelets 202. Sodium 126 potassium 3.6 BUN 11 creatinine 0.82 and lesion 2.0 ProBNP 130 troponin I less than 0.012 Influenza type A, B, RSV, COVID-19: Not detected Assessment/Plan: -Right sided pneumonia with severe sepsis : Improving IV Zosyn. Sputum culture-unremarkable -Acute hypoxic respiratory failure : Improving Was on BiPAP. Now 2 L this afternoon -COPD without exacerbation DuoNeb -Acute metabolic encephalopathy : Better -Lactic acidosis , improving -Severe Hyponatremia : Better Fluid restriction. -Hypomagnesemia, corrected -Essential hypertension, uncontrolled Start lisinopril hydrochlorothiazide 20/12.5 one tablet twice a day. Stop propranolol. Lopressor 12.5 mg by mouth twice a day. -Hypokalemia Replaced Large wound left shoulder blade, Basal cell Carcinoma, ulcerating - consult dr. Petty -Chronic nicotine dependence, cigarette smoker Nicotine patch -Chronic idiopathic Parkinson disease Sinemet -Hypothyroidism Levothyroxine 150 g -Full code Sit up in a chair. Incentive spirometry.
[2022-10-14] MEDS: METOPROLOL TARTRATE 12.5 MG TAB PO SCH (21:15)
[2022-10-14] MEDS: MELATONIN 5 MG TABLET PO PRN (21:15)
[2022-10-14] MEDS: LISINOPRIL-HCTZ 20-12.5 MG 1 EACH TAB PO SCH (21:15)
[2022-10-14] MEDS: ACETAMINOPHEN TAB 325 MG TAB PO PRN (21:18)
[2022-10-15] MEDS: LISINOPRIL-HCTZ 20-12.5 MG 1 EACH TAB PO SCH ×2 (07:57→21:08)
[2022-10-15] MEDS: METOPROLOL TARTRATE 12.5 MG TAB PO SCH (07:57)
[2022-10-15] MEDS: PANTOPRAZOLE 40 MG TABLET PO SCH (07:58)
[2022-10-15] MEDS: PIPERACILLIN-TAZOBACTAM 3.375 GM in SODIUM CHLORIDE 0.9% 100 ML IVPB SCH ×3 (07:58→23:45)
[2022-10-15] MEDS: LEVOTHYROXINE 75 MCG TAB PO SCH (07:58)
[2022-10-15] MEDS: CARBIDOPA-LEVODOPA ER 50-200MG 1 EACH TABLET.ER PO SCH ×3 (08:34→22:18)
[2022-10-15] MEDS: SYMBICORT 160-4.5 MCG INHALER INHALATION SCH ×2 (08:47→21:23)
[2022-10-15] MEDS: IPRATROPIUM-ALBUTEROL 3 ML NEB INHALATION SCH ×4 (08:47→21:23)
--- NOTE | 2022-10-15 11:28 | P.PN ---
Subjective Progress Note Date: 10/15/22 Principal diagnosis: Shortness of breath. This is a 71-year-old male patient was not been following with any primary care provider. He has a previous history of anxiety, hypertension, chronic tobacco dependence, chronic obstructive pulmonary disease, Large basal cell carcinoma on the left upper back diagnosed in May 2021 with biopsy. He had not undergone any other treatment or follow-up in that regard. He states he lives at home alone. He states he is able to perform his ADLs. He is quite disheveled and unkempt. He came into the emergency room early this morning with complaints of increasing shortness of breath cough and congestion. He was found to be hypoxemic and was placed on BiPAP 14/6 and 100% FiO2. Initial arterial blood glasses reveal a pO2 of 52, pCO2 29, pH 7.43. Chest x-ray revealed scattered air space opacities in the right lung. Left lung was clear. White count 2.5. Hemoglobin 16.7. Plavix 433. Sodium 128. Potassium 3.2. Chloride 86. Anion gap 18. BUN 3. Creatinine 1.07. Glucose 116. Lactic acid 5.7. Calcium 8.0. Magnesium 0.7. AST 114. Influenza screen negative. RSV screen negative. COVID-19 screen negative. He was admitted to the intensive care unit and we are consulted for the same. He is currently awake and alert. Answering questions appropriately. He does have an open wound on his left upper back from previous biopsy and basal cell carcinoma site. He was initiated on Zosyn. He was initially thought to be in A. fib RVR in the emergency room and started on heparin drip. He is currently in sinus rhythm. The patient is seen today 10/12/2022 in follow-up in the intensive care unit. He is currently off BiPAP and maintaining good O2 saturations in the upper 90s on 4 L/m per nasal cannula. Computed tomography scan of the chest revealed right upper and lower posterior airspace opacities. Possible aspiration. White count 8.5. Hemoglobin 11.7. Platelets 202. Sodium 126. Potassium 3.6. Bicarb 20. BUN 11. Creatinine 0.82. Magnesium 2.0. He is continued on Zosyn. Continued on DuoNeb inhalations, Symbicort. Sputum culture pending. The patient is seen today 10/13/2022 in follow-up in the intensive care unit. He is a MedSurg overflow. He is currently resting comfortably in bed. Awake and alert in no acute distress. He is maintaining O2 saturation in the 90s on 3 L/m per nasal cannula. He has normal saline 130 MLS per hour. Blood cultures reveal no growth. Sputum culture revealed no growth. Currently on Zosyn. Currently on Symbicort and DuoNeb inhalations. Progress note dated 10/14/2022. 71-year-old male who was seen in room 356. He was previously in the intensive care unit. Currently, the patient is using BiPAP, with settings of 14/6, and 40%, or, nasal cannula, at 3 L. In addition, the patient is receiving saline at 50 mL an hour. Chest x-ray shows a right-sided infiltrate. We will check a pro-calcitonin level. The patient's currently on Zosyn, for aspiration pneumonia. Sodium 131, potassium 3.9, chlorides 99, CO2 25, BUN 9, creatinine 0.63. Chest x-ray shows a right-sided infiltrate/pneumonia. Progress note dated 10/15/2022. 71-year-old male seen again in room 356. The patient was previously in the intensive care unit. Currently, the patient is on oxygen 2 L by nasal cannula. He is getting saline at 50 mL an hour. He possible resting comfortably, with no acute distress. No new laboratory data today. Chest x-ray shows a stable right-sided pneumonia. Sputum and blood sampling is negative. The patient continues on Zosyn. Objective - Vital Signs Vital signs: Vital Signs Temp 97.4 F L 10/15/22 08:00 Pulse 82 10/15/22 08:58 Resp 18 10/15/22 08:58 BP 166/89 10/15/22 08:00 Pulse Ox 97 10/15/22 08:47 FiO2 40 10/14/22 08:56 Intake & Output 10/14/22 10/15/22 10/15/22 18:59 06:59 18:59 Intake Total 1500 240 720 Output Total 1000 2275 500 Balance 500 -2034 220 Intake: Oral 1500 240 720 Output: Urine 1000 2275 500 Other: Voiding Method Urinal Urinal # Voids 1 1 - Exam No acute distress, oriented 3. No conversational dyspnea or use of accessory muscles. HEENT examination is grossly unremarkable. Neck supple. Full range of motion. No adenopathy thyromegaly or neck vein distention. Cardiovascular examination reveals regular rhythm rate. S1-S2 normal. No S3 or S4. No discernible murmur noted. Heart rate 82 bpm. Lungs reveal clear breath sounds. Breath sounds are equal bilaterally. No adventitious lung sounds including wheezes rhonchi or crackles. 2 L saturation is 97%. Abdomen soft bowel sounds are heard. No masses or tenderness. Extremities are intact. No cyanosis clubbing or edema. Skin is without rash or lesion. Neurologic examination is brief but nonfocal. - Labs CBC & Chem 7: 10/12/22 05:24 10/14/22 07:41 Labs: Abnormal Lab Results - Last 24 Hours (Table) 10/14/22 Range/Units 07:41 Procalcitonin 1.83 H (0.02-0.09) ng/mL Microbiology - Last 24 Hours (Table) 10/11/22 10:45 Blood Culture - Preliminary Blood 10/11/22 11:03 Blood Culture - Preliminary Blood Assessment and Plan Assessment: Acute hypoxemic respiratory failure secondary to right lung multifocal opacities, probable aspiration. Large nonhealing open wound on the left upper back previously biopsied in 05/2021 of basal cell carcinoma. Lactic acidosis, resolved. Former smoker. Chronic obstructive pulmonary disease. History of anxiety. Previous admissions for severe general medical debility. Previous history of hyponatremia with hypo-magnesium secondary to poor oral intake. The patient is noncompliant and has not followed with primary care provider. Plan: Plan dated 10/14/2022. The patient's chest x-ray, that was done today is evaluated. It does show an infiltrate in the right lung. The patient continues on Zosyn. He is currently on 3 L of oxygen. The patient's also getting saline at 50 mL an hour. We'll ch babatunde a pro-calcitonin level. He is not on nasal cannula, he is using BiPAP, with settings of 14/6, and 40 percent. Labs, x-rays, medications are reviewed. Prognosis is guarded. Plan dated 10/15/2022. The patient continues on Zosyn for aspiration pneumonia. He is currently on 2 L of oxygen. Labs, x-rays, and medications are reviewed. We checked a pro- calcitonin level, which was elevated, at 1.83. Labs, x-rays, and medications are all reviewed. We'll continue to follow this patient and make recommendations along the way. Prognosis is certainly guarded. Time with Patient: Less than 30
--- NOTE | 2022-10-15 14:39 | P.PN ---
Progress Note - Text Progress Note Date: 10/15/22 Patient is a 71-year-old male for history of Parkinson's disease, acid reflux, COPD, and hypothyroidism who presented to the ED due to worsening shortness of breath. The emergency department he underwent an extensive evaluation. Initial vital signs show pulse of 120, respirations 30, and O2 sat of 85% on BiPAP. Initial laboratory analysis demonstrated a white blood cell count of 2.5, PTT 23.1, sodium 128, potassium 3.2, chloride 86, BUN 3, creatinine 1.07, and glucose of 116. Lactic acid was elevated at 5.7, magnesium 0.1, AST 114. Viral panel was negative for influenza/RS disease/COVID-19. ABG showed a pH of 7.43, CO2 29, PaO2 of 52, and bicarb of 19. X-ray reviewed by myself reveals diffuse right sided middle and lower lobe infiltrates. In the ER he was given a dose of Decadron, Zosyn, and 1 L of IV fluids. There was concern for possible A. fib on the monitor and initially amiodarone and heparin were ordered but never required administration is was then noted he was in normal sinus rhythm. He was subsequently admitted to the ICU. Critical care was consulted. Patient seen and examined at bedside. He reports that he had sudden onset shortness of breath this morning associated with a cough with yellow sputum. He states that came out of nowhere and he felt fine yesterday. He denies any recent cough, cold, fever, flu, nausea, vomiting, diarrhea, or dysuria. He denies any recent travel, sick contacts, or other unusual hobbies. He sees Ike Lowry from [facility]. He was diagnosed with skin cancer in 2021 but does not want any surgery so they have just been cleaning and monitoring it at home. October 12: I assumed care of the patient today. ICU. Patient has been taken off BiPAP. 4 L of oxygen. Patient passed a swallow exam. Diet ordered. Sinus rhythm. Patient's coughing of significance thick yellow sputum. On IV Zosyn. October 13: Patient has been moved to the medical floor. Resting in bed. Has been up in a chair. Coughing up thick junky sputum. Eating well. On 3 L nasal cannula.. October 14: Still coughing up significant amount of sputum. Eating well. Does sit up in a chair. Incentive spirometry added. Getting IV Zosyn. FiO2 decreased to 2 L. blood pressure running high. We'll start lisinopril hydrochlorothiazide 20/12.5 one tablet twice a day. October 15: Decreased amount percent coughing up bloody junky sputum. Oral intake good. On 2 L nasal cannula. IV Zosyn. Better blood pressure control. Increase Lopressor to 25 mg twice a day. Active Medications Acetaminophen (Acetaminophen Tab 325 Mg Tab) 650 mg PO Q6HR PRN PRN Reason: Fever and/ or Pain Last Admin: 10/14/22 21:18 Dose: 650 mg Hydrocodone Bitart/Acetaminophen (Hydrocodone/Apap 5-325mg 1 Each Tab) 1 each PO Q4HR PRN PRN Reason: Moderate Pain (Scale 4 to 6) Last Admin: 10/14/22 08:05 Dose: 1 each Albuterol/Ipratropium (Ipratropium-Albuterol 3 Ml Neb) 3 ml INHALATION RT-QID [facility] Last Admin: 10/15/22 11:43 Dose: 3 ml Bisacodyl (Bisacodyl 5 Mg Tablet.Dr) 5 mg PO DAILY PRN PRN Reason: Constipation Budesonide/Formoterol Fumarate (Symbicort 160-4.5 Mcg Inhaler) 2 puff INHALATION RT-BID [facility] Last Admin: 10/15/22 08:47 Dose: 2 puff Carbidopa/Levodopa (Carbidopa-Levodopa Er 50-200mg 1 Each Tablet.Er) 1 each PO TID [facility] Last Admin: 10/15/22 08:34 Dose: 1 each Lisinopril/HCTZ (Lisinopril-Hctz 20-12.5 Mg 1 Each Tab) 1 each PO BID [facility] Last Admin: 10/15/22 07:57 Dose: 1 each Piperacillin Sod/Tazobactam (Sod 3.375 gm/ Sodium Chloride) 100 mls @ 25 mls/hr IVPB Q8HR [facility]; Protocol Last Admin: 10/15/22 07:58 Dose: 25 mls/hr Sodium Chloride (Saline 0.9%) 1,000 mls @ 50 mls/hr IV .Q20H [facility] Last Admin: 10/14/22 21:22 Dose: 50 mls/hr Levothyroxine Sodium (Levothyroxine 75 Mcg Tab) 150 mcg PO DAILY [facility] Last Admin: 10/15/22 07:58 Dose: 150 mcg Melatonin (Melatonin 5 Mg Tablet) 5 mg PO HS PRN PRN Reason: Insomnia Last Admin: 10/14/22 21:15 Dose: 5 mg Metoprolol Tartrate (Metoprolol Tartrate 25 Mg Tab) 25 mg PO BID [facility] Miscellaneous Information (Potassium Replacement Protocol 1 Each Misc) 1 each MISCELLANE DAILY PRN; Protocol PRN Reason: Per Protocol Miscellaneous Information (Magnesium Replacement Protocol 1 Each Misc) 1 each MISCELLANE DAILY PRN; Protocol PRN Reason: Per Protocol Morphine Sulfate (Morphine Sulfate 4 Mg/Ml Syringe) 4 mg IVP Q4HR PRN PRN Reason: Severe Pain (Scale 7 to 10) Naloxone HCl (Naloxone 0.4 Mg/Ml 1 Ml Vial) 0.2 mg IV Q2M PRN PRN Reason: Opioid Reversal Ondansetron HCl (Ondansetron 4 Mg/2 Ml Vial) 4 mg IVP Q6H PRN PRN Reason: Nausea Pantoprazole Sodium (Pantoprazole 40 Mg Tablet) 40 mg PO DAILY [facility] Last Admin: 10/15/22 07:58 Dose: 40 mg On examination: VITAL SIGNS: 97.7, 65, 20, 141/84, 95% GENERAL APPEARANCE: Reclining in bed, HEENT: Normal external appearance of nose and ear. Oral cavity normal EYES: Pupils equal. Conjunctiva normal. NECK: JVD not raised. Mass not palpable. RESPIRATORY: Respiratory effort increased. Lungs some scattered expiratory crackles CARDIOVASCULAR: First and second sounds normal. No edema. ABDOMEN: Soft. Liver and spleen not palpable. No tenderness. No mass palpable. PSYCHIATRY: Alert and oriented x3. Mood and affect normal. INVESTIGATIONS, reviewed in the clinical context: October 14: Potassium 3.9 sodium 131 pro calcitonin 1.83 Chest x-ray film personally reviewed by [email or web address]-October 12: Right-sided lobar infiltrate 10/12/2022: White count 8.5 hemoglobin 11.7 platelets 202. Sodium 126 potassium 3.6 BUN 11 creatinine 0.82 and lesion 2.0 ProBNP 130 troponin I less than 0.012 Influenza type A, B, RSV, COVID-19: Not detected Assessment/Plan: -Right sided pneumonia with severe sepsis : Slow improvement IV Zosyn. Sputum culture-unremarkable -Acute hypoxic respiratory failure : Improving Was on BiPAP. Now 2 L -COPD without exacerbation DuoNeb -Acute metabolic encephalopathy : Better -Lactic acidosis , improving -Severe Hyponatremia : Better Fluid restriction. -Hypomagnesemia, corrected -Essential hypertension, uncontrolled Start lisinopril hydrochlorothiazide 20/12.5 one tablet twice a day. Stop propranolol. Increase Lopressor 25 mg by mouth twice a day. -Hypokalemia Replaced Large wound left shoulder blade, Basal cell Carcinoma, ulcerating - consult dr. Petty -Chronic nicotine dependence, cigarette smoker Nicotine patch -Chronic idiopathic Parkinson disease Sinemet -Hypothyroidism Levothyroxine 150 g -Full code Continue with current treatment plan. Increase Lopressor to 25 twice a day.
[2022-10-15] MEDS: SODIUM CHLORIDE 0.9% 1,000 ML IV SCH (15:35)
--- NOTE | 2022-10-15 16:04 | P.PN ---
Subjective Progress Note Date: 10/15/22 Principal diagnosis: Pneumonia Patient is a 71-year-old male with a past medical history significant for hypertension COPD large basal cell carcinoma left upper back diagnosed in May 2021 presenting to the hospital for evaluation of increasing shortness of breath cough and congestion, patient has been diagnosed with the morning. On today's evaluation that is 10/15/2022, the patient denies having any fever or any chills, the patient is breathing comfortably on today's physical oxygen, the patient denies having any chest pain, the patient cough is decreased intensity and less productive, no nausea no vomiting no abdominal pain and no diarrhea has been reported. Patient white count now normal 8.5 as of 10/12/2022, the patient did have a creatinine 0.63 as of 10/14/2022, blood culture has been negative sputum did not grow any resistant pathogen Objective - Vital Signs Vital signs: Vital Signs Temp 97.4 F L 10/15/22 08:00 Pulse 88 10/15/22 11:53 Resp 18 10/15/22 11:53 BP 166/89 10/15/22 08:00 Pulse Ox 97 10/15/22 08:47 FiO2 40 10/14/22 08:56 Intake & Output 10/14/22 10/15/22 10/15/22 18:59 06:59 18:59 Intake Total 1500 240 720 Output Total 1000 2275 950 Balance 500 -2034 -230 Intake: Oral 1500 240 720 Output: Urine 1000 2275 950 Other: Voiding Method Urinal Urinal # Voids 1 1 - Exam GENERAL DESCRIPTION: Elderly male lying in bed in no distress RESPIRATORY SYSTEM: Unlabored breathing , decreased breath sounds at bases HEART: S1 S2 regular rate and rhythm ,no loud murmurs ABDOMEN: Soft , no tenderness EXTREMITIES: No edema feet - Labs CBC & Chem 7: 10/12/22 05:24 10/14/22 07:41 Labs: Abnormal Lab Results - Last 24 Hours (Table) 10/14/22 Range/Units 07:41 Procalcitonin 1.83 H (0.02-0.09) ng/mL Microbiology - Last 24 Hours (Table) 10/11/22 10:45 Blood Culture - Preliminary Blood 10/11/22 11:03 Blood Culture - Preliminary Blood Assessment and Plan (1) Pneumonia Current Visit: Yes Status: Acute Code(s): J18.9 - PNEUMONIA, UNSPECIFIED ORGANISM SNOMED Code(s): 870895121 (2) Non-pressure chronic ulcer of skin of other sites with fat layer exposed Current Visit: No Status: Acute Code(s): L98.492 - NON-PRS CHRONIC ULCER OF SKIN OF SITES W FAT LAYER EXPOSED SNOMED Code(s): 47754539 Plan: 1patient present to hospital with increasing shortness of breath which is likely multifactorial in this patient who do have history of chronic tobacco use COPD with evidence of right lobe pneumonia with a question of possible community-acquired versus gram-negative last clinical suspicious for MRSA. 2blood and sputum cultures are so far negative 3local wound care to the upper back wound with Aquacel silver dressing change every 48 hour 4-patient seemed to have shown clinical improvement and will continue with the Zosyn , keeping in mind the cultures are negative we'll consider short course of oral Augmentin on discharge Dictation was produced using [employer] dictation software. please excuse any grammatical, word or spelling errors. Time with Patient: Less than 30
[2022-10-15] MEDS: METOPROLOL TARTRATE 25 MG TAB PO SCH (21:08)
[2022-10-15] MEDS: MELATONIN 5 MG TABLET PO PRN (21:08)
[2022-10-15] MEDS: ACETAMINOPHEN TAB 325 MG TAB PO PRN (21:10)
[2022-10-15] MEDS: HYDROcodone/APAP 5-325MG 1 EACH TAB PO PRN (23:50)
[2022-10-16] MEDS: SYMBICORT 160-4.5 MCG INHALER INHALATION SCH ×2 (09:18→20:42)
[2022-10-16] MEDS: IPRATROPIUM-ALBUTEROL 3 ML NEB INHALATION SCH ×4 (09:18→20:41)
[2022-10-16] MEDS: CARBIDOPA-LEVODOPA ER 50-200MG 1 EACH TABLET.ER PO SCH ×3 (09:46→20:53)
[2022-10-16] MEDS: HYDROcodone/APAP 5-325MG 1 EACH TAB PO PRN ×2 (09:46→20:57)
[2022-10-16] MEDS: PIPERACILLIN-TAZOBACTAM 3.375 GM in SODIUM CHLORIDE 0.9% 100 ML IVPB SCH (09:47)
[2022-10-16] MEDS: LISINOPRIL-HCTZ 20-12.5 MG 1 EACH TAB PO SCH ×2 (09:47→20:53)
[2022-10-16] MEDS: PANTOPRAZOLE 40 MG TABLET PO SCH (09:47)
[2022-10-16] MEDS: LEVOTHYROXINE 75 MCG TAB PO SCH (09:47)
[2022-10-16] MEDS: METOPROLOL TARTRATE 25 MG TAB PO SCH (09:47)
--- NOTE | 2022-10-16 11:12 | P.PN ---
Subjective Progress Note Date: 10/16/22 Principal diagnosis: Shortness of breath. This is a 71-year-old male patient was not been following with any primary care provider. He has a previous history of anxiety, hypertension, chronic tobacco dependence, chronic obstructive pulmonary disease, Large basal cell carcinoma on the left upper back diagnosed in May 2021 with biopsy. He had not undergone any other treatment or follow-up in that regard. He states he lives at home alone. He states he is able to perform his ADLs. He is quite disheveled and unkempt. He came into the emergency room early this morning with complaints of increasing shortness of breath cough and congestion. He was found to be hypoxemic and was placed on BiPAP 14/6 and 100% FiO2. Initial arterial blood glasses reveal a pO2 of 52, pCO2 29, pH 7.43. Chest x-ray revealed scattered air space opacities in the right lung. Left lung was clear. White count 2.5. Hemoglobin 16.7. Plavix 433. Sodium 128. Potassium 3.2. Chloride 86. Anion gap 18. BUN 3. Creatinine 1.07. Glucose 116. Lactic acid 5.7. Calcium 8.0. Magnesium 0.7. AST 114. Influenza screen negative. RSV screen negative. COVID-19 screen negative. He was admitted to the intensive care unit and we are consulted for the same. He is currently awake and alert. Answering questions appropriately. He does have an open wound on his left upper back from previous biopsy and basal cell carcinoma site. He was initiated on Zosyn. He was initially thought to be in A. fib RVR in the emergency room and started on heparin drip. He is currently in sinus rhythm. The patient is seen today 10/12/2022 in follow-up in the intensive care unit. He is currently off BiPAP and maintaining good O2 saturations in the upper 90s on 4 L/m per nasal cannula. Computed tomography scan of the chest revealed right upper and lower posterior airspace opacities. Possible aspiration. White count 8.5. Hemoglobin 11.7. Platelets 202. Sodium 126. Potassium 3.6. Bicarb 20. BUN 11. Creatinine 0.82. Magnesium 2.0. He is continued on Zosyn. Continued on DuoNeb inhalations, Symbicort. Sputum culture pending. The patient is seen today 10/13/2022 in follow-up in the intensive care unit. He is a MedSurg overflow. He is currently resting comfortably in bed. Awake and alert in no acute distress. He is maintaining O2 saturation in the 90s on 3 L/m per nasal cannula. He has normal saline 130 MLS per hour. Blood cultures reveal no growth. Sputum culture revealed no growth. Currently on Zosyn. Currently on Symbicort and DuoNeb inhalations. Progress note dated 10/14/2022. 71-year-old male who was seen in room 356. He was previously in the intensive care unit. Currently, the patient is using BiPAP, with settings of 14/6, and 40%, or, nasal cannula, at 3 L. In addition, the patient is receiving saline at 50 mL an hour. Chest x-ray shows a right-sided infiltrate. We will check a pro-calcitonin level. The patient's currently on Zosyn, for aspiration pneumonia. Sodium 131, potassium 3.9, chlorides 99, CO2 25, BUN 9, creatinine 0.63. Chest x-ray shows a right-sided infiltrate/pneumonia. Progress note dated 10/15/2022. 71-year-old male seen again in room 356. The patient was previously in the intensive care unit. Currently, the patient is on oxygen 2 L by nasal cannula. He is getting saline at 50 mL an hour. He possible resting comfortably, with no acute distress. No new laboratory data today. Chest x-ray shows a stable right-sided pneumonia. Sputum and blood sampling is negative. The patient continues on Zosyn. Progress note dated 10/16/2022. The patient is seen again in room 356. He is a 71-year-old male who was admitte d with a diagnosis of right-sided pneumonia, and COPD. He is currently very stable on 2 L of oxygen. He is getting saline at KVO. In our opinion, the patient is stable for discharge home. Antibiotics can be either discontinued or de-escalated. No new labs today. Objective - Vital Signs Vital signs: Vital Signs Temp 97.6 F 10/16/22 09:32 Pulse 78 10/16/22 02:00 Resp 16 10/16/22 09:32 BP 168/82 10/16/22 09:32 Pulse Ox 95 10/16/22 09:32 FiO2 40 10/14/22 08:56 Intake & Output 10/15/22 10/16/22 10/16/22 18:59 06:59 18:59 Intake Total 1200 Output Total 1775 2700 825 Balance -575 -2700 -825 Intake: Oral 1200 Output: Urine 6749 2700 825 Other: Voiding Method Urinal Urinal Urinal # Voids 1 # Bowel Movements 1 - Exam No acute distress, oriented 3. No conversational dyspnea or use of accessory muscles. HEENT examination is grossly unremarkable. Neck supple. Full range of motion. No adenopathy thyromegaly or neck vein distention. Cardiovascular examination reveals regular rhythm rate. S1-S2 normal. No S3 or S4. No discernible murmur noted. Heart rate 78 bpm. Lungs reveal clear breath sounds. Breath sounds are equal bilaterally. No adventitious lung sounds including wheezes rhonchi or crackles. Room air saturation is 95%. Abdomen soft bowel sounds are heard. No masses or tenderness. Extremities are intact. No cyanosis clubbing or edema. Skin is without rash or lesion. Neurologic examination is brief but nonfocal. - Labs CBC & Chem 7: 10/12/22 05:24 10/14/22 07:41 Assessment and Plan Assessment: Acute hypoxemic respiratory failure secondary to right lung multifocal opacities, probable aspiration. Large nonhealing open wound on the left upper back previously biopsied in 05/2021 of basal cell carcinoma. Lactic acidosis, resolved. Former smoker. Chronic obstructive pulmonary disease. History of anxiety. Previous admissions for severe general medical debility. Previous history of hyponatremia with hypo-magnesium secondary to poor oral intake. The patient is noncompliant and has not followed with primary care provider. Plan: Plan dated 10/14/2022. The patient's chest x-ray, that was done today is evaluated. It does show an infiltrate in the right lung. The patient continues on Zosyn. He is currently on 3 L of oxygen. The patient's also getting saline at 50 mL an hour. We'll check a pro-calcitonin level. He is not on nasal cannula, he is using BiPAP, with settings of 14/6, and 40 percent. Labs, x-rays, medications are reviewed. Prognosis is guarded. Plan dated 10/15/2022. The patient continues on Zosyn for aspiration pneumonia. He is currently on 2 L of oxygen. Labs, x-rays, and medications are reviewed. We checked a pro- calcitonin level, which was elevated, at 1.83. Labs, x-rays, and medications are all reviewed. We'll continue to follow this patient and make recommendations along the way. Prognosis is certainly guarded. Plan dated 10/26/2022. The patient has been weaned on the room air. His respiratory status is very stable. The patient could be considered for discharge home. We'll leave that up to the primary service. The patient is currently on Symbicort, and DuoNeb. The patient continues on Zosyn. This will be discontinued. The patient be placed on an oral antibiotic for a few more days. Prognosis is thought to be generally good. Time with Patient: Less than 30
--- NOTE | 2022-10-16 17:04 | P.PN ---
Progress Note - Text Progress Note Date: 10/16/22 Patient is a 71-year-old male for history of Parkinson's disease, acid reflux, COPD, and hypothyroidism who presented to the ED due to worsening shortness of breath. The emergency department he underwent an extensive evaluation. Initial vital signs show pulse of 120, respirations 30, and O2 sat of 85% on BiPAP. Initial laboratory analysis demonstrated a white blood cell count of 2.5, PTT 23.1, sodium 128, potassium 3.2, chloride 86, BUN 3, creatinine 1.07, and glucose of 116. Lactic acid was elevated at 5.7, magnesium 0.1, AST 114. Viral panel was negative for influenza/RS disease/COVID-19. ABG showed a pH of 7.43, CO2 29, PaO2 of 52, and bicarb of 19. X-ray reviewed by myself reveals diffuse right sided middle and lower lobe infiltrates. In the ER he was given a dose of Decadron, Zosyn, and 1 L of IV fluids. There was concern for possible A. fib on the monitor and initially amiodarone and heparin were ordered but never required administration is was then noted he was in normal sinus rhythm. He was subsequently admitted to the ICU. Critical care was consulted. Patient seen and examined at bedside. He reports that he had sudden onset shortness of breath this morning associated with a cough with yellow sputum. He states that came out of nowhere and he felt fine yesterday. He denies any recent cough, cold, fever, flu, nausea, vomiting, diarrhea, or dysuria. He denies any recent travel, sick contacts, or other unusual hobbies. He sees Ike Lowry from [facility]. He was diagnosed with skin cancer in 2021 but does not want any surgery so they have just been cleaning and monitoring it at home. October 12: I assumed care of the patient today. ICU. Patient has been taken off BiPAP. 4 L of oxygen. Patient passed a swallow exam. Diet ordered. Sinus rhythm. Patient's coughing of significance thick yellow sputum. On IV Zosyn. October 13: Patient has been moved to the medical floor. Resting in bed. Has been up in a chair. Coughing up thick junky sputum. Eating well. On 3 L nasal cannula.. October 14: Still coughing up significant amount of sputum. Eating well. Does sit up in a chair. Incentive spirometry added. Getting IV Zosyn. FiO2 decreased to 2 L. blood pressure running high. We'll start lisinopril hydrochlorothiazide 20/12.5 one tablet twice a day. October 15: Decreased amount percent coughing up bloody junky sputum. Oral intake good. On 2 L nasal cannula. IV Zosyn. Better blood pressure control. Increase Lopressor to 25 mg twice a day. Blood pressure better still running in the 160s to 150s. October 16: Still coughing up sputum but amount is decreased. Feeling better. Increase Lopressor to 50 mg twice a day. Active Medications Acetaminophen (Acetaminophen Tab 325 Mg Tab) 650 mg PO Q6HR PRN PRN Reason: Fever and/ or Pain Last Admin: 10/15/22 21:10 Dose: 650 mg Hydrocodone Bitart/Acetaminophen (Hydrocodone/Apap 5-325mg 1 Each Tab) 1 each PO Q4HR PRN PRN Reason: Moderate Pain (Scale 4 to 6) Last Admin: 10/16/22 09:46 Dose: 1 each Albuterol/Ipratropium (Ipratropium-Albuterol 3 Ml Neb) 3 ml INHALATION RT-QID [facility] Last Admin: 10/16/22 16:37 Dose: 3 ml Amoxicillin/Clavulanate Potassium (Amoxic-Pot Clav 875-125mg 1 Each Tab) 1 each PO Q12HR [facility]; Protocol Bisacodyl (Bisacodyl 5 Mg Tablet.Dr) 5 mg PO DAILY PRN PRN Reason: Constipation Budesonide/Formoterol Fumarate (Symbicort 160-4.5 Mcg Inhaler) 2 puff INHALATION RT-BID [facility] Last Admin: 10/16/22 09:18 Dose: Not Given Carbidopa/Levodopa (Carbidopa-Levodopa Er 50-200mg 1 Each Tablet.Er) 1 each PO TID [facility] Last Admin: 10/16/22 16:06 Dose: 1 each Lisinopril/HCTZ (Lisinopril-Hctz 20-12.5 Mg 1 Each Tab) 1 each PO BID [facility] Last Admin: 10/16/22 09:47 Dose: 1 each Sodium Chloride (Saline 0.9%) 1,000 mls @ 50 mls/hr IV .Q20H [facility] Last Admin: 10/15/22 15:35 Dose: 50 mls/hr Levothyroxine Sodium (Levothyroxine 75 Mcg Tab) 150 mcg PO DAILY [facility] Last Admin: 10/16/22 09:47 Dose: 150 mcg Melatonin (Melatonin 5 Mg Tablet) 5 mg PO HS PRN PRN Reason: Insomnia Last Admin: 10/15/22 21:08 Dose: 5 mg Metoprolol Tartrate (Metoprolol Tartrate 25 Mg Tab) 25 mg PO BID [facility] Last Admin: 10/16/22 09:47 Dose: 25 mg Miscellaneous Information (Potassium Replacement Protocol 1 Each Misc) 1 each MISCELLANE DAILY PRN; Protocol PRN Reason: Per Protocol Miscellaneous Information (Magnesium Replacement Protocol 1 Each Misc) 1 each MISCELLANE DAILY PRN; Protocol PRN Reason: Per Protocol Morphine Sulfate (Morphine Sulfate 4 Mg/Ml Syringe) 4 mg IVP Q4HR PRN PRN Reason: Severe Pain (Scale 7 to 10) Naloxone HCl (Naloxone 0.4 Mg/Ml 1 Ml Vial) 0.2 mg IV Q2M PRN PRN Reason: Opioid Reversal Ondansetron HCl (Ondansetron 4 Mg/2 Ml Vial) 4 mg IVP Q6H PRN PRN Reason: Nausea Pantoprazole Sodium (Pantoprazole 40 Mg Tablet) 40 mg PO DAILY [facility] Last Admin: 10/16/22 09:47 Dose: 40 mg On examination: VITAL SIGNS: He 7.9, 82, 16, 1 51 x 80, 92% GENERAL APPEARANCE: Reclining in bed, HEENT: Normal external appearance of nose and ear. Oral cavity normal EYES: Pupils equal. Conjunctiva normal. NECK: JVD not raised. Mass not palpable. RESPIRATORY: Respiratory effort increased. Lungs some scattered expiratory crackles CARDIOVASCULAR: First and second sounds normal. No edema. ABDOMEN: Soft. Liver and spleen not palpable. No tenderness. No mass palpable. PSYCHIATRY: Alert and oriented x3. Mood and affect normal. INVESTIGATIONS, reviewed in the clinical context: October 14: Potassium 3.9 sodium 131 pro calcitonin 1.83 Chest x-ray film personally reviewed by me-October 12: Right-sided lobar infiltrate 10/12/2022: White count 8.5 hemoglobin 11.7 platelets 202. Sodium 126 potassium 3.6 BUN 11 creatinine 0.82 and lesion 2.0 ProBNP 130 troponin I less than 0.012 Influenza type A, B, RSV, COVID-19: Not detected Assessment/Plan: -Right sided pneumonia with severe sepsis : Improving IV Zosyn. Sputum culture-unremarkable -Acute hypoxic respiratory failure : Improving Was on BiPAP. Now 2 L -COPD without exacerbation DuoNeb -Acute metabolic encephalopathy : Better -Lactic acidosis , improving -Severe Hyponatremia : Better Fluid restriction. -Hypomagnesemia, corrected -Essential hypertension, uncontrolled lisinopril hydrochlorothiazide 20/12.5 one tablet twice a day. Increase Lopressor 50 mg by mouth twice a day. -Hypokalemia Replaced Large wound left shoulder blade, Basal cell Carcinoma, ulcerating - consult dr. Petty -Chronic nicotine dependence, cigarette smoker Nicotine patch -Chronic idiopathic Parkinson disease Sinemet -Hypothyroidism Levothyroxine 150 g -Full code Increase Lopressor to 50 mg twice a day. Discussed with patient. Discharge tomorrow.
--- NOTE | 2022-10-16 17:18 | P.PN ---
Subjective Progress Note Date: 10/16/22 Principal diagnosis: Pneumonia Patient is a 71-year-old male with a past medical history significant for hypertension COPD large basal cell carcinoma left upper back diagnosed in May 2021 presenting to the hospital for evaluation of increasing shortness of breath cough and congestion, patient has been diagnosed with the morning. On today's evaluation that is 10/16/2022, the patient remains to be afebrile, the patient is breathing comfortably on room air, the patient denies chest pain, the patient cough has decreased in intensity, no nausea no vomiting no abdominal pain and no diarrhea has been reported. Patient white count now normal 8.5 as of 10/12/2022, the patient did have a creatinine 0.63 as of 10/14/2022 patient did not have any blood draw today, bl ood culture has been negative sputum did not grow any resistant pathogen Objective - Vital Signs Vital signs: Vital Signs Temp 97.6 F 10/16/22 09:32 Pulse 60 10/16/22 12:30 Resp 16 10/16/22 09:32 BP 168/82 10/16/22 09:32 Pulse Ox 95 10/16/22 09:32 FiO2 40 10/14/22 08:56 Intake & Output 10/15/22 10/16/22 10/16/22 18:59 06:59 18:59 Intake Total 1200 120 Output Total 1775 2700 1175 Balance -575 -2700 -1055 Intake: Oral 1200 120 Output: Urine 1775 2700 1175 Other: Voiding Method Urinal Urinal Urinal # Voids 1 # Bowel Movements 1 - Exam GENERAL DESCRIPTION: Elderly male lying in bed in no distress RESPIRATORY SYSTEM: Unlabored breathing , decreased breath sounds at bases HEART: S1 S2 regular rate and rhythm ,no loud murmurs ABDOMEN: Soft , no tenderness EXTREMITIES: No edema feet - Labs CBC & Chem 7: 10/12/22 05:24 10/14/22 07:41 Assessment and Plan (1) Pneumonia Current Visit: Yes Status: Acute Code(s): J18.9 - PNEUMONIA, UNSPECIFIED ORGANISM SNOMED Code(s): 138338658 (2) Non-pressure chronic ulcer of skin of other sites with fat layer exposed Current Visit: No Status: Acute Code(s): L98.492 - NON-PRS CHRONIC ULCER OF SKIN OF SITES W FAT LAYER EXPOSED SNOMED Code(s): 36707048 Plan: 1patient present to hospital with increasing shortness of breath which is likely multifactorial in this patient who do have history of chronic tobacco use COPD with evidence of right lobe pneumonia with a question of possible community-acquired versus gram-negative last clinical suspicious for MRSA. 2blood and sputum cultures are so far negative 3local wound care to the upper back wound with Aquacel silver dressing change every 48 hour 4-patient has shown clinical improvement antibiotic has been adjusted oral Augmentin to continue and monitor clinical course closely Dictation was produced using [email or web address] dictation software. please excuse any grammatical, word or spelling errors. Time with Patient: Less than 30
[2022-10-16] MEDS: METOPROLOL TARTRATE 50 MG TAB PO SCH (20:53)
[2022-10-16] MEDS: SODIUM CHLORIDE 0.9% 1,000 ML IV SCH (20:54)
[2022-10-16] MEDS: AMOXIC-POT CLAV 875-125MG 1 EACH TAB PO SCH (20:54)
[2022-10-16] MEDS: MELATONIN 5 MG TABLET PO PRN (20:57)
[2022-10-17] MEDS: IPRATROPIUM-ALBUTEROL 3 ML NEB INHALATION SCH ×3 (09:08→16:48)
[2022-10-17] MEDS: SYMBICORT 160-4.5 MCG INHALER INHALATION SCH (09:08)
[2022-10-17] MEDS: AMOXIC-POT CLAV 875-125MG 1 EACH TAB PO SCH (10:08)
[2022-10-17] MEDS: LEVOTHYROXINE 75 MCG TAB PO SCH (10:09)
[2022-10-17] MEDS: METOPROLOL TARTRATE 50 MG TAB PO SCH (10:09)
[2022-10-17] MEDS: LISINOPRIL-HCTZ 20-12.5 MG 1 EACH TAB PO SCH (10:09)
[2022-10-17] MEDS: CARBIDOPA-LEVODOPA ER 50-200MG 1 EACH TABLET.ER PO SCH (10:09)
[2022-10-17] MEDS: PANTOPRAZOLE 40 MG TABLET PO SCH (10:09)
--- NOTE | 2022-10-17 10:46 | P.PN ---
Subjective Progress Note Date: 10/17/22 Principal diagnosis: Shortness of breath. This is a 71-year-old male patient was not been following with any primary care provider. He has a previous history of anxiety, hypertension, chronic tobacco dependence, chronic obstructive pulmonary disease, Large basal cell carcinoma on the left upper back diagnosed in May 2021 with biopsy. He had not undergone any other treatment or follow-up in that regard. He states he lives at home alone. He states he is able to perform his ADLs. He is quite disheveled and unkempt. He came into the emergency room early this morning with complaints of increasing shortness of breath cough and congestion. He was found to be hypoxemic and was placed on BiPAP 14/6 and 100% FiO2. Initial arterial blood glasses reveal a pO2 of 52, pCO2 29, pH 7.43. Chest x-ray revealed scattered air space opacities in the right lung. Left lung was clear. White count 2.5. Hemoglobin 16.7. Plavix 433. Sodium 128. Potassium 3.2. Chloride 86. Anion gap 18. BUN 3. Creatinine 1.07. Glucose 116. Lactic acid 5.7. Calcium 8.0. Magnesium 0.7. AST 114. Influenza screen negative. RSV screen negative. COVID-19 screen negative. He was admitted to the intensive care unit and we are consulted for the same. He is currently awake and alert. Answering questions appropriately. He does have an open wound on his left upper back from previous biopsy and basal cell carcinoma site. He was initiated on Zosyn. He was initially thought to be in A. fib RVR in the emergency room and started on heparin drip. He is currently in sinus rhythm. The patient is seen today 10/12/2022 in follow-up in the intensive care unit. He is currently off BiPAP and maintaining good O2 saturations in the upper 90s on 4 L/m per nasal cannula. Computed tomography scan of the chest revealed right upper and lower posterior airspace opacities. Possible aspiration. White count 8.5. Hemoglobin 11.7. Platelets 202. Sodium 126. Potassium 3.6. Bicarb 20. BUN 11. Creatinine 0.82. Magnesium 2.0. He is continued on Zosyn. Continued on DuoNeb inhalations, Symbicort. Sputum culture pending. The patient is seen today 10/13/2022 in follow-up in the intensive care unit. He is a MedSurg overflow. He is currently resting comfortably in bed. Awake and alert in no acute distress. He is maintaining O2 saturation in the 90s on 3 L/m per nasal cannula. He has normal saline 130 MLS per hour. Blood cultures reveal no growth. Sputum culture revealed no growth. Currently on Zosyn. Currently on Symbicort and DuoNeb inhalations. Progress note dated 10/14/2022. 71-year-old male who was seen in room 356. He was previously in the intensive care unit. Currently, the patient is using BiPAP, with settings of 14/6, and 40%, or, nasal cannula, at 3 L. In addition, the patient is receiving saline at 50 mL an hour. Chest x-ray shows a right-sided infiltrate. We will check a pro-calcitonin level. The patient's currently on Zosyn, for aspiration pneumonia. Sodium 131, potassium 3.9, chlorides 99, CO2 25, BUN 9, creatinine 0.63. Chest x-ray shows a right-sided infiltrate/pneumonia. Progress note dated 10/15/2022. 71-year-old male seen again in room 356. The patient was previously in the intensive care unit. Currently, the patient is on oxygen 2 L by nasal cannula. He is getting saline at 50 mL an hour. He possible resting comfortably, with no acute distress. No new laboratory data today. Chest x-ray shows a stable right-sided pneumonia. Sputum and blood sampling is negative. The patient continues on Zosyn. Progress note dated 10/16/2022. The patient is seen again in room 356. He is a 71-year-old male who was admitte d with a diagnosis of right-sided pneumonia, and COPD. He is currently very stable on 2 L of oxygen. He is getting saline at KVO. In our opinion, the patient is stable for discharge home. Antibiotics can be either discontinued or de-escalated. No new labs today. Progress note dated 10/17/2022. 71-year-old male seen in room 356. 71-year-old male admitted with a diagnosis of right-sided pneumonia, and COPD exacerbation. He was previously in the intensive care unit. He was on BiPAP, at that time. Currently, he is on room air. He is getting saline at 50 mL an hour. Yesterday, we thought the patient was stable enough to be discharged home. No new labs today. No recent chest x- ray to report. Objective - Vital Signs Vital signs: Vital Signs Temp 97.9 F 10/17/22 09:21 Pulse 67 10/17/22 09:21 Resp 18 10/17/22 09:21 BP 148/75 10/17/22 09:21 Pulse Ox 97 10/17/22 09:21 FiO2 40 10/14/22 08:56 Intake & Output 10/16/22 10/17/22 10/17/22 18:59 06:59 18:59 Intake Total 120 240 Output Total 2325 3350 Balance -2205 -3350 240 Intake: Oral 120 240 Output: Urine 2325 3350 Other: Voiding Method Urinal Urinal Urinal - Exam No acute distress, oriented 3. No conversational dyspnea or use of accessory muscles. HEENT examination is grossly unremarkable. Neck supple. Full range of motion. No adenopathy thyromegaly or neck vein distention. Cardiovascular examination reveals regular rhythm rate. S1-S2 normal. No S3 or S4. No discernible murmur noted. Heart rate 67 bpm. Lungs reveal clear breath sounds. Breath sounds are equal bilaterally. No adventitious lung sounds including wheezes rhonchi or crackles. Room air saturation is 97%. Abdomen soft bowel sounds are heard. No masses or tenderness. Extremities are intact. No cyanosis clubbing or edema. Skin is without rash or lesion. Neurologic examination is brief but nonfocal. - Labs CBC & Chem 7: 10/12/22 05:24 10/14/22 07:41 Labs: Microbiology - Last 24 Hours (Table) 10/11/22 10:45 Blood Culture - Final Blood 10/11/22 11:03 Blood Culture - Final Blood Assessment and Plan Assessment: Acute hypoxemic respiratory failure secondary to right lung multifocal opacitie s, probable aspiration. Large nonhealing open wound on the left upper back previously biopsied in 0 05/2021 of basal cell carcinoma. Lactic acidosis, resolved. Former smoker. Chronic obstructive pulmonary disease. History of anxiety. Previous admissions for severe general medical debility. Previous history of hyponatremia with hypo-magnesium secondary to poor oral intake. The patient is noncompliant and has not followed with primary care provider. Plan: Plan dated 10/14/2022. The patient's chest x-ray, that was done today is evaluated. It does show an infiltrate in the right lung. The patient continues on Zosyn. He is currently on 3 L of oxygen. The patient's also getting saline at 50 mL an hour. We'll check a pro-calcitonin level. He is not on nasal cannula, he is using BiPAP, with settings of 14/6, and 40 percent. Labs, x-rays, medications are reviewed. Prognosis is guarded. Plan dated 10/15/2022. The patient continues on Zosyn for aspiration pneumonia. He is currently on 2 L of oxygen. Labs, x-rays, and medications are reviewed. We checked a pro- calcitonin level, which was elevated, at 1.83. Labs, x-rays, and medications are all reviewed. We'll continue to follow this patient and make recommendations along the way. Prognosis is certainly guarded. Plan dated 10/26/2022. The patient has been weaned on the room air. His respiratory status is very stable. The patient could be considered for discharge home. We'll leave that up to the primary service. The patient is currently on Symbicort, and DuoNeb. The patient continues on Zosyn. This will be discontinued. The patient be placed on an oral antibiotic for a few more days. Prognosis is thought to be generally good. Plan dated 10/17/2022. The patient is doing well. He is currently on room air. He has no new complaints today. The patient is maintained on saline at 50 mL an hour. Patient could be discharged home. Labs, x-rays, and medications are all reviewed. The patient is currently on Augmentin. He would only need to take this for a few days longer. Time with Patient: Less than 30
[2022-10-17 15:08] VITALS: BP 112/66; PULSE 74; RESP 16; TEMP 97.5
--- NOTE | 2022-10-17 16:34 | P.PN ---
Subjective Progress Note Date: 10/17/22 Principal diagnosis: Pneumonia Patient is a 71-year-old male with a past medical history significant for hypertension COPD large basal cell carcinoma left upper back diagnosed in May 2021 presenting to the hospital for evaluation of increasing shortness of breath cough and congestion, patient has been diagnosed with the morning. On today's evaluation that is 10/17/2022, the patient continues to be afebrile, the patient is breathing comfortably on room air denies any shortness of breath no chest pain and the patient cough has decreased in intensity, the patient d enies having any nausea and vomiting no abdominal pain and no diarrhea Patient white count now normal 8.5 as of 10/12/2022, the patient did have a creatinine 0.63 as of 10/14/2022 patient did not have any blood draw today, blood culture has been negative sputum did not grow any resistant pathogen Objective - Vital Signs Vital signs: Vital Signs Temp 97.5 F L 10/17/22 14:00 Pulse 74 10/17/22 14:00 Resp 16 10/17/22 14:00 BP 112/66 10/17/22 14:00 Pulse Ox 97 10/17/22 14:00 FiO2 40 10/14/22 08:56 Intake & Output 10/16/22 10/17/22 10/17/22 18:59 06:59 18:59 Intake Total 120 480 Output Total 2325 3350 650 Balance -7194 -2338 -170 Intake: Oral 120 480 Output: Urine 2325 3350 650 Other: Voiding Method Urinal Urinal Urinal - Exam GENERAL DESCRIPTION: Elderly male lying in bed in no distress RESPIRATORY SYSTEM: Unlabored breathing , decreased breath sounds at bases HEART: S1 S2 regular rate and rhythm ,no loud murmurs ABDOMEN: Soft , no tenderness EXTREMITIES: No edema feet - Labs CBC & Chem 7: 10/12/22 05:24 10/14/22 07:41 Labs: Microbiology - Last 24 Hours (Table) 10/11/22 10:45 Blood Culture - Final Blood 10/11/22 11:03 Blood Culture - Final Blood Assessment and Plan (1) Pneumonia Current Visit: Yes Status: Acute Code(s): J18.9 - PNEUMONIA, UNSPECIFIED ORGANISM SNOMED Code(s): 703000907 (2) Non-pressure chronic ulcer of skin of other sites with fat layer exposed Current Visit: No Status: Acute Code(s): L98.492 - NON-PRS CHRONIC ULCER OF SKIN OF SITES W FAT LAYER EXPOSED SNOMED Code(s): 82844975 Plan: 1patient present to hospital with increasing shortness of breath which is likely multifactorial in this patient who do have history of chronic tobacco use COPD with evidence of right lobe pneumonia with a question of possible community-acquired versus gram-negative last clinical suspicious for MRSA. 2blood and sputum cultures are so far negative 3local wound care to the upper back wound with Aquacel silver dressing change every 48 hour 4-patient is slowly clinically improving, the patient to continue with oral Augmentin for another 7 days to finish his course of therapy and monitor clinical course closely Dictation was produced using [employer] dictation software. please excuse any grammatical, word or spelling errors. Time with Patient: Less than 30
--- NOTE | 2022-10-17 17:14 | P.DS ---
Providers Date of admission: 10/11/22 10:43 Expected date of discharge: 10/17/22 Attending physician: Isiah Schumacher Consults: 10/11/22 10:43 Consult Physician Stat Consulting Provider: Jeniffer Baldwin Consult Reason/Comments: icu patient Do you want consulting provider notified?: Already Contacted 10/11/22 11:14 Consult Physician Stat Consulting Provider: Yuli Petty Consult Reason/Comments: pneumonia Do you want consulting provider notified?: Yes Primary care physician: [facility] Course: Patient is a 71-year-old male for history of Parkinson's disease, acid reflux, COPD, and hypothyroidism who presented to the ED due to worsening shortness of breath. The emergency department he underwent an extensive evaluation. Initial vital signs show pulse of 120, respirations 30, and O2 sat of 85% on BiPAP. Initial laboratory analysis demonstrated a white blood cell count of 2.5, PTT 23.1, sodium 128, potassium 3.2, chloride 86, BUN 3, creatinine 1.07, and glucose of 116. Lactic acid was elevated at 5.7, magnesium 0.1, AST 114. Viral panel was negative for influenza/RS disease/COVID-19. ABG showed a pH of 7.43, CO2 29, PaO2 of 52, and bicarb of 19. X-ray reviewed by myself reveals diffuse right sided middle and lower lobe infiltrates. In the ER he was given a dose of Decadron, Zosyn, and 1 L of IV fluids. There was concern for possible A. fib on the monitor and initially amiodarone and heparin were ordered but never required administration is was then noted he was in normal sinus rhythm. He was subsequently admitted to the ICU. Critical care was consulted. Patient seen and examined at bedside. He reports that he had sudden onset shortness of breath this morning associated with a cough with yellow sputum. He states that came out of nowhere and he felt fine yesterday. He denies any recent cough, cold, fever, flu, nausea, vomiting, diarrhea, or dysuria. He denies any recent travel, sick contacts, or other unusual hobbies. He sees Ike Lowry from [facility]. He was diagnosed with skin cancer in 2021 but does not want any surgery so they have just been cleaning and monitoring it at home. October 12: I assumed care of the patient today. ICU. Patient has been taken off BiPAP. 4 L of oxygen. Patient passed a swallow exam. Diet ordered. Sinus rhythm. Patient's coughing of significance thick yellow sputum. On IV Zosyn. October 13: Patient has been moved to the medical floor. Resting in bed. Has been up in a chair. Coughing up thick junky sputum. Eating well. On 3 L nasal cannula.. October 14: Still coughing up significant amount of sputum. Eating well. Does sit up in a chair. Incentive spirometry added. Getting IV Zosyn. FiO2 decreased to 2 L. blood pressure running high. We'll start lisinopril hydrochlorothiazide 20/12.5 one tablet twice a day. October 15: Decreased amount percent coughing up bloody junky sputum. Oral intake good. On 2 L nasal cannula. IV Zosyn. Better blood pressure control. Increase Lopressor to 25 mg twice a day. Blood pressure better still running in the 160s to 150s. October 16: Still coughing up sputum but amount is decreased. Feeling better. Increase Lopressor to 50 mg twice a day. October 17: Blood pressure better controlled. Doing well. Keen to go home. He'll complete 5 more days of Augmentin. Blood pressure medications as discus sed. Follow with pulmonary and visiting physicians outpatient. Discussion and discharge planning more than 35 minutes On examination: VITAL SIGNS: 97.5, 74, 16, 112/76, 97% room air GENERAL APPEARANCE: Reclining in bed, comfortable HEENT: Normal external appearance of nose and ear. Oral cavity normal EYES: Pupils equal. Conjunctiva normal. NECK: JVD not raised. Mass not palpable. RESPIRATORY: Respiratory effort increased. Lungs some scattered expiratory crackles CARDIOVASCULAR: First and second sounds normal. No edema. ABDOMEN: Soft. Liver and spleen not palpable. No tenderness. No mass palpable. PSYCHIATRY: Alert and oriented x3. Mood and affect normal. INVESTIGATIONS, reviewed in the clinical context: October 14: Potassium 3.9 sodium 131 pro calcitonin 1.83 Chest x-ray film personally reviewed by me-October 12: Right-sided lobar infiltrate 10/12/2022: White count 8.5 hemoglobin 11.7 platelets 202. Sodium 126 potassium 3.6 BUN 11 creatinine 0.82 and lesion 2.0 ProBNP 130 troponin I less than 0.012 Influenza type A, B, RSV, COVID-19: Not detected Assessment/Plan: -Right sided pneumonia with severe sepsis : Improving IV Zosyn. Sputum culture-unremarkable Augmentin 875 for 4 more days -Acute hypoxic respiratory failure : Secondary to pneumonia. Resolved Was on BiPAP. Pulse ox 97% room air -COPD without exacerbation DuoNeb -Acute metabolic encephalopathy : Better -Lactic acidosis , improving -Severe Hyponatremia : Better Fluid restriction. -Hypomagnesemia, corrected -Essential hypertension, lisinopril hydrochlorothiazide 20/12.5 one tablet twice a day. Lopressor 50 mg by mouth twice a day. -Hypokalemia Replaced Large wound left shoulder blade, Basal cell Carcinoma, ulcerating - consult dr. Petty -Chronic nicotine dependence, cigarette smoker Nicotine patch -Chronic idiopathic Parkinson disease Sinemet -Hypothyroidism Levothyroxine 150 g -Full code Disposition: Home Plan - Discharge Summary Discharge Rx Participant: No New Discharge Prescriptions: New Amoxic-Pot Clav 875-125Mg [Augmentin 875-125] 1 each PO Q12HR #10 tab Metoprolol Tartrate [Lopressor] 50 mg PO BID #60 tab Lisinopril-Hctz 20-12.5 mg [Zestoretic 20-12.5] 1 each PO BID #60 tab Continue Levothyroxine Sodium 150 mcg PO DAILY Carbidopa-Levodopa ER 50-200Mg [Sinemet CR 50-200 mg] 1 tab PO TID Fluticasone/Umeclidin/Vilanter [Trelegy Ellipta 200-62.5-25] 1 puff INHAL ATION RT-DAILY Albuterol Inhaler [Ventolin Hfa Inhaler] 2 puff INHALATION RT-QID PRN PRN Reason: Shortness Of Breath Omeprazole Magnesium [PriLOSEC OTC] 20 mg PO DAILY Discontinued Propranolol [Inderal] 40 mg PO BID Discharge Medication List Albuterol Inhaler [Ventolin Hfa Inhaler] 2 puff INHALATION RT-QID PRN 10/11/22 [History] Carbidopa-Levodopa ER 50-200Mg [Sinemet CR 50-200 mg] 1 tab PO TID 10/11/22 [History] Fluticasone/Umeclidin/Vilanter [Trelegy Ellipta 200-62.5-25] 1 puff INHALATION RT-DAILY 10/11/22 [History] Levothyroxine Sodium 150 mcg PO DAILY 10/11/22 [History] Omeprazole Magnesium [PriLOSEC OTC] 20 mg PO DAILY 10/11/22 [History] Amoxic-Pot Clav 875-125Mg [Augmentin 875-125] 1 each PO Q12HR #10 tab 10/17/22 [Rx] Lisinopril-Hctz 20-12.5 mg [Zestoretic 20-12.5] 1 each PO BID #60 tab 10/17/22 [Rx] Metoprolol Tartrate [Lopressor] 50 mg PO BID #60 tab 10/17/22 [Rx] Follow up Appointment(s)/Referral(s): Jeniffer Baldwin MD [STAFF PHYSICIAN] - 1 Week (Please call Tuesday to schedule follow up) [facility] [NON-[facility]] - (Home care will call you to schedule first visit) Álvaro Ontiveros MD [Primary Care Provider] - 1 Week (Please call Tuesday to schedule follow up) Patient Instructions/Handouts: COPD (Chronic Obstructive Pulmonary Disease) (IP) Discharge Disposition: HOME WITH HOME HEALTH SERVICES
== END 2022-10-17 16:44 | disposition home health service (06) | DRG 871 ==
LOC: EC 09:18 → 2SICU 10:43 → 3SCARD 10-13 10:49
PROVIDERS: ADMIT Hospitalist; ATTEND Hospitalist
PROC: 5A09557 Assistance with Respiratory Ventilation, Greater than 96 Consecutive Hours, Continuous Positive Airway Pressure (ICD-10-PCS; principal; 2022-10-11)
DX: A41.89 Other specified sepsis (principal); G93.41 Metabolic encephalopathy; J96.01 Acute respiratory failure with hypoxia; J69.0 Pneumonitis due to inhalation of food and vomit; E87.1 Hypo-osmolality and hyponatremia; J44.1 Chronic obstructive pulmonary disease with (acute) exacerbation; J44.0 Chronic obstructive pulmonary disease with (acute) lower respiratory infection; R65.20 Severe sepsis without septic shock; E83.42 Hypomagnesemia; Z20.822 Contact with and (suspected) exposure to COVID-19; E87.6 Hypokalemia; L98.492 Non-pressure chronic ulcer of skin of other sites with fat layer exposed; E03.9 Hypothyroidism, unspecified; G47.00 Insomnia, unspecified; I48.91 Unspecified atrial fibrillation; K59.00 Constipation, unspecified; C44.91 Basal cell carcinoma of skin, unspecified; G20 Parkinson's disease; I10 Essential (primary) hypertension; R53.81 Other malaise; F17.210 Nicotine dependence, cigarettes, uncomplicated; F41.9 Anxiety disorder, unspecified; Z79.890 Hormone replacement therapy; Z85.828 Personal history of other malignant neoplasm of skin; Z91.199 Patient's noncompliance with other medical treatment and regimen due to unspecified reason; Z79.51 Long term (current) use of inhaled steroids; Z79.899 Other long term (current) drug therapy
CPT/HCPCS: 36415; 36600; 71045; 71260; 80048; 80053; 82803; 82805; 83605; 83735; 83880; 84100; 84145; 84484; 85025; 85027; 85610; 85730; 87040; 87070; 87205; 87636; 93005; 94640; 94660; 94760; 96365; 96366; 96368; 96375; 96376; 99291

== ENCOUNTER 2023-06-19 11:10 | Inpatient (IN) | payer MEDICARE, OTHER ==
--- NOTE | 2023-06-19 11:36 | ED ---
General Adult HPI - General Chief complaint: Weakness Stated complaint: Weakness Time Seen by Provider: 06/19/23 11:15 Source: patient, EMS, RN notes reviewed, old records reviewed Mode of arrival: EMS Limitations: no limitations - History of Present Illness Initial comments: This is a 72-year-old male who presents to the emergency department by EMS. P atdeniz complains that he twisted his right knee about 10 days ago and since then he has been unable to get out of bed. Patient states he has not been eating because his in too much pain he does not feel like and he cannot make it to the kitchen. Patient also states he has been having bowel movements while he is in bed. Patient states he believes he is developing a bedsore as well. Patient complains of feeling generally weak tired and fatigued but also has significant pain in his right knee. Patient denies chest pain difficulty breathing shortness of breath. Patient Nuys any recent fever chills or cough. Patient denies a headache. Patient has any neck pain. Patient denies ever hitting his head or neck on a fall. Patient denies abdominal pain states he does have some vomiting and diarrhea over the last 3 days. - Related Data Home Medications Medication Instructions Recorded Confirmed Albuterol Inhaler [Ventolin Hfa 2 puff INHALATION RT-QID PRN 10/11/22 06/19/23 Inhaler] Carbidopa-Levodopa ER 50-200Mg 1 tab PO TID 10/11/22 06/19/23 [Sinemet CR 50-200 mg] Fluticasone/Umeclidin/Vilanter 1 puff INHALATION RT-DAILY@1400 10/11/22 06/19/23 [Trelegy Ellipta 200-62.5-25] Levothyroxine Sodium 150 mcg PO DAILY 10/11/22 06/19/23 Omeprazole [PriLOSEC] 20 mg PO DAILY 06/19/23 06/19/23 Propranolol [Inderal] 40 mg PO BID 06/19/23 06/19/23 Allergies Allergy/AdvReac Type Severity Reaction Status Date / Time No Known Allergies Allergy Verified 06/19/23 13:34 Review of Systems ROS Statement: Those systems with pertinent positive or pertinent negative responses have been documented in the HPI. ROS Other: All systems not noted in ROS Statement are negative. Past Medical History Past Medical History: COPD, Hypertension, Thyroid Disorder Additional Past Medical History / Comment(s): engarged right ventricle History of Any Multi-Drug Resistant Organisms: None Reported Past Surgical History: Back Surgery Additional Past Surgical History / Comment(s): back surgery x3, thyroid removed Past Anesthesia/Blood Transfusion Reactions: No Reported Reaction Past Psychological History: No Psychological Hx Reported, Anxiety Smoking Status: Former smoker Past Alcohol Use History: Daily, Occasional Past Drug Use History: None Reported, Marijuana - Past Family History Mother Family Medical History: No Reported History General Exam - General Exam Comments Initial Comments: GENERAL: Patient is well-developed and well-nourished. Patient is nontoxic and well- hydrated and is in mild distress. ENT: Neck is soft and supple. No significant lymphadenopathy is noted. Oropharynx is clear. Moist mucous membranes. Neck has full range of motion without eliciting any pain. EYES: The sclera were anicteric and conjunctiva were pink and moist. Extraocular movements were intact and pupils were equal round and reactive to light. Eyelids were unremarkable. PULMONARY: Unlabored respirations. Good breath sounds bilaterally. No audible rales rhonchi or wheezing was noted. CARDIOVASCULAR: There is a regular rate and rhythm without any murmurs gallops or rubs. ABDOMEN: Soft and nontender with normal bowel sounds. SKIN: Skin is clear with no lesions or rashes and otherwise unremarkable. NEUROLOGIC: Patient is alert and oriented x3. Cranial nerves II through XII are grossly intact. Motor and sensory are also intact. Normal speech, volume and content. Symmetrical smile. MUSCULOSKELETAL: Normal extremities with adequate strength and full range of motion. Patient has a stage I bedsore on his lumbosacral region LYMPHATICS: No significant lymphadenopathy is noted PSYCHIATRIC: Normal psychiatric evaluation. Limitations: no limitations Course Vital Signs 06/19/23 06/19/23 11:14 12:25 Temperature 97.9 F Pulse Rate 60 66 Respiratory 18 18 Rate Blood Pressure 96/67 115/77 O2 Sat by Pulse 98 99 Oximetry Medical Decision Making - Medical Decision Making EKG is interpreted by myself. EKG shows a sinus rhythm at 62 bpm MN 141 QRS is 122 QT interval 447 QTc is 453. Patient's EKG shows no ST segment elevation. Was pt. sent in by a medical professional or institution (, PA, ORGANIZATIONAL PSYCHOLOGIST, urgent care, hospital, or fci...) When possible be specific @ -No Did you speak to anyone other than the patient for history (EMS, parent, family, police, friend...)? What history was obtained from this source @ -No Did you review nursing and triage notes (agree or disagree)? Why? @ -I reviewed and agree with nursing and triage notes Were old charts reviewed (outside hosp., previous admission, EMS record, old EKG, old radiological studies, urgent care reports/EKG's, fci records)? Report findings @ -I compared to prior labs done in prior admissions. Patient sodium potassium calcium and magnesium are all low in comparison. Differential Diagnosis (chest pain, altered mental status, abdominal pain women, abdominal pain men, vaginal bleeding, weakness, fever, dyspnea, syncope, headache, dizziness, GI bleed, back pain, seizure, CVA, palpatations, mental h ealth, musculoskeletal)? @ -Differential Weakness: Hypoglycemia, shock, sepsis, hyponatremia, anemia, infection, VA, ETOH, adverse medicine reaction, overdose, stroke, this is not meant to be an all-inclusive list. EKG interpreted by me (3pts min.). @ -As above X-rays interpreted by me (1pt min.). @ -X-ray of the knee shows a small effusion CT interpreted by me (1pt min.). @ -None done U/S interpreted by me (1pt. min.). @ -None done What testing was considered but not performed or refused? (CT, X-rays, U/S, labs)? Why? @ -None What meds were considered but not given or refused? Why? @ -None Did you discuss the management of the patient with other professionals (professionals i.e. , PA, ORGANIZATIONAL PSYCHOLOGIST, lab, RT, psych nurse, social worker clinical, superintendent quarry, teacher, collection officer, case loader operator)? Give summary @ -I spoke with Dr. Schumacher agreed to admit the patient Was smoking cessation discussed for >3mins.? @ -No Was critical care preformed (if so, how long)? @ -No Were there social determinants of health that impacted care today? How? (Homelessness, low income, unemployed, alcoholism, drug addiction, transportation, low edu. Level, literacy, decrease access to med. care, senior care, rehab)? @ -No Was there de-escalation of care discussed even if they declined (Discuss DNR or withdrawal of care, Hospice)? DNR status @ -No What co-morbidities impacted this encounter? (DM, HTN, Smoking, COPD, CAD, Cance r, CVA, ARF, Chemo, Hep., AIDS, mental health diagnosis, sleep apnea, morbid obesity)? @ -None Was patient admitted / discharged? Hospital course, mention meds given and route, prescriptions, significant lab abnormalities, going to OR and other pertinent info. @ -Patient received a liter half-normal saline fluid on arrival. Patient also received calcium chloride magnesium sulfate 40 mEq of K-Dur. Patient was feeling better. I spoke with Dr. Schumacher agreed admit the patient I admitted the patient wrote admitting orders. Patient's lactic acid was elevated but I think is secondary to dehydration and lack of nutrition. No signs of infection were noted Undiagnosed new problem with uncertain prognosis? @ -No Drug Therapy requiring intensive monitoring for toxicity (Heparin, Nitro, Insulin, Cardizem)? @ -No Were any procedures done? @ -No Diagnosis/symptom? @ -Hyponatremia Acute, or Chronic, or Acute on Chronic? @ -Acute Uncomplicated (without systemic symptoms) or Complicated (systemic symptoms)? @ -Complicated Side effects of treatment? @ -No Exacerbation, Progression, or Severe Exacerbation? @ -No Poses a threat to life or bodily function? How? (Chest pain, USA, VA, pneumonia, PE, COPD, DKA, ARF, appy, cholecystitis, CVA, Diverticulitis, Homicidal, Suicidal, threat to staff... and all critical care pts) @ -No Diagnosis/symptom? @ -Hypokalemia Acute, or Chronic, or Acute on Chronic? @ -Acute Uncomplicated (without systemic symptoms) or Complicated (systemic symptoms)? @ -Complicated Side effects of treatment? @ -None Exacerbation, Progression, or Severe Exacerbation] @ -No Poses a threat to life or bodily function? @ -Yes this can cause arrhythmias and potential Diagnosis/symptom? @ -Hypocalcemia Acute, or Chronic, or Acute on Chronic? @ -Acute Uncomplicated (without systemic symptoms) or Complicated (systemic symptoms)? @ -Complicated Side effects of treatment? @ -None Exacerbation, Progression, or Severe Exacerbation] @ -No Poses a threat to life or bodily function? @ -Yes this can cause cardiac arrhythmias. Diagnosis/symptom? @ -Hypomagnesemia Acute, or Chronic, or Acute on Chronic? @ -Acute Uncomplicated (without systemic symptoms) or Complicated (systemic symptoms)? @ -Complicated Side effects of treatment? @ -None Exacerbation, Progression, or Severe Exacerbation] @ -No Poses a threat to life or bodily function? @ -No Diagnosis/symptom? @ -Knee effusion Acute, or Chronic, or Acute on Chronic? @ -Default Uncomplicated (without systemic symptoms) or Complicated (systemic symptoms)? @ -Acute uncomplicated Side effects of treatment? @ -None Exacerbation, Progression, or Severe Exacerbation] @ -No Poses a threat to life or bodily function? @ -No - Lab Data Result diagrams: 06/19/23 12:11 06/19/23 13:16 Lab Results 06/19/23 06/19/23 06/19/23 Range/Units 12:11 12:11 12:11 WBC 7.8 (3.8-10.6) k/uL RBC 3.52 L (4.30-5.90) m/uL Hgb 10.4 L (13.0-17.5) gm/dL Hct 31.6 L (39.0-53.0) % MCV 89.8 (80.0-100.0) fL MCH 29.5 (25.0-35.0) pg MCHC 32.8 (31.0-37.0) g/dL RDW 14.1 (11.5-15.5) % Plt Count 539 H (150-450) k/uL MPV 7.4 Neutrophils % 75 % Lymphocytes % 17 % Monocytes % 5 % Eosinophils % 1 % Basophils % 0 % Neutrophils # 5.9 (1.3-7.7) k/uL Lymphocytes # 1.3 (1.0-4.8) k/uL Monocytes # 0.4 (0-1.0) k/uL Eosinophils # 0.1 (0-0.7) k/uL Basophils # 0.0 (0-0.2) k/uL Sodium 122 L (137-145) mmol/L Potassium 2.9 L (3.5-5.1) mmol/L Chloride 80 L (98-107) mmol/L Carbon Dioxide 31 H (22-30) mmol/L Anion Gap 11 mmol/L BUN 15 (9-20) mg/dL Creatinine 0.47 L (0.66-1.25) mg/dL Est GFR (CKD-EPI)AfAm >90 (>60 ml/min/1.73 sqM) Est GFR (CKD-EPI)NonAf >90 (>60 ml/min/1.73 sqM) Glucose 114 H (74-99) mg/dL Plasma Lactic Acid Robin (0.7-2.0) mmol/L Calcium 6.2 L* (8.4-10.2) mg/dL Magnesium 0.5 L* (1.6-2.3) mg/dL Total Bilirubin 0.7 (0.2-1.3) mg/dL AST 59 (17-59) U/L ALT 7 (4-49) U/L Alkaline Phosphatase 104 (38-126) U/L Total Protein 5.7 L (6.3-8.2) g/dL Albumin 2.9 L (3.5-5.0) g/dL Urine Color Yellow Urine Appearance Clear (Clear) Urine pH 6.5 (5.0-8.0) Ur Specific [place] 1.010 (1.001-1.035) Urine Protein Negative (Negative) Urine Glucose (UA) Negative (Negative) Urine Ketones Negative (Negative) Urine Blood Negative (Negative) Urine Nitrite Negative (Negative) Urine Bilirubin Negative (Negative) Urine Urobilinogen 2.0 (<2.0) mg/dL Ur Leukocyte Esterase Negative (Negative) 06/19/23 06/19/23 Range/Units 12:21 13:16 WBC (3.8-10.6) k/uL RBC (4.30-5.90) m/uL Hgb (13.0-17.5) gm/dL Hct (39.0-53.0) % MCV (80.0-100.0) fL MCH (25.0-35.0) pg MCHC (31.0-37.0) g/dL RDW (11.5-15.5) % Plt Count (150-450) k/uL MPV Neutrophils % % Lymphocytes % % Monocytes % % Eosinophils % % Basophils % % Neutrophils # (1.3-7.7) k/uL Lymphocytes # (1.0-4.8) k/uL Monocytes # (0-1.0) k/uL Eosinophils # (0-0.7) k/uL Basophils # (0-0.2) k/uL Sodium 123 L (137-145) mmol/L Potassium 2.7 L* (3.5-5.1) mmol/L Chloride 82 L (98-107) mmol/L Carbon Dioxide 33 H (22-30) mmol/L Anion Gap 8 mmol/L BUN 13 (9-20) mg/dL Creatinine 0.50 L (0.66-1.25) mg/dL Est GFR (CKD-EPI)AfAm >90 (>60 ml/min/1.73 sqM) Est GFR (CKD-EPI)NonAf >90 (>60 ml/min/1.73 sqM) Glucose 99 (74-99) mg/dL Plasma Lactic Acid Robin 4.7 H* (0.7-2.0) mmol/L Calcium 5.8 L* (8.4-10.2) mg/dL Magnesium (1.6-2.3) mg/dL Total Bilirubin 0.5 (0.2-1.3) mg/dL AST 51 (17-59) U/L ALT 7 (4-49) U/L Alkaline Phosphatase 93 (38-126) U/L Total Protein 4.9 L (6.3-8.2) g/dL Albumin 2.4 L (3.5-5.0) g/dL Urine Color Urine Appearance (Clear) Urine pH (5.0-8.0) Ur Specific [place] (1.001-1.035) Urine Protein (Negative) Urine Glucose (UA) (Negative) Urine Ketones (Negative) Urine Blood (Negative) Urine Nitrite (Negative) Urine Bilirubin (Negative) Urine Urobilinogen (<2.0) mg/dL Ur Leukocyte Esterase (Negative) Disposition Clinical Impression: Hypokalemia, Hyponatremia, Hypomagnesemia, Hypocalcemia, Lactic acidosis, Knee effusion Disposition: ADMITTED IP TO THIS HOSP Referrals: Álvaro Ontivreos MD [Primary Care Provider] - 1-2 days Time of Disposition: 13:54
[2023-06-19] MEDS: SODIUM CHLORIDE 0.9% 1,000 ML IV ONE ×2 (12:22→14:29)
[2023-06-19] MEDS: SODIUM CHLORIDE 0.9% 500 ML 500 ML IV ONE (12:22)
[2023-06-19 12:23] LABS: Appearance,Urine Clear (Clear); Basophils % (A) 0 %; Bilirubin,Urine Negative (Negative); Blood,Urine Negative (Negative); Color,Urine Yellow; Eosinophils # (A) 0.1 k/uL (0-0.7); Eosinophils % (A) 1 %; Glucose,Urine (UA) Negative (Negative); HCT 31.6 % (39.0-53.0); HGB 10.4 gm/dL (13.0-17.5); Ketones,Urine Negative (Negative); Leukocyte Esterase,Urine Negative (Negative); Lymphocytes # (A) 1.3 k/uL (1.0-4.8); Lymphocytes % (A) 17 %; MCH 29.5 pg (25.0-35.0); MCHC 32.8 g/dL (31.0-37.0); MCV 89.8 fL (80.0-100.0); Mean Platelet Volume 7.4; Monocytes # (A) 0.4 k/uL (0-1.0); Monocytes % (A) 5 %; Neutrophils # (A) 5.9 k/uL (1.3-7.7); Neutrophils % (A) 75 %; Nitrite,Urine Negative (Negative); PH, Urine 6.5 (5.0-8.0); Platelet Count 539 k/uL (150-450); Protein,Urine Negative (Negative); RBC 3.52 m/uL (4.30-5.90); RDW 14.1 % (11.5-15.5); WBC 7.8 k/uL (3.8-10.6)
[2023-06-19] MEDS: HYDROmorphone 0.5 MG/0.5 ML SYRINGE IVP STA (12:23)
[2023-06-19] MEDS: KETOROLAC 15 MG/ML 1 ML VIAL IVP STA (12:23)
[2023-06-19 12:31] LABS: ALT 7 U/L (4-49); AST 59 U/L (17-59); African American GFR (CKD) >90 (>60 ml/min/1.73 sqM); Albumin 2.9 g/dL (3.5-5.0); Alkaline Phosphatase 104 U/L (38-126); Anion Gap 11 mmol/L; Blood Urea Nitrogen 15 mg/dL (9-20); Carbon Dioxide 31 mmol/L (22-30); Chloride 80 mmol/L (98-107); Glucose 114 mg/dL (74-99); Non-African American GFR(CKD) >90 (>60 ml/min/1.73 sqM); Potassium 2.9 mmol/L (3.5-5.1); Sodium 122 mmol/L (137-145); Total Bilirubin 0.7 mg/dL (0.2-1.3); Total Protein 5.7 g/dL (6.3-8.2)
[2023-06-19 12:32] LABS: Calcium 6.2 mg/dL (8.4-10.2); Magnesium 0.5 mg/dL (1.6-2.3)
[2023-06-19] MEDS ORDERED: FUROSEMIDE 10 MG/ML 4 ML VIAL IV SCH (12:45)
--- NOTE | 2023-06-19 12:48 | XR ---
EXAMINATION TYPE: XR knee complete RT DATE OF EXAM: 06/19/2023 COMPARISON: NONE HISTORY: 72-year-old male with twisting injury, trauma, pain TECHNIQUE: 3 views FINDINGS: Small knee joint effusion. Extensor mechanism is intact. Mild vascular calcifications in th e popliteal artery. No acute fracture, subluxation, dislocation. IMPRESSION: No acute osseous abnormality seen. Small knee joint effusion is nonspecific. If pain persists, mri ca n be considered.
[2023-06-19 13:25] LABS: ALT 7 U/L (4-49); AST 51 U/L (17-59); African American GFR (CKD) >90 (>60 ml/min/1.73 sqM); Albumin 2.4 g/dL (3.5-5.0); Alkaline Phosphatase 93 U/L (38-126); Anion Gap 8 mmol/L; Blood Urea Nitrogen 13 mg/dL (9-20); Carbon Dioxide 33 mmol/L (22-30); Chloride 82 mmol/L (98-107); Glucose 99 mg/dL (74-99); Non-African American GFR(CKD) >90 (>60 ml/min/1.73 sqM); Sodium 123 mmol/L (137-145); Total Bilirubin 0.5 mg/dL (0.2-1.3); Total Protein 4.9 g/dL (6.3-8.2)
[2023-06-19 13:38] LABS: Calcium 5.8 mg/dL (8.4-10.2); Potassium 2.7 mmol/L (3.5-5.1)
[2023-06-19] MEDS: CALCIUM CHLORIDE 100 MG/ML 10 ML SYRINGE IVP STA (14:23)
[2023-06-19] MEDS: MAGNESIUM SULFATE-D5W PMX 1 GM in DEXTROSE/WATER 1 100ML.BAG IVPB SCH (14:28)
[2023-06-19] MEDS: POTASSIUM CHLORIDE ER 20 MEQ TAB.ER PO STA (14:28)
[2023-06-19] MEDS ORDERED: ALBUTEROL HFA INHALER INHALATION PRN (15:58)
[2023-06-19] MEDS: CARBIDOPA-LEVODOPA ER 50-200MG 1 EACH TABLET.ER PO SCH (17:18)
[2023-06-19] MEDS: ENOXAPARIN 40 MG/0.4 ML SYRINGE SQ SCH (17:20)
[2023-06-19] MEDS ORDERED: NITROGLYCERIN OINT 1 INCH/GM PACKET TOPICAL SCH (18:00)
[2023-06-19] MEDS: PROPRANOLOL 40 MG TAB PO SCH (23:10)
[2023-06-20 04:13] LABS: African American GFR (CKD) >90 (>60 ml/min/1.73 sqM); Anion Gap 5 mmol/L; Blood Urea Nitrogen 12 mg/dL (9-20); Calcium 6.7 mg/dL (8.4-10.2); Carbon Dioxide 28 mmol/L (22-30); Chloride 90 mmol/L (98-107); Glucose 117 mg/dL (74-99); Magnesium 1.1 mg/dL (1.6-2.3); Non-African American GFR(CKD) >90 (>60 ml/min/1.73 sqM); Sodium 123 mmol/L (137-145)
[2023-06-20 07:05] LABS: T4, Free (Free Thyroxine) 1.92 ng/dL (0.78-2.19)
[2023-06-20] MEDS: PANTOPRAZOLE 40 MG TABLET PO SCH (07:42)
[2023-06-20] MEDS: LEVOTHYROXINE 75 MCG TAB PO SCH (08:24)
[2023-06-20] MEDS: NAPROXEN 250 MG TAB PO STA (13:17)
[2023-06-20] MEDS: POTASSIUM CHLORIDE ER 20 MEQ TAB.ER PO STA (13:17)
[2023-06-20] MEDS: DICLOFENAC SODIUM GEL 50 GM TUBE TOPICAL SCH (13:18)
--- NOTE | 2023-06-20 15:42 | P.HPIM ---
History of Present Illness H&P Date: 06/20/23 Chief Complaint: Weakness This is a 72-year-old patient, follows with visiting physician Dr. Ontiveros. Chronic stable medical condition include COPD, hypertension, hypothyroid, prior back surgery, anxiety. Patient presents following that he has had arthritis for quite some time. He developed increasing pain in the right knee and was also became swollen. Also has some pain in the left knee. To the point he was able to get up as result not able to eat. He was able to drink water. Steele tired. In the ER was found of significant electrolyte abnormalities. Denies any fever and chills. Review of systems: GEN.: Tired, decreased appetite EYES: None HEENT: None NECK: None RESPIRATORY: None CARDIOVASCULAR: None GASTROINTESTINAL: None GENITOURINARY: None MUSCULOSKELETAL: As above e LYMPHATICS: None HEMATOLOGICAL: None PSYCHIATRY: None NEUROLOGICAL: None Social history: Smoked a pack a day for about 50 years stopped 3 years ago. Does use a cane occasionally. Lives alone. Used to work as a mery Physical examination: VITAL SIGNS: 97.9, 60, 18, 96/67, 98% room air upon presentation GENERAL: BMI 21.3, laying in bed awake tired. EYES: Pupils equal. Conjunctiva rolando l. HEENT: External appearance of nose and ears normal, oral cavity grossly normal. NECK: JVD not raised; masses not palpable. HEART: First and second heart sounds are normal; no edema. LUNGS: Respiratory rate normal; decreased breath sounds. ABDOMEN: Soft, nontender, liver spleen not palpable, no masses palpable. PSYCH: Alert and oriented x3; mood and affect rolando l. MUSCULOSKELETAL:No Clubbing/cyanosis;muscles-grossly intact. Loss of muscle mass. Loss of subcutaneous fat. Prominent bones. Evidence significant OA specially both knees. Right greater than left some swelling NEUROLOGICAL: Cranial nerves grossly intact; no facial asymmetry, power and sensation grossly intact. LYMPHATICS: No lymph nodes palpable in the axilla and neck INVESTIGATIONS, reviewed in the clinical context: June 20, 2023: Sodium 123 potassium 3 BUN 12 creatinine 0.54 glucose 117 calcium 6.7 magnesium 1.1 TSH 9.8 Free T41.92 June 19, 2023: White count 7.8 hemoglobin 10.4 platelets 539 sodium 122 potassium 2.9 BUN 15 creatinine 0.47 calcium 6.2 magnesium 0.5 albumin 2.9 UA: Negative EKG tracing personally reviewed by me-normal sinus rhythm. Poor baseline. Some ST-T wave changes. Assessment plan: -Severe hyponatremia. Likely hypoosmolar. Patient is barely eating but is dr inking a lot of fluids. He is not able to get to food. Because of weakness in the legs Fluid restrict 1500 cc a day. Avoid free fluid like tea coffee water. Patient can have chicken broth juices etc. Follow serum sodium, serum osmolality, urine sodium - -Moderate protein calorie malnutrition Ensure prescribed. Consult dietitian -Acute flareup of osteoarthritis specially of the right knee. Right greater than left Diclofenac sodium gel cream topically 4 times a day. Naproxen 250 mg [address] Cornell -Severe hypokalemia Replace potassium -Severe hypomagnesemia Replace magnesium -Hypothyroid, patient clinically appears to be over replaced Will hold Synthroid for now. Check TSH/free T4 -Primary osteoarthritis multiple joints Naproxen -COPD in a previous smoker Albuterol as needed. Trelegy -Parkinson's disease Sinemet -Full code Care was discussed with the patient. Given the complexity and severity of patient's condition expect the patient to be in the hospital at least for 2 overnights Past Medical History Past Medical History: COPD, Hypertension, Thyroid Disorder Additional Past Medical History / Comment(s): engarged right ventricle History of Any Multi-Drug Resistant Organisms: None Reported Past Surgical History: Back Surgery Additional Past Surgical History / Comment(s): back surgery x3, thyroid removed Past Anesthesia/Blood Transfusion Reactions: No Reported Reaction Past Psychological History: No Psychological Hx Reported, Anxiety Smoking Status: Former smoker Past Alcohol Use History: Daily, Occasional Past Drug Use History: None Reported, Marijuana - Past Family History Mother Family Medical History: No Reported History Medications and Allergies Home Medications Medication Instructions Recorded Confirmed Type Albuterol Inhaler [Ventolin Hfa 2 puff INHALATION RT-QID PRN 10/11/22 06/19/23 History Inhaler] Carbidopa-Levodopa ER 50-200Mg 1 tab PO TID 10/11/22 06/19/23 History [Sinemet CR 50-200 mg] Fluticasone/Umeclidin/Vilanter 1 puff INHALATION RT-DAILY@1400 10/11/22 06/19/23 History [Trelegy Ellipta 200-62.5-25] Levothyroxine Sodium 150 mcg PO DAILY 10/11/22 06/19/23 History Omeprazole [PriLOSEC] 20 mg PO DAILY 06/19/23 06/19/23 History Propranolol [Inderal] 40 mg PO BID 06/19/23 06/19/23 History Allergies Allergy/AdvReac Type Severity Reaction Status Date / Time No Known Allergies Allergy Verified 06/19/23 13:34 Physical Exam Vitals: Vital Signs Temp Pulse Resp BP Pulse Ox 06/20/23 07:30 72 20 115/65 95 06/20/23 06:21 61 16 105/62 95 06/20/23 04:00 64 18 108/68 96 06/19/23 23:00 64 18 109/67 97 06/19/23 20:42 65 18 117/61 97 06/19/23 19:09 61 18 111/58 98 06/19/23 18:05 61 18 98/56 97 06/19/23 17:17 60 18 101/55 97 06/19/23 15:29 71 18 111/61 98 06/19/23 14:22 97.6 F 58 L 18 117/69 98 06/19/23 12:25 66 18 115/77 99 06/19/23 11:14 97.9 F 60 18 96/67 98 Results CBC & Chem 7: 06/19/23 12:11 06/20/23 03:35 Labs: Abnormal Lab Results - Last 24 Hours (Table) 06/19/23 06/19/23 06/19/23 Range/Units 12:11 12:11 12:21 RBC 3.52 L (4.30-5.90) m/uL Hgb 10.4 L (13.0-17.5) gm/dL Hct 31.6 L (39.0-53.0) % Plt Count 539 H (150-450) k/uL Sodium 122 L (137-145) mmol/L Potassium 2.9 L (3.5-5.1) mmol/L Chloride 80 L (98-107) mmol/L Carbon Dioxide 31 H (22-30) mmol/L Creatinine 0.47 L (0.66-1.25) mg/dL Glucose 114 H (74-99) mg/dL Plasma Lactic Acid Robin 4.7 H* (0.7-2.0) mmol/L Calcium 6.2 L* (8.4-10.2) mg/dL Magnesium 0.5 L* (1.6-2.3) mg/dL Total Protein 5.7 L (6.3-8.2) g/dL Albumin 2.9 L (3.5-5.0) g/dL TSH (0.465-4.680) mIU/L 06/19/23 06/19/23 06/19/23 Range/Units 13:16 15:51 19:01 RBC (4.30-5.90) m/uL Hgb (13.0-17.5) gm/dL Hct (39.0-53.0) % Plt Count (150-450) k/uL Sodium 123 L (137-145) mmol/L Potassium 2.7 L* (3.5-5.1) mmol/L Chloride 82 L (98-107) mmol/L Carbon Dioxide 33 H (22-30) mmol/L Creatinine 0.50 L (0.66-1.25) mg/dL Glucose (74-99) mg/dL Plasma Lactic Acid Robin 2.1 H* 2.5 H* (0.7-2.0) mmol/L Calcium 5.8 L* (8.4-10.2) mg/dL Magnesium (1.6-2.3) mg/dL Total Protein 4.9 L (6.3-8.2) g/dL Albumin 2.4 L (3.5-5.0) g/dL TSH (0.465-4.680) mIU/L 06/19/23 06/20/23 06/20/23 Range/Units 21:37 00:24 03:35 RBC (4.30-5.90) m/uL Hgb (13.0-17.5) gm/dL Hct (39.0-53.0) % Plt Count (150-450) k/uL Sodium 123 L (137-145) mmol/L Potassium 3.0 L (3.5-5.1) mmol/L Chloride 90 L (98-107) mmol/L Carbon Dioxide (22-30) mmol/L Creatinine 0.54 L (0.66-1.25) mg/dL Glucose 117 H (74-99) mg/dL Plasma Lactic Acid Robin 2.1 H* 2.5 H* (0.7-2.0) mmol/L Calcium 6.7 L (8.4-10.2) mg/dL Magnesium 1.1 L (1.6-2.3) mg/dL Total Protein (6.3-8.2) g/dL Albumin (3.5-5.0) g/dL TSH 9.800 H (0.465-4.680) mIU/L 06/20/23 06/20/23 Range/Units 03:35 09:40 RBC (4.30-5.90) m/uL Hgb (13.0-17.5) gm/dL Hct (39.0-53.0) % Plt Count (150-450) k/uL Sodium (137-145) mmol/L Potassium (3.5-5.1) mmol/L Chloride (98-107) mmol/L Carbon Dioxide (22-30) mmol/L Creatinine (0.66-1.25) mg/dL Glucose (74-99) mg/dL Plasma Lactic Acid Robin 2.4 H* 2.1 H* (0.7-2.0) mmol/L Calcium (8.4-10.2) mg/dL Magnesium (1.6-2.3) mg/dL Total Protein (6.3-8.2) g/dL Albumin (3.5-5.0) g/dL TSH (0.465-4.680) mIU/L
[2023-06-20] MEDS: MAGNESIUM OXIDE 400 MG TAB PO SCH (17:45)
[2023-06-20] MEDS: NAPROXEN 250 MG TAB PO SCH (17:46)
[2023-06-20] MEDS: SODIUM CHLORIDE 0.9% 1,000 ML IV SCH (17:48)
--- NOTE | 2023-06-20 17:58 | XR ---
EXAMINATION TYPE: XR chest 2V DATE OF EXAM: 06/20/2023 5:36 PM CLINICAL INDICATION:Male, 72 years old with history of copd; [facility] COMPARISON: Chest radiographs from 06/20/2023 TECHNIQUE: XR chest 2V Frontal and lateral views of the chest. FINDINGS: Lungs/Pleura: There is flattening of the diaphragm with increased lucency of the lungs. No evidence o f pneumothorax, pleural effusion or focal consolidation. Pulmonary vascularity: Unremarkable. Heart/mediastinum: Cardiomediastinal silhouette is unremarkable. Musculoskeletal: No acute osseous pathology. IMPRESSION: 1. No acute cardiopulmonary disease process. 2. COPD changes.
--- NOTE | 2023-06-21 12:02 | P.CNOR ---
History of Present Illness - [facility] Consult date: 06/21/23 Requesting physician: Isiah Schumacher Consult reason: other (Right knee pain) History of present illness: Patient is a 72-year-old male who presents to the emergency department by EMS due to weakness and ongoing right knee pain. Patient does have a past medical history significant for COPD, hypertension, hypothyroidism, previous back surgery, anxiety. This was consulted due to right knee pain. Patient was seen at bedside this morning on 3 S. lying in bed in the semirecumbent position. Patient state about 10 days ago he fell at home believes he twisted his right knee. Patient says after that he did develop increased swelling and pain to the right knee. Patient says normally he ambulates independently or with the use of a cane sometimes depending on the day. Patient states he has had 3 previous back surgeries about 30 years ago. Patient denies any previous knee surgeries. Patient states he also does have neuropathy in the lower extremities. Patient denies being a diabetic. He says the knees will bother him sometimes and the pain comes and goes depending on the level of activity he does or the weather. Patient states since coming to the hospital the swelling in the right knee has gone down significantly. Patient says he is able to flex and extend the right knee without pain. Patient says normally for the pain he may take [id number] medications such as Tylenol or Motrin. Patient also states he does have a history of gout and states the last big flareup was about 4 or 5 years ago. He states he usually gets gout in his big toe. Patient denies any chest pain, fever, shortness of breath, nausea, vomiting, change in vision, loss of bowel/bladder control. Past Medical History Past Medical History: COPD, Hypertension, Thyroid Disorder Additional Past Medical History / Comment(s): engarged right ventricle History of Any Multi-Drug Resistant Organisms: None Reported Past Surgical History: Back Surgery Additional Past Surgical History / Comment(s): back surgery x3, thyroid removed Past Anesthesia/Blood Transfusion Reactions: No Reported Reaction Past Psychological History: No Psychological Hx Reported, Anxiety Smoking Status: Former smoker Past Alcohol Use History: Daily, Occasional Past Drug Use History: None Reported, Marijuana - Past Family History Mother Family Medical History: No Reported History Medications and Allergies Home Medications Medication Instructions Recorded Confirmed Type Albuterol Inhaler [Ventolin Hfa 2 puff INHALATION RT-QID PRN 10/11/22 06/19/23 History Inhaler] Carbidopa-Levodopa ER 50-200Mg 1 tab PO TID 10/11/22 06/19/23 History [Sinemet CR 50-200 mg] Fluticasone/Umeclidin/Vilanter 1 puff INHALATION RT-DAILY@1400 10/11/22 06/19/23 History [Trelegy Ellipta 200-62.5-25] Levothyroxine Sodium 150 mcg PO DAILY 10/11/22 06/19/23 History Omeprazole [PriLOSEC] 20 mg PO DAILY 06/19/23 06/19/23 History Propranolol [Inderal] 40 mg PO BID 06/19/23 06/19/23 History Allergies Allergy/AdvReac Type Severity Reaction Status Date / Time No Known Allergies Allergy Verified 06/19/23 13:34 Physical Examination Inspection: [place] bandage present just distal to the right knee. Negative for any open fractures or erythema or ecchymosis. Minimal swelling to the bilateral knees suprapatellar compartments. Sensation: Equal, symmetric, bilateral intact throughout the upper and lower extremities Palpation: Nontender to palpation throughout medial, lateral, patellofemoral areas in the bilateral knees. Range of motion: Patient is able to actively flex bilateral knees to about 115 degrees without pain and lacks about 5 degrees full extension without pain. Motor: 4/5 in all major motor groups in bilateral lower extremities Neurovascular: Radial pulse intact, 2+ bilaterally. Cap refill under 3 seconds in digits of upper extremities. Special test: Negative anterior drawer bilaterally; valgus and varus stress test negative bilaterally. Negative Homans bilaterally. Results - Labs Labs: Abnormal Lab Results - Last 24 Hours (Table) 06/20/23 Range/Units 09:40 Plasma Lactic Acid Robin 2.1 H* (0.7-2.0) mmol/L H & H 06/19/23 Range/Units 12:11 Hgb 10.4 L (13.0-17.5) gm/dL Hct 31.6 L (39.0-53.0) % Result Diagrams: 06/19/23 12:11 06/20/23 03:35 - Diagnostic results Knee x-ray: report reviewed, image reviewed (X-ray of the right knee positive for fair amount of medial compartment osteoarthritis. Positive for some mild patellofemoral joint osteoarthrosis. Negative for any fractures or dislocations.) Assessment and Plan Assessment: 1. Right knee osteoarthritis Plan: 1. Right knee osteoarthritis - X-ray of the right knee positive for fair amount of medial compartment osteoarthritis. Positive for some mild patellofemoral joint osteoarthritis. Negative for any fractures or dislocations. Patient swelling has improved since coming to the hospital. Patient does not have any pain throughout flexion extension of the bilateral knees. At this time we are not recommending any orthopedic surgical intervention. We recommend conservative measures with the use of ice and pain medication. Patient may apply Voltaren gel over the right knee joint daily. If patient continues to have flareups of knee pain he may follow-up in the outpatient setting with Dr. Ruiz for continued care. 2. Appreciate medical management 3. Pain management - voalaren topical 4. DVT prophylaxis - lovenox 5. GI prophylaxis - protonix 6. PT/OT -weightbearing as tolerated with walker and assistance as needed 7. Encourage incentive spirometer use 8. Appreciate consult Time with Patient: Less than 30
[2023-06-21 12:43] LABS: African American GFR (CKD) >90 (>60 ml/min/1.73 sqM); Anion Gap 4 mmol/L; Blood Urea Nitrogen 7 mg/dL (9-20); Calcium 6.9 mg/dL (8.4-10.2); Carbon Dioxide 29 mmol/L (22-30); Chloride 94 mmol/L (98-107); Glucose 105 mg/dL (74-99); Non-African American GFR(CKD) >90 (>60 ml/min/1.73 sqM); Potassium 3.4 mmol/L (3.5-5.1); Sodium 127 mmol/L (137-145)
[2023-06-21 13:14] LABS: Magnesium 0.9 mg/dL (1.6-2.3)
--- NOTE | 2023-06-21 14:53 | P.PN ---
Progress Note - Text Progress Note Date: 06/21/23 Chief Complaint: Weakness This is a 72-year-old patient, follows with visiting physician Dr. Ontiverso. Chronic stable medical condition include COPD, hypertension, hypothyroid, prior back surgery, anxiety. Patient presents following that he has had arthritis for quite some time. He developed increasing pain in the right knee and was also became swollen. Also has some pain in the left knee. To the point he was able to get up as result not able to eat. He was able to drink water. [place] tired. In the ER was found of significant electrolyte abnormalities. Denies any fever and chills. June 20: Admitted with multiple electrolyte abnormalities. Right knee acute OA flareup. Right knee pain is much better. Eating well. Fluid restriction. Has caregivers coming him to help him in the hospital. Active Medications Albuterol Sulfate (Albuterol Hfa Inhaler) 2 puff INHALATION RT-QID PRN PRN Reason: Shortness Of Breath Carbidopa/Levodopa (Carbidopa-Levodopa Er 50-200mg 1 Each Tablet.Er) 1 each PO TID [facility] Last Admin: 06/21/23 08:36 Dose: 1 each Diclofenac Sodium (Diclofenac Sodium Gel 50 Gm Tube) 4 gm TOPICAL QID [facility]; Protocol Last Admin: 06/21/23 12:34 Dose: Not Given Enoxaparin Sodium (Enoxaparin 40 Mg/0.4 Ml Syringe) 40 mg SQ DAILY [facility] Last Admin: 06/21/23 08:38 Dose: Not Given Sodium Chloride (Saline 0.9%) 1,000 mls @ 130 mls/hr IV .[id number] [facility] Last Admin: 06/21/23 04:22 Dose: 130 mls/hr Magnesium Oxide (Magnesium Oxide 400 Mg Tab) 200 mg PO TID [facility] Last Admin: 06/21/23 08:37 Dose: 200 mg Naproxen (Naproxen 250 Mg Tab) 250 mg PO TID [facility] Last Admin: 06/21/23 08:38 Dose: Not Given Pantoprazole Sodium (Pantoprazole 40 Mg Tablet) 40 mg PO DAILY@0730 [facility] Last Admin: 06/21/23 04:22 Dose: 40 mg Propranolol HCl (Propranolol 40 Mg Tab) 40 mg PO BID [facility] Last Admin: 06/21/23 08:37 Dose: 40 mg Social history: Smoked a pack a day for about 50 years stopped 3 years ago. Does use a cane occasionally. Lives alone. Used to work as a mery Physical examination: VITAL SIGNS: 60, 18, 132 x 74, 96% room air GENERAL: Reclining in bed, more perky EYES: Pupils equal. Conjunctiva rolando l. HEENT: External appearance of nose and ears normal, oral cavity grossly normal. NECK: JVD not raised; masses not palpable. HEART: First and second heart sounds are normal; no edema. LUNGS: Respiratory rate normal; decreased breath sounds. ABDOMEN: Soft, nontender, liver spleen not palpable, no masses palpable. PSYCH: Alert and oriented x3; mood and affect rolando l. MUSCULOSKELETAL:No Clubbing/cyanosis;muscles-grossly intact. Loss of muscle mass. Loss of subcutaneous fat. Prominent bones. Evidence significant OA specially both knees. Right greater than left some swelling NEUROLOGICAL: Cranial nerves grossly intact; no facial asymmetry, power and sensation grossly intact. INVESTIGATIONS, reviewed in the clinical context: June 21, 2023: Sodium 127 potassium 3.4 BUN 7 creatinine 0.39 calcium 6.9 magnesium 0.9 H11.1 June 20, 2023: Sodium 123 potassium 3 BUN 12 creatinine 0.54 glucose 117 calcium 6.7 magnesium 1.1 TSH 9.8 Free T41.92 June 19, 2023: White count 7.8 hemoglobin 10.4 platelets 539 sodium 122 potassium 2.9 BUN 15 creatinine 0.47 calcium 6.2 magnesium 0.5 albumin 2.9 UA: Negative EKG tracing personally reviewed by me-normal sinus rhythm. Poor baseline. Some ST-T wave changes. Assessment plan: -Severe hyponatremia. Likely hypoosmolar. Patient is barely eating but is drinking a lot of fluids. He is not able to get to food. Because of weakness in the legs: Slow to respond Fluid restrict 1500 cc a day. Avoid free fluid like tea coffee water. Patient can have chicken broth juices etc. Follow serum sodium, serum osmolality, urine sodium -Moderate protein calorie malnutrition Ensure prescribed. Nutrition consulted -Acute flareup of osteoarthritis specially of the right knee. Right greater than left: Better Diclofenac sodium gel cream topically 4 times a day. Naproxen 250 mg 3 times daily. Seen by Dr. Cornell-conservative management as above - hypokalemia Replace potassium -Severe hypomagnesemia: Slow to respond Increase magnesium oxide to 400 mg 3 times daily -Hypothyroid, Synthroid -Primary osteoarthritis multiple joints Naproxen -COPD in a previous smoker Albuterol as needed. Trelegy -Parkinson's disease Sinemet -Full code Reason magnesium oxide. Replace potassium. Increase activity. Past Medical History Past Medical History: COPD, Hypertension, Thyroid Disorder Additional Past Medical History / Comment(s): engarged right ventricle History of Any Multi-Drug Resistant Organisms: None Reported Past Surgical History: Back Surgery Additional Past Surgical History / Comment(s): back surgery x3, thyroid removed Past Anesthesia/Blood Transfusion Reactions: No Reported Reaction Past Psychological History: No Psychological Hx Reported, Anxiety Smoking Status: Former smoker Past Alcohol Use History: Daily, Occasional Past Drug Use History: None Reported, Marijuana
[2023-06-21 14:55] VITALS: BMI 21.2
[2023-06-21] MEDS: MAGNESIUM OXIDE 400 MG TAB PO SCH (16:44)
[2023-06-21] MEDS: POTASSIUM CHLORIDE ER 20 MEQ TAB.ER PO STA (16:44)
[2023-06-21] MEDS: CALCIUM CARB-VIT D 500 MG-5 MCG TAB PO SCH (16:45)
[2023-06-22] MEDS: LEVOTHYROXINE 75 MCG TAB PO SCH (06:29)
[2023-06-22 12:42] LABS: African American GFR (CKD) >90 (>60 ml/min/1.73 sqM); Anion Gap 4 mmol/L; Blood Urea Nitrogen 5 mg/dL (9-20); Calcium 7.7 mg/dL (8.4-10.2); Carbon Dioxide 30 mmol/L (22-30); Chloride 95 mmol/L (98-107); Glucose 108 mg/dL (74-99); Non-African American GFR(CKD) >90 (>60 ml/min/1.73 sqM); Potassium 3.9 mmol/L (3.5-5.1); Sodium 129 mmol/L (137-145)
[2023-06-22 12:55] LABS: Magnesium 0.8 mg/dL (1.6-2.3)
[2023-06-22] MEDS: MAGNESIUM SULFATE-D5W PMX 1 GM in DEXTROSE/WATER 1 100ML.BAG IVPB SCH (14:57)
--- NOTE | 2023-06-22 16:35 | P.PN ---
Progress Note - Text Progress Note Date: 06/22/23 Chief Complaint: Weakness This is a 72-year-old patient, follows with visiting physician Dr. Ontiveros. Chronic stable medical condition include COPD, hypertension, hypothyroid, prior back surgery, anxiety. Patient presents following that he has had arthritis for quite some time. He developed increasing pain in the right knee and was also became swollen. Also has some pain in the left knee. To the point he was able to get up as result not able to eat. He was able to drink water. [place] tired. In the ER was found of significant electrolyte abnormalities. Denies any fever and chills. June 20: Admitted with multiple electrolyte abnormalities. Right knee acute OA flareup. Right knee pain is much better. Eating well. Fluid restriction. Has caregivers coming him to help him in the hospital. June 21: Stat labs ordered this morning came back later this afternoon. Magnesium still low. IV magnesium ordered. Patient right knee pain is better. Pending to go down to rehab. Active Medications Albuterol Sulfate (Albuterol Hfa Inhaler) 2 puff INHALATION RT-QID PRN PRN Reason: Shortness Of Breath Calcium Carbonate (Calcium Carb-Vit D 500 Mg-5 Mcg Tab) 1 each PO BID-W/MEALS [facility] Last Admin: 06/22/23 16:16 Dose: 1 each Carbidopa/Levodopa (Carbidopa-Levodopa Er 50-200mg 1 Each Tablet.Er) 1 each PO TID [facility] Last Admin: 06/22/23 16:15 Dose: 1 each Diclofenac Sodium (Diclofenac Sodium Gel 50 Gm Tube) 4 gm TOPICAL QID [facility]; Protocol Last Admin: 06/22/23 16:23 Dose: Not Given Enoxaparin Sodium (Enoxaparin 40 Mg/0.4 Ml Syringe) 40 mg SQ DAILY [facility] Last Admin: 06/22/23 08:59 Dose: 40 mg Sodium Chloride (Saline 0.9%) 1,000 mls @ 75 mls/hr IV .[id number] [facility] Last Admin: 06/22/23 06:34 Dose: Not Given Levothyroxine Sodium (Levothyroxine 75 Mcg Tab) 150 mcg PO DAILY@0630 [facility] Last Admin: 06/22/23 06:29 Dose: 150 mcg Magnesium Oxide (Magnesium Oxide 400 Mg Tab) 400 mg PO TID [facility] Last Admin: 06/22/23 16:15 Dose: 400 mg Naproxen (Naproxen 250 Mg Tab) 250 mg PO TID [facility] Last Admin: 06/22/23 16:15 Dose: 250 mg Pantoprazole Sodium (Pantoprazole 40 Mg Tablet) 40 mg PO DAILY@0730 [facility] Last Admin: 06/22/23 06:30 Dose: 40 mg Social history: Smoked a pack a day for about 50 years stopped 3 years ago. Does use a cane occasionally. 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 Conjunctiva rolando l. HEENT: External appearance of nose and ears normal, oral cavity grossly normal. NECK: JVD not raised; masses not palpable. HEART: First and second heart sounds are normal; no edema. LUNGS: Respiratory rate normal; decreased breath sounds. ABDOMEN: Soft, nontender, liver spleen not palpable, no masses palpable. PSYCH: Alert and oriented x3; mood and affect rolando l. MUSCULOSKELETAL:No Clubbing/cyanosis;muscles-grossly intact. Loss of muscle mass. Loss of subcutaneous fat. Prominent bones. Evidence significant OA specially both knees. Right greater than left some swelling NEUROLOGICAL: Cranial nerves grossly intact; no facial asymmetry, power and sensation grossly intact. INVESTIGATIONS, reviewed in the clinical context: June 22, 2023: Sodium 129 potassium 3.9 creatinine 0.43 magnesium 0.8 June 21, 2023: Sodium 127 potassium 3.4 BUN 7 creatinine 0.39 calcium 6.9 magnesium 0.9 H11.1 June 20, 2023: Sodium 123 potassium 3 BUN 12 creatinine 0.54 glucose 117 calcium 6.7 magnesium 1.1 TSH 9.8 Free T41.92 June 19, 2023: White count 7.8 hemoglobin 10.4 platelets 539 sodium 122 potassium 2.9 BUN 15 creatinine 0.47 calcium 6.2 magnesium 0.5 albumin 2.9 UA: Negative EKG tracing personally reviewed by me-normal sinus rhythm. Poor baseline. Some ST-T wave changes. Assessment plan: -Severe hyponatremia.- hypoosmolar. Patient is barely eating but is drinking a lot of fluids. He is not able to get to food. Because of weakness in the legs: Slow improving Fluid restrict 1500 cc a day. Avoid free fluid like tea coffee water. Patient can have chicken broth juices etc. Follow serum sodium, serum osmolality, urine sodium -Moderate protein calorie malnutrition Ensure prescribed. Nutrition consulted -Acute flareup of osteoarthritis specially of the right knee. Right greater than left: Better Diclofenac sodium gel cream topically 4 times a day. Naproxen 250 mg 3 times daily. Seen by Dr. Cornell-conservative management as above - hypokalemia Replace potassium -Severe hypomagnesemia: Slow to respond magnesium oxide to 400 mg 3 times daily -Hypothyroid, Synthroid -Primary osteoarthritis multiple joints Naproxen -COPD in a previous smoker Albuterol as needed. Trelegy -Parkinson's disease Sinemet -Full code Will replace magnesium aggressively. Give IV today. Hold discharge for another day at least to get electrolytes a bit better. Specially magnesium Past Medical History Past Medical History: COPD, Hypertension, Thyroid Disorder Additional Past Medical History / Comment(s): engarged right ventricle History of Any Multi-Drug Resistant Organisms: None Reported Past Surgical History: Back Surgery Additional Past Surgical History / Comment(s): back surgery x3, thyroid removed Past Anesthesia/Blood Transfusion Reactions: No Reported Reaction Past Psychological History: No Psychological Hx Reported, Anxiety Smoking Status: Former smoker Past Alcohol Use History: Daily, Occasional Past Drug Use History: None Reported, Marijuana
[2023-06-22 21:35] VITALS: TEMP 98.1
[2023-06-23] MEDS: FUROSEMIDE 10 MG/ML 4 ML VIAL ONE (07:45)
--- NOTE | 2023-06-23 08:18 | XR ---
EXAMINATION TYPE: XR chest 1V DATE OF EXAM: 06/23/2023 7:58 AM CLINICAL INDICATION:Male, 72 years old with history of chf; COMPARISON: Chest radiographs from 06/20/2023 TECHNIQUE: XR chest 1V Frontal view of the chest. FINDINGS: Lungs/Pleura: Increased airspace opacities project over the right lung base compared to left. Promine nt interstitial lung markings are seen scattered throughout the lungs with flattening of the diaphrag m and increased lucency of the lung apices. No evidence of focal consolidation, pneumothorax or pleur al effusion. Pulmonary vascularity: Unremarkable. Heart/mediastinum: Cardiomediastinal silhouette is unremarkable. Musculoskeletal: No acute osseous pathology. IMPRESSION: 1. Increased airspace opacities project over the right lung base correlate for pneumonia. 2. Chronic interstitial changes with COPD.
[2023-06-23 11:55] LABS: African American GFR (CKD) >90 (>60 ml/min/1.73 sqM); Anion Gap 1 mmol/L; Blood Urea Nitrogen 8 mg/dL (9-20); Calcium 7.7 mg/dL (8.4-10.2); Carbon Dioxide 32 mmol/L (22-30); Chloride 97 mmol/L (98-107); Glucose 114 mg/dL (74-99); Magnesium 1.1 mg/dL (1.6-2.3); Non-African American GFR(CKD) >90 (>60 ml/min/1.73 sqM); Potassium 4.2 mmol/L (3.5-5.1); Sodium 130 mmol/L (137-145)
--- NOTE | 2023-06-23 16:42 | P.PN ---
Progress Note - Text Progress Note Date: 06/23/23 Chief Complaint: Weakness This is a 72-year-old patient, follows with visiting physician Dr. Ontiveros. Chronic stable medical condition include COPD, hypertension, hypothyroid, prior back surgery, anxiety. Patient presents following that he has had arthritis for quite some time. He developed increasing pain in the right knee and was also became swollen. Also has some pain in the left knee. To the point he was able to get up as result not able to eat. He was able to drink water. [place] tired. In the ER was found of significant electrolyte abnormalities. Denies any fever and chills. June 20: Admitted with multiple electrolyte abnormalities. Right knee acute OA flareup. Right knee pain is much better. Eating well. Fluid restriction. Has caregivers coming him to help him in the hospital. June 21: Stat labs ordered this morning came back later this afternoon. Magnesium still low. IV magnesium ordered. Patient right knee pain is better. Pending to go down to rehab. June 22: Patient this morning became rather anxious. Questionable panic attack. Given 1 dose of IV Lasix 40 mg. Placed on BiPAP. Doing better. Later in the day went back into nasal cannula. IV fluids discontinued. Supplement IV magnesium. Active Medications Albuterol Sulfate (Albuterol Hfa Inhaler) 2 puff INHALATION RT-QID PRN PRN Reason: Shortness Of Breath Calcium Carbonate (Calcium Carb-Vit D 500 Mg-5 Mcg Tab) 1 each PO BID-W/MEALS [facility] Last Admin: 06/23/23 06:36 Dose: 1 each Carbidopa/Levodopa (Carbidopa-Levodopa Er 50-200mg 1 Each Tablet.Er) 1 each PO TID [facility] Last Admin: 06/23/23 08:07 Dose: 1 each Diclofenac Sodium (Diclofenac Sodium Gel 50 Gm Tube) 4 gm TOPICAL QID [facility]; Protocol Last Admin: 06/23/23 12:19 Dose: 4 gm Enoxaparin Sodium (Enoxaparin 40 Mg/0.4 Ml Syringe) 40 mg SQ DAILY [facility] Last Admin: 06/23/23 07:45 Dose: Not Given Magnesium Sulfate/Dextrose 1 (gm/ IV Solution) 100 mls @ 100 mls/hr IVPB Q1H [facility] Stop: 06/23/23 18:44 Levothyroxine Sodium (Levothyroxine 75 Mcg Tab) 150 mcg PO DAILY@0630 [facility] Last Admin: 06/23/23 06:36 Dose: 150 mcg Magnesium Oxide (Magnesium Oxide 400 Mg Tab) 400 mg PO TID [facility] Last Admin: 06/23/23 08:07 Dose: 400 mg Naproxen (Naproxen 250 Mg Tab) 250 mg PO TID [facility] Last Admin: 06/23/23 08:06 Dose: 250 mg Pantoprazole Sodium (Pantoprazole 40 Mg Tablet) 40 mg PO DAILY@0730 [facility] Last Admin: 06/23/23 06:36 Dose: 40 mg Social history: Smoked a pack a day for about 50 years stopped 3 years ago. Does use a cane occasionally. 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 Conjunctiva rolando l. HEENT: External appearance of nose and ears normal, oral cavity grossly normal. NECK: JVD not raised; masses not palpable. HEART: First and second heart sounds are normal; no edema. LUNGS: Respiratory rate increased l; decreased breath sounds. ABDOMEN: Soft, nontender, liver spleen not palpable, no masses palpable. PSYCH: Alert and oriented x3; mood and affect rolando l. MUSCULOSKELETAL:No Clubbing/cyanosis;muscles-grossly intact. Loss of muscle mass. Loss of subcutaneous fat. Prominent bones. Evidence significant OA specially both knees. Right greater than left some swelling NEUROLOGICAL: Cranial nerves grossly intact; no facial asymmetry, power and sensation grossly intact. INVESTIGATIONS, reviewed in the clinical context: June 22, 2023: Sodium 129 potassium 3.9 creatinine 0.43 magnesium 0.8 June 21, 2023: Sodium 127 potassium 3.4 BUN 7 creatinine 0.39 calcium 6.9 magnesium 0.9 H11.1 June 20, 2023: Sodium 123 potassium 3 BUN 12 creatinine 0.54 glucose 117 calcium 6.7 magnesium 1.1 TSH 9.8 Free T41.92 June 19, 2023: White count 7.8 hemoglobin 10.4 platelets 539 sodium 122 potassium 2.9 BUN 15 creatinine 0.47 calcium 6.2 magnesium 0.5 albumin 2.9 UA: Negative EKG tracing personally reviewed by me-normal sinus rhythm. Poor baseline. Some ST-T wave changes. Assessment plan: -Severe hyponatremia.- hypoosmolar. Patient is barely eating but is drinking a lot of fluids. He is not able to get to food. Because of weakness in the legs: Improving Fluid restrict 1500 cc a day. Avoid free fluid like tea coffee water. Patient can have chicken broth juices etc. Follow serum sodium, serum osmolality, urine sodium -Moderate protein calorie malnutrition Ensure prescribed. Nutrition consulted -Acute flareup of osteoarthritis specially of the right knee. Right greater than left: Better Diclofenac sodium gel cream topically 4 times a day. Naproxen 250 mg 3 times daily. Seen by Dr. Cornell-conservative management as above - hypokalemia: Corrected Replace potassium -Severe hypomagnesemia: Slow to respond magnesium oxide to 400 mg 3 times daily IV magnesium given -Hypothyroid, Synthroid -Primary osteoarthritis multiple joints Naproxen -COPD in a previous smoker DuoNeb 4 times daily. Trelegy -Parkinson's disease Sinemet -Full code -Disposition: Rehab Patient received IV Lasix earlier today. Normal saline discontinued. IV magnesium. Plan for possible rehab tomorrow. Past Medical History Past Medical History: COPD, Hypertension, Thyroid Disorder Additional Past Medical History / Comment(s): engarged right ventricle History of Any Multi-Drug Resistant Organisms: None Reported Past Surgical History: Back Surgery Additional Past Surgical History / Comment(s): back surgery x3, thyroid removed Past Anesthesia/Blood Transfusion Reactions: No Reported Reaction Past Psychological History: No Psychological Hx Reported, Anxiety Smoking Status: Former smoker Past Alcohol Use History: Daily, Occasional Past Drug Use History: None Reported, Marijuana
[2023-06-23] MEDS: MAGNESIUM SULFATE-D5W PMX 1 GM in DEXTROSE/WATER 1 100ML.BAG IVPB SCH (17:01)
[2023-06-23] MEDS: IPRATROPIUM-ALBUTEROL 3 ML NEB INHALATION SCH (21:04)
[2023-06-24 04:35] LABS: African American GFR (CKD) >90 (>60 ml/min/1.73 sqM); Anion Gap 3 mmol/L; Blood Urea Nitrogen 10 mg/dL (9-20); Calcium 7.7 mg/dL (8.4-10.2); Carbon Dioxide 28 mmol/L (22-30); Chloride 96 mmol/L (98-107); Glucose 113 mg/dL (74-99); Magnesium 1.4 mg/dL (1.6-2.3); Non-African American GFR(CKD) >90 (>60 ml/min/1.73 sqM); Potassium 3.9 mmol/L (3.5-5.1); Sodium 127 mmol/L (137-145)
[2023-06-24] MEDS: LEVOTHYROXINE 75 MCG TAB PO ONE (09:08)
[2023-06-24 11:28] VITALS: RESP 18
[2023-06-24 14:22] VITALS: BP 128/84; PULSE 90
--- NOTE | 2023-06-24 14:39 | P.DS ---
Providers Date of admission: 06/19/23 13:55 Expected date of discharge: 06/24/23 Attending physician: Isiah Schumacher Consults: 06/20/23 15:37 Consult Physician Routine Consulting Provider: Kyle Ruiz Consult Reason/Comments: Right knee pain Do you want consulting provider notified?: Yes Primary care physician: [facility] Course: Chief Complaint: Weakness This is a 72-year-old patient, follows with visiting physician Dr. Ontiveros. Chronic stable medical condition include COPD, hypertension, hypothyroid, prior back surgery, anxiety. Patient presents following that he has had arthritis for quite some time. He developed increasing pain in the right knee and was also became swollen. Also has some pain in the left knee. To the point he was able to get up as result not able to eat. He was able to drink water. [place] tired. In the ER was found of significant electrolyte abnormalities. Denies any fever and chills. June 20: Admitted with multiple electrolyte abnormalities. Right knee acute OA flareup. Right knee pain is much better. Eating well. Fluid restriction. Has caregivers coming him to help him in the hospital. June 15: Stat labs ordered this morning came back later this afternoon. Magnesium still low. IV magnesium ordered. Patient right knee pain is better. Pending to go down to rehab. June 22: Patient this morning became rather anxious. Questionable panic attack. Given 1 dose of IV Lasix 40 mg. Placed on BiPAP. Doing better. Later in the day went back into nasal cannula. IV fluids discontinued. Supplement IV magnesium. June 23: Doing well on room air. Eating well. Patient will follow-up with dermatology Dr. Pabon for his chronic skin cancer which does not want to get treated. He is agreed to see Dr Pabon as outpatient. He will follow-up with orthopedics for his right knee. Discussion and discharge planning more than 35 minutes Social history: Smoked a pack a day for about 50 years stopped 3 years ago. Does use a cane occasionally. Lives alone. Used to work as a mery Physical examination: VITAL SIGNS: Afebrile, 90, 18, 128 x 84, 98% on 2 L GENERAL: Reclining in bed, comfortable EYES: Pupils equal. Conjunctiva rolando l. HEENT: External appearance of nose and ears normal, oral cavity grossly normal. NECK: JVD not raised; masses not palpable. HEART: First and second heart sounds are normal; no edema. LUNGS: Respiratory rate normal; decreased breath sounds. ABDOMEN: Soft, nontender, liver spleen not palpable, no masses palpable. PSYCH: Alert and oriented x3; mood and affect rolando l. MUSCULOSKELETAL:No Clubbing/cyanosis;muscles-grossly intact. Loss of muscle mass. Loss of subcutaneous fat. Prominent bones. Evidence significant OA specially both knees. Right greater than left some swelling NEUROLOGICAL: Cranial nerves grossly intact; no facial asymmetry, power and sensation grossly intact. INVESTIGATIONS, reviewed in the clinical context: June 23: Sodium 127 potassium 3.9 BUN 10 creatinine 0.55 magnesium 1.4 June 22, 2023: Sodium 129 potassium 3.9 creatinine 0.43 magnesium 0.8 June 21, 2023: Sodium 127 potassium 3.4 BUN 7 creatinine 0.39 calcium 6.9 magnesium 0.9 H11.1 June 20, 2023: Sodium 123 potassium 3 BUN 12 creatinine 0.54 glucose 117 calcium 6.7 magnesium 1.1 TSH 9.8 Free T41.92 June 19, 2023: White count 7.8 hemoglobin 10.4 platelets 539 sodium 122 potassium 2.9 BUN 15 creatinine 0.47 calcium 6.2 magnesium 0.5 albumin 2.9 UA: Negative EKG tracing personally reviewed by me-normal sinus rhythm. Poor baseline. Some ST-T wave changes. Assessment plan: -Severe hyponatremia.- hypoosmolar. Patient is barely eating but is drinking a lot of fluids. He is not able to get to food. Because of weakness in the legs: Improving Fluid restrict 1500 cc a day. Avoid free fluid like tea coffee water. Patient can have chicken broth juices etc. Follow serum sodium, -Moderate protein calorie malnutrition Ensure prescribed. Nutrition consulted -Acute flareup of osteoarthritis specially of the right knee. Right greater than left: Better Diclofenac sodium gel cream topically 4 times a day. Naproxen 250 mg 3 times daily. Seen by Dr. Cornell-conservative management as above - hypokalemia: Corrected Replace potassium -Severe hypomagnesemia: Slow to respond magnesium oxide to 400 mg 3 times daily IV magnesium given -Hypothyroid, Synthroid -Primary osteoarthritis multiple joints Naproxen -COPD in a previous smoker DuoNeb 4 times daily. Trelegy -Parkinson's disease Sinemet -Full code Disposition: [facility] for rehab Past Medical History Past Medical History: COPD, Hypertension, Thyroid Disorder Additional Past Medical History / Comment(s): engarged right ventricle History of Any Multi-Drug Resistant Organisms: None Reported Past Surgical History: Back Surgery Additional Past Surgical History / Comment(s): back surgery x3, thyroid removed Past Anesthesia/Blood Transfusion Reactions: No Reported Reaction Past Psychological History: No Psychological Hx Reported, Anxiety Smoking Status: Former smoker Past Alcohol Use History: Daily, Occasional Past Drug Use History: None Reported, Marijuana Plan - Discharge Summary Discharge Rx Participant: Yes New Discharge Prescriptions: New Diclofenac Sodium Gel [Voltaren 1% Gel] 4 gm TOPICAL QID gm Metoprolol Tartrate [Lopressor] 12.5 mg PO BID #1 tab Magnesium Oxide [Mag-Ox] 400 mg PO BID #60 tab Naproxen [Naprosyn] 250 mg PO BID #20 tab Calcium Carb-Vit D 500Mg-5Mcg [Oscal 500+D 5 Mcg (200 Iu)] 1 each PO BID- W/MEALS tab Ipratropium-Albuterol Nebulize [Duoneb 0.5 mg-3 mg/3 ml Soln] 3 ml INHALATION BID each Continue Omeprazole [PriLOSEC] 20 mg PO DAILY Levothyroxine Sodium 150 mcg PO DAILY Carbidopa-Levodopa ER 50-200Mg [Sinemet CR 50-200 mg] 1 tab PO TID Fluticasone/Umeclidin/Vilanter [Trelegy Ellipta 200-62.5-25] 1 puff INHALATION RT-DAILY@1400 Albuterol Inhaler [Ventolin Hfa Inhaler] 2 puff INHALATION RT-QID PRN PRN Reason: Shortness Of Breath Discontinued Propranolol [Inderal] 40 mg PO BID Discharge Medication List Albuterol Inhaler [Ventolin Hfa Inhaler] 2 puff INHALATION RT-QID PRN 10/11/22 [History] Carbidopa-Levodopa ER 50-200Mg [Sinemet CR 50-200 mg] 1 tab PO TID 10/11/22 [History] Fluticasone/Umeclidin/Vilanter [Trelegy Ellipta 200-62.5-25] 1 puff INHALATION RT-DAILY@1400 10/11/22 [History] Levothyroxine Sodium 150 mcg PO DAILY 10/11/22 [History] Omeprazole [PriLOSEC] 20 mg PO DAILY 06/19/23 [History] Calcium Carb-Vit D 500Mg-5Mcg [Oscal 500+D 5 Mcg (200 Iu)] 1 each PO BID-W/MEALS tab 06/22/23 [Rx] Diclofenac Sodium Gel [Voltaren 1% Gel] 4 gm TOPICAL QID gm 06/22/23 [Rx] Magnesium Oxide [Mag-Ox] 400 mg PO BID #60 tab 06/22/23 [Rx] Metoprolol Tartrate [Lopressor] 12.5 mg PO BID #1 tab 06/22/23 [Rx] Naproxen [Naprosyn] 250 mg PO BID #20 tab 06/22/23 [Rx] Ipratropium-Albuterol Nebulize [Duoneb 0.5 mg-3 mg/3 ml Soln] 3 ml INHALATION BID each 06/24/23 [Rx] Follow up Appointment(s)/Referral(s): Jones Pabon MD [STAFF PHYSICIAN] - 3 Weeks (skin cancer ) Esperanza Botello [Primary Care Provider] - 1-2 Days (Home MD) Kyle Ruiz DO [Doctor of Osteopathic Medicine] - 3 Weeks [facility] [NON-STAFF] - Discharge Disposition: TRANSFER TO SNF/ECF
[2023-06-24] MEDS ORDERED: METOPROLOL TARTRATE 12.5 MG TAB PO SCH (21:00)
== END 2023-06-24 13:27 | DRG 641 ==
LOC: EC 11:10 → 3SCARD 13:55
PROVIDERS: ADMIT Hospitalist; ATTEND Hospitalist
DX: E87.1 Hypo-osmolality and hyponatremia (principal); E44.0 Moderate protein-calorie malnutrition; S21.102A Unspecified open wound of left front wall of thorax without penetration into thoracic cavity, initial encounter; C44.90 Unspecified malignant neoplasm of skin, unspecified; E89.0 Postprocedural hypothyroidism; G62.9 Polyneuropathy, unspecified; E83.42 Hypomagnesemia; E83.51 Hypocalcemia; E86.0 Dehydration; E87.6 Hypokalemia; I10 Essential (primary) hypertension; J44.9 Chronic obstructive pulmonary disease, unspecified; F41.9 Anxiety disorder, unspecified; M17.11 Unilateral primary osteoarthritis, right knee; G20.A1 Parkinson's disease without dyskinesia, without mention of fluctuations; Z60.2 Problems related to living alone; E87.20 Acidosis, unspecified; M10.9 Gout, unspecified; S89.91XD Unspecified injury of right lower leg, subsequent encounter; W19.XXXD Unspecified fall, subsequent encounter; X50.1XXD Overexertion from prolonged static or awkward postures, subsequent encounter; Z68.21 Body mass index [BMI] 21.0-21.9, adult; Z28.21 Immunization not carried out because of patient refusal; Z28.310 Unvaccinated for COVID-19; Z79.890 Hormone replacement therapy; Z79.899 Other long term (current) drug therapy
CPT/HCPCS: 36415; 71045; 71046; 80048; 80053; 81003; 83605; 83735; 83930; 84300; 84439; 84443; 85025; 93005; 94660; 94760; 96361; 96365; 96366; 96375; 99285